=== PATIENT | female | born 1955 | race Caucasian/White ===

== ENCOUNTER → 2016-02-17 | Outpatient (CLI) | payer BC ==
[~2016-02-17] MED LIST: ASPI81TA28 PO; CONJ0.3T3 PO; DOCU-94 PO; GABA1CAP5 PO; GABA300C19 PO; IBUP-1050 PO; MULT-506 PO; NAPR1TAB9 PO; ONDA8TAB6 PO; POLY335019 PO; PROC1TAB5 PO; PSYL0.524 PO; PSYL48.59 PO; XLD/500 PO
--- NOTE | 2016-02-17 15:49 | MAMMOGRAPHY REPORT ---
BILATERAL DIGITAL SCREENING MAMMOGRAM WITH CAD: 02/17/2016 CLINICAL HISTORY: Routine screening. Patient has no complaints. TECHNIQUE: Bilateral CC and MLO views were obtained. Current study was also evaluated with a Comput er Aided Detection (CAD) system. COMPARISON: Comparison is made to exams dated: 02/13/2015 mammogram, 02/12/2014 mammogram, 02/10/20 13 mammogram, 02/08/2012 mammogram, 02/06/2011 mammogram, and 02/05/2010 mammogram - [facility]. BREAST COMPOSITION: There are scattered areas of fibroglandular density in both breasts. FINDINGS: There are stable grouped lucent centered calcifications in the far superior posterior righ t breast on the MLO view. Stable asymmetry in the slightly medial left breast. No new suspicious m ass, architectural distortion or cluster of microcalcifications is seen. IMPRESSION: ACR BI-RADS CATEGORY 1: NEGATIVE There is no mammographic evidence of malignancy. A 1 year screening mammogram is recommended. The p atient will receive written notification of the results. Approximately 10% of breast cancers are not detected with mammography. A negative mammographic repor t should not delay biopsy if a clinically suggestive mass is present. Marilee Tejada M.D. ay/:02/17/2016 14:29:42 [employer]: Vira LEVY)(Josse)(BD), [facility] letter sent: Normal 1/2 BI-RADS Code: ACR BI-RADS Category 1: Negative
== END | disposition home or self-care (01) ==
LOC: C.MAMM 13:49
PROVIDERS: ATTEND Obstetrics & Gynecology
DX: Z12.31 Encounter for screening mammogram for malignant neoplasm of breast (principal)

== ENCOUNTER → 2016-04-23 | Outpatient (CLI) | payer BC ==
--- NOTE | 2016-04-23 16:21 | DIAGNOSTIC IMAGING REPORT ---
L-SPINE MIN 4 VIEWS ROUTINE CLINICAL HISTORY: RECTAL PAIN back pain COMPARISON STUDY: No previous studies for comparison. FINDINGS: There are 5 lumbar type vertebral bodies. No fractures or subluxations are visualized. There is mild fecal retention. IMPRESSION: No fractures, subluxations, or destructive lesions are visualized. Electronically signed by: Roberth Banuelos M.D. 04/23/2016 4:20 PM Dictated Date/Time: 04/23/2016 4:19 PM
== END | disposition home or self-care (01) ==
LOC: C.RAD1850 15:50
PROVIDERS: ATTEND Family Medicine
DX: K62.89 Other specified diseases of anus and rectum (principal)

== ENCOUNTER → 2016-09-03 | Outpatient (CLI) | payer BC ==
[~2016-09-03] MED LIST changes: +ACET-1047 PO; +Boost PO; -CONJ0.3T3 PO; +FLM4 PO; -GABA300C19 PO; -IBUP-1050 PO; +LEVO500T19 PO; +MGNO400 PO; -MULT-506 PO; +PHEN-1043 PO
[2016-09-03 15:00] VITALS: BP 130/80; PULSE 84; TEMP 36.9; O2SAT 100
--- NOTE | 2016-09-03 16:02 | Radiation Oncology Follow-Up ---
Radiation Oncology Follow-Up Date of Visit Sep 03, 2016. (Barbra Thapa PA-C) Reason For Visit One-month follow-up and cancer survivorship care plan (Barbra Thapa PA-C) Radiation Completion Date finished 07-30-2016 (Barbra Thapa PA-C) Diagnosis (1) Rectal adenocarcinoma Status: Acute Onset Date: 05/15/2016 Stage: lll (B) Permanent Comment: 6 months of intermittent rectal pain and bleeding Status post colonoscopy and biopsy 05/15/2016 (Dr. Jorge L Benavides) Adenocarcinoma Status post EUS staging 05/18/2016 (Dr. New Jack) Stage uT3 uN1 Plan for combined neoadjuvant radiation and chemotherapy (Dr. Yogesh Crowe) Chemotherapy comprised of Xeloda Status post completion of radiation therapy 07/30/2016. She received 5040 cGy. Last Edited By: Barbra Thapa on Aug 10, 2016 16:27 (Barbra Thapa PA-C) History of Present Illness Ms. Eastman is a 60 year old female who presented with bleeding per rectum and some rectal discomfort for the last year. The patient was referred by her primary care physician to Dr. Jorge L Benavides who recommended a colonoscopy. The patient underwent a colonoscopy on 05/15/2016 which revealed an ulcerated partially obstructing large mass in the rectosigmoid region. The mass was circumferential beginning about 4-5 cm above the dentate line and extended to 13 cm and the mass measured 7-[address] Benavides performed a biopsy for the mass as well as several polyps which revealed invasive adenocarcinoma consistent with colorectal primary. The patient then underwent a endoscopic ultrasound with colonoscopy by Dr. Giacomo Jack on 05/18/2016 which revealed and confirmed a rectal mass which was staged as [id number]. At the time of the endoscopic evaluation, Dr. Kapadia described the mass as involving the distal rectal valve and was circumferential and appear to break through the muscularis propria and invade into the perirectal fat. Dr. Giacomo aJck noted there was no sonographic evidence of invasion into the adjacent structures including the anal internal sphincter and external anal sphincter. Dr. Kapadia did note one malignant-appearing lymph node that was most likely perirectal. The patient had a CT abdomen/pelvis on 05/19/2016 which revealed a rectal mass with no definite local invasion as well as a round/mildly suspicious presacral lymph node measuring 11 mm. The patient was seen in consultation by Dr. Hylton from surgical oncology who recommended preoperative chemoradiation therapy followed by surgical resection. The patient was also seen by Dr. Yogesh Crowe for medical oncology who agreed with those recommendations. The patient has been scheduled for an MRI of the pelvis and CT chest to complete the staging workup. We are now seeing the patient in consultation discussed the role of radiation therapy. Currently, the patient does have some rectal discomfort and minimal rectal bleeding. She has no other complaints. Status post completion of radiation therapy 07/30/2016. She received 5040 cGy (Barbra Thapa PA-C) Interim History She been doing well over this past month. She does have some mild discomfort after bowel movements. She has some trouble with constipation. She is using 2 stool softeners per day and uses Maalox on a regular basis. There is been no rectal bleeding. For the prevention of pain she continues on her gabapentin 3 times a day and Aleve twice a day. She has no abdominal pain. No pelvic pain denies difficulty with urination. She is seen the colorectal surgeon in follow- up. She'll be having preadmission on September 21 and surgery on September 29. She has for an MRI tomorrow. She is seen medical oncology. She has very apprehensive about a future IV chemotherapy. She has reviewed this with Dr. Crowe in medical oncology. She has requested that if she has future chemotherapy that this be any pill form. (Barbra Thapa PA-C) Allergies Coded Allergies: Codeine (Unverified Allergy, Intermediate, DIZZINESS, 04/05/15) Sulfa Antibiotics (Unverified Allergy, Intermediate, RASH, 04/05/15) Home Medications Scheduled Aspirin (Aspirin Ec), 81 MG PO DAILY Docusate Sodium (Colace), 2 CAP PO DAILY Gabapentin (Neurontin), 1 CAP PO TID Psyllium (Metamucil), 2 TABS PO DAILY Scheduled PRN Naproxen (Aleve), 220 MG PO Q12H PRN for Moderate Pain Ondansetron Hcl (Zofran), 8 MG PO Q8 PRN for Nausea Polyethylene Glycol 3350 (Miralax), 17 GM PO DAILY PRN for Constipation Prochlorperazine Maleate (Compazine), 1 TAB PO Q6 PRN for Nausea or Vomiting Review of Systems Gastrointestinal: Symptoms: Constipation GI Comments: taking stool softners and metamucil daily, pain after a BM Oral: Symptoms: No Problems Respiratory: Symptoms: WNL Urinary: Symptoms: Incontinence, Nocturia, Frequency Comments: nocturia 4-5 times ,urgency, denies pain or burning Skin: Symptoms: No Problems Other Skin Symptoms: "has flea bites on lower legs ", rectal area sore is sore after a BM Additional Notes: She completed a distress management report and answered "no" to all questions. (Barbra Thapa PA-C) Physical Exam Vital Signs Date Time Temp Pulse Resp B/P (MAP) Pulse Ox O2 Delivery O2 Flow Rate FiO2 09/03/16 15:00 36.9 84 20 130/80 100 Pain: Side: Bilateral Patient Pain Scale: 0 - 10 Initial Pain Intensity: 0.0 Fatigue: None General Appearance: no apparent distress Eyes: normal inspection, EOMI ENT: normal ENT inspection, hearing grossly normal Neck: no adenopathy, thyroid normal Respiratory/Chest: lungs clear, no respiratory distress, no accessory muscle use Cardiovascular: regular rate, rhythm, no gallop, no murmur Abdomen: non tender, soft, no organomegaly Anal / Rectum: Examination of the perineal area reveals no areas of wet or dry desquamation. There is no hyperpigmentation. There is no erythema or edema. There is no vaginal discharge. There is no perianal irritation. Extremities: no pedal edema Neurologic/Psychiatric: no motor/sensory deficits, alert, normal mood/affect Skin: warm/dry (Barbra Thapa PA-C) Laboratory Studies Test 07/22/16 14:34 07/29/16 14:35 White Blood Count 4.56 K/uL (4.8-10.8) 5.20 K/uL (4.8-10.8) Red Blood Count 3.83 M/uL (4.2-5.4) 3.60 M/uL (4.2-5.4) Hemoglobin 10.9 g/dL (12.0-16.0) 10.2 g/dL (12.0-16.0) Hematocrit 33.4 % (37-47) 31.7 % (37-47) Mean Corpuscular Volume 87.2 fL (80-100) 88.1 fL (80-100) Mean Corpuscular Hemoglobin 28.5 pg (25-34) 28.3 pg (25-34) Mean Corpuscular Hemoglobin Concent 32.6 g/dl (32-36) 32.2 g/dl (32-36) Platelet Count 227 K/uL (130-400) 261 K/uL (130-400) Mean Platelet Volume 8.5 fL (7.4-10.4) 9.1 fL (7.4-10.4) Neutrophils (%) (Auto) 61.2 % 72.3 % Lymphocytes (%) (Auto) 20.0 % 10.6 % Monocytes (%) (Auto) 6.6 % 9.8 % Eosinophils (%) (Auto) 11.6 % 6.3 % Basophils (%) (Auto) 0.2 % 0.6 % Neutrophils # (Auto) 2.79 K/uL (1.4-6.5) 3.76 K/uL (1.4-6.5) Lymphocytes # (Auto) 0.91 K/uL (1.2-3.4) 0.55 K/uL (1.2-3.4) Monocytes # (Auto) 0.30 K/uL (0.11-0.59) 0.51 K/uL (0.11-0.59) Eosinophils # (Auto) 0.53 K/uL (0-0.5) 0.33 K/uL (0-0.5) Basophils # (Auto) 0.01 K/uL (0-0.2) 0.03 K/uL (0-0.2) RDW Standard Deviation 52.2 fL (36.4-46.3) 58.1 fL (36.4-46.3) RDW Coefficient of Variation 18.2 % (11.5-14.5) 18.8 % (11.5-14.5) Immature Granulocyte % (Auto) 0.4 % 0.4 % Immature Granulocyte # (Auto) 0.02 K/uL (0.00-0.02) 0.02 K/uL (0.00-0.02) Sodium Level 146 mmol/L (136-145) 144 mmol/L (136-145) Potassium Level 3.7 mmol/L (3.5-5.1) 3.5 mmol/L (3.5-5.1) Chloride Level 109 mmol/L (98-107) 109 mmol/L (98-107) Carbon Dioxide Level 31 mmol/L (21-32) 28 mmol/L (21-32) Anion Gap 6.0 mmol/L (3-11) 7.0 mmol/L (3-11) Blood Urea Nitrogen 16 mg/dl (7-18) 16 mg/dl (7-18) Creatinine 0.57 mg/dl (0.60-1.20) 0.62 mg/dl (0.60-1.20) Est Creatinine Clear Calc Drug Dose 95.7 ml/min 88.0 ml/min Estimated GFR () 115.2 112.0 Estimated GFR (Non- 99.4 96.6 BUN/Creatinine Ratio 27.8 (10-20) 26.2 (10-20) Random Glucose 136 mg/dl (70-99) 134 mg/dl (70-99) Calcium Level 8.4 mg/dl (8.5-10.1) 8.4 mg/dl (8.5-10.1) Total Bilirubin 0.4 mg/dl (0.2-1) 0.4 mg/dl (0.2-1) Aspartate Amino Transferase (AST) 17 U/L (15-37) 14 U/L (15-37) Alanine Aminotransferase (ALT) 20 U/L (12-78) 21 U/L (12-78) Alkaline Phosphatase 83 U/L (45-117) 81 U/L (45-117) Total Protein 6.8 gm/dl (6.4-8.2) 6.8 gm/dl (6.4-8.2) Albumin 3.2 gm/dl (3.4-5.0) 3.1 gm/dl (3.4-5.0) Globulin 3.6 gm/dl (2.5-4.0) 3.7 gm/dl (2.5-4.0) Albumin/Globulin Ratio 0.9 (0.9-2) 0.8 (0.9-2) (Barbra Thapa PA-C) Assessment & Plan Plan: Patient is also seen today by Dr. Crowe. We reviewed with her the upcoming studies and surgery. She has for an MRI tomorrow. She has preadmission testing on September 21. The laparoscopic low anterior resection is scheduled for September 29. She'll continue on her current regimen of stool softener. A survivorship document was reviewed and given to the patient. We asked her to return to our office in 6 months. She may call if she has any questions or concerns in the interim. (Barbra Thapa PA-C) I agree with note created by Barbra Thapa PA-C. I reviewed the patient's chart and information with her. I have examined and evaluated the patient. I reviewed relevant clinical information and answered the patient's and/or family' s questions. (Veeral. Crowe MD) Total Time In Follow-Up I spent 20 minutes speaking to the patient performing examination. I spent 20 minutes reviewing information, preparing a survivorship document, and completing this note. (Barbra Thapa PA-C) I spent 15 minutes examining and counseling the patient. (Veeral. Crowe MD) Copy To Shaji Hylton D.O.; Giacomo Jcak MD; Syeda Benavides DO; Yogesh Crowe M.D.; Marylu Ojeda MD
== END | disposition home or self-care (01) ==
LOC: C.ONC 14:56
PROVIDERS: ATTEND Physician Assistant Medical
DX: Z08 Encounter for follow-up examination after completed treatment for malignant neoplasm (principal); Z92.3 Personal history of irradiation; Z85.048 Personal history of other malignant neoplasm of rectum, rectosigmoid junction, and anus

== ENCOUNTER → 2016-10-13 | Day surgery (SDC) | payer BC ==
[~2016-10-13] MED LIST changes: -PSYL48.59 PO; -XLD/500 PO
== END | disposition home or self-care (01) ==
LOC: C.ACU 13:44
PROVIDERS: ATTEND Family Medicine Adult Medicine
DX: K94.19 Other complications of enterostomy (principal); C20 Malignant neoplasm of rectum; G47.00 Insomnia, unspecified; M85.80 Other specified disorders of bone density and structure, unspecified site; E55.9 Vitamin D deficiency, unspecified; Z92.3 Personal history of irradiation

== ENCOUNTER 2016-11-20 18:00 | Inpatient (IN) | payer BC ==
[~2016-11-20] VITALS: Ht 167.6 cm; Wt 56.4 kg
[~2016-11-20 18:00] MED LIST changes: -ACET-1047 PO; -Boost PO; -FLM4 PO; -LEVO500T19 PO; -MGNO400 PO; -PHEN-1043 PO
[2016-11-20] MEDS ORDERED: SODIUM CHLORIDE 0.9% 1000ML 1,000 ML IV STA ×2 (19:16→22:24)
[2016-11-20] MEDS ORDERED: ONDANSETRON 8 MG/54 ML D5W IV STA (19:16)
[2016-11-20] MEDS ORDERED: OPTIRAY 320 IV PRN (19:30)
[2016-11-20 19:53] LABS: HEMATOCRIT 22.3 % (37-47); MEAN CELL VOLUME 77.7 fL (80-100); MEAN CORPUSCULAR HEMOGLOBIN 24.7 pg (25-34); MEAN CORPUSCULAR HGB CONC 31.8 g/dl (32-36); MEAN PLATELET VOLUME 8.8 fL (7.4-10.4); PLATELET COUNT 380 K/uL (130-400); RED BLOOD COUNT 2.87 M/uL (4.2-5.4); WHITE BLOOD COUNT 15.04 K/uL (4.8-10.8)
[2016-11-20 20:02] LABS: INR 1.2 (0.9-1.1); PROTHROMBIN TIME (PATIENT) 13.4 SECONDS (9.0-12.0)
[2016-11-20 20:10] LABS: ALT/SGPT 20 U/L (12-78); BLOOD UREA NITROGEN 10 mg/dl (7-18); BUN/CREATININE RATIO 11.1 (10-20); CALCIUM 8.4 mg/dl (8.5-10.1); CARBON DIOXIDE 25 mmol/L (21-32); CHLORIDE 99 mmol/L (98-107); CREATININE 0.92 mg/dl (0.60-1.20); GLUCOSE 154 mg/dl (70-99); MAGNESIUM 1.5 mg/dl (1.8-2.4); POTASSIUM 2.9 mmol/L (3.5-5.1); SODIUM 134 mmol/L (136-145)
--- NOTE | 2016-11-20 20:14 | EMERGENCY ROOM VISIT NOTE ---
History Report prepared by Josephine: Max Wilson Under the Supervision of: Dr. Dorota Singh D.O. First contact with patient: 19:04 Chief Complaint: CONSTIPATION Stated Complaint: CAN'T GO TO THE BATHROOM Nursing Triage Summary: pt states she has not had a BM in a week. patient has a colostomy. patient called PCP and was told to come to ER to r/o obstruction. patient states she has been taking miralax patient c/o nausea. dneies abdominal pain hx rectal adenocarcinoma last chemo 2 weeks ago did not get round of chemo this week because potassium is low. History of Present Illness The patient is a 61 year old female who presents to the Emergency Room with complaints of constant constipation for the past five days. The patient states that she has a history of rectal cancer and is currently being treated with chemotherapy. She reports that her last treatment was last week and she did not receive her treatment this week due to low potassium levels. She notes that she has not had a normal bowel movement in the last 5 days but has had one small bowel movement today that is soft and brown. The patient states that she has had a fever today and has vomited twice since this morning. She notes that she was able to keep fluids down with compazine and Zofran. The patient denies nausea before today, blood in her vomit, abdominal pain, rashes, sores, changes in medications, changes in food, bloating, irritation of her stoma, urinary symptoms, cough, cold. She has a previous history of Colostomy and had a small amount of brown stool in the bag today. She notes being on potassium pills and states that she has tried using Mirilax without relief of her symptoms. Source of History: patient Onset: five days ago Position: abdomen Timing: constant Associated Symptoms: + vomiting, No abdominal pain, No urinary symptoms, No rash Note: No blood in her vomit, change in medication, change in diet, bloating, or irritation in her stoma. Review of Systems See HPI for pertinent positives & negatives. A total of 10 systems reviewed and were otherwise negative. Past Medical & Surgical Medical Problems: (1) Hypokalemia (2) Left ureteral calculus (3) Rectal adenocarcinoma (4) Symptomatic anemia Family History No pertinent family history stated. Social History Smoking Status: Former Smoker Marital Status: Occupation Status: employed Current/Historical Medications Scheduled Aspirin (Aspirin Ec), 81 MG PO DAILY Docusate Sodium (Colace), 2 CAP PO DAILY Gabapentin (Neurontin), 400 MG PO TID Scheduled PRN Naproxen (Aleve), 220 MG PO Q12H PRN for Moderate Pain Ondansetron Hcl (Zofran), 8 MG PO Q8 PRN for Nausea Polyethylene Glycol 3350 (Miralax), 17 GM PO DAILY PRN for Constipation Prochlorperazine Maleate (Compazine), 10 MG PO Q6 PRN for Nausea or Vomiting Allergies Coded Allergies: Sulfa Antibiotics (Verified Allergy, Intermediate, RASH, 11/20/16) Codeine (Verified Adverse Reaction, Intermediate, DIZZINESS, 11/20/16) Physical Exam Vital Signs Date Time Temp Pulse Resp B/P (MAP) Pulse Ox O2 Delivery O2 Flow Rate FiO2 11/21/16 00:05 71 20 116/61 97 Room Air 11/20/16 22:59 37.5 72 20 116/54 97 Room Air 11/20/16 21:45 70 20 117/68 95 Room Air 11/20/16 20:00 89 18 121/62 97 Room Air 11/20/16 18:06 38.6 108 22 117/55 95 Room Air Physical Exam GENERAL: alert, well appearing, well nourished, no distress, non-toxic EYE EXAM: normal conjunctiva, PERRL and EOM's grossly intact OROPHARYNX: no exudate, no erythema, lips, buccal mucosa, and tongue normal and mucous membranes are dry NECK: supple, no nuchal rigidity, no adenopathy, non-tender LUNGS: Clear to auscultation. Normal chest wall mechanics HEART: no murmurs, S1 normal and S2 normal ABDOMEN: abdomen soft, non-tender, normo-active bowel sounds, no masses, no rebound or guarding. Brown stool in bag, no gross blood, stoma well appearing, normal appearing tissue BACK: Back is symmetrical on inspection and there is no deformity, no midline tenderness, no CVA tenderness. SKIN: no rashes and no bruising UPPER EXTREMITIES: upper extremities are grossly normal. LOWER EXTREMITIES: No pitting edema. NEURO EXAM: Normal sensorium, cranial nerves II-XII grossly intact, normal speech, no gross weakness of arms, no gross weakness of legs. Medical Decision & Procedures ER Provider Diagnostic Interpretation: Radiology results have been interpreted by the radiologist and reviewed by me. ABD/PELVIS IV AND ORAL CONT FINDINGS: Cnc Wood Lathe Operator topogram: Unremarkable. Lung bases: Minimal dependent changes likely atelectasis. Normal heart size. No pericardial or pleural effusion. Liver: Scattered parenchymal calcifications may indicate prior granulomatous infection. Few well-defined hypodensities noted, indeterminate but likely hepatic cysts. Patent hepatic vasculature. Biliary: No intrahepatic or extrahepatic biliary ductal dilatation. Normal gallbladder. Pancreas: Normal. Spleen: Parenchymal calcifications likely indicate prior granulomatous infection. Adrenal glands: Stable 1.8 cm left adrenal gland nodule. By density on prior noncontrast exam from 06/05/2016 (7 Hounsfield units), this is consistent with a benign adenoma. Right adrenal gland normal. Kidneys and ureters: Right kidney normal. Left kidney demonstrates mild hydronephrosis and heterogeneous hypoenhancement. There is overall slight enlargement of the left kidney. Upper pole and interpolar cysts again noted. Right ureter normal. Left ureter dilated with urothelial thickening evident. An obstructing 3 mm calculus noted at the left ureterovesical junction. Bladder: No bladder calculus. Bladder normal. Pelvic organs: Uterus and ovaries normal. Bowel: Postsurgical changes of sigmoidectomy with left descending colostomy. Craig's pouch is now seen. Infiltration and gas noted at the superior margin with the appearance concerning for anastomotic breakdown. Low-density wall thickening of the superior portion of the Craig's pouch suggests edema. Peritoneal cavity: Presacral and mesorectal fascial infiltration. No free intraperitoneal fluid or gas. Lymph nodes: No enlarged lymph nodes in the abdomen or pelvis. Vasculature: Atherosclerosis of the normal caliber abdominal aorta. IVC patent. Abdominal wall: Midline infraumbilical surgical incision. No fluid collection associated with the incision site or colostomy in the left mid abdomen. Musculoskeletal: Degenerative changes of the spine. IMPRESSION: 1. Obstructing 3 mm calculus at the left ureterovesical junction. Resultant left hydroureteronephrosis. The degree of heterogeneity of enhancement of the left kidney further raises concern for potential superimposed pyelonephritis. Correlate with urinalysis to exclude infection. 2. Postsurgical changes of sigmoidectomy and left descending colostomy. 3. Abnormal appearance of the Craig's pouch, which raises concern for chronic anastomotic breakdown. Rectal wall edema and diffuse presacral and mesorectal inflammatory change/granulation tissue. 4. Benign left adrenal gland adenoma. Electronically signed by: Best Guzman M.D. 11/20/2016 10:32 PM Dictated Date/Time: 11/20/2016 10:22 PM Laboratory Results Test 11/20/16 19:30 11/20/16 20:22 11/20/16 22:47 Nucleated RBC Absolute Count (auto) 0.02 K/uL (0-0) Nucleated Red Blood Cells % 0.1 % Prothrombin Time 13.4 SECONDS (9.0-12.0) Prothromb Time International Ratio 1.2 (0.9-1.1) Troponin I < 0.015 ng/ml (0-0.045) Globulin 4.4 gm/dl (2.5-4.0) Albumin/Globulin Ratio 0.4 (0.9-2) Urine Color YELLOW Urine Appearance CLEAR (CLEAR) Urine pH 7.5 (4.5-7.5) Urine Specific [place] 1.010 (1.000-1.030) Urine Protein 1+ (NEG) Urine Glucose (UA) NEG (NEG) Urine Ketones NEG (NEG) Urine Occult Blood TRACE (NEG) Urine Nitrite NEG (NEG) Urine Bilirubin NEG (NEG) Urine Urobilinogen NEG (NEG) Urine Leukocyte Esterase MODERATE (NEG) Urine WBC (Auto) >30 /hpf (0-5) Urine RBC (Auto) 0-4 /hpf (0-4) Urine Hyaline Casts (Auto) 1-5 /lpf (0-5) Urine Epithelial Cells (Auto) 0-5 /lpf (0-5) Urine Bacteria (Auto) NEG (NEG) Urine Pathogenic Casts /lpf (0) Lactic Acid Level 1.4 mmol/L (0.4-2.0) Date/Time Source Procedure Growth Status 11/20/16 20:22 Urine , Clean Catch Urine Culture - Final Escherichia Coli Complete Laboratory results per my review. Medications Administered Medications (Trade) Dose Ordered Sig/Caryn Route Start Time Stop Time Status Last Admin Dose Admin Sodium Chloride 1,000 ml @ 999 mls/hr Q1H1M STAT IV 11/20/16 19:16 11/20/16 20:16 DC 11/20/16 19:29 999 MLS/HR Ondansetron HCl (Zofran 8mg Iv) 8 mg NOW STAT IV 11/20/16 19:16 11/20/16 19:19 DC 11/20/16 19:29 8 MG Potassium Chloride (Klor-Con M10) 40 meq NOW STAT PO 11/20/16 20:42 11/20/16 20:48 DC 11/20/16 20:59 40 MEQ Piperacillin Sod/ Tazobactam Sod (Zosyn Iv) 3.375 gm NOW STAT IV 11/20/16 21:21 11/20/16 21:23 DC 11/20/16 23:03 3.375 GM Sodium Chloride 1,000 ml @ 999 mls/hr Q1H1M STAT IV 11/20/16 22:24 11/20/16 23:24 DC 11/20/16 22:24 999 MLS/HR ECG Indication: vomiting Rate (beats per minute): 77 Rhythm: sinus rhythm Findings: no acute ischemic change, other (Normal axis, normal interval, poor quality of tracing) ED Course 1906: The patient was evaluated in room B11. A complete history and physical exam was performed. 6: Zofran 8mg IV, Sodium Chloride 1,000 ml @ 999 mls/hr IV. 2: Potassium Chloride 40meq PO. 2220: Zosyn IV 3.375gm IV. 4: Sodium Chloride 1000 ml @ 999 mls/hr IV. 2242: I reevaluated and updated the patient. 2356: I spoke to Dr. Monroe - Jemima about the patients CT results. He notes that it is normal. 0012: I reviewed the patient's case with Dr. Guillory. He will evaluate the patient for further management. 0023: Upon reevaluation, the patient is doing well. I discussed the findings and the treatment plan with the patient. She expresses agreement and understanding. I spoke with Dr. Guillory of the [facility] Hospitalist Service. The patient will be evaluated for further management. Medical Decision Differential diagnosis: Etiologies such as appendicitis, diverticulitis, PUD, biliary pathology, UTI, pancreatitis, obstruction, mesenteric ischemia, aortic pathology, infections, inflammatory bowel disease, renal colic, as well as others were entertained. Likely pt's evolving UTI and kidney stone contributed to nausea which is why pt didn't take all of her usual bowel medications this week upon further questioning. This likely led to constipation. Pt dehydrated due to poor po intake, likely reasons for elevated lactate as this improved following IVF. Pt covered with antibiotics and cultures pending. CT revealed stone as well. Discussed with medicine, they will manage and consult urology. Discussed findings of chronic like at [place] pouch with electric container tester surgery at [facility]. They feel unlikely to be contributing to symptoms at this time. VS otw stable. Pt improved with meds. Admitted for additional treatment and monitoring. Doubt bacteremia/sepsis. Doubt vascular etiology. Anemia likely from chemotherapy. No neutropenic fever. No active bleeding. Medication Reconcilliation Current Medication List: was personally reviewed by me Blood Pressure Screening Patient's blood pressure: Normal blood pressure Blood pressure disposition: Did not require urgent referral Consults Time Called: 9 Consulting Physician: Dr. Guillory - [facility] Returned Call: 11 I reviewed the patient's case with Dr. Guillory. He will evaluate the patient for further management. Additional Consults: Time Called: [phone] Consulted Physician: Dr. Monroe - Surgery Returned Call: [phone] Additional Comments: I spoke to Dr. Diggs - Jemima about the patients CT results. Advises the chronic leak noted on CT is unlikely related to pt's presentation today. It will be followed up and be tested prior to re-anastamosis. Impression Primary Impression: UTI (urinary tract infection) Additional Impressions: Kidney stone Constipation Scribe Attestation The scribe's documentation has been prepared under my direction and personally reviewed by me in its entirety. I confirm that the note above accurately reflects all work, treatment, procedures, and medical decision making performed by me. Departure Information Dispostion Being Evaluated By Hospitalist Referrals Marylu Ojeda MD (PCP) Patient Instructions My [facility] Problem Qualifiers Primary Impression: UTI (urinary tract infection) Urinary tract infection type: acute cystitis Hematuria presence: with hematuria Qualified Codes: N30.01 - Acute cystitis with hematuria Additional Impressions: Constipation Constipation type: unspecified constipation type Qualified Codes: K59.00 - Constipation, unspecified
[2016-11-20 20:15] LABS: ALB/GLOB RATIO 0.4 (0.9-2); ALKALINE PHOSPHATASE 95 U/L (45-117); AST/SGOT 17 U/L (15-37)
[2016-11-20 20:20] LABS: BASO % 0.1 %; BASO ABS # 0.01 K/uL (0-0.2); COMPLETE YES; EOS % 0.1 %; IG% 2.1 %; LYMPH % 6.1 %; LYMPH ABS # 0.92 K/uL (1.2-3.4); MONO % 7.2 %; NEUT % 84.4 %; TOXIC GRANULATION 2+
[2016-11-20 20:39] LABS: URINE APPEARANCE CLEAR (CLEAR); URINE BILIRUBIN NEG (NEG); URINE COLOR YELLOW; URINE EPITHELIAL CELL AUTO 0-5 /lpf (0-5); URINE NITRITE NEG (NEG); URINE PH 7.5 (4.5-7.5); UROBILINOGEN NEG (NEG); ZZUR CULT IF INDIC CLEAN CATCH YES
[2016-11-20 20:41] LABS: MANUAL MICROSCOPIC REQUIRED? NO; REVIEW REQ? YES
[2016-11-20 20:42] LABS: SULFASALICYLIC ACID POS (NEG)
[2016-11-20] MEDS ORDERED: POTASSIUM CHLORIDE 10 MEQ TABCR PO STA (20:42)
[2016-11-20] MEDS ORDERED: PIPERACILLIN/TAZOBACTAM 3.375 GM/100ML D5W IV STA (21:21)
--- NOTE | 2016-11-20 22:33 | DIAGNOSTIC IMAGING REPORT ---
ABD/PELVIS IV AND ORAL CONT CLINICAL HISTORY: 61 years-old Female presenting with abd pain, n/v, constipation. TECHNIQUE: Multidetector CT of the abdomen and pelvis was performed after the administration of oral and intravenous contrast. IV contrast: 92 mL of Optiray 320. A dose lowering technique was used consistent with the principles of ALARA (as low as reasonably achievable). COMPARISON: 05/19/2016. CT DOSE (mGy.cm): The estimated cumulative dose is 274.84 mGy.cm. FINDINGS: Marking Room Supervisor topogram: Unremarkable. Lung bases: Minimal dependent changes likely atelectasis. Normal heart size. No pericardial or pleural effusion. Liver: Scattered parenchymal calcifications may indicate prior granulomatous infection. Few well-defined hypodensities noted, indeterminate but likely hepatic cysts. Patent hepatic vasculature. Biliary: No intrahepatic or extrahepatic biliary ductal dilatation. Normal gallbladder. Pancreas: Normal. Spleen: Parenchymal calcifications likely indicate prior granulomatous infection. Adrenal glands: Stable 1.8 cm left adrenal gland nodule. By density on prior noncontrast exam from 06/05/2016 (7 Hounsfield units), this is consistent with a benign adenoma. Right adrenal gland normal. Kidneys and ureters: Right kidney normal. Left kidney demonstrates mild hydronephrosis and heterogeneous hypoenhancement. There is overall slight enlargement of the left kidney. Upper pole and interpolar cysts again noted. Right ureter normal. Left ureter dilated with urothelial thickening evident. An obstructing 3 mm calculus noted at the left ureterovesical junction. Bladder: No bladder calculus. Bladder normal. Pelvic organs: Uterus and ovaries normal. Bowel: Postsurgical changes of sigmoidectomy with left descending colostomy. Craig's pouch is now seen. Infiltration and gas noted at the superior margin with the appearance concerning for anastomotic breakdown. Low-density wall thickening of the superior portion of the Craig's pouch suggests edema. Peritoneal cavity: Presacral and mesorectal fascial infiltration. No free intraperitoneal fluid or gas. Lymph nodes: No enlarged lymph nodes in the abdomen or pelvis. Vasculature: Atherosclerosis of the normal caliber abdominal aorta. IVC patent. Abdominal wall: Midline infraumbilical surgical incision. No fluid collection associated with the incision site or colostomy in the left mid abdomen. Musculoskeletal: Degenerative changes of the spine. IMPRESSION: 1. Obstructing 3 mm calculus at the left ureterovesical junction. Resultant left hydroureteronephrosis. The degree of heterogeneity of enhancement of the left kidney further raises concern for potential superimposed pyelonephritis. Correlate with urinalysis to exclude infection. 2. Postsurgical changes of sigmoidectomy and left descending colostomy. 3. Abnormal appearance of the Craig's pouch, which raises concern for chronic anastomotic breakdown. Rectal wall edema and diffuse presacral and mesorectal inflammatory change/granulation tissue. 4. Benign left adrenal gland adenoma. Electronically signed by: Best Guzman M.D. 11/20/2016 10:32 PM Dictated Date/Time: 11/20/2016 10:22 PM
[2016-11-21] VITALS (16 sets, daily range): BP systolic 105–149; BP diastolic 61–77; PULSE 54–74; TEMP 36.5–37.9; O2SAT 96–99; Ht 167.6 cm; Wt 56.4 kg
[2016-11-21] MEDS ORDERED: VANCOMYCIN INJ 1,000 MG in SODIUM CHLORIDE 0.9% 250ML 250 ML IV STA (00:42)
[2016-11-21] MEDS ORDERED: ACETAMINOPHEN IV 100 ML IV PRN (00:45)
[2016-11-21] MEDS ORDERED: MoRPHine SULFATE 4 MG/ML 1 ML CARP\\VIAL IV PRN (00:45)
[2016-11-21] MEDS ORDERED: PIPERACILL/TAZOBAC CONSULT ACTIVE PRN (01:15)
[2016-11-21] MEDS ORDERED: VANCOMYCIN CONSULT ACTIVE PRN (01:15)
[2016-11-21] MEDS ORDERED: VANCOMYCIN 1GM/270ML NSS ONE (01:18)
[2016-11-21] MEDS: NSS + 20MEQ KCL 1000ML 1,000 ML IV SCH ×3 (02:24→21:08)
[2016-11-21] MEDS: FAMOTIDINE IV INJ 20 MG in DEXTROSE 5% 100ML 100 ML IV SCH ×2 (02:25→13:20)
[2016-11-21] MEDS: ACETAMINOPHEN 325 MG TAB PO PRN (02:56)
[2016-11-21] MEDS ORDERED: ZOLPIDEM TARTRATE 5 MG TAB PO PRN (03:30)
[2016-11-21] MEDS: PIPERACILL/TAZOBAC IV 3.375 GM in DEXTROSE 5% 100ML 100 ML IV SCH ×3 (04:53→20:53)
--- NOTE | 2016-11-21 07:55 | History and Physical ---
History & Physical Date & Time of Service: Nov 21, 2016 at 07:40 Chief Complaint: Left Ureteral Calculus, Symptomatic Anemia Primary Care Physician: Marylu Ojeda MD History of Present Illness Source: patient, hospital records The patient is a 61-year-old female who presents to the emergency department with constipation over the past 5 days. She has rectal cancer, and has begun chemotherapy. She did not receive chemotherapy treatment this week due to low potassium levels. She had a fever today, and vomited twice since the morning. She has been able to keep fluids down with the use of Compazine and Zofran. She reports that she has small amount of brown stool in her colostomy bag today. She has not had any relief of her symptoms with MiraLAX. Past Medical/Surgical History Medical Problems: (1) Hypokalemia Status: Resolved (2) Rectal adenocarcinoma Permanent Comment: 6 months of intermittent rectal pain and bleeding Status post colonoscopy and biopsy 05/15/2016 (Dr. Jorge L Benavides) Adenocarcinoma Status post EUS staging 05/18/2016 (Dr. New Jack) Stage uT3 uN1 Plan for combined neoadjuvant radiation and chemotherapy (Dr. Yogesh Crowe) Chemotherapy comprised of Xeloda Status post completion of radiation therapy 07/30/2016. She received 5040 cGy. Status: Chronic Family History Noncontributory Social History Smoking Status: Never Smoker Smokeless Tobacco Use: No Alcohol Use: none Drug Use: none Marital Status: Occupational Status: employed Immunizations History of Influenza Vaccine: Unknown History of Tetanus Vaccine?: Unknown History of Pneumococcal: Unknown History of Hepatitis B Vaccine: Unknown Multi-Drug Resistant Organisms History of MDRO: No Allergies Coded Allergies: Sulfa Antibiotics (Verified Allergy, Intermediate, RASH, 11/20/16) Codeine (Verified Adverse Reaction, Intermediate, DIZZINESS, 11/20/16) Home Medications Scheduled Aspirin (Aspirin Ec), 81 MG PO DAILY Docusate Sodium (Colace), 2 CAP PO DAILY Gabapentin (Neurontin), 400 MG PO TID Scheduled PRN Naproxen (Aleve), 220 MG PO Q12H PRN for Moderate Pain Ondansetron Hcl (Zofran), 8 MG PO Q8 PRN for Nausea Polyethylene Glycol 3350 (Miralax), 17 GM PO DAILY PRN for Constipation Prochlorperazine Maleate (Compazine), 10 MG PO Q6 PRN for Nausea or Vomiting Review of Systems The patient denies chest pain, palpitations, shortness of breath, cough, lower extremity swelling, vision change, hearing change, sore throat, fevers, chills, sweats, blood in urine or stool, lightheadedness, dizziness, headache, memory loss, rash, abnormal bruising or bleeding, imbalance, focal weakness, numbness or tingling in arms or legs, generalized arthralgias or myalgias, neck pain, or night sweats. The review of systems is otherwise negative other than for that already noted above, and at least 10 systems have been reviewed. Physical Exam Vital Signs Date Time Temp Pulse Resp B/P (MAP) Pulse Ox O2 Delivery O2 Flow Rate FiO2 11/21/16 07:12 36.6 57 18 149/77 97 11/21/16 07:11 36.6 57 16 149/77 (101) 97 Room Air 11/21/16 06:45 36.6 62 16 144/77 98 11/21/16 06:30 36.8 60 16 134/75 98 11/21/16 06:10 36.8 63 16 131/74 97 11/21/16 05:50 36.7 64 16 121/61 96 11/21/16 04:50 36.5 67 15 118/70 98 11/21/16 03:50 37.8 73 16 105/68 96 11/21/16 03:20 37.4 73 14 113/67 97 11/21/16 03:05 37.6 73 16 118/76 96 11/21/16 02:49 37.9 74 17 107/65 97 11/21/16 01:30 Room Air 11/21/16 01:22 74 16 92/72 97 11/21/16 00:52 Room Air 11/21/16 00:05 71 20 116/61 97 Room Air 11/20/16 22:59 37.5 72 20 116/54 97 Room Air 11/20/16 21:45 70 20 117/68 95 Room Air 11/20/16 20:00 89 18 121/62 97 Room Air 11/20/16 18:06 38.6 108 22 117/55 95 Room Air The patient is awake, well-developed and adequately nourished, alert and oriented 3, normocephalic and atraumatic, lying in bed and in no acute distress. HEENT--PERRL, EOMI, mucous membranes and oropharynx dry. Neck--supple, no JVD or bruits, thyroid normal, trachea midline, no adenopathy. Heart--normal S1 and S2, no extra beats, no murmurs, rubs or gallops. Lungs--clear bilaterally with good air movement, no respiratory distress, no accessory muscle use. Abdomen--normal bowel sounds and soft, nontender and nondistended, no hernias or masses, no organomegaly. Colostomy with brown stool. Extremities--no cyanosis, clubbing or edema. There are good distal pulses b/l. Dermatologic--normal skin turgor, normal color, warm and dry, no abnormal lymph nodes, no rash. Neurologic--cranial nerves II through XII grossly intact. Rheumatologic--normal range of motion, nontender, muscles and joints. Psychiatric--normal affect. Diagnostics Laboratory Results Results Past 24 Hours Test 11/20/16 19:30 11/20/16 20:22 11/20/16 22:47 Range/Units White Blood Count 15.04 4.8-10.8 K/uL Red Blood Count 2.87 4.2-5.4 M/uL Hemoglobin 7.1 12.0-16.0 g/dL Hematocrit 22.3 37-47 % Mean Corpuscular Volume 77.7 80-100 fL Mean Corpuscular Hemoglobin 24.7 25-34 pg Mean Corpuscular Hemoglobin Concent 31.8 32-36 g/dl Platelet Count 380 130-400 K/uL Mean Platelet Volume 8.8 7.4-10.4 fL Neutrophils (%) (Auto) 84.4 % Lymphocytes (%) (Auto) 6.1 % Monocytes (%) (Auto) 7.2 % Eosinophils (%) (Auto) 0.1 % Basophils (%) (Auto) 0.1 % Neutrophils # (Auto) 12.70 1.4-6.5 K/uL Lymphocytes # (Auto) 0.92 1.2-3.4 K/uL Monocytes # (Auto) 1.08 0.11-0.59 K/uL Eosinophils # (Auto) 0.01 0-0.5 K/uL Basophils # (Auto) 0.01 0-0.2 K/uL RDW Standard Deviation 48.7 36.4-46.3 fL RDW Coefficient of Variation 17.1 11.5-14.5 % Immature Granulocyte % (Auto) 2.1 % Immature Granulocyte # (Auto) 0.32 0.00-0.02 K/uL Nucleated RBC Absolute Count (auto) 0.02 0-0 K/uL Nucleated Red Blood Cells % 0.1 % Toxic Granulation 2+ Prothrombin Time 13.4 9.0-12.0 SECONDS Prothromb Time International Ratio 1.2 0.9-1.1 Sodium Level 134 136-145 mmol/L Potassium Level 2.9 3.5-5.1 mmol/L Chloride Level 99 98-107 mmol/L Carbon Dioxide Level 25 21-32 mmol/L Anion Gap 11.0 3-11 mmol/L Blood Urea Nitrogen 10 7-18 mg/dl Creatinine 0.92 0.60-1.20 mg/dl Est Creatinine Clear Calc Drug Dose 55.7 ml/min Estimated GFR () 76.8 Estimated GFR (Non- 66.3 BUN/Creatinine Ratio 11.1 10-20 Random Glucose 154 70-99 mg/dl Lactic Acid Level 3.2 1.4 0.4-2.0 mmol/L Calcium Level 8.4 8.5-10.1 mg/dl Magnesium Level 1.5 1.8-2.4 mg/dl Total Bilirubin 0.3 0.2-1 mg/dl Aspartate Amino Transf (AST/SGOT) 17 15-37 U/L Alanine Aminotransferase (ALT/SGPT) 20 12-78 U/L Alkaline Phosphatase 95 45-117 U/L Troponin I < 0.015 0-0.045 ng/ml Total Protein 6.3 6.4-8.2 gm/dl Albumin 1.9 3.4-5.0 gm/dl Globulin 4.4 2.5-4.0 gm/dl Albumin/Globulin Ratio 0.4 0.9-2 Urine Color YELLOW Urine Appearance CLEAR CLEAR Urine pH 7.5 4.5-7.5 Urine Specific [place] 1.010 1.000-1.030 Urine Protein 1+ NEG Urine Glucose (UA) NEG NEG Urine Ketones NEG NEG Urine Occult Blood TRACE NEG Urine Nitrite NEG NEG Urine Bilirubin NEG NEG Urine Urobilinogen NEG NEG Urine Leukocyte Esterase MODERATE NEG Urine WBC (Auto) >30 0-5 /hpf Urine RBC (Auto) 0-4 0-4 /hpf Urine Hyaline Casts (Auto) 1-5 0-5 /lpf Urine Epithelial Cells (Auto) 0-5 0-5 /lpf Urine Bacteria (Auto) NEG NEG Urine Pathogenic Casts 0 /lpf Microbiology Results 11/20/16 Blood Culture, Received Pending 11/20/16 Blood Culture, Received Pending 11/20/16 Urine Culture, Received Pending Diagnostic Radiology Patient Name: CHRIS MCCALL Unit Number: [id number] Dictated: 11/20/162221 Transcribed: 11/20/162221 PBS Printed Date/Time: [~ rep prt dt]/[~ rep prt tm] [~ rep ct labl] - [~ rep ct ivnm] [facility] [place] [address] Dictated: 11/20/162221 Transcribed: 11/20/162221 PBS Printed Date/Time: [~ rep prt dt]/[~ rep prt tm] [~ rep ct labl] - [~ rep ct ivnm] ABD/PELVIS IV AND ORAL CONT CLINICAL HISTORY: 61 years-old Female presenting with abd pain, n/v, constipation. TECHNIQUE: Multidetector CT of the abdomen and pelvis was performed after the administration of oral and intravenous contrast. IV contrast: 92 mL of Optiray 320. A dose lowering technique was used consistent with the principles of ALARA (as low as reasonably achievable). COMPARISON: 05/19/2016. CT DOSE (mGy.cm): The estimated cumulative dose is 274.84 mGy.cm. FINDINGS: [employer] topogram: Unremarkable. Lung bases: Minimal dependent changes likely atelectasis. Normal heart size. No pericardial or pleural effusion. Liver: Scattered parenchymal calcifications may indicate prior granulomatous infection. Few well-defined hypodensities noted, indeterminate but likely hepatic cysts. Patent hepatic vasculature. Biliary: No intrahepatic or extrahepatic biliary ductal dilatation. Normal gallbladder. Pancreas: Normal. Spleen: Parenchymal calcifications likely indicate prior granulomatous infection. Adrenal glands: Stable 1.8 cm left adrenal gland nodule. By density on prior noncontrast exam from 06/05/2016 (7 Hounsfield units), this is consistent with a benign adenoma. Right adrenal gland normal. Kidneys and ureters: Right kidney normal. Left kidney demonstrates mild hydronephrosis and heterogeneous hypoenhancement. There is overall slight enlargement of the left kidney. Upper pole and interpolar cysts again noted. Right ureter normal. Left ureter dilated with urothelial thickening evident. An obstructing 3 mm calculus noted at the left ureterovesical junction. Bladder: No bladder calculus. Bladder normal. Pelvic organs: Uterus and ovaries normal. Bowel: Postsurgical changes of sigmoidectomy with left descending colostomy. Craig's pouch is now seen. Infiltration and gas noted at the superior margin with the appearance concerning for anastomotic breakdown. Low-density wall thickening of the superior portion of the Craig's pouch suggests edema. Peritoneal cavity: Presacral and mesorectal fascial infiltration. No free intraperitoneal fluid or gas. Lymph nodes: No enlarged lymph nodes in the abdomen or pelvis. Vasculature: Atherosclerosis of the normal caliber abdominal aorta. IVC patent. Abdominal wall: Midline infraumbilical surgical incision. No fluid collection associated with the incision site or colostomy in the left mid abdomen. Musculoskeletal: Degenerative changes of the spine. IMPRESSION: 1. Obstructing 3 mm calculus at the left ureterovesical junction. Resultant left hydroureteronephrosis. The degree of heterogeneity of enhancement of the left kidney further raises concern for potential superimposed pyelonephritis. Correlate with urinalysis to exclude infection. 2. Postsurgical changes of sigmoidectomy and left descending colostomy. 3. Abnormal appearance of the Craig's pouch, which raises concern for chronic anastomotic breakdown. Rectal wall edema and diffuse presacral and mesorectal inflammatory change/granulation tissue. 4. Benign left adrenal gland adenoma. Electronically signed by: Best Guzman M.D. 11/20/2016 10:32 PM Dictated Date/Time: 11/20/2016 10:22 PM The status of this report is Signed. Draft = Not yet reviewed or approved by Radiologist. Signed = Reviewed and approved by Radiologist. <AttendingPhy></AttendingPhy> <FamilyPhy>Marylu Ojdea MD</FamilyPhy> < PrimaryPhy>Marylu Ojeda MD</PrimaryPhy> <UnitNumber>[id number]</UnitNumber > <VisitNumber>[id number]</VisitNumber> <PatientName>CAL,CHRIS A</ PatientName> <DateOfBirth>1955</DateOfBirth> <Location>C[facility]</Location> < ServiceDate>11/20/16</ServiceDate> <MNE>ESINDI</MNE> <OrderingPhy>Dorota Singh DO</OrderingPhy> <OrderingPhyMNE>f rep ord dr miller</OrderingPhyMNE> < DictatingPhyMNE>f rep dict dr miller</DictatingPhyMNE> <CCListMNE>f rep ct mne</ CCListMNE> <AdmittingPhyMNE>f pt admit dr miller</AdmittingPhyMNE> <AttendingPhyMNE >f pt attend dr miller</AttendingPhyMNE> <ConsultingPhyMNE>f pt consult dr miller</ConsultingPhyMNE> <FamilyPhyMNE>f pt fam dr miller</FamilyPhyMNE> <OtherPhyMNE>f pt other dr miller</OtherPhyMNE> < PrimaryPhyMNE>f pt prim care dr miller</PrimaryPhyMNE> <ReferringPhyMNE>f pt referring dr miller</ReferringPhyMNE> Impression Assessment and Plan 3 mm left UVJ calculus with mild hydro-ureterohydronephrosis-- Admit to the medical surgical floor. Zosyn 3.375 mg IV every 6 hours. NSS with KCl 20 mEq at 100 ML's per hour. Follow urine culture and sensitivity reports. Symptomatic anemia-- hemoglobin on admission 7.1, with most recent being over 10. Likely decreased secondary to chemotherapy. Transfuse 2 units packed RBCs, leuko-depleted and irradiated. Hypokalemia/hypomagnesemia-- replete with oral and IV supplementation Serial BMP and magnesium levels. Peripheral neuropathy-- Continue gabapentin 40 mg by mouth 3 times a day. Level of Care Med/Surg Advanced Directives Existing Advance Directive: No Existing Living Will: No Existing Power of Chemical Waste Management Technician: No Resuscitation Status FULL RESUSCITATION VTE Prophylaxis VTE Risk Assessment Done? Y/N: Yes Risk Level: Moderate Given or contraindicated: SCD's Social Service Consult Cancer Patient Under [place]
[2016-11-21] MEDS: ONDANSETRON INJ 2 MG/ML 2 ML VIAL IV PRN ×2 (09:26→16:47)
[2016-11-21 11:54] LABS: MEAN CELL VOLUME 79.2 fL (80-100); MEAN CORPUSCULAR HEMOGLOBIN 26.2 pg (25-34); MEAN CORPUSCULAR HGB CONC 33.1 g/dl (32-36); MEAN PLATELET VOLUME 8.5 fL (7.4-10.4); PLATELET COUNT 294 K/uL (130-400); RED BLOOD COUNT 3.66 M/uL (4.2-5.4); WHITE BLOOD COUNT 13.26 K/uL (4.8-10.8)
[2016-11-21 12:25] LABS: BASO % 0.2 %; BASO ABS # 0.02 K/uL (0-0.2); COMPLETE YES; EOS % 0.5 %; IG% 2.1 %; MONO % 6.7 %; NEUT % 84.5 %; TOXIC GRANULATION 2+
[2016-11-21 12:32] LABS: BUN/CREATININE RATIO 9.4 (10-20); CREATININE 0.7 mg/dl (0.60-1.20); MAGNESIUM 1.5 mg/dl (1.8-2.4); POTASSIUM 3.7 mmol/L (3.5-5.1)
[2016-11-21] MEDS: MAGNESIUM SULFATE 1GM / D5W 1 GM in PREMIXED IN D5W 100 ML IV SCH ×2 (17:53→19:29)
[2016-11-21] MEDS ORDERED: TAMSULOSIN HCL 0.4 MG CAP PO ONE (19:30)
--- NOTE | 2016-11-21 19:31 | Progress Note ---
Progress Note Date of Service Nov 21, 2016. Progress Note seen in f/u from early AM admission overall feeling better - no significant pain/f/c/s. discussed w pt and family and updated on dx and plans she asks about flomax all other ROS otherwise negative except for as above vitals noted nad breathing unlabored no pallor or icterus no focal deficits, L upper chest port noted ureterolithiasis w hydronephrosis complicated by UTI w sepsis -fortunately sepsis improving -continue zosyn pending ID&S on Cx -follow blood cultures -hemodynamically stable -add flomax -await further urology input symptomatic anemia -likely related to treatment for rectal cancer -improved post 2 units -no signs of active bleeding -follow CBC rectal cancer -adds to current frailty leading to above hypomagnesemia -likely relates to chemo -replace mag ox ongoing -repeat mag level periodically - anticipate slow resolution hypokalemia -repleted, recheck in AM moderate/severe protein malnutrition -likely relates to chemo -adds to frailty and likelihood of suffering comorbidities -add protein shakes DVT proph -pharmacologic w relative contraindication until clear that she's not bleeding ( ongoing f/u of clinical status and CBC, but if stable and ongoing inpatient stay , then could consider) -mechanical proph of dubious benefit and possible harm (falls, skin breakdown)
[2016-11-21] MEDS: MAGNESIUM OXIDE 400 MG TAB PO SCH (20:53)
[2016-11-21] MEDS: BOOST VANILLA PO SCH ×2 (20:53)
--- NOTE | 2016-11-21 22:29 | Urology Consultation ---
History General Date of Service: Nov 21, 2016. Primary Care Physician: Marylu Ojeda MD Pt seen a urologist before?: No History of Present Illness 61 y/o female who presented to the ED yesterday with constipation. Fever. Nausea. Vomitting. She has a hx of rectal ca and has begun chemotherapy. Labs were checked and she was found to have an elevated WBC and a Hs of 7. A CT scan was performed which showed a 3mm left UVJ stone with hydro and heterogeneous appearing left kidney. Urinalysis showed likely infx. She was admitted to hospital for further evaluation. She has minimal pain on the left flank. No hematuria. No dysuria. Urge and freq. She does report sig constipation and abd bloating. Imaging Imaging: CT Laboratory Labs were reviewed and are within normal limits unless listed below. Labs are available in the chart and at [facility] Problem List Medical Problems: (1) Constipation Status: Acute (2) Kidney stone Status: Acute (3) Rib injury Status: Acute (4) UTI (urinary tract infection) Status: Acute Past History cancer - colon, other Past Surgical History: other Social History Hx Tobacco Use In Past Year?: No (Quit 8yrs ago;2 PPD since age 14yo) Smoking: non-smoker Alcohol: no current use Marital status: Occupation status: employed Immunizations History of Influenza Vaccine: Unknown History of Tetanus Vaccine?: Unknown History of Pneumococcal: Unknown History of Hepatitis B Vaccine: Unknown History of MDRO No Allergies Coded Allergies: Sulfa Antibiotics (Verified Allergy, Intermediate, RASH, 11/20/16) Codeine (Verified Adverse Reaction, Intermediate, DIZZINESS, 11/20/16) Medications Home Medications: Home Meds and Scripts Medications Dose Route/Sig Max Daily Dose Days Date Category Aleve (Naproxen) 220 Mg Tab 220 Mg PO Q12H PRN 07/22/16 Reported Neurontin (Gabapentin) 400 Mg Cap 400 Mg PO TID 30 06/22/16 Reported Compazine (Prochlorperazine Maleate) 10 Mg Tab 10 Mg PO Q6 PRN 7 06/02/16 Reported Zofran (Ondansetron HCl) 8 Mg Tab 8 Mg PO Q8 PRN 06/02/16 Reported Miralax (Polyethylene Glycol 3350) 1 Pow Pow 17 Gm PO DAILY PRN 06/02/16 Reported Colace (Docusate Sodium) 100 Mg Cap 2 Cap PO DAILY 15 06/02/16 Reported Aspirin Ec (Aspirin) 81 Mg Tab 81 Mg PO DAILY 04/05/15 Reported Inpatient Medications: Current Inpatient Medications Medications (Trade) Dose Ordered Sig/Caryn Route Start Time Stop Time Status Last Admin Dose Admin Ioversol (Optiray 320) 111 ml UD PRN IV 11/20/16 19:30 11/24/16 19:29 Acetaminophen (Tylenol Tab) 650 mg Q4H PRN PO 11/21/16 00:45 12/21/16 00:44 11/21/16 02:56 650 MG Ondansetron HCl (Zofran Inj) 4 mg Q6H PRN IV 11/21/16 00:45 12/21/16 00:44 11/21/16 16:47 4 MG Piperacillin Sod/ Tazobactam Sod 3.375 gm/Dextrose 115 ml @ 28 mls/hr Q8H IV 11/21/16 04:00 12/01/16 03:59 11/21/16 20:53 28 MLS/HR Potassium Chloride/Sodium Chloride 1,000 ml @ 100 mls/hr Q10H IV 11/21/16 02:00 12/21/16 01:59 11/21/16 21:08 100 MLS/HR Acetaminophen 100 ml @ 400 mls/hr Q8H PRN IV 11/21/16 00:45 12/21/16 00:44 Famotidine 20 mg/ Dextrose 102 ml @ 200 mls/hr Q12H IV 11/21/16 02:00 12/21/16 01:59 11/21/16 13:20 200 MLS/HR Morphine Sulfate (MoRPHine SULFATE INJ) 4 mg Q2H PRN IV 11/21/16 00:45 12/05/16 00:44 Piperacillin Sod/ Tazobactam Sod (Consult) 1 ea UD PRN N/A 11/21/16 01:15 12/21/16 01:14 Zolpidem Tartrate (Ambien Tab) 5 mg HS PRN PO 11/21/16 03:30 12/21/16 03:29 Tamsulosin HCl (Flomax Cap) 0.4 mg BID PO 11/22/16 09:00 12/22/16 08:59 Magnesium Oxide (Mag-Ox Tab) 400 mg BID PO 11/21/16 21:00 12/21/16 20:59 11/21/16 20:53 400 MG Enteral Nutritional Formula (Boost) 1 can TID PO 11/21/16 21:00 12/21/16 20:59 11/21/16 20:53 1 CAN Review of Systems Review of Systems Constitutional: + fever, + chills Eyes: No blurred vision Neurological: No dizzy Endocrine: No excessive thirst Gastrointestinal: + abdominal pain Cardiovascular: No chest pain Respiratory: No shortness of breath Skin: No rash Musculoskeletal: No joint pain Female : + frequent urination All Other Systems: Reviewed and Negative Physical Exam Vital Signs: Vital Signs Past 12 Hours Date Time Temp Pulse Resp B/P (MAP) Pulse Ox O2 Delivery O2 Flow Rate FiO2 11/21/16 15:30 Room Air 11/21/16 15:08 36.7 67 14 133/76 (95) 99 Room Air Physical Exam: General Appearance: no apparent distress ENT: normal ENT inspection Neck: supple Respiratory/Chest: lungs clear Cardiovascular: regular rate, rhythm Extremities: normal range of motion Neurologic/Psychiatric: no motor/sensory deficits, alert Skin: warm/dry Lymphatic: no adenopathy Assessment & Plan Assessment & Plan (1) UTI (urinary tract infection) Status: Acute (2) Left ureteral calculus The patient has a left distal ureteral calculus. It is small in size and very close to passing. Her Cr is normal. Her WBC is improving. Urine likely infected. I suspect underlying pyelo as well given the appearance of the left kidney on CT scan. If the patient is unable to pass the stone in 24 hours, then will likely plan to proceed with Ureteroscopy and stent placement; however , if she continues to improve clinically, it may also be an option to continue to observe and allow spontaneous passage. Will re-eval tomorrow to decide.
[2016-11-22] MEDS: FAMOTIDINE IV INJ 20 MG in DEXTROSE 5% 100ML 100 ML IV SCH ×2 (01:51→13:34)
[2016-11-22] MEDS: PIPERACILL/TAZOBAC IV 3.375 GM in DEXTROSE 5% 100ML 100 ML IV SCH ×2 (04:26→12:00)
[2016-11-22 06:32] LABS: BUN/CREATININE RATIO 8.8 (10-20); CALCIUM 7.7 mg/dl (8.5-10.1); CREATININE 0.49 mg/dl (0.60-1.20); POTASSIUM 3.6 mmol/L (3.5-5.1)
[2016-11-22 06:52] LABS: HEMATOCRIT 26.7 % (37-47); MEAN CELL VOLUME 79.5 fL (80-100); MEAN CORPUSCULAR HEMOGLOBIN 25.3 pg (25-34); MEAN CORPUSCULAR HGB CONC 31.8 g/dl (32-36); PLATELET COUNT 279 K/uL (130-400); RED BLOOD COUNT 3.36 M/uL (4.2-5.4); WHITE BLOOD COUNT 8.82 K/uL (4.8-10.8)
[2016-11-22] MEDS: NSS + 20MEQ KCL 1000ML 1,000 ML IV SCH ×2 (07:01→16:51)
[2016-11-22 07:06] VITALS: BP 152/73; PULSE 53; TEMP 36.5; O2SAT 93
[2016-11-22 07:37] LABS: BASO % 0.1 %; BASO ABS # 0.01 K/uL (0-0.2); COMPLETE YES; EOS % 1.6 %; IG% 2.5 %; LYMPH % 9.2 %; LYMPH ABS # 0.81 K/uL (1.2-3.4); MONO % 7.6 %; TOXIC GRANULATION 1+
[2016-11-22] MEDS: MAGNESIUM OXIDE 400 MG TAB PO SCH ×2 (07:47→21:12)
[2016-11-22] MEDS: TAMSULOSIN HCL 0.4 MG CAP PO SCH ×2 (07:48→21:12)
[2016-11-22] MEDS: BOOST VANILLA PO SCH ×6 (08:26→21:15)
[2016-11-22] MEDS: ONDANSETRON INJ 2 MG/ML 2 ML VIAL IV PRN ×2 (08:26→17:54)
--- NOTE | 2016-11-22 09:26 | Progress Note ---
Subjective Date of Service: Nov 22, 2016. Subjective Pt evaluation today including: conversation w/ patient, physical exam, chart review, lab review Pt has yet to see the stone pass. Now having more urge, freq, and urinary incont. No hem. No dys. No flank pain. Pt would like to hold off on surgery in hopes of passing the stone on her own WBC: 8.8 H.5 Cr: 0.49 Urine Cx: E. Coli Blood Cx: Gram + Cocci Problem List Medical Problems: (1) Constipation Status: Acute (2) Kidney stone Status: Acute (3) Rib injury Status: Acute (4) UTI (urinary tract infection) Status: Acute Review of Systems Constitutional: No fever, No chills Respiratory: No shortness of breath Cardiac: No chest pain Female : + incontinence, No dysuria, No hematuria Objective Vital Signs Date Time Temp Pulse Resp B/P (MAP) Pulse Ox O2 Delivery O2 Flow Rate FiO2 11/22/16 08:18 Room Air 11/22/16 07:06 36.5 53 16 152/73 (99) 93 Room Air 11/21/16 23:16 36.8 67 16 126/72 (90) 96 Room Air 11/21/16 23:15 Room Air 11/21/16 15:30 Room Air 11/21/16 15:08 36.7 67 14 133/76 (95) 99 Room Air Physical Exam General Appearance: no apparent distress Respiratory/Chest: lungs clear Cardiovascular: regular rate, rhythm Abdomen: non tender, soft Neurologic/Psychiatric: alert, normal mood/affect Skin: no rash Laboratory Results Last 24 Hours Test 11/21/16 11:37 11/22/16 05:35 11/22/16 09:05 White Blood Count 13.26 K/uL 8.82 K/uL Red Blood Count 3.66 M/uL 3.36 M/uL Hemoglobin 9.6 g/dL 8.5 g/dL Hematocrit 29.0 % 26.7 % Mean Corpuscular Volume 79.2 fL 79.5 fL Mean Corpuscular Hemoglobin 26.2 pg 25.3 pg Mean Corpuscular Hemoglobin Concent 33.1 g/dl 31.8 g/dl Platelet Count 294 K/uL 279 K/uL Mean Platelet Volume 8.5 fL 9.0 fL Neutrophils (%) (Auto) 84.5 % 79.0 % Lymphocytes (%) (Auto) 6.0 % 9.2 % Monocytes (%) (Auto) 6.7 % 7.6 % Eosinophils (%) (Auto) 0.5 % 1.6 % Basophils (%) (Auto) 0.2 % 0.1 % Neutrophils # (Auto) 11.20 K/uL 6.97 K/uL Lymphocytes # (Auto) 0.80 K/uL 0.81 K/uL Monocytes # (Auto) 0.89 K/uL 0.67 K/uL Eosinophils # (Auto) 0.07 K/uL 0.14 K/uL Basophils # (Auto) 0.02 K/uL 0.01 K/uL RDW Standard Deviation 46.3 fL 46.9 fL RDW Coefficient of Variation 16.1 % 16.3 % Immature Granulocyte % (Auto) 2.1 % 2.5 % Immature Granulocyte # (Auto) 0.28 K/uL 0.22 K/uL Toxic Granulation 2+ 1+ Sodium Level 140 mmol/L 142 mmol/L Potassium Level 3.7 mmol/L 3.6 mmol/L Chloride Level 108 mmol/L 110 mmol/L Carbon Dioxide Level 25 mmol/L 24 mmol/L Anion Gap 7.0 mmol/L 8.0 mmol/L Blood Urea Nitrogen 7 mg/dl 4 mg/dl Creatinine 0.70 mg/dl 0.49 mg/dl Est Creatinine Clear Calc Drug Dose 73.2 ml/min 104.6 ml/min Estimated GFR () 106.9 120.2 Estimated GFR (Non- 92.2 103.7 BUN/Creatinine Ratio 9.4 8.8 Random Glucose 107 mg/dl 79 mg/dl Calcium Level 8.0 mg/dl 7.7 mg/dl Magnesium Level 1.5 mg/dl Total Bilirubin 0.5 mg/dl Direct Bilirubin 0.2 mg/dl Aspartate Amino Transf (AST/SGOT) 16 U/L Alanine Aminotransferase (ALT/SGPT) 20 U/L Alkaline Phosphatase 90 U/L Total Protein 6.0 gm/dl Albumin 1.9 gm/dl Assessment and Plan (1) UTI (urinary tract infection) (2) Left ureteral calculus Pt is feeling better today. She has not yet passed the stone; however, she is not febrile and her labs are stable. She is having more urinary complaints which likely means the stone is even closure to eventual passage. Will hold off on OR intervention at this time. Continue Flomax and IV fluids. Abx. Will need f/u imaging in 2 weeks to make sure the stone has passed. Blood cx results are concerning for seeding of infx thru the kidneys, however, pt does not wish for any more surgeries at this time so no stent for now.
--- NOTE | 2016-11-22 15:26 | Hospitalist Progress Note ---
Hospitalist Progress Note Date of Service Nov 22, 2016. Subjective Pt evaluation today including: conversation w/ patient Voiding: incontinence (into diapers) Pt had a lot of urinary urgency and frequency, along with incontinence last night, not sure if stone passed. Is requesting an xray to look for the stone. Afebrile, WBC count trending down, never had any flank or abd pain. All Other Systems: Reviewed and Negative Objective Vital Signs Date Time Temp Pulse Resp B/P (MAP) Pulse Ox O2 Delivery O2 Flow Rate FiO2 11/22/16 08:18 Room Air 11/22/16 07:06 36.5 53 16 152/73 (99) 93 Room Air 11/21/16 23:16 36.8 67 16 126/72 (90) 96 Room Air 11/21/16 23:15 Room Air 11/21/16 15:30 Room Air Physical Exam General Appearance: WD/WN, no apparent distress Eyes: normal inspection, sclerae normal ENT: hearing grossly normal Neck: trachea midline Respiratory/Chest: lungs clear, normal breath sounds, no respiratory distress, no accessory muscle use Cardiovascular: regular rate, rhythm, no edema, no gallop, no murmur Abdomen: normal bowel sounds, non tender, soft, + pertinent finding (ostomy bag with solid brown stool in place) Extremities: non-tender, normal inspection, no pedal edema, no calf tenderness Neurologic/Psychiatric: alert, normal mood/affect, oriented x 3 Skin: normal color, warm/dry, no rash Laboratory Results Last 24 Hours Test 11/22/16 05:35 White Blood Count 8.82 K/uL Red Blood Count 3.36 M/uL Hemoglobin 8.5 g/dL Hematocrit 26.7 % Mean Corpuscular Volume 79.5 fL Mean Corpuscular Hemoglobin 25.3 pg Mean Corpuscular Hemoglobin Concent 31.8 g/dl Platelet Count 279 K/uL Mean Platelet Volume 9.0 fL Neutrophils (%) (Auto) 79.0 % Lymphocytes (%) (Auto) 9.2 % Monocytes (%) (Auto) 7.6 % Eosinophils (%) (Auto) 1.6 % Basophils (%) (Auto) 0.1 % Neutrophils # (Auto) 6.97 K/uL Lymphocytes # (Auto) 0.81 K/uL Monocytes # (Auto) 0.67 K/uL Eosinophils # (Auto) 0.14 K/uL Basophils # (Auto) 0.01 K/uL RDW Standard Deviation 46.9 fL RDW Coefficient of Variation 16.3 % Immature Granulocyte % (Auto) 2.5 % Immature Granulocyte # (Auto) 0.22 K/uL Toxic Granulation 1+ Sodium Level 142 mmol/L Potassium Level 3.6 mmol/L Chloride Level 110 mmol/L Carbon Dioxide Level 24 mmol/L Anion Gap 8.0 mmol/L Blood Urea Nitrogen 4 mg/dl Creatinine 0.49 mg/dl Est Creatinine Clear Calc Drug Dose 104.6 ml/min Estimated GFR () 120.2 Estimated GFR (Non- 103.7 BUN/Creatinine Ratio 8.8 Random Glucose 79 mg/dl Calcium Level 7.7 mg/dl Magnesium Level 2.1 mg/dl Assessment and Plan Pt is a 61 yo female with a h/o rectal CA s/p adjuvant chemoradiation tx followed by proctectomy and colostomy, now on continued chemotx. Also with anemia, here with fever, UTI, sepsis and ureterolithiasis. Ureterolithiasis w mild left hydronephrosis complicated by UTI w sepsis-sepsis is resolved, WBC count down to 8, afebrile. Ur cx growing E. coli resistant to Ampicillin and Unasyn, sensitive to all other abx. Has been on Zosyn x 1-2 days. BCx with Coag neg Staph on one set, likely contaminant -dc Zosyn and change to narrowed coverage with Levaquin and will treat for total 14 days given complicated UTI-switch to op Levaquin on dc -follow blood cultures -continue flomax bid -appreciate urology input-> pt declining stent placement despite UTI, sepsis- wants to avoid this -check KUB now but will not likely be able to see a 3 mm stone -consider Renal US if KUB unable to visualize--> pt unsure if stone passed -continue IVFs to flush out stone and due to chemo-induced nausea Symptomatic anemia -likely related to chemo treatment for rectal cancer -improved post 2 units PRBCs on 11/21--> hgb 8.5 today up from 7.1 -no signs of active bleeding -follow CBC Rectal cancer -follows with [facility] -adds to current frailty leading to above -will hold off on scheduled chemo tomorrow as outpt until infection cleared hypomagnesemia-resolved after replacement -due to poor po intake -replace mag ox ongoing -follow Mg hypokalemia-resolved -repleted,follow lytes moderate/severe protein malnutrition-with 25 lb reported weight loss with chemotherapy and rectal CA -likely relates to chemo, cancer -adds to frailty and likelihood of suffering comorbidities -added protein shakes DVT proph-SCDs -pharmacologic w relative contraindication until clear that she's not bleeding ( ongoing f/u of clinical status and CBC, but if stable and ongoing inpatient stay , then could consider) Dispo- to home likely tomorrow
[2016-11-22 15:27] VITALS: BP 151/81; PULSE 69; TEMP 36.3; O2SAT 98
[2016-11-22] MEDS ORDERED: LEVOFLOXACIN / D5W 500 MG in PREMIXED IN D5W 100 ML IV SCH (16:00)
--- NOTE | 2016-11-22 17:16 | DIAGNOSTIC IMAGING REPORT ---
KUB CLINICAL HISTORY: 61 years-old Female presenting with f/u left 3 mm UVJ stone. TECHNIQUE: Single supine view of the abdomen was obtained. COMPARISON: CT from 11/20/2016. FINDINGS: The previously noted calculus at the left ureterovesical junction remains visible. No calcifications project over the kidneys. Few tiny pelvic phleboliths noted. Suture line of the Ally's pouch noted with an adjacent focus of gas raising concern for anastomotic leak. Oral contrast noted in the large bowel. IMPRESSION: 1. Small calculus in the region of the left ureterovesical junction remains in place. 2. Redemonstration of concern for break down of the Craig's pouch. Electronically signed by: Best Guzman M.D. 11/22/2016 5:15 PM Dictated Date/Time: 11/22/2016 5:10 PM
--- NOTE | 2016-11-22 22:12 | Surgery Consultation ---
Consultation Date of Consultation: Nov 22, 2016. Attending Physician: Maria Teresa Jonas MD History of Present Illness Celestina Eastman is a 61 year old woman with rectal cancer s/p Ally's procedure by Dr. Hylton at [facility] [place] on 09/29/16, currently undergoing chemotherapy, who was admitted with an obstructing ureteral stone with a UTI. Patient states that ever since her operation with Dr. Hylton, she has intermittently had mucous discharge from her rectal stump with intermittent pain. There have been no recent changes. Her end colostomy has been functioning well. She states the colostomy is permanent, there are no plans in the future for reversal. Denies abdominal pain, nausea or vomiting. She has been tolerating a diet without difficulty. Denies recent fever, chills, headaches, dizziness, vision changes, chest pain, SOB, hematochezia / melena per ostomy, blood per rectum, pain / numbness / swelling / tingling in extremities. Surgery is consulted with concern for possible staple line breakdown of the rectal stump - air seen around staple line on recent CT scan, no abscesses or fluid collections. Past Medical/Surgical History Medical History: (1) Kidney stone (2) Rib injury (3) UTI (urinary tract infection) (4) Rectal adenocarcinoma, Stage uT3 uN1 Permanent Comment: 6 months of intermittent rectal pain and bleeding Status post colonoscopy and biopsy 05/15/2016 (Dr. Jorge L Benavides) Status post EUS staging 05/18/2016 (Dr. New Jack) Plan for combined neoadjuvant radiation and chemotherapy (Dr. Yogesh Crowe) Chemotherapy comprised of Xeloda Status post completion of radiation therapy 07/30/2016. She received 5040 cGy. Surgical History: (1) Ally's procedure (sigmoid / upper rectum resection, descending end colostomy, Dr. Hylton 09/29/16) Social History Smoking Status: Never Smoker Smokeless Tobacco Use: No Alcohol Use: none Drug Use: none Marital Status: Occupation Status: employed Allergies Coded Allergies: Sulfa Antibiotics (Verified Allergy, Intermediate, RASH, 11/20/16) Codeine (Verified Adverse Reaction, Intermediate, DIZZINESS, 11/20/16) Home Medications Scheduled Aspirin (Aspirin Ec), 81 MG PO DAILY Docusate Sodium (Colace), 2 CAP PO DAILY Gabapentin (Neurontin), 400 MG PO TID Scheduled PRN Naproxen (Aleve), 220 MG PO Q12H PRN for Moderate Pain Ondansetron Hcl (Zofran), 8 MG PO Q8 PRN for Nausea Polyethylene Glycol 3350 (Miralax), 17 GM PO DAILY PRN for Constipation Prochlorperazine Maleate (Compazine), 10 MG PO Q6 PRN for Nausea or Vomiting Current Inpatient Medications Current Inpatient Medications Medications (Trade) Dose Ordered Sig/Caryn Route Start Time Stop Time Status Last Admin Dose Admin Ioversol (Optiray 320) 111 ml UD PRN IV 11/20/16 19:30 11/24/16 19:29 Acetaminophen (Tylenol Tab) 650 mg Q4H PRN PO 11/21/16 00:45 12/21/16 00:44 11/21/16 02:56 650 MG Ondansetron HCl (Zofran Inj) 4 mg Q6H PRN IV 11/21/16 00:45 12/21/16 00:44 11/22/16 17:54 4 MG Potassium Chloride/Sodium Chloride 1,000 ml @ 100 mls/hr Q10H IV 11/21/16 02:00 12/21/16 01:59 11/22/16 16:51 100 MLS/HR Acetaminophen 100 ml @ 400 mls/hr Q8H PRN IV 11/21/16 00:45 12/21/16 00:44 Morphine Sulfate (MoRPHine SULFATE INJ) 4 mg Q2H PRN IV 11/21/16 00:45 12/05/16 00:44 Zolpidem Tartrate (Ambien Tab) 5 mg HS PRN PO 11/21/16 03:30 12/21/16 03:29 Tamsulosin HCl (Flomax Cap) 0.4 mg BID PO 11/22/16 09:00 12/22/16 08:59 11/22/16 21:12 0.4 MG Magnesium Oxide (Mag-Ox Tab) 400 mg BID PO 11/21/16 21:00 12/21/16 20:59 11/22/16 21:12 400 MG Enteral Nutritional Formula (Boost) 1 can TID PO 11/21/16 21:00 12/21/16 20:59 11/22/16 21:15 1 CAN Levofloxacin 500 mg/Prmx 100 ml @ 100 mls/hr Q24H IV 11/22/16 16:00 12/02/16 15:59 11/22/16 15:45 100 MLS/HR Review of Systems Constitutional: No fever, No chills Respiratory: No cough, No sputum, No wheezing, No shortness of breath, No dyspnea on exertion Cardiovascular: No chest pain Abdomen: No pain, No nausea, No vomiting, No diarrhea, No GI bleeding Neurologic: No memory loss, No numbness/tingling Integumentary: No rash Physical Exam Date Time Temp Pulse Resp B/P (MAP) Pulse Ox O2 Delivery O2 Flow Rate FiO2 11/22/16 19:50 Room Air 11/22/16 15:27 36.3 69 16 151/81 (104) 98 Room Air 11/22/16 08:18 Room Air 11/22/16 07:06 36.5 53 16 152/73 (99) 93 Room Air 11/21/16 23:16 36.8 67 16 126/72 (90) 96 Room Air 11/21/16 23:15 Room Air General Appearance: WD/WN, no apparent distress Head: normocephalic Eyes: normal inspection Neck: supple Respiratory/Chest: lungs clear, normal breath sounds, no respiratory distress Cardiovascular: regular rate, rhythm, no edema Abdomen/GI: normal bowel sounds, non tender, soft (no rebound / guarding), + pertinent finding (colostomy in place in left abdomen, pink, raised stoma, air and brown stool present in ostomy bag. Appliance intact without leaks.) Extremities/Musculoskelatal: normal inspection Neurologic/Psych: alert, normal mood/affect, oriented x 3 Skin: normal color, warm/dry, no rash Laboratory Results Last 24 Hours Test 11/22/16 05:35 White Blood Count 8.82 K/uL Red Blood Count 3.36 M/uL Hemoglobin 8.5 g/dL Hematocrit 26.7 % Mean Corpuscular Volume 79.5 fL Mean Corpuscular Hemoglobin 25.3 pg Mean Corpuscular Hemoglobin Concent 31.8 g/dl Platelet Count 279 K/uL Mean Platelet Volume 9.0 fL Neutrophils (%) (Auto) 79.0 % Lymphocytes (%) (Auto) 9.2 % Monocytes (%) (Auto) 7.6 % Eosinophils (%) (Auto) 1.6 % Basophils (%) (Auto) 0.1 % Neutrophils # (Auto) 6.97 K/uL Lymphocytes # (Auto) 0.81 K/uL Monocytes # (Auto) 0.67 K/uL Eosinophils # (Auto) 0.14 K/uL Basophils # (Auto) 0.01 K/uL RDW Standard Deviation 46.9 fL RDW Coefficient of Variation 16.3 % Immature Granulocyte % (Auto) 2.5 % Immature Granulocyte # (Auto) 0.22 K/uL Toxic Granulation 1+ Sodium Level 142 mmol/L Potassium Level 3.6 mmol/L Chloride Level 110 mmol/L Carbon Dioxide Level 24 mmol/L Anion Gap 8.0 mmol/L Blood Urea Nitrogen 4 mg/dl Creatinine 0.49 mg/dl Est Creatinine Clear Calc Drug Dose 104.6 ml/min Estimated GFR () 120.2 Estimated GFR (Non- 103.7 BUN/Creatinine Ratio 8.8 Random Glucose 79 mg/dl Calcium Level 7.7 mg/dl Magnesium Level 2.1 mg/dl 11/20/16 CT Abd / Pelvis with IV and PO contrast: IMPRESSION: 1. Obstructing 3 mm calculus at the left ureterovesical junction. Resultant left hydroureteronephrosis. The degree of heterogeneity of enhancement of the left kidney further raises concern for potential superimposed pyelonephritis. Correlate with urinalysis to exclude infection. 2. Postsurgical changes of sigmoidectomy and left descending colostomy. 3. Abnormal appearance of the Craig's pouch, which raises concern for chronic anastomotic breakdown. Rectal wall edema and diffuse presacral and mesorectal inflammatory change/granulation tissue. 4. Benign left adrenal gland adenoma. 11/22/16 KUB: IMPRESSION: 1. Small calculus in the region of the left ureterovesical junction remains in place. 2. Redemonstration of concern for break down of the Craig's pouch. Assessment & Plan Celestina Eastman is a 61 year old woman with rectal cancer who is s/p Ally's procedure on 09/29/16 who is admitted with an obstructing ureteral stone - currently resolving. Also found to have evidence of breakdown of rectal stump staple line on CT imaging and subsequent KUB. -Staple line breakdown is on the rectal stump; there is no stool transiting this area, and no abscesses or surrounding fluid collections are seen from the CT scan on 11/20/16. -Colostomy looks great, appears to be functioning well. -No need for surgical intervention at this time; there are no future plans for reversal of the end colostomy -No recent changes in the mucous drainage per rectum -Continue antibiotics - currently on Levaquin for UTI -Recommend nothing per rectum (no medications, enemas, etc) -Continue to trend exam; may need repeat CT scan to re-evaluate the rectal stump if any clinical changes -Rest of care per primary team -Will continue to follow Jamila Kemp MD 11/22/16
[2016-11-22 23:30] VITALS: BP 159/80; PULSE 63; TEMP 36.6; O2SAT 97
[2016-11-23] MEDS: ACETAMINOPHEN 325 MG TAB PO PRN (00:02)
[2016-11-23] MEDS: NSS + 20MEQ KCL 1000ML 1,000 ML IV SCH ×2 (02:22→13:06)
[2016-11-23 05:34] LABS: BASO % 0.3 %; BASO ABS # 0.02 K/uL (0-0.2); HEMATOCRIT 27.3 % (37-47); IG% 3.9 %; LYMPH % 12.7 %; LYMPH ABS # 0.84 K/uL (1.2-3.4); MEAN CELL VOLUME 80.3 fL (80-100); MEAN CORPUSCULAR HEMOGLOBIN 26.2 pg (25-34); MEAN CORPUSCULAR HGB CONC 32.6 g/dl (32-36); MEAN PLATELET VOLUME 9.2 fL (7.4-10.4); MONO % 6.9 %; NEUT % 74.2 %; PLATELET COUNT 261 K/uL (130-400); WHITE BLOOD COUNT 6.63 K/uL (4.8-10.8)
[2016-11-23 06:00] LABS: BUN/CREATININE RATIO 9.2 (10-20); CALCIUM 8.2 mg/dl (8.5-10.1); CREATININE 0.51 mg/dl (0.60-1.20); MAGNESIUM 1.8 mg/dl (1.8-2.4)
[2016-11-23 06:08] LABS: COMPLETE YES; ECHINOCYTES 1+; OVALOCYTES 1+; TOXIC GRANULATION 1+; VACUOLIZATION 1+
[2016-11-23 07:12] VITALS: BP 146/73; PULSE 61; TEMP 36.4; O2SAT 96
[2016-11-23] MEDS ORDERED: MAGNESIUM SULFATE 1GM / D5W 1 GM in PREMIXED IN D5W 100 ML IV SCH (08:00)
[2016-11-23] MEDS: TAMSULOSIN HCL 0.4 MG CAP PO SCH (08:44)
[2016-11-23] MEDS: MAGNESIUM OXIDE 400 MG TAB PO SCH (08:44)
[2016-11-23] MEDS: BOOST VANILLA PO SCH ×4 (09:00→13:30)
[2016-11-23] MEDS ORDERED: PHENAZOPYRIDINE HCL 200 MG TAB PO ONE (10:55)
[2016-11-23] MEDS ORDERED: ACET-1047 PO (12:17)
[2016-11-23] MEDS ORDERED: FLM4 PO (12:17)
[2016-11-23] MEDS ORDERED: MGNO400 PO (12:17)
[2016-11-23] MEDS ORDERED: LEVO500T19 PO (12:17)
[2016-11-23] MEDS ORDERED: PHEN-1043 PO (12:17)
[2016-11-23] MEDS ORDERED: Boost PO (12:17)
--- NOTE | 2016-11-23 12:25 | Discharge Instructions ---
Discharge Instructions Date of Service Nov 23, 2016. Admission Reason for Admission: Left Ureteral Calculus, Symptomatic Anemia Discharge Discharge Diagnosis / Problem: UTI,Left ureteral calculus,Sepsis Discharge Goals Goal(s): Improve disease control, Diagnostic testing, Therapeutic intervention Activity Recommendations Activity Limitations: per Instructions/Follow-up section Exercise/Sports Limitations: gradually increase as tolerated . Instructions / Follow-Up Instructions / Follow-Up You were admitted with sepsis, low red blood cell count (anemia), and urinary tract infection with kidney stone on the left. You were treated with IV antibiotics, IV fluids, and given a blood transfusion. Urology wanted to remove your stone but was in agreement with you to hold off and see if stone would pass on its own. Please follow up with Dr. Kearns of [facility] within 1-2 weeks-her office should contact you but you should call if you have not heard anything in the next 1-2 days. Please follow up with your PCP within 1-2 weeks. Finish out the course of oral antibiotics (Levaquin), and the Flomax to help pass the stone. Pyridium can be taken for bladder pain or painful urination and will turn your urine orange. Drink plenty of fluids. If you have a fever, nausea/vomiting, worsening abdominal pain, rectal bleeding , or abnormal rectal drainage, please call your doctor immediately and/or come to the ER. Current Hospital Diet Patient's current hospital diet: Regular Diet Discharge Diet Recommended Diet: Regular Diet Procedures Procedures Performed: CT abdomen/pelvis Abdomen xray Pending Studies Studies pending at discharge: yes List of pending studies: Final Blood culture result-1 bottle growing Coagulase negative Staph that was most likely a contaminant and not a true bloodstream infection Medical Emergencies . Who to Call and When: Medical Emergencies: If at any time you feel your situation is an emergency, please call 911 immediately. . Non-Emergent Contact Non-Emergency issues call your: Primary Care Provider, Urologist Call Non-Emergent contact if: you have a fever, temperature is above 100.5, your pain is not controlled, your pain is worsening, your pain is unusual for you, your pain is concerning you, you have any medication questions . . "Provider Documentation" section prepared by Maria Teresa Jonas. . VTE Core Measure Inpt VTE Proph given/why not?: SCD's
[2016-11-23] MEDS: ONDANSETRON INJ 2 MG/ML 2 ML VIAL IV PRN (12:29)
[2016-11-23 13:03] VITALS: BP 146/73; PULSE 61; TEMP 36.4; O2SAT 96
--- NOTE | 2016-11-23 13:26 | Discharge Summary ---
Discharge Summary Date of Service Nov 23, 2016. Discharge Summary Admission Date: Nov 21, 2016 at 00:41 Discharge Date: Nov 23, 2016 Discharge Disposition: Home Principal Diagnosis: UTI with sepsis secondary to urolithiasis Immunizations: Have You Had Influenza Vaccine: Unknown History of Tetanus Vaccine?: Unknown History of Pneumococcal: Unknown History of Hepatitis B Vaccine: Unknown Medication Reconciliation New Medications: Levofloxacin (Levaquin) 500 Mg Tab 1 TAB PO DAILY for 10 Days, #10 TAB Acetaminophen (Mapap) 325 Mg Tab 650 MG PO Q4H PRN for Pain for 30 Days Magnesium Oxide (Magnesium-Oxide) 400 Mg Tab 400 MG PO BID for 30 Days OTC Phenazopyridine HCl (Phenazopyridine HCl) 200 Mg Tab 200 MG PO TID PRN for bladder pain for 10 Days, #30 TAB Tamsulosin HCl (Tamsulosin HCl) 0.4 Mg Cap 0.4 MG PO BID for 10 Days, #20 CAP [Boost] () 1 CAN LIQD 1 CAN PO TID for 30 Days OTC Continued Medications: Docusate Sodium (Colace) 100 Mg Cap 2 CAP PO DAILY for 15 Days, #30 CAP Gabapentin (Neurontin) 400 Mg Cap 400 MG PO TID for 30 Days, #90 CAP 2 Refills Ondansetron Hcl (Zofran) 8 Mg Tab 8 MG PO Q8 PRN for Nausea, TAB Polyethylene Glycol 3350 (Miralax) 1 Pow Pow 17 GM PO DAILY PRN for Constipation, #527 GM Prochlorperazine Maleate (Compazine) 10 Mg Tab 10 MG PO Q6 PRN for Nausea or Vomiting for 7 Days, #30 TAB 3 Refills Discontinued Medications: Aspirin (Aspirin Ec) 81 Mg Tab 81 MG PO DAILY Naproxen (Aleve) 220 Mg Tab 220 MG PO Q12H PRN for Moderate Pain, TAB Discharge Exam patient well this morning, denies any acute overnight events. She still has some urinary symptoms, including dysuria, frequency, urgency, nocturia. She denies any overt blood. She otherwise denies fevers, chills, sweats, chest pain , abdominal pain, shortness of breath, and back pain. She is tolerating diet without nausea or vomiting. She is stooling appropriately. She is keen for home management can be pursued as an outpatient. ROS unremarkable except as noted above. Physical Exam: General Appearance: WD/WN, no apparent distress Eyes: normal inspection ENT: hearing grossly normal Neck: supple, no adenopathy Respiratory/Chest: lungs clear, normal breath sounds, no respiratory distress, no accessory muscle use, + pertinent finding (port present on left chest for chemotherapy) Cardiovascular: regular rate, rhythm, no edema, no murmur, normal peripheral pulses Abdomen / GI: normal bowel sounds, non tender, soft, + pertinent finding ( no CVA tenderness) Extremities: no calf tenderness, normal capillary refill, no pedal edema Neurologic/Psychiatric: alert, normal mood/affect, oriented x 3 Skin: normal color, warm/dry, no rash Hospital Course This includes examination of the patient, discharge planning, medication reconciliation, and communication with other providers. Discharge Instructions Please refer to the electronic Patient Visit Report (Discharge Instructions) for additional information.
[2016-11-23] MEDS ORDERED: PHENAZOPYRIDINE HCL 200 MG TAB PO SCH (14:00)
--- NOTE | 2016-11-23 18:17 | Medical Student: [facility] ---
Discharge Summary Admission Date: Nov 21, 2016 at 00:41 Discharge Date: Nov 23, 2016 Discharge Disposition: Home Principal Diagnosis: Urosepsis Problems/Secondary Diagnoses: Uterolithiasis, Rectal adenocarcinoma, Anemia, Hypokalemia, Hypomagnesemia. Immunizations: Have You Had Influenza Vaccine: Unknown History of Tetanus Vaccine?: Unknown History of Pneumococcal: Unknown History of Hepatitis B Vaccine: Unknown Medications: Scheduled Aspirin (Aspirin Ec), 81 MG PO DAILY Docusate Sodium (Colace), 2 CAP PO DAILY Gabapentin (Neurontin), 400 MG PO TID Scheduled PRN Naproxen (Aleve), 220 MG PO Q12H PRN for Moderate Pain Ondansetron Hcl (Zofran), 8 MG PO Q8 PRN for Nausea Polyethylene Glycol 3350 (Miralax), 17 GM PO DAILY PRN for Constipation Prochlorperazine Maleate (Compazine), 10 MG PO Q6 PRN for Nausea or Vomiting New Medications Levaquin PO x 12 days or until stone passes. Flomax 0.4 mg PO BID to aid in stone passage Pyramidum 200 mg TID PO PRN for urinary burning Hospital Course Pt presented with urosepsis and 3mm stone was found at the uterovesicular junction. It did not pass spontaneously however patient denied cystoscopy and stent placement. Prefers to follow-up outpatient. WBC count has returned to normal. Afebrile for 24+ hours. Treated with Levzaquin and flomax. Was found to be hypokalemic and hypomagnesemic, but both electrolytes returned to normal after repletion. There was some question of the breakdown of the suture line of the heartman's pouch. Surgery will follow. Patient informed to f/u if change in mucus per rectum. Pt received 2 units of PRBCs with hgb of 7.1, increased to 8.9 at discharge, likely 2/2 chemotherapy. Total Time Spent: Greater than 30 minutes This includes examination of the patient, discharge planning, medication reconciliation, and communication with other providers. Discharge Instructions Please refer to the electronic Patient Visit Report (Discharge Instructions) for additional information. Follow-Up Continue to drink plenty of fluids until the stone passes. Try to strain your urine to determine if stone passes. [facility] will call you to set up a follow-up appointment. If you do not hear from them, you should call their office to schedule a follow-up appointment. You can take Pyrimidium for urinary burning. It will turn your urine orange. Do not be alarmed. Continue to take the Levaquin, which is your antibiotic, and the Flomax, until the stone passes. If your fever returns, come back to the Emergency Room right away. Contact your oncologist about scheduling your next Chemotherapy treatment.
== END 2016-11-23 15:28 | disposition home or self-care (01) | DRG 871 ==
LOC: C.EDB 18:00 → C.MSW 11-21 00:41 → ENRESERV 11-21 00:58
PROVIDERS: ADMIT Hospitalist; ATTEND Family Medicine
DX: A41.9 Sepsis, unspecified organism (principal); E43 Unspecified severe protein-calorie malnutrition; N39.0 Urinary tract infection, site not specified; C20 Malignant neoplasm of rectum; N13.2 Hydronephrosis with renal and ureteral calculous obstruction; K91.89 Other postprocedural complications and disorders of digestive system; Y73.3 Surgical instruments, materials and gastroenterology and urology devices (including sutures) associated with adverse incidents; E87.6 Hypokalemia; E83.42 Hypomagnesemia; Z93.3 Colostomy status; D64.81 Anemia due to antineoplastic chemotherapy; T45.1X5A Adverse effect of antineoplastic and immunosuppressive drugs, initial encounter; G62.9 Polyneuropathy, unspecified; Z87.891 Personal history of nicotine dependence; Z79.82 Long term (current) use of aspirin

== ENCOUNTER → 2017-03-09 | Outpatient (CLI) | payer BC, OTHER ==
[~2017-03-09] MED LIST changes: +ACET-1047 PO; -ASPI81TA28 PO; +Boost PO; +FLM4 PO; +MGNO400 PO; -NAPR1TAB9 PO; +PHEN-1043 PO; -PSYL0.524 PO
[2017-03-09 13:30] VITALS: BP 128/78; PULSE 64; TEMP 36.8; O2SAT 97
--- NOTE | 2017-03-09 15:10 | Radiation Oncology Follow-Up ---
Radiation Oncology Follow-Up Date of Visit Mar 09, 2017. Reason For Visit 6 month follow-up Radiation Completion Date 07/30/2016 Diagnosis (1) Rectal adenocarcinoma Status: Chronic Onset Date: 05/15/2016 Stage: IV Permanent Comment: 6 months of intermittent rectal pain and bleeding Status post colonoscopy and biopsy 05/15/2016 (Dr. Jorge L Benavides) Adenocarcinoma Status post EUS staging 05/18/2016 (Dr. New Jack) Stage uT3 uN1 Plan for combined neoadjuvant radiation and chemotherapy (Dr. Yogesh Crowe) Chemotherapy comprised of Xeloda Status post completion of radiation therapy 07/30/2016. She received 5040 cGy. Status post abdominal perineal resection 09/29/2016. Stage pT3 pN0M1 Has received 7 of 12 cycles of FOLFOX chemotherapy Last Edited By: Barbra Thapa on Mar 09, 2017 15:09 History of Present Illness Ms. Mccall is a 60 year old female who presented with bleeding per rectum and some rectal discomfort for the last year. The patient was referred by her primary care physician to Dr. Jorge L Benavides who recommended a colonoscopy. The patient underwent a colonoscopy on 05/15/2016 which revealed an ulcerated partially obstructing large mass in the rectosigmoid region. The mass was circumferential beginning about 4-5 cm above the dentate line and extended to 13 cm and the mass measured 7-[address] Benavides performed a biopsy for the mass as well as several polyps which revealed invasive adenocarcinoma consistent with colorectal primary. The patient then underwent a endoscopic ultrasound with colonoscopy by Dr. Giacomo Jack on 05/18/2016 which revealed and confirmed a rectal mass which was staged as uT3N1. At the time of the endoscopic evaluation, Dr. Kapadia described the mass as involving the distal rectal valve and was circumferential and appear to break through the muscularis propria and invade into the perirectal fat. Dr. Giacomo Jack noted there was no sonographic evidence of invasion into the adjacent structures including the anal internal sphincter and external anal sphincter. Dr. Kapadia did note one malignant-appearing lymph node that was most likely perirectal. The patient had a CT abdomen/pelvis on 05/19/2016 which revealed a rectal mass with no definite local invasion as well as a round/mildly suspicious presacral lymph node measuring 11 mm. The patient was seen in consultation by Dr. Hylton from surgical oncology who recommended preoperative chemoradiation therapy followed by surgical resection. The patient was also seen by Dr. Yogesh Crowe for medical oncology who agreed with those recommendations. The patient has been scheduled for an MRI of the pelvis and CT chest to complete the staging workup. We are now seeing the patient in consultation discussed the role of radiation therapy. Currently, the patient does have some rectal discomfort and minimal rectal bleeding. She has no other complaints. Status post completion of radiation therapy 07/30/2016. She received 5040 cGy Interim History On 09/29/2016 she underwent an abdominal perineal resection. This revealed adenocarcinoma of the right pelvic side wall biopsy. The sigmoid and rectum resection showed invasive adenocarcinoma, moderately differentiated, extending through the muscularis propria. Adenocarcinoma is present in the distal resection margin. Proximal and radial resection margins are negative for adenocarcinoma. 13 lymph nodes were negative for carcinoma. The tumor was 4 cm in size. She did well postoperatively. She has had some skin irritation issues with the stoma. She was referred to an physical design engineer at medical oncology. She does have a clear drainage from the perineal area intermittently. She has reviewed this with her surgeon. She has vesicular lesions in the lower buttock skin area. These clear with Valtrex. These have occurred for many years. She is followed by medical oncology and is currently undergoing chemotherapy. She has had 7 of a planned 12 cycles of treatment. Allergies Coded Allergies: Sulfa Antibiotics (Verified Allergy, Intermediate, RASH, 11/20/16) Codeine (Verified Adverse Reaction, Intermediate, DIZZINESS, 11/20/16) Home Medications Scheduled Docusate Sodium (Colace), 2 CAP PO DAILY Gabapentin (Neurontin), 400 MG PO TID Magnesium Oxide (Magnesium-Oxide), 400 MG PO BID Tamsulosin HCl (Tamsulosin HCl), 0.4 MG PO BID [Boost], 1 CAN PO TID Scheduled PRN Acetaminophen (Mapap), 650 MG PO Q4H PRN for Pain Phenazopyridine HCl (Phenazopyridine HCl), 200 MG PO TID PRN for bladder pain Polyethylene Glycol 3350 (Miralax), 17 GM PO DAILY PRN for Constipation Review of Systems Oral: Other Oral Symptoms: r side mouth under tongue Physical Exam Vital Signs Date Time Temp Pulse Resp B/P (MAP) Pulse Ox O2 Delivery O2 Flow Rate FiO2 03/09/17 13:30 36.8 64 18 128/78 97 Fatigue: None General Appearance: no apparent distress Eyes: normal inspection, EOMI ENT: normal ENT inspection, hearing grossly normal Neck: no adenopathy, thyroid normal Respiratory/Chest: lungs clear, no respiratory distress, no accessory muscle use Cardiovascular: regular rate, rhythm, no gallop, no murmur Abdomen: non tender, soft, no organomegaly Extremities: no pedal edema Neurologic/Psychiatric: no motor/sensory deficits, alert, normal mood/affect Skin: warm/dry Pain Management Patient Reports Pain: No Pain Location: None Patient Preferred Pain Scale: 0 - 10 Initial Pain Intensity: 0.0 Pain Management Plan She denies pain therefore requires no pain management. Laboratory Laboratory Results: not applicable Pathology Pathology Results: were reviewed, and pertinent findings noted below Pathology Comments Patient Information Name: CHRIS MCCALL (AGE) Sex: 1955 (61) F Billing #: [id number] MRN (Client MRN): [id number] Order #: [id number] Client Information Specimen Information Location: DISCHARGE Collected Date: 09/29/2016 Copy To: Debbi Lovell MD Accession Date: 09/29/2016 Client Case #: Outside Client.: Reported Date: 10/02/2016 Report Type: Final Report Submitting: - Shaji Hylton DO Procedures/Addenda Present SURGICAL PATHOLOGY DIAGNOSIS Electronically Signed Out: Amparo Torres MD -[facility] Lab A. Right pelvic sidewall, biopsy: Adenocarcinoma. B. Sigmoid and rectum, resection: Invasive adenocarcinoma, moderately differentiated, extending through the muscularis propria. Adenocarcinoma is present at the distal resection margin. Proximal and radial resection margins are negative for adenocarcinoma. Thirteen lymph nodes, negative for carcinoma; (0/13). See synoptic report. Clinical History Rectal cancer Synoptic Data Specimen: Sigmoid colon Rectum Procedure: Low anterior resection Specimen Length: 19.5 cm Tumor Site: Rectum Tumor Location: Tumor Location- Tumor is located entirely below peritoneal reflection Tumor Size: Greatest dimension: 4.0 cm Macroscopic Tumor Perforation: Not identified Histologic Type: Adenocarcinoma Histologic Grade: Low-grade (well-differentiated to moderately differentiated) Microscopic Tumor Extension: Tumor invades through the muscularis propria into the subserosal adipose tissue or the nonperitonealized pericolic or perirectal soft tissues but does not extend to the serosal surface Margins: Specify margin: Distal - positive Proximal Margin - Uninvolved by invasive carcinoma Distal Margin - Involved by invasive carcinoma Circumferential (Radial) Margin - Uninvolved by invasive carcinoma Treatment Effect: Residual cancer with evident tumor regression, but more than single cells or rare small groups of cancer cells (partial response, score 2) Lymph-Vascular Invasion: Not identified Perineural Invasion: Indeterminate Tumor Deposits: Not identified Type of Polyp in which Invasive Carcinoma Arose: Tubulovillous adenoma CHRIS MCCALL [phone] Page 2 of 4 [facility] ([facility]), [address] [facility] [place] [address] . [facility] ([facility] [address] [place] [address] [facility] ([facility]), [address] [facility] [place] [address] . [facility] ([facility] [address] [place] [address]. [facility] ([facility]), [address] [facility] [place] [address] . [phone] Pathologic Staging (pTNM): Primary Tumor (pT): pT3: Tumor invades through the muscularis propria into the subserosa or the nonperitonealized pericolic or perirectal soft tissues Regional Lymph Nodes (pN): pN0: No regional lymph node metastasis Number of lymph nodes examined: 13 Number of lymph nodes involved: 0 Distant Metastasis (pM): pM1: Distant metastasis Imaging Imaging Studies: were reviewed, and pertinent findings noted below Imaging Comments Date/Time of Imaging Study Study Completed: 09/04/2016 1:07 PM [facility] [facility] PACS Image Narrative EXAM MR PELVIS WITH/WITHOUT CONTRAST-09/04/2016 1:07 pm HISTORY Evaluate rectal cancer post treat,emt COMPARISON 06/02/2016 TECHNIQUE Multiplanar, multisequential MR imaging of the pelvis was performed before and after the administration of intravenous contrast. FINDINGS RECTUM : Tumor location: Distance of lowest extent of tumor from the anal verge: 7.6 cm Distance of lowest extent of tumor from top of anal sphincter:3.8 cm Relationship to anterior peritoneal reflection:This may abut the peritoneal reflection. Tumor characteristics: Circumferential extent and location:Circumferential tumor involving the upper to mid rectum with exophytic component right posterolaterally. No fistula. Craniocaudal extent:Lesion measures approximately 4.6 cm long and looks smaller with diminished diffusion restriction and persistent abnormal enhancing circumferential wall thickening with spiculated margins extending into the mesorectal fat. This maximally measures 17 mm in thickness ( was 21 mm in thickness) at the level of the right posterolateral exophytic component, smaller than previously. T category: T category: Probable T3. Distance to the MRF and extra mural depth of invasion: Spicules extend to the mesorectal fascia at the right posterolateral margin image [id number] series 701 as on prior exam with tumor extension not distinguished from post treatment fibrosis. Extension beyond the mesorectal fascia is not seen. Extra mural vascular invasion (EMV): Absent Mesorectal lymph nodes and/or tumor deposits: Several tiny 4-5 mm perirectal mesorectal at lymph nodes are re- demonstrated. Extra mesorectal lymph nodes: No. Previously seen enlarged presacral lymph node is no longer appreciated. No lymphadenopathy is seen. Additional findings: The uterus and and cervix have a normal appearance with small nabothian cyst incidentally seen. Ovaries have a normal appearance. Bladder is within normal limits. No invasion of adjacent pelvic structures. No ascites. Bones/soft tissues: Left acetabular stable 12 mm lesion, most likely an hemangioma, isointense on T2 weighted images with suppression on fat saturated images and mild enhancement. IMPRESSION T3 rectal tumor with partial response to interval treatment. Tumor versus post treatment fibrosis extends to the right posterolateral mesorectal fascia as on the prior exam. Prior presacral lymph node is no longer appreciated. Small mesorectal lymph nodes are unchanged. Authenticated By Authenticating Date Authenticating Time Reading Providers(s) MADISON SANCHEZ MD 09-07-2016 13:08 MADISON SANCHEZ MD Assessment & Plan Plan: She'll continue on with her chemotherapy. She will have the completion of a total of 12 cycles. This is FOLFOX chemotherapy. Medical oncology is referring her to an physical design engineer. She was seen and examined by Dr. Crowe. Recheck scanning per medical oncology. We asked her to return to our office in 1 year. She may call if she has any questions or concerns in the interim. Assessment & Plan (Attending) ADDENDUM: I agree with note created by Barbra Thapa PA-C. I reviewed the patient's chart and information with her. I have examined and evaluated the patient. I reviewed relevant clinical information and answered the patient's and /or family's questions. RIGHT OF WAY MANAGER Total Time In Follow-Up I spent 20 minutes speaking to the patient performing examination. I spent 15 minutes reviewing information in completing this note. Total Time (Attending) In Follow-Up I spent 15 minutes examining and counseling the patient. RIGHT OF WAY MANAGER Copy To Shaji Hylton D.O.; Yogesh Crowe M.D.; Marylu Ojeda MD
== END | disposition home or self-care (01) ==
LOC: C.ONC 13:18
PROVIDERS: ATTEND Physician Assistant Medical
DX: Z08 Encounter for follow-up examination after completed treatment for malignant neoplasm (principal); Z92.3 Personal history of irradiation; Z85.048 Personal history of other malignant neoplasm of rectum, rectosigmoid junction, and anus

== ENCOUNTER 2018-04-25 14:31 | Inpatient (IN) ==
[2018-04-25] MEDS ORDERED: SODIUM CHLORIDE 0.9% 1000ML 1,000 ML IV ONE (14:59)
[2018-04-25] MEDS ORDERED: SODIUM CHLORIDE 0.9% 1000ML 1,000 ML IV SCH (15:00)
[2018-04-25] MEDS ORDERED: SODIUM CHLORIDE 0.9% 500 ML IV SCH (15:00)
--- NOTE | 2018-04-25 15:25 | XRay Report ---
XR chest 1V portable CLINICAL HISTORY: weakness dyspnea COMPARISON STUDY: 10/24/2017 FINDINGS: Stable emphysematous change. No focal infiltrate. Central catheter in superior vena cava. IMPRESSION: Stable emphysematous change. No acute process. The above report was generated using voice recognition software. It may contain grammatical, syntax or spelling errors. Electronically signed by: Iam Oakes M.D. 04/25/2018 3:24 PM
[2018-04-25] MEDS ORDERED: DEXTROSE 50% 50 ML SYRINGE IV ONE (15:41)
[2018-04-25] MEDS ORDERED: NovoLIN-R INSULIN PER UNIT CHARGE IV STA (15:41)
[2018-04-25] MEDS ORDERED: SODIUM BICARB 8.4% INJ 50 MEQ/50 ML SYR IV STA (15:41)
[2018-04-25 15:52] LABS: iSTAT Creatinine 1.6 mg/dl (0.6-1.3); iSTAT Hemoglobin 11.9 g/dl (12.0-16.0); iSTAT Ionized Calcium 1.32 mmol/l (1.12-1.32); iSTAT Potassium 8.1 mEq/L (3.3-5.0)
[2018-04-25 16:11] LABS: Basophils # (auto) 0.01 K/uL (0-0.2); Basophils % (auto) 0.1 %; Hematocrit (blood only) 36.4 % (37-47); Hemoglobin 11.5 g/dL (12.0-16.0); Immature Granulocytes % (auto) 1.4 %; Lymphocytes % (auto) 4.8 %; Mean Corpuscular Hgb Conc 31.6 g/dL (32-36); Mean Corpuscular Volume 92.9 fL (80-100); Mean Platelet Volume 9.4 fL (7.4-10.4); Monocytes % (auto) 3.4 %; Neutrophils # (auto) 13.27 K/uL (1.4-6.5); Neutrophils % (auto) 90.3 %; Nucleated RBC # (auto) 0.02 K/uL (0-0); Nucleated RBC % (auto) 0.2 %; Platelet Count 284 K/uL (130-400); RDW Coefficient of Variation 17.2 % (11.5-14.5); RDW Standard Deviation 58.2 fL (36.4-46.3); Red Blood Count 3.92 M/uL (4.2-5.4); White Blood Count 14.68 K/uL (4.8-10.8)
[2018-04-25 16:24] LABS: Alanine Aminotransferase 32 U/L (12-78); Albumin Globulin Ratio 0.5 (0.9-2); Albumin Level 2.8 gm/dl (3.4-5.0); Alkaline Phosphatase 125 U/L (45-117); Aspartate Aminotransferase 27 U/L (15-37); BUN Creatinine Ratio 43.7 (10-20); Bilirubin,Total 0.2 mg/dl (0.2-1); Blood Urea Nitrogen 74 mg/dl (7-18); Carbon Dioxide 22 mmol/L (21-32); Chloride 109 mmol/L (98-107); Creatinine Clr Calc Pharmacy 25.3 ml/min; Est GFR (African American) 36.3; Est GFR (Non-African American) 31.3; Globulin 5.4 gm/dl (2.5-4.0); Glucose 92 mg/dl (70-99); Magnesium 2.5 mg/dl (1.8-2.4); Potassium 7.9 mmol/L (3.5-5.1); Sodium 136 mmol/L (136-145); Total Protein 8.2 gm/dl (6.4-8.2); Troponin I < 0.015 ng/ml (0-0.045)
--- NOTE | 2018-04-25 16:46 | Emergency Department Note ---
Entered by Edith Stubbs acting as a scribe for ED Provider Note CHIEF COMPLAINT: Abnormal labs evaluation HISTORY OF PRESENT ILLNESS: The patient is a 62 year old female who presents to the Emergency Room with complaints of abnormal labs evaluation. The patient reports she was at the clinic today getting chemotherapy and had blood work done as well. She reports the blood was drawn for the port. The blood work reveals: WBC is 14.1, hemoglobin is 11.4, creatinine is 1.82, potassium is 7.5 and BUN is 75. The patients family member reports the patient has been feeling weak and has had a cold chest for 2 weeks. The patient reports she sees Dr. Crowe for oncology. Pt denies LOC, headache, fevers, chills, diaphoresis, visual changes, neck pain, chest pain, breathing difficulties, nausea, vomiting, abdominal pain, back pain, melena, hematochezia, urinary symptoms, numbness, lymphadenopathy, rash, or other complaints. REVIEW OF SYSTEMS: See HPI for pertinent positives and negatives. A total of ten systems were reviewed and were otherwise negative. PMHx/PSHx: Diarrhea Ostomy Nausea Vomiting DVT prophylaxis Gastritis Pyelonephritis Dehydration SOCIAL HISTORY: Patient lives at home. PHYSICAL EXAM: GENERAL: Awake, alert, tired-appearing, in no distress HENT: Normocephalic, atraumatic. Dry mucus membranes. EYES: Normal conjunctiva. Sclera non-icteric. NECK: Inspection normal. Non-tender. Supple. No nuchal rigidity. FROM. No masses. RESPIRATORY: Clear to auscultation. No wheezes. No rales. Normal respiratory effort. CARDIAC: Normal rate. Normal rhythm. No murmurs. No rubs. Extremities warm and well perfused. Pulses equal. No JVD. GI: Soft, non-distended. No tenderness to palpation. No rebound or guarding. No masses. Ostomy on both sides of abdomen. RECTAL: Deferred. MUSCULOSKELETAL: Atraumatic. Chest examination reveals no tenderness. The back is symmetrical on inspection without obvious abnormality. There is no CVA tenderness to palpation. No joint edema. Port in left upper chest. LOWER EXTREMITIES: Calves are equal size bilaterally and non-tender. No edema. No discoloration. NEURO: Normal sensorium. No sensory or motor deficits noted. SKIN: No rash or jaundice noted. EMERGENCY DEPARTMENT COURSE: 1436: Past medical records reviewed. The patient was evaluated in room D2A, and a complete history and physical examination were performed. 1459: Labs obtained from [facility] shows repeat potassium is 7.9 1556: I checked on the patient and updated her on test results. The patient is getting treated for hyperkalemia. 1558: I reviewed the patient's case with Internal Medicine Hospitalist. They will evaluate the patient for further management. 1609: I reviewed the patient's case with Dr. Ramirez, [facility] Hospitalist. She is going to admit the patient. MEDICAL DECISION MAKING: Prior records/ancillary studies reviewed and summarized above. Nursing notes reviewed and agree them. The patient's history was concerning for weakness. Differential diagnosis: Etiologies such as dehydration, metabolic, infection, hypo/hyperglycemia, electrolyte abnormalities, cardiac sources, intracerebral event, toxicologic, neurologic, as well as others were entertained. Physical examination: As above. Clinically the patient appeared dry. ER treatment provided: IV Lock Normal saline hydration, 1 L bolus and then 125 mL an hour IV IV bicarbonate IV insulin 10 units IV dextrose 1 amp On reassessment the patient remained stable. Diagnostics interpretation by me: ECG: Concerning for peaked T waves. The labs revealed a mild leukocytosis on CBC and mild anemia. Her chemistry panel revealed severe hyperkalemia and acute kidney injury. The patient also had some mild hypomagnesemia. Calcium at the upper limits of normal. Outpatient labs revealed mild hypercalcemia. Imaging studies: Chest x-ray negative for acute process. The patient has acute kidney injury and severe hyperkalemia. She is dehydrated. She needs admission to the hospital. Consultation: A consultation was placed with the hospitalist. The case was discussed and diagnostics were reviewed. The patient was evaluated in the ER for further treatment. IMPRESSION: Hyperkalemia Acute kidney injury Dehydration Hypercalciema PLAN: Admit CRITICAL CARE: I have personally spent greater than 30 minutes of critical care time in the direct management of this patient. This includes bedside care, interpretation of diagnostic studies, and testing, discussion with consultants, patient, and family members, and other required patient management activities. This 30 minutes is in excess of all separately billable procedures. The scribe's documentation has been prepared under my direction and personally reviewed by me in its entirety. I confirm that the note above accurately reflects all work, treatment, procedures, and medical decision making performed by me. Impression & Plan Hyperkalemia, Dehydration, Acute kidney injury, Hypercalcemia Past Med/Surg History Medical History Mitral valve prolapse (Resolved) Heart murmur (Resolved) History of colon cancer (Chronic) Hypokalemia (Resolved) Left ureteral calculus (Resolved) Rectal adenocarcinoma (Chronic 05/15/16) "6 months of intermittent rectal pain and bleeding Status post colonoscopy and biopsy 05/15/2016 (Dr. Jorge L Benavides) Adenocarcinoma Status post EUS staging 05/18/2016 (Dr. New Jack) Stage uT3 uN1 Plan for combined neoadjuvant radiation and chemotherapy (Dr. Yogesh Crowe) Chemotherapy comprised of Xeloda Status post completion of radiation therapy 07/30/2016. She received 5040 cGy. Status post abdominal perineal resection 09/29/2016. Stage pT3 pN0M1 Has received 7 of 12 cycles of FOLFOX chemotherapy" On 08/10/16 16:27 Barbra Thapa wrote "6 months of intermittent rectal pain and bleeding Status post colonoscopy and biopsy 05/15/2016 (Dr. Jorge L Benavides) Adenocarcinoma Status post EUS staging 05/18/2016 (Dr. New Jack) Stage uT3 uN1 Plan for combined neoadjuvant radiation and chemotherapy (Dr. Yogesh Crowe) Chemotherapy comprised of Xeloda Status post completion of radiation therapy 07/30/2016. She received 5040 cGy." On 06/02/16 09:48 Barbra Thapa wrote "6 months of intermittent rectal pain and bleeding Status post colonoscopy and biopsy 05/15/2016 (Dr. Jorge L Benavides) Adenocarcinoma Status post EUS staging 05/18/2016 (Dr. New Jack) Stage uT3 uN1 Plan for combined radiation and chemotherapy (Dr. 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 Feels Safe at Home: Yes Smoking Status: Former smoker Hx Alcohol Use: No Hx Substance Use: Yes Results & Data Vital Signs Vital Signs - 24 hr 04/25/18 14:39 04/25/18 14:41 04/25/18 15:20 Sepsis Recent Fever Within 48 Hours No Sepsis Action Taken by Nursing No Action Required Pulse Rate 79 75 81 Pulse Rate from SpO2 Sensor 78 95 H Pulse Rhythm Regular Pulse Strength Normal Respiratory Rate 14 20 14 Respiratory Effort / Characteristics Non-Labored Spontaneous Respiratory Depth Normal Blood Pressure 119/76 119/76 Blood Pressure Mean 90 90 Blood Pressure Position Lying Pulse Oximetry 96 94 97 Oxygen Delivery Method Room Air Room Air 04/25/18 15:30 04/25/18 15:40 04/25/18 15:50 Sepsis Recent Fever Within 48 Hours Sepsis Action Taken by Nursing Pulse Rate 79 72 72 Pulse Rate from SpO2 Sensor Pulse Rhythm Pulse Strength Respiratory Rate 19 21 16 Respiratory Effort / Characteristics Respiratory Depth Blood Pressure Blood Pressure Mean Blood Pressure Position Pulse Oximetry Oxygen Delivery Method 04/25/18 16:00 04/25/18 16:10 04/25/18 16:20 Sepsis Recent Fever Within 48 Hours Sepsis Action Taken by Nursing Pulse Rate 81 87 82 Pulse Rate from SpO2 Sensor Pulse Rhythm Pulse Strength Respiratory Rate 19 22 20 Respiratory Effort / Characteristics Respiratory Depth Blood Pressure Blood Pressure Mean Blood Pressure Position Pulse Oximetry Oxygen Delivery Method 04/25/18 16:22 04/25/18 16:23 04/25/18 16:25 Sepsis Recent Fever Within 48 Hours Sepsis Action Taken by Nursing Pulse Rate 81 83 Pulse Rate from SpO2 Sensor 80 83 Pulse Rhythm Pulse Strength Respiratory Rate 20 17 Respiratory Effort / Characteristics Respiratory Depth Blood Pressure 110/49 L 110/49 L Blood Pressure Mean 69 69 Blood Pressure Position Pulse Oximetry 99 98 98 Oxygen Delivery Method Room Air Room Air Home Medications Current Medication List: was personally reviewed by me Laboratory Data Attestation: I reviewed the patient's lab results. Result diagrams: 04/25/18 15:33 04/25/18 15:33 Lab Results 04/25/18 04/25/18 04/25/18 Range/Units 15:33 15:33 15:39 WBC 14.68 H (4.8-10.8) K/uL RBC 3.92 L (4.2-5.4) M/uL Hgb 11.5 L (12.0-16.0) g/dL POC Hgb 11.9 L (12.0-16.0) g/dl Hct 36.4 L (37-47) % POC Hct 35 L (37-47) % MCV 92.9 (80-100) fL MCH 29.3 (25-34) pg MCHC 31.6 L (32-36) g/dL RDW Std Deviation 58.2 H (36.4-46.3) fL RDW Coeff of Chelsy 17.2 H (11.5-14.5) % Plt Count 284 (130-400) K/uL MPV 9.4 (7.4-10.4) fL Immature Gran % (Auto) 1.4 % Neut % (Auto) 90.3 % Lymph % (Auto) 4.8 % [place] % (Auto) 3.4 % Eos % (Auto) 0.0 % Baso % (Auto) 0.1 % Immature Gran # (Auto) 0.20 H (0.00-0.02) K/uL Neut # (Auto) 13.27 H (1.4-6.5) K/uL Lymph # (Auto) 0.70 L (1.2-3.4) K/uL Len[place] # (Auto) 0.50 (0.11-0.59) K/uL Eos # (Auto) 0.00 (0-0.5) K/uL Baso # (Auto) 0.01 (0-0.2) K/uL Absolute Nucleated RBC 0.02 H (0-0) K/uL Nucleated RBC % (auto) 0.2 % POC Sodium 138 (135-144) mEq/L Sodium 136 (136-145) mmol/L POC Potassium 8.1 H* (3.3-5.0) mEq/L Potassium 7.9 H* (3.5-5.1) mmol/L POC Chloride 113 H (101-112) mEq/L Chloride 109 H (98-107) mmol/L Carbon Dioxide 22 (21-32) mmol/L POC Total CO2 20 L (24-31) mEq/l Anion Gap 5.0 (3-11) POC Anion Gap 13.0 L (16-25) mmol/L POC BUN 72 H (7-18) mg/dl BUN 74 H (7-18) mg/dl Creatinine 1.70 H (0.6-1.2) mg/dl POC Creatinine 1.6 H (0.6-1.3) mg/dl Est Cr Clr Drug Dosing 25.3 ml/min Est GFR ( Amer) 36.3 Est GFR (Non-Af Amer) 31.3 BUN/Creatinine Ratio 43.7 H (10-20) Glucose 92 (70-99) mg/dl POC Glucose (other) 93 (70-99) mg/dl Calcium 10.0 (8.5-10.1) mg/dl POC Ioniz Calcium Linda 1.32 (1.12-1.32) mmol/l Magnesium 2.5 H (1.8-2.4) mg/dl Total Bilirubin 0.2 (0.2-1) mg/dl AST 27 (15-37) U/L ALT 32 (12-78) U/L Alkaline Phosphatase 125 H (45-117) U/L Troponin I < 0.015 (0-0.045) ng/ml Total Protein 8.2 (6.4-8.2) gm/dl Albumin 2.8 L (3.4-5.0) gm/dl Globulin 5.4 H (2.5-4.0) gm/dl Albumin/Globulin Ratio 0.5 L (0.9-2) TSH 0.948 (0.300-4.500) uIu/ml Administered Medications Sodium Chloride (Nss 1000ml) 1,000 mls @ 125 mls/hr IV .Q8H SANDRA Stop: 04/25/18 22:59 Last Admin: 04/25/18 15:39 Dose: 125 mls/hr Documented by: [id number] Discontinued Medications Dextrose (Dextrose 50%) 50 ml IV NOW ONE Stop: 04/25/18 15:42 Last Admin: 04/25/18 15:50 Dose: 50 ml Documented by: [id number] Sodium Chloride (Nss 1000ml) 1,000 mls @ 999 mls/hr IV .Q1H1M ONE Stop: 04/25/18 15:59 Last Admin: 04/25/18 15:38 Dose: 999 mls/hr Documented by: [id number] Insulin Human Regular (Novolin R U-100 Per Unit) 10 units IV NOW STA Stop: 04/25/18 15:42 Last Admin: 04/25/18 15:51 Dose: 10 units Documented by: [id number] Cosigned by: [id number] Sodium Bicarbonate (Sodium Bicarbonate 8.4%) 50 meq IV NOW STA Stop: 04/25/18 15:42 Last Admin: 04/25/18 15:50 Dose: 50 meq Documented by: [id number] Imaging Data Radiologist's Impression: Radiology results as stated below per my review and the radiologist's interpretation: XR chest 1V portable CLINICAL HISTORY: weakness dyspnea COMPARISON STUDY: 10/24/2017 FINDINGS: Stable emphysematous change. No focal infiltrate. Central catheter in superior vena cava. IMPRESSION: Stable emphysematous change. No acute process. The above report was generated using voice recognition software. It may contain grammatical, syntax or spelling errors. Electronically signed by: Iam Oakes M.D. 04/25/2018 3:24 PM ECG Data Attestation: I personally reviewed and interpreted this ECG as follows: Indication: other (Abnormal testings) Rate (beats per minute): 78 Rhythm: normal sinus Findings: + other (Peaked T-wave morphology ); no PAC, no PVC, no ST depression and no ST elevation Additional Comments: Pre-hospital ECG shows: Normal sinus at 80 beats per minute No ST elevation No ST depression No PACs No PVCs There is a peaked T wave. Blood Pressure Blood Pressure Findings: Normal blood pressure Blood Pressure Disposition: did not require urgent referral Discharge Plan Visit Data Chief Complaint: Abnormal Labs/Diagnostic Testing Stated Complaint: abnormal labs ED Provider: Jordon Mulligan Discharge Problem: Hyperkalemia, Dehydration, Acute kidney injury, Hypercalcemia Patient Disposition: Being Evaluated by Hospitalist Forms Stand Alone Forms: My [facility] [employer] Prescriptions Prescriptions: No Action gabapentin 600 mg tablet 600 mg PO TID RF: 0 polyethylene glycol 3350 [Miralax] 17 gram/dose Powder 17 g PO DAILY PRN (Reason: Constipation) RF: 0 dexamethasone 4 mg tablet 2 mg PO DAILY RF: 0 potassium chloride 20 mEq tablet,ER particles/crystals 20 meq PO DAILY RF: 0 lisinopril 10 mg tablet 10 mg PO DAILY RF: 0 pantoprazole 40 mg Tablet,Delayed Release (Dr/Ec) 40 mg PO BID Qty: 60 RF: 2 oxycodone 5 mg Tablet 5 mg PO Q8H PRN (Reason: pain) Qty: 30 RF: 0 ferrous sulfate 325 mg (65 mg iron) tablet 325 mg PO BID Qty: 60 RF: 1 methadone 10 mg tablet 10 mg PO Q12H Qty: 60 RF: 0 Referrals Referrals: Marylu Ojeda MD [Primary Care Provider] - The scribe's documentation has been prepared under my direction and personally reviewed by me in its entirety. I confirm that the note above accurately re flects all work, treatment, procedures, and medical decision making performed by me.
[2018-04-25 17:23] LABS: Appearance Urine Clear (Clear); Bilirubin Urine Negative (Negative); Blood Urine Negative (Negative); Color Urine Yellow; Glucose Urine UA Negative (Negative); Ketones Urine Negative (Negative); Leukocyte Esterase Urine Negative (Negative); Nitrite Urine Negative (Negative); Protein Urine Negative (Negative); Urobilinogen Urine Negative (Negative)
--- NOTE | 2018-04-25 17:26 | History & Physical Report ---
Date of Service April 25, 2018 Assessment & Plan (1) Hyperkalemia: In the setting of recent replacement for hypoK and likely potentiated by dehydration Given IVF, glucose, and bicarb in the ED Monitor on tele EKG with slightly peaked T waves Likely causing lightheadedness and shakiness that started this weekend Recheck tonight to ensure moving in the right direction (2) Hypermagnesemia: Monitor with IVF (3) Acute kidney injury: Likely related to dehydration from poor appetite Monitor on IVF (4) Leukocytosis: In the setting of steroid use Monitor Afebrile (5) Chronic pain syndrome: continue home meds Follows with Dr. Rodriguez for this if needed (6) Adenocarcinoma of rectum, stage 4: Follows with [facility] if needed Missed chemo today due to labs Dexamethasone use is related to chemo tx (7) Hypertension: continue home meds (8) UTI (urinary tract infection): Finished abx today for UTI with possible pyelo No urinary sx (9) DVT prophylaxis: Heparin for DVT proph History of Present Illness Primary Care Provider: Marylu Ojeda MD 62 y/o F who was sent here from her oncologist for abn labs. Pt was having routine labs done for her chemo tx today and it was noted that her K was elevated and she was in ALAYNA. Pt states that she started to feel lightheaded and shaky on Wednesday and this persisted into today. She had been at her baseline other than URI sx over the last 10 days or so. She has been tolerating PO. Pt denies fever, SOB, chest pain, abd pain, n/v/c/d, LE pain or swelling. Pt was a d/c on 04/12 after being dx with UTI and likely pyelonephritis. She was also noted to be mildly hypoK. She was to finish a course of potassium and amoxicillin x13 days, which she finished today. Allergies Allergy/AdvReac Type Severity Reaction Status Date / Time Sulfa (Sulfonamide Allergy Intermediate RASH Verified 04/25/18 15:49 Antibiotics) codeine AdvReac Intermediate DIZZINESS Verified 04/25/18 15:49 Home Medications Home Medications Medication Instructions Recorded Confirmed Type gabapentin 600 mg PO TID 10/24/17 04/25/18 History polyethylene glycol 3350 [Miralax] 17 g PO DAILY PRN 10/24/17 04/25/18 History dexamethasone 2 mg PO DAILY 01/11/18 04/25/18 History ferrous sulfate 325 mg PO BID #60 tab 04/10/18 04/25/18 Rx methadone 10 mg PO Q12H #60 tab 04/10/18 04/25/18 Rx oxycodone 5 mg PO Q8H PRN #30 tab 04/10/18 04/25/18 Rx pantoprazole 40 mg PO BID #60 tab 04/10/18 04/25/18 Rx lisinopril 10 mg PO DAILY 04/23/18 04/25/18 History potassium chloride 20 meq PO DAILY 04/23/18 04/25/18 History Past Med/Surg History Medical History Complication of ostomy (Acute) Diarrhea (Acute) Acute blood loss anemia Nausea & vomiting Cellulitis of helix of right ear DVT prophylaxis Hydronephrosis Chronic pain syndrome Gastritis Pyelonephritis Adenocarcinoma of rectum, stage 4 (Chronic) Intractable epigastric abdominal pain (Acute) Dehydration (Acute) Infection due to Clostridium septicum Bacteremia Rectal bleeding (Acute) Metastatic disease (Acute) Hypertension UTI (urinary tract infection) GI bleed Mitral valve prolapse (Resolved) Heart murmur (Resolved) History of colon cancer (Chronic) Hypokalemia (Resolved) Left ureteral calculus (Resolved) Rectal adenocarcinoma (Chronic 05/15/16) "6 months of intermittent rectal pain and bleeding Status post colonoscopy and biopsy 05/15/2016 (Dr. Jorge L Benavides) Adenocarcinoma Status post EUS staging 05/18/2016 (Dr. New Jack) Stage uT3 uN1 Plan for combined neoadjuvant radiation and chemotherapy (Dr. Yogesh Crowe) Chemotherapy comprised of Xeloda Status post completion of radiation therapy 07/30/2016. She received 5040 cGy. Status post abdominal perineal resection 09/29/2016. Stage pT3 pN0M1 Has received 7 of 12 cycles of FOLFOX chemotherapy" On 08/10/16 16:27 Barbra Thapa wrote "6 months of intermittent rectal pain and bleeding Status post colonoscopy and biopsy 05/15/2016 (Dr. Jorge L Benavides) Adenocarcinoma Status post EUS staging 05/18/2016 (Dr. New Jack) Stage uT3 uN1 Plan for combined neoadjuvant radiation and chemotherapy (Dr. Yogesh Crowe) Chemotherapy comprised of Xeloda Status post completion of radiation therapy 07/30/2016. She received 5040 cGy." On 06/02/16 09:48 Barbra Thapa wrote "6 months of intermittent rectal pain and bleeding Status post colonoscopy and biopsy 05/15/2016 (Dr. Jorge L Benavides) Adenocarcinoma Status post EUS staging 05/18/2016 (Dr. New Jack) Stage uT3 uN1 Plan for combined radiation and chemotherapy (Dr. Yogesh Crowe) Chemotherapy comprised of Xeloda " Symptomatic anemia (Resolved) Acute UTI (urinary tract infection) (Inactive) Mass of perirectal soft tissue (Inactive) Port-A-Cath in place Surgical History Colostomy present (Chronic) x 2; recreation of colostomy due to fistula Family History Mother , age 93 Stroke Father , age 79 COPD (chronic obstructive pulmonary disease) Other No significant family history Social History Preferred Language: Turkish Beliefs That Will Affect Care: Hoahaoism marital status: Current Living Situation: Alone Current Living Situation Comment: alone in [place] 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 Feels Safe at Home: Yes Smoking Status: Former smoker Hx Alcohol Use: No Hx Substance Use: Yes Review of Systems Pertinent positives and negatives reviewed in HPI--all others negative Physical Exam Vital Signs (Past 24 Hours): Last Vital Signs Pulse 83 04/25/18 16:23 Resp 17 04/25/18 16:23 BP 110/49 L 04/25/18 16:23 Pulse Ox 98 04/25/18 16:25 Constitutional: + ill appearing and + cachectic; no acute distress Eyes: normal visual hassan by confrontation and + anicteric sclerae Neck: normal visual inspection and trachea midline Respiratory: normal respiratory effort, lungs clear to auscultation Cardiovascular: Rate/Rhythm: regular rate and regular rhythm Gastrointestinal (Abdomen): Inspection/Auscultation: abdomen not distended Percussion/Palpation: abdomen soft; abdomen nontender Musculoskeletal: Head/Neck/Chest: normocephalic and head atraumatic n egative for edema, peripheral pulses intact Skin: no rashes, warm and dry Neurologic: awake; not confused Speech / Cognition: normal speech Psychiatric: A+Ox3, euthymic affect Code Status & VTE Plan Code Status Full cardiac code, DNI per pt. Friend is present and aware. VTE Prophylaxis Plan VTE Prophylaxis will be ordered: Yes (1) Hypertension Hypertension type: essential hypertension Qualified Code(s): I10 - Essential (primary) hypertension (2) UTI (urinary tract infection) Urinary tract infection type: acute pyelonephritis Qualified Code(s): N10 - Acute pyelonephritis
[2018-04-25] MEDS ORDERED: OXYCODONE HCL IR 5 MG TAB (IMMEDIATE RELEASE) PO PRN (18:29)
[2018-04-25] MEDS ORDERED: MAGNESIUM HYDROXIDE SUSP 30 ML UDC PO PRN (18:29)
[2018-04-25] MEDS ORDERED: ACETAMINOPHEN 325 MG TAB PO PRN (18:29)
[2018-04-25] MEDS ORDERED: POLYETHYLENE (MIRALAX) 17 GM PACK PO PRN (18:29)
[2018-04-25 19:44] LABS: Prothrombin Time 10.1 Seconds (9.0-12.0)
[2018-04-25 19:51] LABS: Calcium 8.7 mg/dl (8.5-10.1); Creatinine Clr Calc Pharmacy 34.7 ml/min; Est GFR (African American) 53.2; Est GFR (Non-African American) 45.9; Potassium 6.9 mmol/L (3.5-5.1)
[2018-04-25] MEDS: PANTOprazole 40 MG TAB PO SCH (20:40)
[2018-04-25] MEDS: METHADONE HCL 10 MG TAB PO SCH (20:40)
[2018-04-25] MEDS: FERROUS SULFATE 325 MG TAB PO SCH (20:40)
[2018-04-25] MEDS: GABAPENTIN 600 MG TAB PO SCH (20:40)
[2018-04-25] MEDS: HEPARIN SOD 5,000 UNIT/0.5 ML VIAL SQ SCH (21:54)
[2018-04-25 23:45] LABS: Calcium 8.3 mg/dl (8.5-10.1); Potassium 6.7 mmol/L (3.5-5.1)
[2018-04-26 00:17] LABS: BUN Creatinine Ratio 48.9 (10-20); Creatinine Clr Calc Pharmacy 36.1 ml/min; Est GFR (African American) 55.9; Est GFR (Non-African American) 48.2
[2018-04-26] MEDS: SODIUM CHLORIDE 0.45 % 1,000 ML IV SCH ×2 (01:11→18:25)
[2018-04-26] MEDS: HEPARIN SOD 5,000 UNIT/0.5 ML VIAL SQ SCH ×3 (06:23→21:37)
[2018-04-26] MEDS: METHADONE HCL 10 MG TAB PO SCH ×2 (08:02→21:36)
[2018-04-26] MEDS: GABAPENTIN 600 MG TAB PO SCH ×3 (08:02→21:36)
[2018-04-26] MEDS: dexAMETHasone 4 MG TAB PO SCH (08:03)
[2018-04-26] MEDS: FERROUS SULFATE 325 MG TAB PO SCH ×2 (08:03→21:37)
[2018-04-26] MEDS: PANTOprazole 40 MG TAB PO SCH ×2 (08:04→21:36)
[2018-04-26] MEDS: LISINOPRIL 10 MG TAB PO SCH (08:04)
[2018-04-26 08:36] LABS: Hematocrit (blood only) 30.7 % (37-47); Hemoglobin 9.3 g/dL (12.0-16.0); Mean Corpuscular Hgb Conc 30.3 g/dL (32-36); Mean Platelet Volume 8.6 fL (7.4-10.4); Platelet Count 202 K/uL (130-400); RDW Standard Deviation 57.8 fL (36.4-46.3); White Blood Count 8.39 K/uL (4.8-10.8)
[2018-04-26 09:22] LABS: BUN Creatinine Ratio 44.6 (10-20); Calcium 8.9 mg/dl (8.5-10.1); Creatinine Clr Calc Pharmacy 43.8 ml/min; Est GFR (African American) 69.8; Est GFR (Non-African American) 60.2; Potassium 4.8 mmol/L (3.5-5.1)
--- NOTE | 2018-04-26 17:01 | Hospitalist Progress Note ---
Date of Service April 26, 2018 Assessment & Plan (1) Hyperkalemia: - Likely related to recent KCl supplementation, dehydration and ALAYNA. - K level 7.9 at admission, now improved to 4.8 following hyperkalemia treatment in the ED. - Continue to monitor on telemetry. - IV fluids with NS at 50 cc/hr. - Monitor levels qAM. (2) Weakness: - PT/OT -- no therapy needs anticipated. - Pt. ambulates with cane at home. - Consider starting stress dose steroids (on Dex 2 mg daily at home) if there is evidence of adrenal insufficiency. - Orthostatic vital signs pending. (3) Acute kidney injury: - Likely prerenal related to dehydration; creatinine was 1.24 at admission. - Baseline Creatinine ~0.5-0.7; level now improved to 0.9. - Continue IV fluids at 50 cc/hr. (4) Chronic pain syndrome: - Follows closely with palliative care. - Continue Methadone 10 mg q12hr, Neurontin 600 mg TID - Oxycodone 5 mg q8hr prn breakthrough pain. (5) Adenocarcinoma of rectum, stage 4: - Follows with [facility]; missed most recent chemo due to hyperkalemia noted on labs. - Has new liver and pulm metastasis; also follows with palliative care. - On Dexamethasone 2 mg PO daily -- low threshold to start IV stress dose steroids. (6) Anemia: - Hemoglobin decreased to 9.3; will monitor daily. - Transfuse for hgb <7.5. - Continue ferrous sulfate 325 mg BID. (7) Hypertension: - Continue home Lisinopril 10 mg daily as prescribed. (8) UTI (urinary tract infection): - Completed 14 day course of Amoxicillin for treatment of UTI/possible pyelonephritis (was admitted 04/06-04/12). - Continue to monitor. (9) Hypermagnesemia: - Related to dehydration; improved with IV fluids. (10) DVT prophylaxis: - Heparin. Dispo: Discharge pending improvement in weakness; PT/OT does not recommend ongoing therapy. Supervising Physician Co-Signing Physician Notes Attending Attestation: Chart reviewed in detail, care plan d/w TANESHA Berry. I agree w/ the hilliard components of her documentation. Pt with resolving ALAYNA and hyperkalemia. Vitals, other labs stable. Continue supportive care. Oscar Merida MD Subjective Pt. complains of feeling wobbly today. Has dizziness with standing. Has chronic rectal pain, unchanged, and well controlled with current regimen. Will order PT/OT evaluation. Review of Systems All systems reviewed & are unremarkable except as noted in HPI & below Constitutional: + fatigue and + weakness; no fever, no chills and no anorexia Respiratory: no cough and no dyspnea Cardiovascular: + lightheadedness; no chest pain, no palpitations, no syncope and no edema Gastrointestinal: no abdominal pain, no nausea and no constipation Genitourinary (Female): no difficulty urinating Allergy / Immunological: no rash Physical Exam Vital Signs (Past 24 Hours): Last Vital Signs Temp 36.9 C 04/26/18 15:58 Pulse 84 04/26/18 15:58 Resp 22 04/26/18 15:58 BP 106/67 04/26/18 15:58 Pulse Ox 95 04/26/18 15:58 Physical Exam: General: Chronically ill appearing female. HEENT: NC/AT; PERRLA with EOMI; [place] conjunctiva, MMM. Neck: Supple and nontender Cardiac: RRR w/o murmurs, gallops or rubs Lungs: CTA bilaterally; No rhonchi, wheezing, or rales Abdomen: Bowel normoactive X 4; Nontender to palpation Extremities: Warm. edema present Neuro: No focal weakness Skin: No rash Results & Data Laboratory Results 04/26/18 04/26/18 04/26/18 Range/Units 16:25 08:20 08:20 WBC 8.39 (4.8-10.8) K/uL RBC 3.30 L (4.2-5.4) M/uL Hgb 9.3 L (12.0-16.0) g/dL Hct 30.7 L (37-47) % MCV 93.0 (80-100) fL MCH 28.2 (25-34) pg MCHC 30.3 L (32-36) g/dL RDW Std Deviation 57.8 H (36.4-46.3) fL RDW Coeff of Chelsy 17.0 H (11.5-14.5) % Plt Count 202 (130-400) K/uL MPV 8.6 (7.4-10.4) fL PT (9.0-12.0) Seconds INR (0.9-1.1) Sodium 139 (136-145) mmol/L Potassium 4.8 D (3.5-5.1) mmol/L Chloride 110 H (98-107) mmol/L Carbon Dioxide 21 (21-32) mmol/L Anion Gap 8.0 (3-11) BUN 44 H (7-18) mg/dl Creatinine 0.99 (0.6-1.2) mg/dl Est Cr Clr Drug Dosing 43.8 ml/min Est GFR ( Amer) 69.8 Est GFR (Non-Af Amer) 60.2 BUN/Creatinine Ratio 44.6 H (10-20) Glucose 107 H (70-99) mg/dl POC Glucose 199 H (70-99) Calcium 8.9 (8.5-10.1) mg/dl Phosphorus (2.5-4.9) mg/dl Magnesium 2.0 (1.8-2.4) mg/dl Urine Color Urine Appearance (Clear) Urine pH (4.5-7.5) Ur Specific [place] (1.000-1.030) Urine Protein (Negative) Urine Glucose (UA) (Negative) Urine Ketones (Negative) Urine Blood (Negative) Urine Nitrite (Negative) Urine Bilirubin (Negative) Urine Urobilinogen (Negative) Ur Leukocyte Esterase (Negative) 04/26/18 04/25/18 04/25/18 Range/Units 05:52 23:16 20:16 WBC (4.8-10.8) K/uL RBC (4.2-5.4) M/uL Hgb (12.0-16.0) g/dL Hct (37-47) % MCV (80-100) fL MCH (25-34) pg MCHC (32-36) g/dL RDW Std Deviation (36.4-46.3) fL RDW Coeff of Chelsy (11.5-14.5) % Plt Count (130-400) K/uL MPV (7.4-10.4) fL PT (9.0-12.0) Seconds INR (0.9-1.1) Sodium 137 (136-145) mmol/L Potassium 6.7 H* (3.5-5.1) mmol/L Chloride 110 H (98-107) mmol/L Carbon Dioxide 23 (21-32) mmol/L Anion Gap 4.0 (3-11) BUN 58 H (7-18) mg/dl Creatinine 1.19 (0.6-1.2) mg/dl Est Cr Clr Drug Dosing 36.1 ml/min Est GFR ( Amer) 55.9 Est GFR (Non-Af Amer) 48.2 BUN/Creatinine Ratio 48.9 H (10-20) Glucose 76 (70-99) mg/dl POC Glucose 127 H (70-99) Calcium 8.3 L (8.5-10.1) mg/dl Phosphorus 4.2 (2.5-4.9) mg/dl Magnesium (1.8-2.4) mg/dl Urine Color Urine Appearance (Clear) Urine pH (4.5-7.5) Ur Specific [place] (1.000-1.030) Urine Protein (Negative) Urine Glucose (UA) (Negative) Urine Ketones (Negative) Urine Blood (Negative) Urine Nitrite (Negative) Urine Bilirubin (Negative) Urine Urobilinogen (Negative) Ur Leukocyte Esterase (Negative) 04/25/18 04/25/18 04/25/18 Range/Units 19:13 19:13 16:50 WBC (4.8-10.8) K/uL RBC (4.2-5.4) M/uL Hgb (12.0-16.0) g/dL Hct (37-47) % MCV (80-100) fL MCH (25-34) pg MCHC (32-36) g/dL RDW Std Deviation (36.4-46.3) fL RDW Coeff of Chelsy (11.5-14.5) % Plt Count (130-400) K/uL MPV (7.4-10.4) fL PT 10.1 (9.0-12.0) Seconds INR 1.0 (0.9-1.1) Sodium 137 (136-145) mmol/L Potassium 6.9 H* (3.5-5.1) mmol/L Chloride 111 H (98-107) mmol/L Carbon Dioxide 22 (21-32) mmol/L Anion Gap 5.0 (3-11) BUN 65 H (7-18) mg/dl Creatinine 1.24 H D (0.6-1.2) mg/dl Est Cr Clr Drug Dosing 34.7 ml/min Est GFR ( Amer) 53.2 Est GFR (Non-Af Amer) 45.9 BUN/Creatinine Ratio 52.0 H (10-20) Glucose 77 (70-99) mg/dl POC Glucose (70-99) Calcium 8.7 (8.5-10.1) mg/dl Phosphorus (2.5-4.9) mg/dl Magnesium (1.8-2.4) mg/dl Urine Color Yellow Urine Appearance Clear (Clear) Urine pH 7.0 (4.5-7.5) Ur Specific [place] 1.010 (1.000-1.030) Urine Protein Negative (Negative) Urine Glucose (UA) Negative (Negative) Urine Ketones Negative (Negative) Urine Blood Negative (Negative) Urine Nitrite Negative (Negative) Urine Bilirubin Negative (Negative) Urine Urobilinogen Negative (Negative) Ur Leukocyte Esterase Negative (Negative) (1) UTI (urinary tract infection) Urinary tract infection type: acute pyelonephritis Qualified Code(s): N10 - Acute pyelonephritis (2) Hypertension Hypertension type: essential hypertension Qualified Code(s): I10 - Essential (primary) hypertension
[2018-04-27] MEDS: HEPARIN SOD 5,000 UNIT/0.5 ML VIAL SQ SCH ×3 (05:40→20:49)
[2018-04-27] MEDS: ONDANSETRON INJ 2 MG/ML 2 ML VIAL IV PRN ×2 (06:34→12:06)
[2018-04-27 06:49] LABS: Hematocrit (blood only) 27.4 % (37-47); Hemoglobin 8.6 g/dL (12.0-16.0); Mean Corpuscular Hgb Conc 31.4 g/dL (32-36); Mean Corpuscular Volume 91.6 fL (80-100); Mean Platelet Volume 9.3 fL (7.4-10.4); Platelet Count 219 K/uL (130-400); RDW Coefficient of Variation 16.6 % (11.5-14.5); RDW Standard Deviation 56.1 fL (36.4-46.3); Red Blood Count 2.99 M/uL (4.2-5.4); White Blood Count 6.97 K/uL (4.8-10.8)
[2018-04-27 07:25] LABS: BUN Creatinine Ratio 38.7 (10-20); Calcium 8.5 mg/dl (8.5-10.1); Creatinine Clr Calc Pharmacy 68.6 ml/min; Est GFR (African American) 109.9; Est GFR (Non-African American) 94.8; Magnesium 1.7 mg/dl (1.8-2.4); Potassium 4.4 mmol/L (3.5-5.1)
[2018-04-27] MEDS: FERROUS SULFATE 325 MG TAB PO SCH ×2 (08:41→20:45)
[2018-04-27] MEDS: METHADONE HCL 10 MG TAB PO SCH ×2 (08:41→20:53)
[2018-04-27] MEDS: LISINOPRIL 10 MG TAB PO SCH (08:42)
[2018-04-27] MEDS: dexAMETHasone 4 MG TAB PO SCH (08:42)
[2018-04-27] MEDS: GABAPENTIN 600 MG TAB PO SCH ×3 (08:43→20:45)
[2018-04-27] MEDS: PANTOprazole 40 MG TAB PO SCH ×2 (08:43→20:44)
[2018-04-27] MEDS: MAGNESIUM SULFATE / D5W 1 GM/100 ML BAG IV SCH ×2 (08:46→09:55)
[2018-04-27] MEDS ORDERED: PROCHLORPERAZINE 10 MG in SYRINGE 8 ML IV PRN (12:04)
[2018-04-27] MEDS ORDERED: IBUPROFEN 200 MG TAB PO STA (12:27)
--- NOTE | 2018-04-27 12:50 | Hospitalist Progress Note ---
Date of Service April 27, 2018 Assessment & Plan (1) Nausea: - Likely related to recent chemotherapy vs. other. - Zofran 4 mg IV q6hr scheduled (monitor QTc in setting of methadone); will add Compazine 10 mg IV q6hr prn. - Encourage regular diet as tolerated; on IVFs at 50 cc/hr. - Has good output from ostomy -- will continue to monitor. (2) Weakness: - PT/OT -- will resume home health services. - Will start stress dose steroids with Decadron 2 mg IV q12hr. - Orthostatic vital signs were negative. (3) Headache: - Tylenol ordered prn; will give Ibuprofen x 1 dose. - Consider head imaging if no improvement in symptoms. (4) Hyperkalemia: - Likely related to recent KCl supplementation, dehydration and ALAYNA. - K level 7.9 at admission, now improved to 4.4 following hyperkalemia treatment. - IV fluids with NS at 50 cc/hr. - Monitor levels qAM. (5) Acute kidney injury: - Likely prerenal related to dehydration; creatinine was 1.24 at admission. - Baseline Creatinine ~0.5-0.7; level now improved to 0.6. - Continue IV fluids at 50 cc/hr. (6) Chronic pain syndrome: - Follows closely with palliative care. - Continue Methadone 10 mg q12hr, Neurontin 600 mg TID - Oxycodone 5 mg q8hr prn breakthrough pain. (7) Adenocarcinoma of rectum, stage 4: - Follows with [facility]; missed most recent chemo due to hyperkalemia noted on labs. - Has new liver and pulm metastasis; also follows with palliative care. - Hold home Dexamethasone 2 mg PO daily; start Decadron 2 mg IV q12hr. (8) Anemia: - Hemoglobin decreased to 8.6; will monitor daily. - Transfuse for hgb <7.5. - Continue ferrous sulfate 325 mg BID. (9) Hypertension: - Continue home Lisinopril 10 mg daily as prescribed. - C/o dizziness -- orthostatic vital signs were negative. (10) UTI (urinary tract infection): - Completed 14 day course of Amoxicillin for treatment of UTI/possible pyelonephritis (was admitted 04/06-04/12). (11) Electrolyte abnormality: - Mag level 1.7 - ordered mag sulfate 2 gm IV. (12) DVT prophylaxis: - Heparin. Dispo: Discharge pending improvement in weakness and nausea -- likely tomorrow. Home health services will be resumed. Supervising Physician Co-Signing Physician Notes Attending Attestation: Chart reviewed in detail, care plan d/w TANESHA Berry. I agree w/ the hilliard components of her documentation. Pt with weakness, nausea - in the setting of chronic steroid use. Agree w/ use of stress-dose steroids & IVF. ALAYNA/hyperkalemia resolved. Oscar Merida MD Subjective Pt. reports ongoing lightheadedness/feeling wobbly during rounds today. Orthostatics were negative. BP has been stable overall since admission. Worked with PT/OT -- did not recommend inpt rehab, will resume home services. She developed nausea this morning, no vomiting. Was able to tolerate small amount of breakfast. Pt. denies nausea in the past following chemotherapy. Had some improvement with Zofran early this morning. Also has a headache, no improvement with Tylenol. Ibuprofen was ordered x 1 dose. Output in ostomy bag is loose. Will continue to monitor for improvement in nausea and lightheadedness over next 24 hours. Review of Systems All systems reviewed & are unremarkable except as noted in HPI & below Constitutional: + fatigue, + weakness and + anorexia; no fever and no chills Respiratory: no cough, no dyspnea and no wheezing Cardiovascular: + lightheadedness; no chest pain, no palpitations, no syncope and no edema Gastrointestinal: + nausea and + diarrhea/loose stools; no abdominal pain, no vomiting and no constipation Genitourinary (Female): no difficulty urinating Musculoskeletal: no joint pain Neurologic: + headache(s) Allergy / Immunological: no rash Physical Exam Vital Signs (Past 24 Hours): Last Vital Signs Temp 36.8 C 04/27/18 11:29 Pulse 69 04/27/18 11:29 Resp 16 04/27/18 11:29 BP 133/74 04/27/18 11:29 Pulse Ox 94 04/27/18 11:29 Physical Exam: General: Chronically ill appearing female. HEENT: NC/AT; PERRLA with EOMI; [place] conjunctiva, MMM. Neck: Supple and nontender Cardiac: RRR w/o murmurs, gallops or rubs Lungs: CTA bilaterally; No rhonchi, wheezing, or rales Abdomen: Bowel normoactive X 4; Nontender to palpation Extremities: Warm. edema present Neuro: No focal weakness Skin: No rash Results & Data Laboratory Results 04/27/18 04/27/18 04/27/18 Range/Units 11:34 07:41 06:18 WBC (4.8-10.8) K/uL RBC (4.2-5.4) M/uL Hgb (12.0-16.0) g/dL Hct (37-47) % MCV (80-100) fL MCH (25-34) pg MCHC (32-36) g/dL RDW Std Deviation (36.4-46.3) fL RDW Coeff of Chelsy (11.5-14.5) % Plt Count (130-400) K/uL MPV (7.4-10.4) fL Sodium 140 (136-145) mmol/L Potassium 4.4 (3.5-5.1) mmol/L Chloride 110 H (98-107) mmol/L Carbon Dioxide 25 (21-32) mmol/L Anion Gap 5.0 (3-11) BUN 24 H (7-18) mg/dl Creatinine 0.63 D (0.6-1.2) mg/dl Est Cr Clr Drug Dosing 68.6 ml/min Est GFR ( Amer) 109.9 Est GFR (Non-Af Amer) 94.8 BUN/Creatinine Ratio 38.7 H (10-20) Glucose 115 H (70-99) mg/dl POC Glucose 139 H 123 H (70-99) Calcium 8.5 (8.5-10.1) mg/dl Magnesium 1.7 L (1.8-2.4) mg/dl 04/27/18 04/26/18 04/26/18 Range/Units 06:18 20:48 16:25 WBC 6.97 (4.8-10.8) K/uL RBC 2.99 L (4.2-5.4) M/uL Hgb 8.6 L (12.0-16.0) g/dL Hct 27.4 L (37-47) % MCV 91.6 (80-100) fL MCH 28.8 (25-34) pg MCHC 31.4 L (32-36) g/dL RDW Std Deviation 56.1 H (36.4-46.3) fL RDW Coeff of [place]sy 16.6 H (11.5-14.5) % Plt Count 219 (130-400) K/uL MPV 9.3 (7.4-10.4) fL Sodium (136-145) mmol/L Potassium (3.5-5.1) mmol/L Chloride (98-107) mmol/L Carbon Dioxide (21-32) mmol/L Anion Gap (3-11) BUN (7-18) mg/dl Creatinine (0.6-1.2) mg/dl Est Cr Clr Drug Dosing ml/min Est GFR ( Amer) Est GFR (Non-Af Amer) BUN/Creatinine Ratio (10-20) Glucose (70-99) mg/dl POC Glucose 209 H 199 H (70-99) Calcium (8.5-10.1) mg/dl Magnesium (1.8-2.4) mg/dl (1) UTI (urinary tract infection) Urinary tract infection type: acute pyelonephritis Qualified Code(s): N10 - Acute pyelonephritis (2) Hypertension Hypertension type: essential hypertension Qualified Code(s): I10 - Essential (primary) hypertension
[2018-04-27] MEDS: SODIUM CHLORIDE 0.45 % 1,000 ML IV SCH (14:32)
[2018-04-27] MEDS ORDERED: GUAIFENESIN/DEXTROM SYRUP 100MG/10MG 5ML UDC PO PRN (17:49)
[2018-04-27] MEDS ORDERED: METOCLOPRAMIDE HCL INJ 5 MG/ML 2 ML VIAL IV PRN (17:49)
[2018-04-27] MEDS ORDERED: ONDANSETRON INJ 2 MG/ML 2 ML VIAL IV SCH (18:00)
[2018-04-27] MEDS ORDERED: KETOROLAC TROMETHAMINE 15 MG/ML VIAL IV ONE (18:02)
[2018-04-27] MEDS: METOCLOPRAMIDE HCL INJ 5 MG/ML 2 ML VIAL IV SCH ×2 (18:51→23:54)
--- NOTE | 2018-04-27 20:40 | CT Scan Report ---
CT head/brain wo con CLINICAL HISTORY: 62 years-old Female presenting with Headaches in setting of metastatic cancer. TECHNIQUE: Multidetector CT imaging of the head was performed without the use of intravenous contrast . IV contrast: None. One or more dose lowering techniques were used consistent with the principles of ALARA (as low as reasonably achievable), including automatic exposure control, mA or kV adjustment t o individual patient size, and/or use of iterative reconstruction. COMPARISON: 10/24/2017. CT DOSE (mGy.cm): The estimated cumulative dose is 537.48 mGy.cm. FINDINGS: Optical Manager topogram: Unremarkable. Ventricles and sulci normal in size. No hemorrhage. Brain parenchyma normal in appearance with preser jonatan merritt-white differentiation. No acute territorial infarct. No mass effect or midline shift. No ext ra-axial fluid collection. Air-fluid levels in the bilateral maxillary sinuses. Extensive mucosal thi ckening in ethmoid air cells. Calvarium intact. IMPRESSION: Notably, sensitivity of noncontrast CT of the head is significantly limited for the detection of meta static disease. This would be optimally assessed with contrast-enhanced MRI of the brain. 1. No acute intracranial abnormality. 2. Acute bilateral maxillary sinusitis. This may account for the patient's symptomatology. Electronically signed by: Best Guzman M.D. 04/27/2018 8:38 PM
[2018-04-27] MEDS: DEXAMETHASONE SOD PHOSPHATE 2 MG in SYRINGE 0 ML IV SCH (20:42)
[2018-04-28] MEDS: HEPARIN SOD 5,000 UNIT/0.5 ML VIAL SQ SCH ×3 (05:34→21:50)
[2018-04-28] MEDS: METOCLOPRAMIDE HCL INJ 5 MG/ML 2 ML VIAL IV SCH (05:36)
[2018-04-28 05:38] LABS: Hematocrit (blood only) 26.8 % (37-47); Hemoglobin 8.3 g/dL (12.0-16.0); Mean Corpuscular Volume 92.1 fL (80-100); Mean Platelet Volume 9.2 fL (7.4-10.4); Platelet Count 226 K/uL (130-400); RDW Coefficient of Variation 16.5 % (11.5-14.5); RDW Standard Deviation 55.8 fL (36.4-46.3); Red Blood Count 2.91 M/uL (4.2-5.4); White Blood Count 6.78 K/uL (4.8-10.8)
[2018-04-28 05:54] LABS: BUN Creatinine Ratio 21.6 (10-20); Calcium 8.2 mg/dl (8.5-10.1); Creatinine Clr Calc Pharmacy 49.1 ml/min; Est GFR (African American) 80.5; Est GFR (Non-African American) 69.4; Magnesium 2.1 mg/dl (1.8-2.4); Potassium 4.9 mmol/L (3.5-5.1)
[2018-04-28] MEDS: GABAPENTIN 600 MG TAB PO SCH ×3 (08:14→21:49)
[2018-04-28] MEDS: LISINOPRIL 10 MG TAB PO SCH (08:14)
[2018-04-28] MEDS: PANTOprazole 40 MG TAB PO SCH ×2 (08:14→21:49)
[2018-04-28] MEDS: FERROUS SULFATE 325 MG TAB PO SCH ×2 (08:15→21:54)
[2018-04-28] MEDS: DEXAMETHASONE SOD PHOSPHATE 2 MG in SYRINGE 0 ML IV SCH ×2 (08:15→21:49)
[2018-04-28] MEDS: HEPARIN 100 UNIT/ML 5ML FLUSH FLUSH PRN ×2 (08:19→21:52)
[2018-04-28] MEDS: METHADONE HCL 10 MG TAB PO SCH ×2 (08:19→21:49)
[2018-04-28] MEDS ORDERED: GUAIFENESIN/DEXTROM SYRUP 100MG/10MG 5ML UDC PO PRN (08:30)
[2018-04-28] MEDS ORDERED: LORATADINE 10 MG TAB PO SCH (09:00)
[2018-04-28] MEDS: cefUROXime axetil 250 MG TABLET PO SCH ×2 (09:49→21:50)
[2018-04-28] MEDS ORDERED: METOCLOPRAMIDE HCL INJ 5 MG/ML 2 ML VIAL IV PRN (10:29)
[2018-04-28] MEDS ORDERED: LORazepam 1 MG TAB PO SCH (10:30)
[2018-04-28] MEDS ORDERED: SODIUM CHLORIDE 0.65% NA SOLN 45 ML (OCEAN) PRN (13:57)
--- NOTE | 2018-04-28 14:01 | Palliative Care Consultation ---
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 Patient has been under the care of Dr. Crowe for medical oncology. Patient seen in [place] in Feb and required a redo of her colostomy and formation of a mucous fistula-she was discharged on February 26. Patient was last seen during her last hospital stay from 04/06 - 04/10 for abdominal pain related to new gastritis - imporved with PPI and increase in here methadone dose to 10 mg BID. Patient had a CT scan on that admission which showed disease progression as well as new pulmonary nodules and new liver metastases. Patient's prior left adrenal mass had also increased in size as well as an increase in the large necrotic pelvic mass that is invading the adjacent vaginal tissue and small bowel. She presented to the ER after having abnormal labs prior to her scheduled chemo - her K+ was 7.5, BUN 75 with a creat of 1.82. Her baseline creat is between 0.64 and 0.78. Her EKG confirmed her hypokalemia with peak T waves. She was aggressively hydrated and received glucose and insulin-her potassium today is 4.9, her creatinine is down to 0.88 with a BUN of 19. Patient's hemoglobin on admission was 11.5, after hydration was 8.3 today. Her prior hemoglobins have ranged between 8.2 and 8.7. Patient continues to complain of feeling weak and a bit dizzy-CT of the head showed significant frontal sinusitis-patient reports she is blowing her nose repeatedly but not getting much mucus out. Patient's chest x-ray was negative-did note stable COPD. Patient's pain is well controlled on her current dose of methadone at 10 mg every 12, she did require 1 as needed 5 mg oxycodone yesterday. Would suggest patient uses saline nasal spray aggressively to try and drain her sinuses, consider stopping her Claritin as this will thicken mucus. Patient is on 2 mg of Decadron at home for mood and appetite-at this dose should not cause any immunosuppression. Patient states she is feeling better than on admission- still appears ill. -Stage IV rectal cancer-follows with Dr. Yogesh Crowe -Cancer related [id number] on current dose of methadone at 10 mg every 12, continue as needed oxycodone for breakthrough pain -Poor appetite-continue Decadron, at discharge would continue her Decadron at 2 mg daily -Sinusitis-would recommend stopping antihistamines, vigorous saline nasal irrigation, continue Ceftin -Hyperkalemia-resolved with IV hydration-continue to monitor BMPs -Dehydration-resolved, creatinine nearly back to prior baseline -Anemia-continue iron, hemoglobin at prior baseline at 8.3 -Nausea-resolved with hydration -Dizziness-sinusitis likely contributing Patient's CODE STATUS is no mechanical ventilation, does want chest compressions and shock. Will continue to follow and assist with medical decision making as well as any pain issues. (2) Adenocarcinoma of rectum, stage 4: Follows with Dr. Yogesh Crowe (3) Headache: Likely due to sinusitis (4) Sinusitis: -Recommend vigorous saline nasal irrigation to assist with drainage, continue Ceftin (5) Nausea: -Improving, continue as needed Reglan, continue hydration (6) Weakness: -Acute illness contributing, continue to monitor (7) Hyperkalemia: -Resolved with IV hydration, insulin and glucose-follow BMPs (8) Cancer associated pain: -Well-controlled on current dose of methadone, continue as needed oxycodone for breakthrough pain History of Present Illness Reason for Consultation: Established palliative care patient, assist with pain management Requesting Physician: Kristy Duran PA-C Attending Physician: Oscar Merida History of Present Illness Patient is a 62-year-old female who was diagnosed with 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 Patient has been under the care of Dr. Crowe for medical oncology. Patient seen in [place] in Feb and required a redo of her colostomy and formation of a mucous fistula-she was discharged on February 26. Patient was last seen during her last hospital stay from 04/06 - 04/10 for abdominal pain related to new gastritis - imporved with PPI and increase in here methadone dose to 10 mg BID. Patient had a CT scan on that admission which showed disease progression as well as new pulmonary nodules and new liver metastases. Patient's prior left adrenal mass had also increased in size as well as an increase in the large necrotic pelvic mass that is invading the adjacent vaginal tissue and small bowel. She presented to the ER after having abnormal labs prior to her scheduled chemo - her K+ was 7.5, BUN 75 with a creat of 1.82. Her baseline creat is between 0.64 and 0.78. Her EKG confirmed her hypokalemia with peak T waves. She was aggressively hydrated and received glucose and insulin- her potassium today is 4.9, her creatinine is down to 0.88 with a BUN of 19. Patient's hemoglobin on admission was 11.5, after hydration was 8.3 today. Her prior hemoglobins have ranged between 8.2 and 8.7. Patient continues to complain of feeling weak and a bit dizzy-CT of the head showed significant frontal sinusitis-patient reports she is blowing her nose repeatedly but not getting much mucus out. Patient's chest x-ray was negative-did note stable COPD. Patient's pain is well controlled on her current dose of methadone at 10 mg every 12, she did require 1 as needed 5 mg oxycodone yesterday. Would suggest patient uses saline nasal spray aggressively to try and drain her sinuses, consider stopping her Claritin as this will thicken mucus. Patient is on 2 mg of Decadron at home for mood and appetite-at this dose should not cause any immunosuppression. Patient states she is feeling better than on admission- still appears ill. Allergies Allergy/AdvReac Type Severity Reaction Status Date / Time Sulfa (Sulfonamide Allergy Intermediate RASH Verified 04/25/18 15:49 Antibiotics) codeine AdvReac Intermediate DIZZINESS Verified 04/25/18 15:49 Home Medications Home Medications Medication Instructions Recorded Confirmed Type gabapentin 600 mg PO TID 10/24/17 04/25/18 History polyethylene glycol 3350 [Miralax] 17 g PO DAILY PRN 10/24/17 04/25/18 History dexamethasone 2 mg PO DAILY 01/11/18 04/25/18 History ferrous sulfate 325 mg PO BID #60 tab 04/10/18 04/25/18 Rx methadone 10 mg PO Q12H #60 tab 04/10/18 04/25/18 Rx oxycodone 5 mg PO Q8H PRN #30 tab 04/10/18 04/25/18 Rx pantoprazole 40 mg PO BID #60 tab 04/10/18 04/25/18 Rx lisinopril 10 mg PO DAILY 04/23/18 04/25/18 History potassium chloride 20 meq PO DAILY 04/23/18 04/25/18 History Patient History Medical History Complication of ostomy (Acute) Diarrhea (Acute) Acute blood loss anemia Nausea & vomiting Cellulitis of helix of right ear DVT prophylaxis Hydronephrosis Chronic pain syndrome Gastritis Pyelonephritis Adenocarcinoma of rectum, stage 4 (Chronic) Intractable epigastric abdominal pain (Acute) Dehydration (Acute) Infection due to Clostridium septicum Bacteremia Rectal bleeding (Acute) Metastatic disease (Acute) Hypertension UTI (urinary tract infection) GI bleed Mitral valve prolapse (Resolved) Heart murmur (Resolved) History of colon cancer (Chronic) Hypokalemia (Resolved) Left ureteral calculus (Resolved) Rectal adenocarcinoma (Chronic 05/15/16) "6 months of intermittent rectal pain and bleeding Status post colonoscopy and biopsy 05/15/2016 (Dr. Jorge L Benavides) Adenocarcinoma Status post EUS staging 05/18/2016 (Dr. New Jack) Stage uT3 uN1 Plan for combined neoadjuvant radiation and chemotherapy (Dr. Yogesh Crowe) Chemotherapy comprised of Xeloda Status post completion of radiation therapy 07/30/2016. She received 5040 cGy. Status post abdominal perineal resection 09/29/2016. Stage pT3 pN0M1 Has received 7 of 12 cycles of FOLFOX chemotherapy" On 08/10/16 16:27 Barbra Thapa wrote "6 months of intermittent rectal pain and bleeding Status post colonoscopy and biopsy 05/15/2016 (Dr. Jorge L Benavides) Adenocarcinoma Status post EUS staging 05/18/2016 (Dr. New Jack) Stage uT3 uN1 Plan for combined neoadjuvant radiation and chemotherapy (Dr. Yogesh Crowe) Chemotherapy comprised of Xeloda Status post completion of radiation therapy 07/30/2016. She received 5040 cGy." On 06/02/16 09:48 Barbra Thapa wrote "6 months of intermittent rectal pain and bleeding Status post colonoscopy and biopsy 05/15/2016 (Dr. Jorge L Benavides) Adenocarcinoma Status post EUS staging 05/18/2016 (Dr. New Jack) Stage uT3 uN1 Plan for combined radiation and chemotherapy (Dr. Yogesh Crowe) Chemotherapy comprised of Xeloda " Symptomatic anemia (Resolved) Acute UTI (urinary tract infection) (Inactive) Mass of perirectal soft tissue (Inactive) Port-A-Cath in place Surgical History Colostomy present (Chronic) x 2; recreation of colostomy due to fistula Family History Mother , age 93 Stroke Father , age 79 COPD (chronic obstructive pulmonary disease) Other No significant family history Social History Communication Ability: Effective Beliefs That Will Affect Care: Moravian marital status: Current Living Situation: Alone Current Living Situation Comment: alone in [place] current occupational status: retired current occupation: [employer] work Other Information That Helps Us Care for You: No Feels Safe at Home: Yes Safety Concerns: Feels Safe At This Time Smoking Status: Former smoker Hx Alcohol Use: No Hx Substance Use: Yes Physical Exam Vital Signs (Past 24 Hours): Last Vital Signs Temp 36.6 C 04/28/18 11:35 Pulse 75 04/28/18 11:35 Resp 18 04/28/18 11:35 BP 171/84 H 04/28/18 11:35 Pulse Ox 98 04/28/18 11:35 Time Spent Attending Total time spent 55 minutes with greater than 50% of the time spent at bedside assessing patient and discussing treatment as well as goals of care.
--- NOTE | 2018-04-28 14:43 | Hospitalist Progress Note ---
Date of Service April 28, 2018 Assessment & Plan (1) Nausea: - Likely related to recent chemotherapy vs. other. - Nausea now improved overall. - Convert Reglan to prn; Compazine prn. - Encourage regular diet as tolerated; no indication for IVFs. (2) Dizziness: - PT/OT -- plan to resume home health services. - Convert stress dose steroids back to home dose of Decadron 2 mg PO daily on 04/29/18. - Orthostatic vital signs negative. - CT of head showed sinusitis; brain MRI is pending to rule out metastasis. (3) Sinusitis: - Head CT showed acute bilateral maxillary sinusitis. - Will start Ceftin 250 mg PO BID. - Aggressive saline nasal sprays as needed for nasal congestion. - Robitussin DM prn cough/congestion. (4) Headache: - Likely related to acute bilateral sinusitis; now improved. - Tylenol prn pain; decongestants as noted above. - CT head negative; brain MRI pending. (5) Hyperkalemia: - Likely related to recent KCl supplementation, dehydration and ALAYNA. - K level 7.9 at admission, now back to baseline. - D/c'ed IV fluids. (6) Acute kidney injury: - Likely prerenal related to dehydration; creatinine was 1.24 at admission. - Baseline Creatinine ~0.5-0.7; now improved to baseline with IV fluid hydration. (7) Chronic pain syndrome: - Follows closely with palliative care, consulted as inpatient. - Continue Methadone 10 mg q12hr, Neurontin 600 mg TID - Oxycodone 5 mg q8hr prn breakthrough pain. (8) Adenocarcinoma of rectum, stage 4: - Follows with [facility]; missed most recent chemo due to hyperkalemia noted on labs. - Has new liver and pulm metastasis; follows with palliative care. - On stress dose steroids; resume home Dexamethasone on 04/29/18. (9) Anemia: - Hemoglobin at baseline. - Transfuse for hgb <7.5. - Continue ferrous sulfate 325 mg BID. (10) Hypertension: - Continue home Lisinopril 10 mg daily as prescribed. - BP has been elevated, may be related to anxiety vs. IV fluids vs. steroid induced. (11) UTI (urinary tract infection): - Completed 14 day course of Amoxicillin for treatment of UTI/possible pyelonephritis (was admitted 04/06-04/12). (12) Electrolyte abnormality: - No replacement required. (13) DVT prophylaxis: - Heparin. Dispo: Discharge pending improvement in weakness and nausea, likely on 04/29/18. Supervising Physician Co-Signing Physician Notes Attending Attestation: Chart reviewed in detail, care plan d/w PA Kristy Berry. I agree w/ the hilliard components of her documentation. Due to dizziness CT head was obtained; this showed sinusitis. Started on ceftin. In light of stage 4 rectal cancer MRI brain ordered to r/o intracranial mets. Hyperkalemia/ALAYNA resolved. Oscar Merida MD Subjective Pt. states headache is improved overall but she has ongoing dizziness/lightheadedness with standing. Nausea also now improved, has been using scheduled Reglan. CT of head showed acute bilat sinusitis -- she does complain of nasal congestion and a non productive cough. Will start Ceftin for abx coverage (recently on amoxicillin) and saline nasal sprays. Review of Systems All systems reviewed & are unremarkable except as noted in HPI & below Constitutional: + fatigue and + weakness; no fever, no chills and no anorexia Ear, Nose, Mouth, Throat: + nasal congestion, + nasal discharge, + post nasal drip and + sinus pain/pressure; no sore throat Respiratory: + cough; no dyspnea, no dyspnea on exertion and no sputum production Cardiovascular: + lightheadedness; no chest pain, no palpitations, no syncope and no edema Gastrointestinal: no abdominal pain, no nausea, no vomiting, no constipation and no diarrhea/loose stools Genitourinary (Female): no difficulty urinating Musculoskeletal: no joint pain Allergy / Immunological: no rash Physical Exam Vital Signs (Past 24 Hours): Last Vital Signs Temp 36.6 C 04/28/18 11:35 Pulse 75 04/28/18 11:35 Resp 18 04/28/18 11:35 BP 171/84 H 04/28/18 11:35 Pulse Ox 98 04/28/18 11:35 Physical Exam: General: Chronically ill appearing female. HEENT: NC/AT; PERRLA with EOMI; [place] conjunctiva, MMM. Neck: Supple and nontender Cardiac: RRR w/o murmurs, gallops or rubs Lungs: CTA bilaterally; No rhonchi, wheezing, or rales Abdomen: Bowel normoactive X 4; Nontender to palpation Extremities: Warm. edema present Neuro: No focal weakness Skin: No rash Results & Data Laboratory Results 04/28/18 04/28/18 04/28/18 Range/Units 11:41 07:33 05:19 WBC (4.8-10.8) K/uL RBC (4.2-5.4) M/uL Hgb (12.0-16.0) g/dL Hct (37-47) % MCV (80-100) fL MCH (25-34) pg MCHC (32-36) g/dL RDW Std Deviation (36.4-46.3) fL RDW Coeff of Chelsy (11.5-14.5) % Plt Count (130-400) K/uL MPV (7.4-10.4) fL Sodium 137 (136-145) mmol/L Potassium 4.9 (3.5-5.1) mmol/L Chloride 109 H (98-107) mmol/L Carbon Dioxide 25 (21-32) mmol/L Anion Gap 3.0 (3-11) BUN 19 H (7-18) mg/dl Creatinine 0.88 (0.6-1.2) mg/dl Est Cr Clr Drug Dosing 49.1 ml/min Est GFR ( Amer) 80.5 Est GFR (Non-Af Amer) 69.4 BUN/Creatinine Ratio 21.6 H (10-20) Glucose 237 H (70-99) mg/dl POC Glucose 226 H 188 H (70-99) Calcium 8.2 L (8.5-10.1) mg/dl Magnesium 2.1 (1.8-2.4) mg/dl 04/28/18 04/27/18 04/27/18 Range/Units 05:19 20:00 16:16 WBC 6.78 (4.8-10.8) K/uL RBC 2.91 L (4.2-5.4) M/uL Hgb 8.3 L (12.0-16.0) g/dL Hct 26.8 L (37-47) % MCV 92.1 (80-100) fL MCH 28.5 (25-34) pg MCHC 31.0 L (32-36) g/dL RDW Std Deviation 55.8 H (36.4-46.3) fL RDW Coeff of Chelsy 16.5 H (11.5-14.5) % Plt Count 226 (130-400) K/uL MPV 9.2 (7.4-10.4) fL Sodium (136-145) mmol/L Potassium (3.5-5.1) mmol/L Chloride (98-107) mmol/L Carbon Dioxide (21-32) mmol/L Anion Gap (3-11) BUN (7-18) mg/dl Creatinine (0.6-1.2) mg/dl Est Cr Clr Drug Dosing ml/min Est GFR ( Amer) Est GFR (Non-Af Amer) BUN/Creatinine Ratio (10-20) Glucose (70-99) mg/dl POC Glucose 172 H 165 H (70-99) Calcium (8.5-10.1) mg/dl Magnesium (1.8-2.4) mg/dl (1) UTI (urinary tract infection) Urinary tract infection type: acute pyelonephritis Qualified Code(s): N10 - Acute pyelonephritis (2) Hypertension Hypertension type: essential hypertension Qualified Code(s): I10 - Essential (primary) hypertension
[2018-04-28] MEDS ORDERED: GADOBUTROL 65ML VIAL IV PRN (19:28)
--- NOTE | 2018-04-28 20:03 | Magnetic Resonance Report ---
MRI OF THE BRAIN COMBO CLINICAL HISTORY: Metastatic survey. COMPARISON STUDY: CT of the brain dated 04/27/2018. TECHNIQUE: MRI of the brain was performed utilizing various T1 and T2-weighted sequences in the axial , sagittal, and coronal planes. Contrast-enhanced sequences were acquired following the administratio n of 4.5 cc of Gadavist. FINDINGS: Brain parenchyma: There is mild patchy subcortical and periventricular microangiopathic disease. Ther e is a 7 mm peripherally enhancing lesion in the left parietal cortex seen on axial postcontrast imag e #75 of 116 with mild stranding edema. A similar appearing 4 mm lesion is seen within the right post erior parietal lobe on image #67. There is no hemorrhage or mass effect. There is no restricted diffu bria to suggest acute ischemia. No extra-axial fluid collection is seen. The cerebellar tonsils are normal in configuration. Ventricles, sulci, and cisterns: Normal in configuration. Pituitary and sella: Unremarkable. Intracranial vasculature: Normal flow voids are maintained at the skull base. Orbits: The bony orbits are grossly intact. Orbital contents are normal in appearance. Sinuses and mastoids: There is mucosal thickening and air-fluid levels present within the maxillary a ntra. Moderate mucosal thickening is also seen within the anterior ethmoid sinuses. Mild mucosal thic kening is noted in the right frontal sinus. The mastoid air cells are clear. Calvarium: Unremarkable. Cervical cord: Partially visualized cervical spinal cord is normal in morphology and signal intensity . IMPRESSION: 1. There are 2 subcentimeter intracranial metastases identified as detailed above. The larger lesion in the left parietal lobe demonstrates mild surrounding edema. 2. There is no hemorrhage, midline shift, or evidence of acute ischemia. Electronically signed by: Ramon James M.D. 04/28/2018 8:02 PM
[2018-04-29] MEDS: HEPARIN SOD 5,000 UNIT/0.5 ML VIAL SQ SCH ×2 (05:46→12:51)
[2018-04-29 06:24] LABS: Hematocrit (blood only) 27.8 % (37-47); Hemoglobin 8.7 g/dL (12.0-16.0); Mean Corpuscular Hgb Conc 31.3 g/dL (32-36); Mean Corpuscular Volume 92.1 fL (80-100); Mean Platelet Volume 9.2 fL (7.4-10.4); Platelet Count 319 K/uL (130-400); RDW Coefficient of Variation 16.5 % (11.5-14.5); RDW Standard Deviation 54.8 fL (36.4-46.3); Red Blood Count 3.02 M/uL (4.2-5.4); White Blood Count 11.69 K/uL (4.8-10.8)
[2018-04-29 06:50] LABS: BUN Creatinine Ratio 25.1 (10-20); Calcium 8.5 mg/dl (8.5-10.1); Creatinine Clr Calc Pharmacy 55.4 ml/min; Est GFR (African American) 93.1; Est GFR (Non-African American) 80.3; Potassium 4.7 mmol/L (3.5-5.1)
[2018-04-29] MEDS: LISINOPRIL 10 MG TAB PO SCH (08:07)
[2018-04-29] MEDS: METHADONE HCL 10 MG TAB PO SCH ×2 (08:07→21:03)
[2018-04-29] MEDS: cefUROXime axetil 250 MG TABLET PO SCH ×2 (08:08→21:04)
[2018-04-29] MEDS: FERROUS SULFATE 325 MG TAB PO SCH ×2 (08:08→21:06)
[2018-04-29] MEDS: GABAPENTIN 600 MG TAB PO SCH ×3 (08:08→21:06)
[2018-04-29] MEDS: PANTOprazole 40 MG TAB PO SCH ×2 (08:08→21:07)
[2018-04-29] MEDS ORDERED: CARBOHYDRATES FOR HYPOGLYCEMIA PO PRN (08:16)
[2018-04-29] MEDS ORDERED: GLUCAGON FOR INJ 1 MG VIAL SQ PRN (08:16)
[2018-04-29] MEDS ORDERED: GLUCOSE 10 TABS/TUBE PO PRN (08:16)
[2018-04-29] MEDS ORDERED: GLUCOSE 40% GEL 15 GM TUBE PO PRN (08:16)
[2018-04-29] MEDS ORDERED: DEXTROSE 50% 50 ML SYRINGE IV PRN (08:16)
[2018-04-29] MEDS: dexAMETHasone 4 MG in SYRINGE 0 ML IV SCH ×3 (09:59→21:03)
[2018-04-29] MEDS: INSULIN ASPART 100 UNITS/ML 3 ML PEN SC SCH ×3 (12:50→21:09)
--- NOTE | 2018-04-29 14:33 | Palliative Care Progress Note ---
Date of Service April 29, 2018 Assessment & Plan (1) Palliative care encounter: Patient is a 62-year-old female who was diagnosed with 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 Patient has been under the care of Dr. Crowe for medical oncology. Patient seen in [place] in Feb and required a redo of her colostomy and formation of a mucous fistula-she was discharged on February 26. Patient was last seen during her last hospital stay from 04/06 - 04/10 for abdominal pain related to new gastritis - imporved with PPI and increase in here methadone dose to 10 mg BID. Patient had a CT scan on that admission which showed disease progression as well as new pulmonary nodules and new liver meta stases. Patient's prior left adrenal mass had also increased in size as well as an increase in the large necrotic pelvic mass that is invading the adjacent vaginal tissue and small bowel. She presented to the ER after having abnormal labs prior to her scheduled chemo - her K+ was 7.5, BUN 75 with a creat of 1.82. Her baseline creat is between 0.64 and 0.78. Her EKG confirmed her hypokalemia with peak T waves. She was aggressively hydrated and received glucose and insulin-her potassium today is 4.9, her creatinine is down to 0.88 with a BUN of 19. Patient's hemoglobin on admission was 11.5, after hydration was 8.3 today. Her prior hemoglobins have ranged between 8.2 and 8.7. Patient continues to complain of feeling weak and a bit dizzy-CT of the head showed significant frontal sinusitis-patient reports she is blowing her nose repeatedly but not getting much mucus out. Patient's chest x-ray was negative-did note stable COPD. Patient's pain is well controlled on her current dose of methadone at 10 mg every 12, she has not required any prn oxy since 04/28. Encouraged patient to use saline nasal spray aggressively to try and drain her sinuses, consider stopping her Claritin as this will thicken mucus. Patient is on 2 mg of Decadron at home for mood and appetite-at this dose should not cause any immunosuppression. Patient states she is feeling better than on admission-still appears mildly ill. -Stage IV rectal cancer-follows with Dr. Yogesh Crowe -Cancer related [id number] on current dose of methadone at 10 mg every 12, continue as needed oxycodone for breakthrough pain -Poor appetite-continue Decadron, at discharge would continue her Decadron at 2 mg daily -Sinusitis-would recommend stopping antihistamines, vigorous saline nasal irrigation, continue Ceftin -Hyperkalemia-resolved with IV hydration-continue to monitor BMPs -Dehydration-resolved, creatinine nearly back to prior baseline -Anemia-continue iron, hemoglobin at prior baseline at 8.3 -Nausea-resolved with hydration -Dizziness-sinusitis likely contributing Patient's CODE STATUS is no mechanical ventilation, does want chest compressions and shock. Will continue to follow and assist with medical decision making as well as any pain issues. (2) Adenocarcinoma of rectum, stage 4: Follows with Dr. Yogesh Crowe (3) Headache: Likely due to sinusitis (4) Sinusitis: -Recommend vigorous saline nasal irrigation to assist with drainage, continue Ceftin (5) Nausea: -Improving, continue as needed Reglan, continue hydration (6) Weakness: -Acute illness contributing, continue to monitor (7) Hyperkalemia: -Resolved with IV hydration, insulin and glucose-follow BMPs (8) Cancer associated pain: -Well-controlled on current dose of methadone, continue as needed oxycodone for breakthrough pain Subjective Patient reports her pain is under good control, patient states she is not feeling well-mild nausea and lightheadedness. Patient currently being treated for bilateral sinusitis. Patient had an MRI which showed a 7 mm peripheral left parietal lesion and a 4 mm right posterior parietal lesion-these were not seen on CT scan that was done the day prior. Patient has not had a prior MRI that she knows of-cannot say that these are new lesions as we have no prior scans for comparison. Spent time with patient discussing her worries and concerns including spiritual, emotional and physical concerns. Patient denies fever, chills, chest pain, increased shortness of breath, or abd pain. Physical Exam Vital Signs (Past 24 Hours): Last Vital Signs Temp 36.6 C 04/29/18 07:14 Pulse 79 04/29/18 07:14 Resp 18 04/29/18 07:14 BP 138/77 04/29/18 07:14 Pulse Ox 97 04/29/18 07:14 Physical Exam: PE: Patient appears mildly ill and fatigued HEENT: EOMI, normal hearing Respiratory: Unlabored CV: Regular rate, no edema Neuro: Oriented x4 Time Spent Attending Total time spent 35 minutes with greater than 50% of the time spent at bedside discussing patient's new findings on MRI as well as her concerns regarding her prognosis and further care
--- NOTE | 2018-04-29 14:57 | Hospitalist Progress Note ---
Date of Service April 29, 2018 Assessment & Plan (1) Nausea: - Likely related to recent chemotherapy vs. other. Nausea now resolved. - Reglan and Compazine prn. - Encourage regular diet; no IVFs. (2) Dizziness: - May be related to brain metastasis noted on brain MRI vs. acute sinusitis vs. other. - PT/OT -- plan to resume home health services. - Orthostatic vital signs were negative. (3) Metastatic cancer to brain: - CT head was negative. - Brain MRI showed 7 mm left parietal lesion with mild stranding edema and 4 mm right parietal lesion with no edema noted. - Started Decadron 4 mg IV q6hr for cerebral edema. - Plan to discuss case with Dr. Yogesh Crowe at [facility]. - May require palliative radiation therapy. (4) Sinusitis: - Head CT showed acute bilateral maxillary sinusitis. - Continue Ceftin 250 mg PO BID (Day 2) - Saline nasal sprays prn nasal congestion. (5) Headache: - Likely related to acute bilateral sinusitis vs. brain metastasis. - Tylenol prn pain; decongestants with saline nasal spray. - CT head negative; brain MRI showed brain metastasis. (6) Hyperkalemia: - Likely related to recent KCl supplementation, dehydration and ALAYNA. - K level 7.9 at admission, now back to baseline. - Holding IV fluids. (7) Acute kidney injury: - Likely prerenal related to dehydration; creatinine was 1.24 at admission. - Baseline Creatinine ~0.5-0.7; now improved to baseline with IV fluid hydrat ion. (8) Chronic pain syndrome: - Follows closely with palliative care, consulted as inpatient. - Continue Methadone 10 mg q12hr, Neurontin 600 mg TID - Oxycodone 5 mg q8hr prn breakthrough pain. (9) Adenocarcinoma of rectum, stage 4: - Follows with [facility]; missed most recent chemo due to hyperkalemia noted on labs. - Has new liver and pulm metastasis; follows with palliative care. - Holding home Dexamethasone; on IV steroids. (10) Anemia: - Hemoglobin at baseline. - Transfuse for hgb <7.5. - Continue ferrous sulfate 325 mg BID. (11) Type II diabetes mellitus: - Hgb A1C was 6.6 - Gluc checks have been elevated -- will start SSI coverage. - Consider starting oral agent at discharge. - Hyperglycemia is also likely steroid induced. (12) Hypertension: - Continue home Lisinopril 10 mg daily as prescribed. - BP has been intermittently elevated, may be related to anxiety vs. steroid induced. (13) UTI (urinary tract infection): - Completed 14 day course of Amoxicillin for treatment of UTI/possible pyelonephritis (was admitted 04/06-04/12). (14) Electrolyte abnormality: - No replacement required. (15) DVT prophylaxis: - Heparin. Dispo: Discharge pending improvement in lightheadedness and plan of care for newly diagnosed brain metastasis. Supervising Physician Co-Signing Physician Notes PA Supervision Note: I personally saw and examined the patient. I verified all hilliard points and agree with TANESHA Duran with the following exceptions and/or additions: I saw the patient 2100 and she reported feeling much improved from previous. She denied any dizziness or headache. Says she is eating well. She is thinking she will be able to go home tomorrow. Vitals reviewed Gen: AAOx3, NAD, alopecia HEENT: Anicteric sclerae, EOMI Lower extremities-no edema 62-year-old female here with metastatic rectal cancer with newly discovered metastases to the brain, also with acute bilateral maxillary sinusitis -Continue treatment for sinusitis with Ceftin and steroids will also help this, nasal saline spray -Giving IV Decadron for brain metastases-will transition to p.o. steroids upon discharge hopefully tomorrow -We will discontinue subcutaneous heparin as at increased risk for intracranial hemorrhage given metastases in the brain Subjective Pt. has ongoing dizziness, both at rest and with ambulation. No improvement in dizziness over last 24 hours. Denies nausea/vomiting, headache. Has not required prn anti-emetics over last 24 hours. Brain MRI showed metastatic lesions in bilateral parietal lobes with surrouding edema in the left parietal lobe -- started Decadron 4 mg IV q6hr. Review of Systems All systems reviewed & are unremarkable except as noted in HPI & below Constitutional: + fatigue and + weakness; no fever and no chills Respiratory: no cough, no dyspnea, no dyspnea on exertion and no wheezing Cardiovascular: + lightheadedness; no chest pain, no palpitations, no syncope and no edema Gastrointestinal: no abdominal pain, no nausea, no constipation and no diarrhea/loose stools Genitourinary (Female): no difficulty urinating Musculoskeletal: no joint pain Neurologic: no headache(s) Allergy / Immunological: no rash Physical Exam Vital Signs (Past 24 Hours): Last Vital Signs Temp 36.6 C 04/29/18 07:14 Pulse 79 04/29/18 07:14 Resp 18 04/29/18 07:14 BP 138/77 04/29/18 07:14 Pulse Ox 97 04/29/18 07:14 Physical Exam: General: Chronically ill appearing female, in no acute distress. HEENT: NC/AT; PERRLA with EOMI; [place] conjunctiva, MMM. Neck: Supple and nontender Cardiac: RRR Lungs: CTA bilaterally Abdomen: Bowel normoactive X 4; Nontender to palpation Extremities: Warm. No edema present Neuro: No focal weakness Skin: No rash; mediport site without erythema or tenderness to palpation. Results & Data Laboratory Results 04/29/18 04/29/18 04/29/18 Range/Units 11:27 07:43 05:26 WBC (4.8-10.8) K/uL RBC (4.2-5.4) M/uL Hgb (12.0-16.0) g/dL Hct (37-47) % MCV (80-100) fL MCH (25-34) pg MCHC (32-36) g/dL RDW Std Deviation (36.4-46.3) fL RDW Coeff of Chelsy (11.5-14.5) % Plt Count (130-400) K/uL MPV (7.4-10.4) fL Sodium 138 (136-145) mmol/L Potassium 4.7 (3.5-5.1) mmol/L Chloride 108 H (98-107) mmol/L Carbon Dioxide 27 (21-32) mmol/L Anion Gap 3.0 (3-11) BUN 19 H (7-18) mg/dl Creatinine 0.78 (0.6-1.2) mg/dl Est Cr Clr Drug Dosing 55.4 ml/min Est GFR ( Amer) 93.1 Est GFR (Non-Af Amer) 80.3 BUN/Creatinine Ratio 25.1 H (10-20) Glucose 150 H (70-99) mg/dl POC Glucose 142 H 126 H (70-99) Calcium 8.5 (8.5-10.1) mg/dl 04/29/18 04/28/18 04/28/18 Range/Units 05:26 20:17 16:37 WBC 11.69 H (4.8-10.8) K/uL RBC 3.02 L (4.2-5.4) M/uL Hgb 8.7 L (12.0-16.0) g/dL Hct 27.8 L (37-47) % MCV 92.1 (80-100) fL MCH 28.8 (25-34) pg MCHC 31.3 L (32-36) g/dL RDW Std Deviation 54.8 H (36.4-46.3) fL RDW Coeff of Chelsy 16.5 H (11.5-14.5) % Plt Count 319 (130-400) K/uL MPV 9.2 (7.4-10.4) fL Sodium (136-145) mmol/L Potassium (3.5-5.1) mmol/L Chloride (98-107) mmol/L Carbon Dioxide (21-32) mmol/L Anion Gap (3-11) BUN (7-18) mg/dl Creatinine (0.6-1.2) mg/dl Est Cr Clr Drug Dosing ml/min Est GFR ( Amer) Est GFR (Non-Af Amer) BUN/Creatinine Ratio (10-20) Glucose (70-99) mg/dl POC Glucose 212 H 267 H (70-99) Calcium (8.5-10.1) mg/dl (1) UTI (urinary tract infection) Urinary tract infection type: acute pyelonephritis Qualified Code(s): N10 - Acute pyelonephritis (2) Hypertension Hypertension type: essential hypertension Qualified Code(s): I10 - Essential (primary) hypertension
[2018-04-29] MEDS: HEPARIN 100 UNIT/ML 5ML FLUSH FLUSH PRN (21:03)
[2018-04-30] MEDS: HEPARIN 100 UNIT/ML 5ML FLUSH FLUSH PRN ×2 (02:44→06:10)
[2018-04-30] MEDS: dexAMETHasone 4 MG in SYRINGE 0 ML IV SCH (02:44)
[2018-04-30 06:32] LABS: Hematocrit (blood only) 27.7 % (37-47); Hemoglobin 8.6 g/dL (12.0-16.0); Mean Corpuscular Volume 91.1 fL (80-100); Mean Platelet Volume 9.1 fL (7.4-10.4); Nucleated RBC # (auto) 0.02 K/uL (0-0); Nucleated RBC % (auto) 0.1 %; Platelet Count 303 K/uL (130-400); RDW Coefficient of Variation 16.8 % (11.5-14.5); RDW Standard Deviation 56.1 fL (36.4-46.3); Red Blood Count 3.04 M/uL (4.2-5.4); White Blood Count 12.31 K/uL (4.8-10.8)
[2018-04-30 07:05] LABS: Albumin Level 2.2 gm/dl (3.4-5.0); BUN Creatinine Ratio 27.3 (10-20); Calcium 8.6 mg/dl (8.5-10.1); Creatinine Clr Calc Pharmacy 48.6 ml/min; Est GFR (African American) 77.3; Est GFR (Non-African American) 66.7; Potassium 4.9 mmol/L (3.5-5.1)
[2018-04-30 07:10] LABS: Albumin Globulin Ratio 0.6 (0.9-2); Bilirubin,Total 0.2 mg/dl (0.2-1); Total Protein 6.2 gm/dl (6.4-8.2)
[2018-04-30] MEDS ORDERED: dexAMETHasone 4 MG TAB PO ONE (08:18)
[2018-04-30] MEDS: LISINOPRIL 10 MG TAB PO SCH (09:22)
[2018-04-30] MEDS: cefUROXime axetil 250 MG TABLET PO SCH (09:22)
[2018-04-30] MEDS: METHADONE HCL 10 MG TAB PO SCH (09:23)
[2018-04-30] MEDS: FERROUS SULFATE 325 MG TAB PO SCH (09:23)
[2018-04-30] MEDS: INSULIN ASPART 100 UNITS/ML 3 ML PEN SC SCH (09:23)
[2018-04-30] MEDS: GABAPENTIN 600 MG TAB PO SCH (09:23)
[2018-04-30] MEDS: PANTOprazole 40 MG TAB PO SCH (09:23)
--- NOTE | 2018-04-30 13:22 | Discharge Summary ---
Date of Service April 30, 2018 Admission HPI Per Admitting Provider 62 y/o F who was sent here from her oncologist for abn labs. Pt was having routine labs done for her chemo tx today and it was noted that her K was elevated and she was in ALAYNA. Pt states that she started to feel lightheaded and shaky on Wednesday and this persisted into today. She had been at her baseline other than URI sx over the last 10 days or so. She has been tolerating PO. Pt denies fever, SOB, chest pain, abd pain, n/v/c/d, LE pain or swelling. Pt was a d/c on 04/12 after being dx with UTI and likely pyelonephritis. She was also noted to be mildly hypoK. She was to finish a course of potassium and a moxicillin x13 days, which she finished today. Admission Exam Per Admitting Provider Constitutional: + ill appearing and + cachectic; no acute distress Eyes: normal visual hassan by confrontation and + anicteric sclerae Neck: normal visual inspection and trachea midline Respiratory: normal respiratory effort, lungs clear to auscultation Cardiovascular: Rate/Rhythm: regular rate and regular rhythm Gastrointestinal (Abdomen): Inspection/Auscultation: abdomen not distended Percussion/Palpation: abdomen soft; abdomen nontender Musculoskeletal: Head/Neck/Chest: normocephalic and head atraumatic negative for edema, peripheral pulses intact Skin: no rashes, warm and dry Neurologic: awake; not confused Speech / Cognition: normal speech Psychiatric: A+Ox3, euthymic affect Principal Diagnosis Hyperkalemia, Generalized Weakness Discharge Exam General: Chronically ill appearing female, in no acute distress. HEENT: NC/AT; PERRLA with EOMI; [place] conjunctiva, MMM. Neck: Supple and nontender Cardiac: RRR Lungs: CTA bilaterally Abdomen: Bowel normoactive X 4; Nontender to palpation Extremities: Warm. No edema present Neuro: No focal weakness Skin: No rash; mediport site without erythema or tenderness to palpation. Discharge Data Allergies Allergy/AdvReac Type Severity Reaction Status Date / Time Sulfa (Sulfonamide Allergy Intermediate RASH Verified 04/25/18 15:49 Antibiotics) codeine AdvReac Intermediate DIZZINESS Verified 04/25/18 15:49 Consultations 04/25/18 16:30 ED Decision to Admit Stat 04/27/18 17:54 Consult Palliative Care Routine 04/30/18 10:09 Consult [facility] [employer] worker Routine Ordered Studies 04/25/18 CXR 04/27/18 18:13 CT head/brain wo con Urgent 04/28/18 11:16 MR brain wo/w con Routine Hospital Course (1) Nausea: Likely related to recent chemotherapy vs. other. Nausea now resolved. Reglan and Compazine were ordered prn. Nausea resolved prior to discharge. Script for compazine was sent to her pharmacy. (2) Dizziness: May be related to brain metastasis noted on brain MRI vs. acute sinusitis vs. other. PT/OT recommended home health services. Orthostatic vital signs were negative. Dizziness improved with IV fluids, treatment of sinusitis and increased steroids for treatment of edema related to brain metastasis. (3) Metastatic cancer to brain: CT head was negative. Brain MRI showed 7 mm left parietal lesion with mild stranding edema and 4 mm right parietal lesion with no edema noted. IV Decadron was started. She was converted to Decadron 4 mg PO BID at discharge per primary oncologist Dr. Crowe's recommendations. Will f/u with Dr. Crowe on 05/09/18. (4) Sinusitis: Head CT showed acute bilateral maxillary sinusitis. Started Ceftin 250 mg BID, will complete a 7 day course. Also ordered saline nasal sprays for nasal congestion. Advised to avoid use of decongestants in setting of HTN. Steroids will also help with acute sinusitis (5) Headache: Likely related to acute bilateral sinusitis vs. brain metastasis. Headache resolved by time of discharge. (6) Hyperkalemia: Likely related to recent KCl supplementation, dehydration and ALAYNA. K level trended down with hyperkalemia treatment in the ED. Will hold KCl supplementation at home. (7) Acute kidney injury: Likely prerenal related to dehydration; creatinine was 1.24 at admission. Trended back to baseline with IV fluids. (8) Chronic pain syndrome: Follows closely with palliative care, consulted as inpatient. Home methadone, neurontin and oxycodone were continued as prescribed. Will f/u with palliative as outpatient. (9) Adenocarcinoma of rectum, stage 4: Follows with [facility]; missed most recent chemo due to hyperkalemia noted on labs. Has new liver/pulm metastasis. Brain MRI during this admisison showed new bilat metastasis in the parietal lobes. Will need to follow up with Dr. Crowe; pt. has a poor prognosis in setting of progression of disease while receiving chemotherapy. (10) Anemia: Continued ferrous sulfate 325 mg BID. No transfusion support was required. (11) Type II diabetes mellitus: Hgb A1C was 6.6. Gluc checks were started; BG was >200, likely partially steroid induced. SSI coverage ordered. Did not initiate oral agent at discharge due to other acute issues, including metastatic cancer. Can discuss blood gl ucose management with PCP. (12) Hypertension: Continued home Lisinopril 10 mg daily as prescribed. (13) UTI (urinary tract infection): Completed 14 day course of Amoxicillin for treatment of UTI/possible pyelonephritis (was admitted 04/06-04/12). (14) Electrolyte abnormality: Replaced as needed. (15) DVT prophylaxis: Heparin was held following diagnosis of brain metastasis. Discharged to home on 04/30/18. Will f/u with PCP, oncologist and palliative care. Consult placed for nurse navigator. Home health care was also arranged. Total Time Total Time Spent Total Time Spent (In Minutes): > 30 minutes Total Time Includes: Examination of the Patient, Discharge Planning, Medication Reconciliation, Communication With Other Providers and Other Discharge Plan Discharge Items Patient Disposition: Home - Home Health Services Reason For Visit: HYPERKALEMIA Discharge Diagnosis: Hyperkalemia, Generalized Weakness Condition: Good Discharge Goals: Decrease discomfort, Improve disease control, Improve function, Increase independence and Improve nutritional status Activity: As commented below Exercise/Sports: Gradually increase as tolerated Non-emergency contact: Primary Care Provider and Oncologist Call non-emergency contact if: you have any medication questions, your symptoms worsen, your pain is not controlled, your pain is worsening, your pain is unusual for you, your pain is concerning for you and you have a fever Follow-up/Referrals: Marylu Ojeda MD [Primary Care Provider] - 04/29/18 3:00 pm (Please, follow up with Dr. Ojeda on WednesdayApril 29 at 3:00 pm. *If you need to change this appointment, call the office at [phone].) Yogesh Crowe MD [Surgeon] - 05/09/18 12:00 pm (Please, follow up with Dr. Yogesh Crowe on WednesdayMay 09 at 12:00 pm. *If you need to change this appointment, call the office at [phone].) Diet: Carb Consistent or DM2 Addtl Provider Instructions: 1. Generalized Weakness & Nausea * Please follow up with Dr. Crowe as scheduled on 05/09/2018. * An appointment will be scheduled with Dr. Rodriguez over the next 1-2 weeks. * An appointment will be scheduled with your family doctor over the next 1-2 weeks. * Our nurse navigator Bibi Nunez will contact you regarding the time/dates of these appointments. * Prescription for Compazine 10 mg was sent to your pharmacy -- please take 1 tablet every 8 hours as needed. 2. Metastatic Rectal Cancer * Decadron dose has been increased to 4 mg twice daily. * Please continue this dose until your follow up with Dr. Crowe. * Please follow up with Dr. Crowe as scheduled on 05/09/18. 3. Sinusitis * Please continue Ceftin twice daily for treatment of sinusitis. * You may use nasal saline sprays at home as needed for sinus congestion. * Please avoid decongestants, such as Sudafed, due to history of hypertension. 4. Diabetes Mellitus * Please discuss blood sugar management with your family doctor. You were not started on a medication to control blood sugar levels at discharge. 5. Hypertension * Please continue Lisinopril 10 mg daily as prescribed. 6. Prescriptions for new medications (Decadron, Ceftin, Saline nasal sprays, Compazine) were sent to your pharmacy. 7. Please call your family doctor or go to the ER if you develop the following: * Chest pain or shortness of breath. * Nausea/vomiting or severe watery diarrhea. * Increased rectal pain. Prescriptions: New dexamethasone [Decadron] 4 mg tablet 4 mg PO BID Qty: 28 RF: 0 prochlorperazine maleate [Compazine] 10 mg tablet 10 mg PO Q8H PRN (Reason: nausea and vomiting) Qty: 10 RF: 0 Continued gabapentin 600 mg tablet 600 mg PO TID RF: 0 polyethylene glycol 3350 [Miralax] 17 gram/dose Powder 17 g PO DAILY PRN (Reason: Constipation) RF: 0 lisinopril 10 mg tablet 10 mg PO DAILY RF: 0 pantoprazole 40 mg Tablet,Delayed Release (Dr/Ec) 40 mg PO BID Qty: 60 RF: 2 oxycodone 5 mg Tablet 5 mg PO Q8H PRN (Reason: pain) Qty: 30 RF: 0 ferrous sulfate 325 mg (65 mg iron) tablet 325 mg PO BID Qty: 60 RF: 1 methadone 10 mg tablet 10 mg PO Q12H Qty: 60 RF: 0 Discontinued dexamethasone 4 mg tablet 2 mg PO DAILY RF: 0 potassium chloride 20 mEq tablet,ER particles/crystals 20 meq PO DAILY RF: 0 Stand-Alone Forms: [facility] Discharge Orders: Discharge Order (Routine); Ordered 04/30/18 Ordered By: Kristy Duran Admission Data Admit Date/Time: 04/25/18 17:19 Attending Provider: Maria Teresa Jonas Admit Provider: Deisi Ramirez Primary Care Provider: Marylu Ojeda Other Providers: Home,Nursing Agency ; Deisi Ramirez ; April Rodriguez Service: Medical Other Interventions: Discharge Summary Assessment (RN) Last Done: 04/30/18 11:50 Pending Studies at Discharge: No DC Date/Time DO NOT enter until pt leaves facility: 04/30/18 15:04 Supervising Physician Co-Signing Physician Notes PA Supervision Note: I personally saw and examined the patient. I verified all hilliard points and agree with TANESHA Duran with the following exceptions and/or additions: Pt feelin gmuch better on day of dc. No more headache or dizziness. Was tolerating po. No CP or SOB. Vitals reviewed NAD RRR no mgr CTAB no wcr Ext no edema 62 yo female with metastatic rectal CA, here with hyperkalemia, ALAYNA, dehydration, found ot have brain mets and acute sinusitis. Acute issues resolved, will have close f/u with Pncology and remain on increased dose of decadron on discharge.
== END 2018-04-30 15:04 | disposition home health service (06) | DRG 641 ==
LOC: ED 14:31 → SUATTDRO 17:19 → 2W 17:19 → 4E 04-27 20:38

== ENCOUNTER 2018-05-14 16:36 | Inpatient (IN) ==
[2018-05-14] MEDS ORDERED: ONDANSETRON INJ 2 MG/ML 2 ML VIAL IV STA (17:30)
[2018-05-14] MEDS ORDERED: HYDROmorphone INJ 1 MG/ML SYRINGE IV STA ×2 (17:30→21:35)
[2018-05-14] MEDS ORDERED: SODIUM CHLORIDE 0.9% 1000ML 1,000 ML IV SCH (17:30)
[2018-05-14] MEDS ORDERED: LIDOCAINE/PRILOCAINE 2.5% EA CRM EXT ONE (17:43)
[2018-05-14 19:10] LABS: Basophils # (auto) 0.01 K/uL (0-0.2); Basophils % (auto) 0.1 %; Eosinophils # (auto) 0.09 K/uL (0-0.5); Eosinophils % (auto) 0.8 %; Hematocrit (blood only) 34.8 % (37-47); Hemoglobin 11.2 g/dL (12.0-16.0); Immature Granulocytes # (auto) 0.26 K/uL (0.00-0.02); Immature Granulocytes % (auto) 2.2 %; Lymphocytes # (auto) 1.19 K/uL (1.2-3.4); Lymphocytes % (auto) 10.1 %; Mean Corpuscular Hgb Conc 32.2 g/dL (32-36); Mean Corpuscular Volume 89.2 fL (80-100); Mean Platelet Volume 9.7 fL (7.4-10.4); Monocytes # (auto) 0.14 K/uL (0.11-0.59); Monocytes % (auto) 1.2 %; Neutrophils # (auto) 10.11 K/uL (1.4-6.5); Neutrophils % (auto) 85.6 %; Platelet Count 233 K/uL (130-400); RDW Coefficient of Variation 17.1 % (11.5-14.5); RDW Standard Deviation 55.9 fL (36.4-46.3)
[2018-05-14 19:21] LABS: Partial Thromboplastin Ratio 0.9; Prothrombin Time 9.8 Seconds (9.0-12.0)
[2018-05-14 19:25] LABS: Albumin Level 2.6 gm/dl (3.4-5.0); BUN Creatinine Ratio 58.9 (10-20); Bilirubin Direct 0.1 mg/dl (0-0.2); Calcium 8.6 mg/dl (8.5-10.1); Est GFR (African American) 81.6; Est GFR (Non-African American) 70.4; Magnesium 2.1 mg/dl (1.8-2.4); Potassium 4.6 mmol/L (3.5-5.1)
[2018-05-14 19:32] LABS: Bilirubin,Total 0.4 mg/dl (0.2-1); Total Protein 6.5 gm/dl (6.4-8.2); Troponin I 0.046 ng/ml (0-0.045)
[2018-05-14] MEDS ORDERED: IOVERSOL 100ml IV PRN (19:56)
--- NOTE | 2018-05-14 20:00 | CT Scan Report ---
CT head/brain wo con CLINICAL HISTORY: 62 years-old Female with fall. Acute head injury status post fall TECHNIQUE: Multiple axial CT images of the head were obtained without contrast. A dose lowering tech nique was utilized adhering to the principles of ALARA. COMPARISON: CT head 04/27/2018. FINDINGS: No acute intracranial hemorrhage, midline shift, intracranial mass, hydrocephalus, territorial ischem ia or abnormal extra-axial collection. The calvarium is intact. The paranasal sinuses, mastoid air cells, and middle ear cavities are clear . IMPRESSION: No acute intracranial abnormality or calvarial fracture. The above report was generated using voice recognition software. It may contain grammatical, syntax o r spelling errors. Electronically signed by: Terrance Bee M.D. 05/14/2018 7:59 PM
--- NOTE | 2018-05-14 20:06 | CT Scan Report ---
CT cervical spine wo con CLINICAL HISTORY: 62 years-old Female with fall. Acute neck pain status post fall COMPARISON: CT head and maxillofacial studies of same day TECHNIQUE: Multiple axial CT images of the cervical spine were obtained without contrast. A dose low ering technique was utilized adhering to the principles of ALARA. FINDINGS: Bones appear mildly demineralized. Moderate degenerative changes at C1-C2. Multilevel facet arthrosis is mostly mild to severe left-sided facet arthropathy at C2-C3 and C3-C4. Indeterminate 3.5 cm scler otic focus about the posterior right lamina of C2, possibly reflective of a bone island. Mild to mode rate posterior intervertebral disc space narrowing at C4-C5 with uncovertebral spurring. Mild multile katharine intervertebral disc space narrowing with small posterior annular disc bulging. Is no acute fractu re or subluxation identified. Evaluation of the central canal and neuroforamina is better assessed by MRI. Biapical pleural-parenchymal scarring without pneumothorax. Soft tissues of the neck are unremarkable . No prevertebral soft tissue swelling or adenopathy. IMPRESSION: No acute cervical spine fracture or subluxation. The above report was generated using voice recognition software. It may contain grammatical, syntax o r spelling errors. Electronically signed by: Terrance Bee M.D. 05/14/2018 8:04 PM
--- NOTE | 2018-05-14 20:09 | CT Scan Report ---
CT facial bones wo con CLINICAL HISTORY: 62 years-old Female presenting with fall. Acute facial injury status post fall COMPARISON STUDY: CT head and cervical spine studies of same day TECHNIQUE: High-resolution CT scan of the facial bones is performed. Images are reviewed in the axia l, sagittal, and coronal planes. IV contrast was not administered for this examination. A dose lower ing technique was utilized adhering to the principles of ALARA. CT DOSE: 934.83 mGy.cm FINDINGS: Biapical pleural-parenchymal scarring without pneumothorax. Soft tissues of the and neck appear unrem arkable. No acute intracranial abnormality identified. Bilateral globes and orbits are within normal limits. No acute calvarial fracture. Mastoid air cells and middle ear cavities are clear. Paranasal s inuses are also generally clear with mild mucosal thickening of the ethmoid air cells. Mild leftward bowing and spurring of the nasal septum. No acute facial bone fracture identified. There are mild deg enerative changes noted about the bilateral temporal mandibular joints. Nasal bone, zygomatic arches, maxillary morelos and pterygoid plates appear intact. IMPRESSION: No acute facial bone fracture. The above report was generated using voice recognition software. It may contain grammatical, syntax o r spelling errors. Electronically signed by: Terrance Bee M.D. 05/14/2018 8:08 PM
--- NOTE | 2018-05-14 20:28 | CT Scan Report ---
ABDOMEN AND PELVIS CT WITH IV CONTRAST CT DOSE: 261.22 mGy.cm HISTORY: Acute generalized abdominal pain status post fall abdominal pain fall TECHNIQUE: Multiaxial CT images of the abdomen and pelvis were performed following the use of intrave nous contrast. A dose lowering technique was utilized adhering to the principles of ALARA. COMPARISON STUDY: CT abdomen pelvis 04/06/2018. FINDINGS: Bibasilar pulmonary nodules are noted measuring up to 6 mm within the basal right lower lobe on image 35 series 3, previously this nodule measured 4 mm on study from 04/06/2018. 7 mm solid nodule left lo wer lobe is not definitively seen on this exam. There is no pneumatosis or pneumoperitoneum. The imag ed inferior cardiac chambers appear unremarkable. There are several scattered ill-defined hypodense lesions noted about the liver suggestive of hepatic metastasis measuring up to 1.6 cm the left hepatic lobe, previously 10 mm suggestion of progression of disease. Lesions within the right hepatic lobe measures up to 12 mm, previously 9 mm. No intrahepa tic biliary ductal dilation. Scattered calcified merritt limit about the liver and spleen. Patency of th e hepatic and portal veins. Pancreas is unremarkable. 2.7 x 2.5 cm left adrenal gland mass previously measured 2.5 x 2.1 cm. Right adrenal gland appears unremarkable. Bilateral renal cysts. Resolution of the previously described hydronephrosis. Mild urothelial thicken ing noted about the left renal pelvis and collecting system. Mild dilation of the mid and distal uret ers. Mild wall thickening of the bladder. Large necrotic invasive mass of the rectum centered about H artman's pouch redemonstrated measuring approximately 7.8 x 6.7 cm, previously measuring approximatel y 7.0 x 6.6 cm and again demonstrates invasion into adjacent pelvic musculature, vagina and adjacent small bowel. There is no associated small bowel obstruction. Postoperative changes with descending co lostomy redemonstrated. Moderate mixed plaque formation of the aorta without aneurysm. IVC is unremar kable. No new adenopathy. Breast parenchyma and soft tissues appear unremarkable. No suspicious bone lesions to suggest osseous metastasis. IMPRESSION: 1. No acute posttraumatic abnormality of the abdomen or pelvis. No acute fracture. 2. Large necrotic invasive mass about the rectum centered within Craig's pouch has mildly increased in size from comparison. Associated adjacent muscular, vaginal and small bowel invasion redemonstrat ed. 3. Pulmonary and hepatic metastasis redemonstrated with interval increased size of the hepatic lesion s compatible with progression of disease. 4. Resolution of the previously described hydronephrosis with mild dilation noted about the mid and d istal bilateral ureters. Mild nonspecific urothelial thickening noted about the left renal pelvis and proximal left ureter. 5. No small bowel obstruction. 6. Increased size of the left adrenal gland mass suggestive of metastasis. 7. Additional findings as above. Electronically signed by: Terrance Bee M.D. 05/14/2018 8:26 PM
--- NOTE | 2018-05-14 20:33 | XRay Report ---
XR chest 2V routine HISTORY: 62 years-old Female fall acute chest trauma status post fall COMPARISON: Chest radiograph 04/25/2018 TECHNIQUE: PA and lateral views of the chest FINDINGS: Cardiac mediastinal and hilar silhouettes are unchanged. Hyperinflation with emphysema. Stable positi oning of the left pectoral [id number] catheter. Biapical pleural-parenchymal scarring redemonstrat ed. No pneumothorax, pleural effusion, focal airspace consolidation or overt pulmonary edema. Degener ative changes of the shoulders and spine. IMPRESSION: No acute process. The above report was generated using voice recognition software. It may contain grammatical, syntax o r spelling errors. Electronically signed by: Terrance Bee M.D. 05/14/2018 8:32 PM
[2018-05-14 21:53] LABS: Appearance Urine Cloudy (Clear); Bacteria Urine Automated Negative (Negative); Bilirubin Urine Negative (Negative); Blood Urine 1+ (Negative); Color Urine Yellow; Epithelial Cell Urine Auto >30 /lpf (0-5); Glucose Urine UA Negative (Negative); Ketones Urine Negative (Negative); Leukocyte Esterase Urine 1+ (Negative); Nitrite Urine Negative (Negative); Protein Urine Trace (Negative); Specific Gravity Urine 1.045 (1.000-1.030); Urobilinogen Urine Negative (Negative)
[2018-05-14 22:15] LABS: Renal Epithelial Cells Urine 0-5 /lpf (0-5)
[2018-05-14] MEDS ORDERED: ENOXAPARIN INJ 40 MG/0.4 ML SYR SQ SCH (22:34)
[2018-05-14] MEDS ORDERED: MoRPHine SULFATE 4 MG/ML 1 ML CARP\\VIAL IV STA (22:43)
--- NOTE | 2018-05-14 22:47 | History & Physical Report ---
Date of Service May 14, 2018 Assessment & Plan (1) Rectal pain: 62 y/o F Hx metastatic rectal CA with mets to liver, lungs and brain, chronic pain, HTN, anemia, diet-controlled DM. Presenting with worsening rectal pain and peripheral paresthesias which may be related to her chemotherapy. She also c/o dysuria, generalized weakness, a poor appetite and lower extremity edema. She states that 3 days prior, she fell and suffered trauma to the back of her neck as well. A CT of the cervical spine did not demonstrate any acute findings. Initial labs are notable for a marginally elevated troponin. She denies CP or SOB and her EKG does not support acute ischemia. The pt was recently placed on Methadone after having been tapered off Fentanyl. 1) Rectal pain - recently placed on methadone. We will increase her dose to 15mg BID and provide PO Dilaudid for breakthrough. 2) Elevated troponin - cause is not clear - she does not have related symptoms or ARF. We will trend enzymes and obtain an echo AM to evaluate for wall motion abnormalities. 3) Parasthesias and lower extremity edema - this is likely due to recent initiation of Xeloda - major side effects specifically lists numbness, pain, tingling, or other unusual sensations in the palms of the hands or bottoms of the feet pain, blistering, peeling, redness, or swelling of the palms of the hands or bottoms of the feet. We would have to address this with her oncologist who would have discretion over continued use or employing an alternative agent. 4) HTN - cont Lisinopril 5) DM - this os not presently treated - can f/u as outpt - glu is WNL on admission 6) Dysuria - UA is marginally +, we will treat based on symptoms Partial code - CPR OK - no intubation/vent Total time for this admit including review of labs, meds, imaging, records - discussion with pt and ER attending History of Present Illness Chief Complaint: Rectal pain, parasthesias Primary Care Provider: Marylu Ojeda MD 62 y/o F Hx metastatic rectal CA with mets to liver, lungs and brain, chronic pain, HTN,anemia, diet-controlled DM. Presenting with worsening rectal pain and peripheral paresthesias which may be related to her chemotherapy. She also c/o dysuria, generalized weakness, a poor appetite and lower extremity edema. She states that 3 days prior, she fell and suffered trauma to the back of her neck as well. A CT of the cervical spine did not demonstrate any acute findings. Initial labs are notable for a marginally elevated troponin. She denies CP or SOB and her EKG does not support acute ischemia. The pt was recently placed on Methadone after having been tapered off Fentanyl. PMH: 1) Colorectal CA - resection and colostomy, chemo, XRT - she was receiving Ir anotecan late 2017 and is now being treated with Xeloda. She has metastases to liver, lung an brain. 2) Chronic rectal pain which has been severe and difficult to control. 3) HTN 4) DM II - recent A1C of 6.6. She is not being treated for this presently 5) Anemia of chronic disease 6) Obstructive renal calculi Surgical: Rectosigmoidectomy, colostomy and revision Social: Quit smoking 2009, occasional ETOH Family: Noncontributory Allergies Allergy/AdvReac Type Severity Reaction Status Date / Time Sulfa (Sulfonamide Allergy Intermediate RASH Verified 05/14/18 18:08 Antibiotics) codeine AdvReac Intermediate DIZZINESS Verified 05/14/18 18:08 Home Medications Home Medications Medication Instructions Recorded Confirmed Type gabapentin 600 mg PO TID 10/24/17 05/14/18 History polyethylene glycol 3350 [Miralax] 17 g PO DAILY PRN 10/24/17 05/14/18 History ferrous sulfate 325 mg PO BID #60 tab 04/10/18 05/14/18 Rx methadone 10 mg PO Q12H #60 tab 04/10/18 05/14/18 Rx oxycodone 5 mg PO Q8H PRN #30 tab 04/10/18 05/14/18 Rx pantoprazole 40 mg PO BID #60 tab 04/10/18 05/14/18 Rx lisinopril 10 mg PO QAM 04/23/18 05/14/18 History prochlorperazine maleate 10 mg PO Q8H PRN #10 tab 04/30/18 05/14/18 Rx [Compazine] dexamethasone [Decadron] 4 mg PO QAM 05/14/18 05/14/18 History Past Med/Surg History Medical History Acute blood loss anemia Nausea & vomiting Cellulitis of helix of right ear DVT prophylaxis Hydronephrosis Chronic pain syndrome Gastritis Pyelonephritis Adenocarcinoma of rectum, stage 4 (Chronic) Intractable epigastric abdominal pain (Acute) Dehydration (Acute) Infection due to Clostridium septicum Bacteremia Rectal bleeding (Acute) Metastatic disease (Acute) Hypertension UTI (urinary tract infection) GI bleed Mitral valve prolapse (Resolved) Heart murmur (Resolved) History of colon cancer (Chronic) Hypokalemia (Resolved) Left ureteral calculus (Resolved) Rectal adenocarcinoma (Chronic 05/15/16) "6 months of intermittent rectal pain and bleeding Status post colonoscopy and biopsy 05/15/2016 (Dr. Jorge L Benavides) Adenocarcinoma Status post EUS staging 05/18/2016 (Dr. New Jack) Stage uT3 uN1 Plan for combined neoadjuvant radiation and chemotherapy (Dr. Yogesh Crowe) Chemotherapy comprised of Xeloda Status post completion of radiation therapy 07/30/2016. She received 5040 cGy. Status post abdominal perineal resection 09/29/2016. Stage pT3 pN0M1 Has received 7 of 12 cycles of FOLFOX chemotherapy" On 08/10/16 16:27 Barbra Thapa wrote "6 months of intermittent rectal pain and bleeding Status post colonoscopy and biopsy 05/15/2016 (Dr. Jorge L Benavides) Adenocarcinoma Status post EUS staging 05/18/2016 (Dr. New Jack) Stage uT3 uN1 Plan for combined neoadjuvant radiation and chemotherapy (Dr. Yogesh Crowe) Chemotherapy comprised of Xeloda Status post completion of radiation therapy 07/30/2016. She received 5040 cGy." On 06/02/16 09:48 Barbra Thapa wrote "6 months of intermittent rectal pain and bleeding Status post colonoscopy and biopsy 05/15/2016 (Dr. Jorge L Benavides) Adenocarcinoma Status post EUS staging 05/18/2016 (Dr. New Jack) Stage uT3 uN1 Plan for combined radiation and chemotherapy (Dr. Yogesh Crowe) Chemotherapy comprised of Xeloda " Symptomatic anemia (Resolved) Acute UTI (urinary tract infection) (Inactive) Complication of ostomy (Inactive) Diarrhea (Inactive) Mass of perirectal soft tissue (Inactive) Port-A-Cath in place Surgical History Colostomy present (Chronic) x 2; recreation of colostomy due to fistula Family History Mother , age 93 Stroke Father , age 79 COPD (chronic obstructive pulmonary disease) Other No significant family history Social History Preferred Language: Kinyarwanda Beliefs That Will Affect Care: Confucianist marital status: Current Living Situation: Alone Current Living Situation Comment: alone in [place] current occupational status: retired current occupation: [email or web address] work Feels Safe at Home: Yes Smoking Status: Former smoker Hx Alcohol Use: No Hx Substance Use: Yes Review of Systems Gen: Generalized weakness, malaise, poor zoe ENT: Denies congestion, throat pain, hearing loss Eyes: Denies acute visual changes CV: Denies CP, palpitations Pulmonary: Denies SOB, cough, wheezing GI: Denies N/V, diarrhea, constipation - poor appetite and severe rectal pain : Reports dysuria Neuro: Denies acute or unilateral weakness, acute gait impairment, headache or acute visual changes - reports parasthesias as above Musculoskeletal: Denies joint pain, inflammation - LE edema reported Endocrine: Denies polydipsia, polyuria Skin: Denies acute rashes or ulcers Physical Exam Vital Signs (Past 24 Hours): Last Vital Signs Temp 36.3 C L 05/14/18 16:41 Pulse 91 H 05/14/18 20:00 Resp 16 05/14/18 20:00 BP 138/80 05/14/18 20:00 Pulse Ox 95 05/14/18 20:00
[2018-05-14] MEDS ORDERED: POLYETHYLENE (MIRALAX) 17 GM PACK PO PRN (23:28)
[2018-05-14] MEDS: LACTATED RINGER'S 1,000 ML IV SCH (23:56)
--- NOTE | 2018-05-15 00:01 | Emergency Department Note ---
Entered by Syed Crowe acting as a scribe for Cheng Anderson History of Present Illness General Chief complaint: Dizziness Stated complaint: DIZZY, SHAKEY, PAIN Time Seen by Provider: 05/14/18 17:09 Source: patient and family (son-in-law) Limitations: no limitations History of Present Illness Onset (ago): day(s) 4 Location: head Pain Consistency: + constant Maximum Pain Intensity: 7 Quality: + other (shaky) Associated symptoms: + other (pain down to rectal area, fall) The patient is a 62 year old female who presents to the Emergency Room with complaints of constant dizziness starting 4 days ago. The patient's son-in-law states the patient fell 4 days ago when she tripped on her porch. He states the patient hit her nose. The patient notes she has been dizzy and shaky since the fall. She states she has pain down her rectal area. The patient denies chest pain, difficulty breathing, and taking blood thinners. Home Medications Home Medications Medication Instructions Recorded Confirmed Type gabapentin 600 mg PO TID 10/24/17 05/14/18 History polyethylene glycol 3350 [Miralax] 17 g PO DAILY PRN 10/24/17 05/14/18 History ferrous sulfate 325 mg PO BID #60 tab 04/10/18 05/14/18 Rx methadone 10 mg PO Q12H #60 tab 04/10/18 05/14/18 Rx oxycodone 5 mg PO Q8H PRN #30 tab 04/10/18 05/14/18 Rx pantoprazole 40 mg PO BID #60 tab 04/10/18 05/14/18 Rx lisinopril 10 mg PO QAM 04/23/18 05/14/18 History prochlorperazine maleate 10 mg PO Q8H PRN #10 tab 04/30/18 05/14/18 Rx [Compazine] dexamethasone [Decadron] 4 mg PO QAM 05/14/18 05/14/18 History Allergies Allergy/AdvReac Type Severity Reaction Status Date / Time Sulfa (Sulfonamide Allergy Intermediate RASH Verified 05/14/18 18:08 Antibiotics) codeine AdvReac Intermediate DIZZINESS Verified 05/14/18 18:08 Past Med/Surg History Medical History Acute blood loss anemia Nausea & vomiting Cellulitis of helix of right ear DVT prophylaxis Hydronephrosis Chronic pain syndrome Gastritis Pyelonephritis Adenocarcinoma of rectum, stage 4 (Chronic) Intractable epigastric abdominal pain (Acute) Dehydration (Acute) Infection due to Clostridium septicum Bacteremia Rectal bleeding (Acute) Metastatic disease (Acute) Hypertension UTI (urinary tract infection) GI bleed Mitral valve prolapse (Resolved) Heart murmur (Resolved) History of colon cancer (Chronic) Hypokalemia (Resolved) Left ureteral calculus (Resolved) Rectal adenocarcinoma (Chronic 05/15/16) "6 months of intermittent rectal pain and bleeding Status post colonoscopy and biopsy 05/15/2016 (Dr. Jorge L Benavides) Adenocarcinoma Status post EUS staging 05/18/2016 (Dr. New Jack) Stage uT3 uN1 Plan for combined neoadjuvant radiation and chemotherapy (Dr. Yogesh Crowe) Chemotherapy comprised of Xeloda Status post completion of radiation therapy 07/30/2016. She received 5040 cGy. Status post abdominal perineal resection 09/29/2016. Stage pT3 pN0M1 Has received 7 of 12 cycles of FOLFOX chemotherapy" On 08/10/16 16:27 Barbra Thapa wrote "6 months of intermittent rectal pain and bleeding Status post colonoscopy and biopsy 05/15/2016 (Dr. Jorge L Benavides) Adenocarcinoma Status post EUS staging 05/18/2016 (Dr. New Jack) Stage uT3 uN1 Plan for combined neoadjuvant radiation and chemotherapy (Dr. Yogesh Crowe) Chemotherapy comprised of Xeloda Status post completion of radiation therapy 07/30/2016. She received 5040 cGy." On 06/02/16 09:48 Barbra Thapa wrote "6 months of intermittent rectal pain and bleeding Status post colonoscopy and biopsy 05/15/2016 (Dr. Jorge L Benavides) Adenocarcinoma Status post EUS staging 05/18/2016 (Dr. New Jack) Stage uT3 uN1 Plan for combined radiation and chemotherapy (Dr. Yogesh Crowe) Chemotherapy comprised of Xeloda " Symptomatic anemia (Resolved) Acute UTI (urinary tract infection) (Inactive) Complication of ostomy (Inactive) Diarrhea (Inactive) Mass of perirectal soft tissue (Inactive) Port-A-Cath in place Surgical History Colostomy present (Chronic) x 2; recreation of colostomy due to fistula Family History Mother , age 93 Stroke Father , age 79 COPD (chronic obstructive pulmonary disease) Other No significant family history Social History Preferred Language: Egyptian Communication Ability: Effective Vegetable Scullion Required: No Beliefs That Will Affect Care: None marital status: Current Living Situation: Alone Current Living Situation Comment: alone in [place] current occupational status: retired current occupation: [employer] work Other Information That Helps Us Care for You: No Feels Safe at Home: Yes Safety Concerns: Feels Safe At This Time Smoking Status: Former smoker Hx Alcohol Use: Yes Hx Substance Use: No Review of Systems See HPI for pertinent positives & negatives. and A total of 10 systems reviewed and were otherwise negative Physical Exam Vital Signs Vital Signs - 24 hr 05/14/18 16:38 05/14/18 16:41 05/14/18 17:25 Temperature 36.3 C L Temperature Source Oral Sepsis Recent Fever Within 48 Hours No Sepsis New/Unexplained Change in Mental Status No Sepsis Action Taken by Nursing No Action Required Pulse Rate 110 H 93 H Pulse Rate [Right Finger] Pulse Rhythm Regular Pulse Rhythm [Right Finger] Pulse Strength Normal Pulse Strength [Right Finger] Respiratory Rate 18 Respiratory Effort / Characteristics Non-Labored Spontaneous Respiratory Depth Normal Respiratory Pattern Regular Blood Pressure 128/70 Blood Pressure [Right Arm] Blood Pressure Mean 89 Blood Pressure Mean [Right Arm] Blood Pressure Position Sitting Blood Pressure Position [Right Arm] Pulse Oximetry 95 98 94 Oxygen Delivery Method Room Air Room Air Room Air 05/14/18 18:56 05/14/18 20:00 05/14/18 23:29 Temperature 37.1 C Temperature Source Oral Sepsis Recent Fever Within 48 Hours Sepsis New/Unexplained Change in Mental Status Sepsis Action Taken by Nursing Pulse Rate Pulse Rate [Right Finger] 94 H 91 H 90 Pulse Rhythm Pulse Rhythm [Right Finger] Regular Pulse Strength Pulse Strength [Right Finger] Normal Respiratory Rate 18 16 16 Respiratory Effort / Characteristics Non-Labored Spontaneous Non-Labored Spontaneous Non-Labored Spontaneous Respiratory Depth Normal Normal Normal Respiratory Pattern Regular Regular Regular Blood Pressure Blood Pressure [Right Arm] 123/73 138/80 125/78 Blood Pressure Mean Blood Pressure Mean [Right Arm] 89 99 93 Blood Pressure Position Blood Pressure Position [Right Arm] Lying Lying Lying Pulse Oximetry 97 95 98 Oxygen Delivery Method Room Air Room Air Room Air GENERAL: She is oriented to person, place, and time. She appears well-developed and well-nourished. She does not appear distressed. HENT: Exam performed. \\[id number] Head: Normocephalic and atraumatic. \\[id number] Right Ear: External ear normal. No mastoid tenderness. \\[id number] Left Ear: External ear normal. No mastoid tenderness. \\[id number] Mouth/Throat: The oropharynx is clear and moist. No trismus in the jaw. No dental abscesses or uvula swelling. No oropharyngeal exudate or tonsillar abscesses. EYES: Conjunctivae and EOM are normal. Pupils are equal, round, and reactive to light. Right eye exhibits no discharge. Left eye exhibits no discharge. No scleral icterus. NECK: Normal range of motion. Neck supple. No JVD present. No spinous process tenderness present. No carotid bruit present. No rigidity. No tracheal deviation and normal range of motion present. No Brudzinski's sign and no Kernig's sign no artemio. CV: Normal rate, regular rhythm, normal heart sounds and intact distal pulses. There is no peripheral edema. Palpable radial pulses bue. PULM/CHEST: Effort normal and breath sounds normal. No respiratory distress. No stridor. She has no wheezes. She has no rales. Chest Wall: She exhibits no tenderness. ABD: The abdomen is soft. Bowel sounds are normal. She has no distension. No mass is present. There is no tenderness. There is no rebound, no guarding, no Camarillo's sign and no tenderness at McBurney's point. Rovsig negative. Diffuse pain with palpation. Patient has two ostomy bags. MUSC/SKEL: Normal range of motion. There is no peripheral edema, tenderness or deformity. Diffuse pain to palpation. RECTAL: No gross blood per rectum upon visual inspection. No digital inspection was performed. LYMPH: No cervical adenopathy. NEURO: She is alert and oriented to person, place, and time. She has normal strength. No cranial nerve deficit or sensory deficit. Coordination and gait no rmal. GCS eye subscore is 4. GCS verbal subscore is 5. GCS motor subscore is 6. cerbellar tests wnl. SKIN: Skin is warm and dry. She is not diaphoretic. PSYCH: She has a normal mood and affect. Her behavior is normal. Judgment and thought content normal. Course 1709: EMR reviewed. Patient has rectal cancer and chronic pain. She was admitted on April 25 for hyperkalemia with a potassium of 7.9. Patient also had hypermagnesemia at that time. 1714: Past medical records reviewed. The patient was evaluated in room C3, and a complete history and physical examination were performed. 2131: Vital signs stable. Patient continues to have diffuse pain. Her labs showed elevated troponin. Patient not reporting any chest pain, this troponin will be followed by the hospitalist service. I reviewed the patient's case with Dr. [facility] Hospitalist. He will evaluate the patient for further management. Patient not reporting any chest pain, this troponin will be followed by the hospitalist service. Administered Medications Discontinued Medications Hydromorphone HCl (Dilaudid) 1 mg IV NOW STA Stop: 05/14/18 17:31 Last Admin: 05/14/18 19:00 Dose: 1 mg Documented by: [id number] Hydromorphone HCl (Dilaudid) 1 mg IV NOW STA Stop: 05/14/18 21:36 Last Admin: 05/14/18 21:40 Dose: 1 mg Documented by: [id number] Sodium Chloride (Nss 1000ml) 1,000 mls @ 125 mls/hr IV .Q8H SANDRA Stop: 06/13/18 17:29 Last Infusion: 05/14/18 23:43 Dose: 0 mls/hr Documented by: [id number] Admin: 05/14/18 19:01 Dose: 125 mls/hr Documented by: [id number] Ioversol (Optiray 320 100ml) 89 ml IV ONCE PRN PRN Reason: Interaction Checking Stop: 05/18/18 19:55 Last Admin: 05/14/18 19:56 Dose: 89 ml Documented by: [id number] Lidocaine/Prilocaine (Emla 2.5%) 1 ea EXT NOW ONE Stop: 05/14/18 17:44 Last Admin: 05/14/18 18:25 Dose: 1 ea Documented by: [id number] Morphine Sulfate (Morphine Sulfate) 4 mg IV NOW STA Stop: 05/14/18 22:44 Last Admin: 05/14/18 23:52 Dose: 4 mg Documented by: [id number] Ondansetron HCl (Zofran) 4 mg IV NOW STA Stop: 05/14/18 17:31 Last Admin: 05/14/18 19:00 Dose: 4 mg Documented by: [id number] Medical Decision Making Medical Records Attestation: I reviewed the patient's medical records. Home Medications Current Medication List: was personally reviewed by me Laboratory Data Attestation: I reviewed the patient's lab results. Result diagrams: 05/14/18 18:50 05/14/18 18:50 Lab Results 05/14/18 05/14/18 05/14/18 Range/Units 17:54 18:50 18:50 WBC 11.80 H (4.8-10.8) K/uL RBC 3.90 L (4.2-5.4) M/uL Hgb 11.2 L (12.0-16.0) g/dL Hct 34.8 L (37-47) % MCV 89.2 (80-100) fL MCH 28.7 (25-34) pg MCHC 32.2 (32-36) g/dL RDW Std Deviation 55.9 H (36.4-46.3) fL RDW Coeff of Chelsy 17.1 H (11.5-14.5) % Plt Count 233 (130-400) K/uL MPV 9.7 (7.4-10.4) fL Immature Gran % (Auto) 2.2 % Neut % (Auto) 85.6 % Lymph % (Auto) 10.1 % Baxter % (Auto) 1.2 % Eos % (Auto) 0.8 % Baso % (Auto) 0.1 % Immature Gran # (Auto) 0.26 H (0.00-0.02) K/uL Neut # (Auto) 10.11 H (1.4-6.5) K/uL Lymph # (Auto) 1.19 L (1.2-3.4) K/uL Baxter # (Auto) 0.14 (0.11-0.59) K/uL Eos # (Auto) 0.09 (0-0.5) K/uL Baso # (Auto) 0.01 (0-0.2) K/uL PT 9.8 (9.0-12.0) Seconds INR 1.0 (0.9-1.1) APTT 24.0 (21.0-31.0) Seconds PTT Ratio 0.9 Sodium (136-145) mmol/L Potassium (3.5-5.1) mmol/L Chloride (98-107) mmol/L Carbon Dioxide (21-32) mmol/L Anion Gap (3-11) BUN (7-18) mg/dl Creatinine (0.6-1.2) mg/dl Est Cr Clr Drug Dosing ml/min Est GFR ( Amer) Est GFR (Non-Af Amer) BUN/Creatinine Ratio (10-20) Glucose (70-99) mg/dl Lactate (0.4-2.0) mmol/L Calcium (8.5-10.1) mg/dl Magnesium (1.8-2.4) mg/dl Total Bilirubin (0.2-1) mg/dl Direct Bilirubin (0-0.2) mg/dl AST (15-37) U/L ALT (12-78) U/L Alkaline Phosphatase (45-117) U/L Troponin I (0-0.045) ng/ml Total Protein (6.4-8.2) gm/dl Albumin (3.4-5.0) gm/dl Lipase (73-393) U/L Urine Color Urine Appearance (Clear) Urine pH (4.5-7.5) Ur Specific [place] (1.000-1.030) Urine Protein (Negative) Urine Glucose (UA) (Negative) Urine Ketones (Negative) Urine Blood (Negative) Urine Nitrite (Negative) Urine Bilirubin (Negative) Urine Urobilinogen (Negative) Ur Leukocyte Esterase (Negative) Urine WBC (Auto) (0-5) /hpf Urine RBC (Auto) (0-4) /hpf U Hyaline Cast (Auto) (0-5) /lpf U Epithel Cells (Auto) (0-5) /lpf Urine Bacteria (Auto) (Negative) Ur Renal Epithelial Cell (0-5) /lpf Granular Casts (0) /lpf Urine Yeast Blood Type A Positive Antibody Screen NEGATIVE 05/14/18 05/14/18 05/14/18 Range/Units 18:50 21:09 21:20 WBC (4.8-10.8) K/uL RBC (4.2-5.4) M/uL Hgb (12.0-16.0) g/dL Hct (37-47) % MCV (80-100) fL MCH (25-34) pg MCHC (32-36) g/dL RDW Std Deviation (36.4-46.3) fL RDW Coeff of Chelsy (11.5-14.5) % Plt Count (130-400) K/uL MPV (7.4-10.4) fL Immature Gran % (Auto) % Neut % (Auto) % Lymph % (Auto) % Baxter % (Auto) % Eos % (Auto) % Baso % (Auto) % Immature Gran # (Auto) (0.00-0.02) K/uL Neut # (Auto) (1.4-6.5) K/uL Lymph # (Auto) (1.2-3.4) K/uL Baxter # (Auto) (0.11-0.59) K/uL Eos # (Auto) (0-0.5) K/uL Baso # (Auto) (0-0.2) K/uL PT (9.0-12.0) Seconds INR (0.9-1.1) APTT (21.0-31.0) Seconds PTT Ratio Sodium 136 (136-145) mmol/L Potassium 4.6 (3.5-5.1) mmol/L Chloride 107 (98-107) mmol/L Carbon Dioxide 23 (21-32) mmol/L Anion Gap 6.0 (3-11) BUN 51 H (7-18) mg/dl Creatinine 0.87 (0.6-1.2) mg/dl Est Cr Clr Drug Dosing 51.0 ml/min Est GFR ( Amer) 81.6 Est GFR (Non-Af Amer) 70.4 BUN/Creatinine Ratio 58.9 H (10-20) Glucose 96 (70-99) mg/dl Lactate 2.1 H* (0.4-2.0) mmol/L Calcium 8.6 (8.5-10.1) mg/dl Magnesium 2.1 (1.8-2.4) mg/dl Total Bilirubin 0.4 (0.2-1) mg/dl Direct Bilirubin 0.1 (0-0.2) mg/dl AST 23 (15-37) U/L ALT 51 (12-78) U/L Alkaline Phosphatase 129 H (45-117) U/L Troponin I 0.046 H* (0-0.045) ng/ml Total Protein 6.5 (6.4-8.2) gm/dl Albumin 2.6 L (3.4-5.0) gm/dl Lipase 147 (73-393) U/L Urine Color Yellow Urine Appearance Cloudy H (Clear) Urine pH 5.0 (4.5-7.5) Ur Specific [place] 1.045 H (1.000-1.030) Urine Protein Trace H (Negative) Urine Glucose (UA) Negative (Negative) Urine Ketones Negative (Negative) Urine Blood 1+ H (Negative) Urine Nitrite Negative (Negative) Urine Bilirubin Negative (Negative) Urine Urobilinogen Negative (Negative) Ur Leukocyte Esterase 1+ H (Negative) Urine WBC (Auto) 10-30 H (0-5) /hpf Urine RBC (Auto) 5-10 H (0-4) /hpf U Hyaline Cast (Auto) 1-5 (0-5) /lpf U Epithel Cells (Auto) >30 H (0-5) /lpf Urine Bacteria (Auto) Negative (Negative) Ur Renal Epithelial Cell 0-5 (0-5) /lpf Granular Casts 1-5 H (0) /lpf Urine Yeast Not Reportable Blood Type Antibody Screen Imaging Data Radiologist's Impression: Radiology results as stated below per my review and the radiologist's interpretation: ABDOMEN AND PELVIS CT WITH IV CONTRAST CT DOSE: 261.22 mGy.cm HISTORY: Acute generalized abdominal pain status post fall abdominal pain fall TECHNIQUE: Multiaxial CT images of the abdomen and pelvis were performed following the use of intravenous contrast. A dose lowering technique was utilized adhering to the principles of ALARA. COMPARISON STUDY: CT abdomen pelvis 04/06/2018. FINDINGS: Bibasilar pulmonary nodules are noted measuring up to 6 mm within the basal right lower lobe on image 35 series 3, previously this nodule measured 4 mm on study from 04/06/2018. 7 mm solid nodule left lower lobe is not definitively seen on this exam. There is no pneumatosis or pneumoperitoneum. The imaged inferior cardiac chambers appear unremarkable. There are several scattered ill-defined hypodense lesions noted about the liver suggestive of hepatic metastasis measuring up to 1.6 cm the left hepatic lobe, previously 10 mm suggestion of progression of disease. Lesions within the right hepatic lobe measures up to 12 mm, previously 9 mm. No intrahepatic biliary ductal dilation. Scattered calcified merritt limit about the liver and spleen. Patency of the hepatic and portal veins. Pancreas is unremarkable. 2.7 x 2.5 cm left adrenal gland mass previously measured 2.5 x 2.1 cm. Right adrenal gland appears unremarkable. Bilateral renal cysts. Resolution of the previously described hydronephrosis. Mild urothelial thickening noted about the left renal pelvis and collecting system. Mild dilation of the mid and distal ureters. Mild wall thickening of the bladder. Large necrotic invasive mass of the rectum centered about Craig's pouch redemonstrated measuring approximately 7.8 x 6.7 cm, previously measuring approximately 7.0 x 6.6 cm and again demonstrates invasion into adjacent pelvic musculature, vagina and adjacent small bowel. There is no associated small bowel obstruction. Postoperative changes with descending colostomy redemonstrated. Moderate mixed plaque formation of the aorta without aneurysm. IVC is unremarkable. No new adenopathy. Breast parenchyma and soft tissues appear unremarkable. No suspicious bone lesions to suggest osseous metastasis. IMPRESSION: 1. No acute posttraumatic abnormality of the abdomen or pelvis. No acute fracture. 2. Large necrotic invasive mass about the rectum centered within Craig's pouch has mildly increased in size from comparison. Associated adjacent muscular, vaginal and small bowel invasion redemonstrated. 3. Pulmonary and hepatic metastasis redemonstrated with interval increased size of the hepatic lesions compatible with progression of disease. 4. Resolution of the previously described hydronephrosis with mild dilation noted about the mid and distal bilateral ureters. Mild nonspecific urothelial thickening noted about the left renal pelvis and proximal left ureter. 5. No small bowel obstruction. 6. Increased size of the left adrenal gland mass suggestive of metastasis. 7. Additional findings as above. Electronically signed by: Terrance Bee M.D. 05/14/2018 8:[address] cervical spine wo con CLINICAL HISTORY: 62 years-old Female with fall. Acute neck pain status post fall COMPARISON: CT head and maxillofacial studies of same day TECHNIQUE: Multiple axial CT images of the cervical spine were obtained without contrast. A dose lowering technique was utilized adhering to the principles of ALARA. FINDINGS: Bones appear mildly demineralized. Moderate degenerative changes at C1-C2. Multilevel facet arthrosis is mostly mild to severe left-sided facet arthropathy at C2-C3 and C3-C4. Indeterminate 3.5 cm sclerotic focus about the posterior right lamina of C2, possibly reflective of a bone island. Mild to moderate posterior intervertebral disc space narrowing at C4-C5 with uncovertebral spurring. Mild multilevel intervertebral disc space narrowing with small posterior annular disc bulging. Is no acute fracture or subluxation identified. Evaluation of the central canal and neuroforamina is better assessed by MRI. Biapical pleural-parenchymal scarring without pneumothorax. Soft tissues of the neck are unremarkable. No prevertebral soft tissue swelling or adenopathy. IMPRESSION: No acute cervical spine fracture or subluxation. The above report was generated using voice recognition software. It may contain grammatical, syntax or spelling errors. Electronically signed by: Terrance Bee M.D. 05/14/2018 8:[address] head/brain wo con CLINICAL HISTORY: 62 years-old Female with fall. Acute head injury status post fall TECHNIQUE: Multiple axial CT images of the head were obtained without contrast. A dose lowering technique was utilized adhering to the principles of ALARA. COMPARISON: CT head 04/27/2018. FINDINGS: No acute intracranial hemorrhage, midline shift, intracranial mass, hydrocephalus, territorial ischemia or abnormal extra-axial collection. The calvarium is intact. The paranasal sinuses, mastoid air cells, and middle ear cavities are clear. IMPRESSION: No acute intracranial abnormality or calvarial fracture. The above report was generated using voice recognition software. It may contain grammatical, syntax or spelling errors. Electronically signed by: Terrance Bee M.D. 05/14/2018 7:59 PM XR chest 2V routine HISTORY: 62 years-old Female fall acute chest trauma status post fall COMPARISON: Chest radiograph 04/25/2018 TECHNIQUE: PA and lateral views of the chest FINDINGS: Cardiac mediastinal and hilar silhouettes are unchanged. Hyperinflation with emphysema. Stable positioning of the left pectoral [id number] catheter. Biapi santhosh pleural-parenchymal scarring redemonstrated. No pneumothorax, pleural effusion, focal airspace consolidation or overt pulmonary edema. Degenerative changes of the shoulders and spine. IMPRESSION: No acute process. The above report was generated using voice recognition software. It may contain grammatical, syntax or spelling errors. Electronically signed by: Terrance Bee M.D. 05/14/2018 8:[address] facial bones wo con CLINICAL HISTORY: 62 years-old Female presenting with fall. Acute facial injury status post fall COMPARISON STUDY: CT head and cervical spine studies of same day TECHNIQUE: High-resolution CT scan of the facial bones is performed. Images are reviewed in the axial, sagittal, and coronal planes. IV contrast was not administered for this examination. A dose lowering technique was utilized adhering to the principles of ALARA. CT DOSE: 934.83 mGy.cm FINDINGS: Biapical pleural-parenchymal scarring without pneumothorax. Soft tissues of the and neck appear unremarkable. No acute intracranial abnormality identified. Bilateral globes and orbits are within normal limits. No acute calvarial fracture. Mastoid air cells and middle ear cavities are clear. Paranasal sinuses are also generally clear with mild mucosal thickening of the ethmoid air cells. Mild leftward bowing and spurring of the nasal septum. No acute facial bone fra cture identified. There are mild degenerative changes noted about the bilateral temporal mandibular joints. Nasal bone, zygomatic arches, maxillary morelos and pterygoid plates appear intact. IMPRESSION: No acute facial bone fracture. The above report was generated using voice recognition software. It may contain grammatical, syntax or spelling errors. Electronically signed by: Terrance Bee M.D. 05/14/2018 8:08 PM ECG Data Attestation: I personally reviewed and interpreted this ECG as follows: Indication: other (fall) Rate (beats per minute): 104 Rhythm: sinus tachycardia Findings: + other ([place], QRS, and QTc intervals wnls. Some baseline artifact due to movement.); no ST depression and no ST elevation Blood Pressure Blood Pressure Findings: Normal blood pressure Blood Pressure Disposition: further management by hospitalist [facility] Narrative 0: EMR reviewed. Patient has rectal cancer and chronic pain. She was admitted on April 25 for hyperkalemia with a potassium of 7.9. Patient also had hypermagnesemia at that time. 1714: Past medical records reviewed. The patient was evaluated in room C3, and a complete history and physical examination were performed. 2131: Vital signs stable. Patient continues to have diffuse pain. Her labs sh owed elevated troponin. Patient not reporting any chest pain, this troponin will be followed by the hospitalist service. I reviewed the patient's case with Dr. Hand[facility]ist. He will evaluate the patient for further management. Patient not reporting any chest pain, this troponin will be followed by the hospitalist service. Impression & Plan Intractable abdominal pain, Elevated troponin Discharge Plan Visit Data Chief Complaint: Dizziness Stated Complaint: DIZZY, SHAKEY, PAIN ED Provider: Cheng Anderson Discharge Problem: Intractable abdominal pain, Elevated troponin Patient Disposition: Admitted As Inpatient The adileneibe's documentation has been prepared under my direction and personally reviewed by me in its entirety. I confirm that the note above accurately reflects all work, treatment, procedures, and medical decision making performed by me.
[2018-05-15] MEDS: cefTRIAXone SODIUM 1,000 MG in DEXTROSE 5% 50 ML IV SCH (00:47)
[2018-05-15] MEDS: METHADONE HCL 5 MG TAB PO SCH ×3 (00:53→22:28)
[2018-05-15] MEDS: HYDROmorphone HCL 2 MG TAB PO PRN ×3 (02:28→22:26)
[2018-05-15 07:19] LABS: Eosinophils # (auto) 0.16 K/uL (0-0.5); Eosinophils % (auto) 1.7 %; Hematocrit (blood only) 32.1 % (37-47); Hemoglobin 10.1 g/dL (12.0-16.0); Immature Granulocytes % (auto) 2.2 %; Lymphocytes # (auto) 1.08 K/uL (1.2-3.4); Lymphocytes % (auto) 11.7 %; Mean Corpuscular Hgb Conc 31.5 g/dL (32-36); Mean Corpuscular Volume 90.4 fL (80-100); Mean Platelet Volume 9.4 fL (7.4-10.4); Monocytes # (auto) 0.14 K/uL (0.11-0.59); Monocytes % (auto) 1.5 %; Neutrophils # (auto) 7.67 K/uL (1.4-6.5); Neutrophils % (auto) 82.9 %; Platelet Count 210 K/uL (130-400); RDW Standard Deviation 56.7 fL (36.4-46.3); Red Blood Count 3.55 M/uL (4.2-5.4); White Blood Count 9.25 K/uL (4.8-10.8)
[2018-05-15] MEDS: LACTATED RINGER'S 1,000 ML IV SCH ×2 (07:21→13:55)
[2018-05-15] MEDS: PANTOprazole 40 MG TAB PO SCH ×2 (07:25→21:12)
[2018-05-15] MEDS: GABAPENTIN 600 MG TAB PO SCH ×3 (07:25→21:11)
[2018-05-15] MEDS: FERROUS SULFATE 325 MG TAB PO SCH ×2 (07:25→21:11)
[2018-05-15] MEDS: PROCHLORPERAZINE MALEATE 10 MG TAB PO PRN (07:25)
[2018-05-15] MEDS: LISINOPRIL 10 MG TAB PO SCH (07:26)
[2018-05-15 07:42] LABS: BUN Creatinine Ratio 54.5 (10-20); Calcium 8.3 mg/dl (8.5-10.1); Est GFR (African American) 108.2; Est GFR (Non-African American) 93.4
[2018-05-15 07:52] LABS: Troponin I 0.053 ng/ml (0-0.045)
[2018-05-15] MEDS ORDERED: dexAMETHasone 4 MG TAB PO SCH (09:00)
[2018-05-15] MEDS: FLUCONAZOLE 100 MG TAB PO SCH (11:32)
--- NOTE | 2018-05-15 12:19 | Hospitalist Progress Note ---
Date of Service May 15, 2018 Assessment & Plan (1) Fall at home: - In setting of generalized weakness deconditioning due to metastatic rectal cancer/chemotherapy. - Reports suffering trauma to the back of her neck during fall. - Imaging studies were all negative for acute fractures. - Will need PT/OT once pain is more well controlled. (2) Rectal pain: - In setting of metastatic rectal cancer. - Follows with palliative care; increased methadone to 15 mg BID. - Dilaudid 2 mg PO q4hr prn breakthrough pain. - Will consult palliative care for pain/symptom management due to diffuse pain/myalgias and increased rectal pain. (3) Leg paresthesia: - May be related to Xeloda therapy -- is listed under side effects. - Will need to discuss with her primary oncologist Dr. Crowe at [facility] on Wednesday. (4) Elevated troponin: - Trop peaked at 0.06, now trending down. - Echo pending to evaluate for wall motion abnormalities. - Consider cardiology consult. (5) UTI (urinary tract infection): - U/a may represent infection; UC is pending. - Started Ceftriaxone for empiric coverage. - H/o pyelonephritis in Mar 2018, treated with amoxicillin x 14 days. 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 Crowe at [facility]. - Imaging at admission showed increase in rectal mass, increase in hepatic lobe mass, left adrenal mass suggestive of metastasis -- has progression of disease. - Follows with palliative care -- consulted as inpatient to discuss goals of care in setting of disease progression. - Continue Decadron 4 mg PO daily (tapered from [address] Crowe) in setting of brain metastasis. - Consider stress dose steroids if needed -- BP currently stable. (7) Cancer associated pain: - Increased Methadone to 15 mg BID at admission for acute pain. - Dilaudid 2 mg PO q4hr prn breakthrough pain. - Gabapentin 600 mg TID. - Consulted palliative care as noted above. (8) Thrush: - Noted on physical exam. - Start Fluconazole 100 mg PO daily. - Monitor EKG daily for QT prolongation in setting of azole therapy and Methadone. (9) Anemia: - Hgb currently above baseline. - Ferrous sulfate 325 mg BID. - Monitor q48hr. (10) Hypertension: - Continue Lisinopril 10 mg qAM as prescribed. (11) Type II diabetes mellitus: - Hgb A1C was 6.6. - Did not start oral agent at discharge due to other co-morbidities. - Consider starting sliding scale insulin and gluc checks as inpatient. (12) Malnutrition related to chronic disease: - Hypoalbuminemia in setting of metastatic cancer; BMI of 17. - LR at 100 cc/hr. - Encourage diet as tolerated. (13) DVT prophylaxis: - Hold in setting of brain vipul. Dispo: PCU for acute on chronic pain control, palliative consult. Cardiac work up also pending, may require cardiology consult. Supervising Physician Co-Signing Physician Notes Attending Attestation: Chart reviewed, care plan d/w PA Kristy Berry. I agree w/ the hilliard components of her documentation. Pt c/o pain all over, fatigue, failure to thrive. Could easily have adrenal insufficiency as she has adrenal mets on imaging. Would INCREASE steroids. ?low-grade infection in rectum given her large necrotic mass? Consider dedicated antibiotics for such including anaerobic coverage. Other plans per Ms. Berry. Reconsult palliative care - very poor prognosis given her progressive disease. Oscar Merida MD Subjective Pt. reports she feels awful today. Has increased dizziness -- symptoms were improving following discharge to home on 04/30/18. Has nausea, denies vomiting. Complains of 7/10 rectal pain. Also has pain "all over" as well. Has been receiving Methadone 15 mg BID along with Dilaudid PO prn q4hr. Denies chest discomfort or SOB today. Trops were elevated; echo is pending. Review of Systems All systems reviewed & are unremarkable except as noted in HPI & below Constitutional: + body aches, + fatigue, + weakness and + anorexia; no fever and no chills Respiratory: no cough, no chest congestion, no dyspnea, no dyspnea on exertion and no wheezing Cardiovascular: + lightheadedness; no chest pain, no palpitations and no edema Gastrointestinal: + nausea and + problem reported (Rectal pain ); no abdominal pain, no vomiting, no constipation and no diarrhea/loose stools Genitourinary (Female): no difficulty urinating Musculoskeletal: + joint pain, + myalgia and + body aches Neurologic: + dizziness Allergy / Immunological: no rash Physical Exam Vital Signs (Past 24 Hours): Last Vital Signs Temp 37.0 C 05/15/18 07:05 Pulse 92 H 05/15/18 08:00 Resp 18 05/15/18 07:05 BP 143/83 H 05/15/18 07:05 Pulse Ox 96 05/15/18 07:05 Physical Exam: General: Chronically ill appearing female, appears older than stated age. In no acute distress. HEENT: NC/AT; PERRLA with EOMI; [place] conjunctiva, MMM. Neck: Supple and nontender Cardiac: RRR Lungs: CTA bilaterally Abdomen: Bowel normoactive X 4; Nontender to palpation Extremities: Warm. No edema present Neuro: No focal weakness Skin: No rash Results & Data Laboratory Results 05/15/18 05/15/18 05/15/18 Range/Units 06:14 06:14 00:20 WBC 9.25 (4.8-10.8) K/uL RBC 3.55 L (4.2-5.4) M/uL Hgb 10.1 L (12.0-16.0) g/dL Hct 32.1 L (37-47) % MCV 90.4 (80-100) fL MCH 28.5 (25-34) pg MCHC 31.5 L (32-36) g/dL RDW Std Deviation 56.7 H (36.4-46.3) fL RDW Coeff of [place] 17.0 H (11.5-14.5) % Plt Count 210 (130-400) K/uL MPV 9.4 (7.4-10.4) fL Immature Gran % (Auto) 2.2 % Neut % (Auto) 82.9 % Lymph % (Auto) 11.7 % [place] % (Auto) 1.5 % Eos % (Auto) 1.7 % Baso % (Auto) 0.0 % Immature Gran # (Auto) 0.20 H (0.00-0.02) K/uL Neut # (Auto) 7.67 H (1.4-6.5) K/uL Lymph # (Auto) 1.08 L (1.2-3.4) K/uL [place] # (Auto) 0.14 (0.11-0.59) K/uL Eos # (Auto) 0.16 (0-0.5) K/uL Baso # (Auto) 0.00 (0-0.2) K/uL PT (9.0-12.0) Seconds INR (0.9-1.1) APTT (21.0-31.0) Seconds PTT Ratio Sodium 137 (136-145) mmol/L Potassium 4.0 (3.5-5.1) mmol/L Chloride 107 (98-107) mmol/L Carbon Dioxide 25 (21-32) mmol/L Anion Gap 5.0 (3-11) BUN 36 H (7-18) mg/dl Creatinine 0.66 (0.6-1.2) mg/dl Est Cr Clr Drug Dosing 65.0 ml/min Est GFR ( Amer) 108.2 Est GFR (Non-Af Amer) 93.4 BUN/Creatinine Ratio 54.5 H (10-20) Glucose 64 L (70-99) mg/dl Lactate (0.4-2.0) mmol/L Calcium 8.3 L (8.5-10.1) mg/dl Magnesium (1.8-2.4) mg/dl Total Bilirubin (0.2-1) mg/dl Direct Bilirubin (0-0.2) mg/dl AST (15-37) U/L ALT (12-78) U/L Alkaline Phosphatase (45-117) U/L Troponin I 0.053 H* 0.062 H* (0-0.045) ng/ml Total Protein (6.4-8.2) gm/dl Albumin (3.4-5.0) gm/dl Lipase (73-393) U/L Urine Color Urine Appearance (Clear) Urine pH (4.5-7.5) Ur Specific [place] (1.000-1.030) Urine Protein (Negative) Urine Glucose (UA) (Negative) Urine Ketones (Negative) Urine Blood (Negative) Urine Nitrite (Negative) Urine Bilirubin (Negative) Urine Urobilinogen (Negative) Ur Leukocyte Esterase (Negative) Urine WBC (Auto) (0-5) /hpf Urine RBC (Auto) (0-4) /hpf U Hyaline Cast (Auto) (0-5) /lpf U Epithel Cells (Auto) (0-5) /lpf Urine Bacteria (Auto) (Negative) Ur Renal Epithelial Cell (0-5) /lpf Granular Casts (0) /lpf Urine Yeast Blood Type Antibody Screen 05/14/18 05/14/18 05/14/18 Range/Units 21:20 21:09 18:50 WBC (4.8-10.8) K/uL RBC (4.2-5.4) M/uL Hgb (12.0-16.0) g/dL Hct (37-47) % MCV (80-100) fL MCH (25-34) pg MCHC (32-36) g/dL RDW Std Deviation (36.4-46.3) fL RDW Coeff of [place] (11.5-14.5) % Plt Count (130-400) K/uL MPV (7.4-10.4) fL Immature Gran % (Auto) % Neut % (Auto) % Lymph % (Auto) % [place] % (Auto) % Eos % (Auto) % Baso % (Auto) % Immature Gran # (Auto) (0.00-0.02) K/uL Neut # (Auto) (1.4-6.5) K/uL Lymph # (Auto) (1.2-3.4) K/uL [place] # (Auto) (0.11-0.59) K/uL Eos # (Auto) (0-0.5) K/uL Baso # (Auto) (0-0.2) K/uL PT (9.0-12.0) Seconds INR (0.9-1.1) APTT (21.0-31.0) Seconds PTT Ratio Sodium 136 (136-145) mmol/L Potassium 4.6 (3.5-5.1) mmol/L Chloride 107 (98-107) mmol/L Carbon Dioxide 23 (21-32) mmol/L Anion Gap 6.0 (3-11) BUN 51 H (7-18) mg/dl Creatinine 0.87 (0.6-1.2) mg/dl Est Cr Clr Drug Dosing 51.0 ml/min Est GFR ( Amer) 81.6 Est GFR (Non-Af Amer) 70.4 BUN/Creatinine Ratio 58.9 H (10-20) Glucose 96 (70-99) mg/dl Lactate 2.1 H* (0.4-2.0) mmol/L Calcium 8.6 (8.5-10.1) mg/dl Magnesium 2.1 (1.8-2.4) mg/dl Total Bilirubin 0.4 (0.2-1) mg/dl Direct Bilirubin 0.1 (0-0.2) mg/dl AST 23 (15-37) U/L ALT 51 (12-78) U/L Alkaline Phosphatase 129 H (45-117) U/L Troponin I 0.046 H* (0-0.045) ng/ml Total Protein 6.5 (6.4-8.2) gm/dl Albumin 2.6 L (3.4-5.0) gm/dl Lipase 147 (73-393) U/L Urine Color Yellow Urine Appearance Cloudy H (Clear) Urine pH 5.0 (4.5-7.5) Ur Specific [place] 1.045 H (1.000-1.030) Urine Protein Trace H (Negative) Urine Glucose (UA) Negative (Negative) Urine Ketones Negative (Negative) Urine Blood 1+ H (Negative) Urine Nitrite Negative (Negative) Urine Bilirubin Negative (Negative) Urine Urobilinogen Negative (Negative) Ur Leukocyte Esterase 1+ H (Negative) Urine WBC (Auto) 10-30 H (0-5) /hpf Urine RBC (Auto) 5-10 H (0-4) /hpf U Hyaline Cast (Auto) 1-5 (0-5) /lpf U Epithel Cells (Auto) >30 H (0-5) /lpf Urine Bacteria (Auto) Negative (Negative) Ur Renal Epithelial Cell 0-5 (0-5) /lpf Granular Casts 1-5 H (0) /lpf Urine Yeast Not Reportable Blood Type Antibody Screen 05/14/18 05/14/18 05/14/18 Range/Units 18:50 18:50 17:54 WBC 11.80 H (4.8-10.8) K/uL RBC 3.90 L (4.2-5.4) M/uL Hgb 11.2 L (12.0-16.0) g/dL Hct 34.8 L (37-47) % MCV 89.2 (80-100) fL MCH 28.7 (25-34) pg MCHC 32.2 (32-36) g/dL RDW Std Deviation 55.9 H (36.4-46.3) fL RDW Coeff of [place] 17.1 H (11.5-14.5) % Plt Count 233 (130-400) K/uL MPV 9.7 (7.4-10.4) fL Immature Gran % (Auto) 2.2 % Neut % (Auto) 85.6 % Lymph % (Auto) 10.1 % [place] % (Auto) 1.2 % Eos % (Auto) 0.8 % Baso % (Auto) 0.1 % Immature Gran # (Auto) 0.26 H (0.00-0.02) K/uL Neut # (Auto) 10.11 H (1.4-6.5) K/uL Lymph # (Auto) 1.19 L (1.2-3.4) K/uL [place] # (Auto) 0.14 (0.11-0.59) K/uL Eos # (Auto) 0.09 (0-0.5) K/uL Baso # (Auto) 0.01 (0-0.2) K/uL PT 9.8 (9.0-12.0) Seconds INR 1.0 (0.9-1.1) APTT 24.0 (21.0-31.0) Seconds PTT Ratio 0.9 Sodium (136-145) mmol/L Potassium (3.5-5.1) mmol/L Chloride (98-107) mmol/L Carbon Dioxide (21-32) mmol/L Anion Gap (3-11) BUN (7-18) mg/dl Creatinine (0.6-1.2) mg/dl Est Cr Clr Drug Dosing ml/min Est GFR ( Amer) Est GFR (Non-Af Amer) BUN/Creatinine Ratio (10-20) Glucose (70-99) mg/dl Lactate (0.4-2.0) mmol/L Calcium (8.5-10.1) mg/dl Magnesium (1.8-2.4) mg/dl Total Bilirubin (0.2-1) mg/dl Direct Bilirubin (0-0.2) mg/dl AST (15-37) U/L ALT (12-78) U/L Alkaline Phosphatase (45-117) U/L Troponin I (0-0.045) ng/ml Total Protein (6.4-8.2) gm/dl Albumin (3.4-5.0) gm/dl Lipase (73-393) U/L Urine Color Urine Appearance (Clear) Urine pH (4.5-7.5) Ur Specific [place] (1.000-1.030) Urine Protein (Negative) Urine Glucose (UA) (Negative) Urine Ketones (Negative) Urine Blood (Negative) Urine Nitrite (Negative) Urine Bilirubin (Negative) Urine Urobilinogen (Negative) Ur Leukocyte Esterase (Negative) Urine WBC (Auto) (0-5) /hpf Urine RBC (Auto) (0-4) /hpf U Hyaline Cast (Auto) (0-5) /lpf U Epithel Cells (Auto) (0-5) /lpf Urine Bacteria (Auto) (Negative) Ur Renal Epithelial Cell (0-5) /lpf Granular Casts (0) /lpf Urine Yeast Blood Type A Positive Antibody Screen NEGATIVE (1) Hypertension Hypertension type: essential hypertension Qualified Code(s): I10 - Essential (primary) hypertension
[2018-05-15] MEDS: dexAMETHasone 4 MG TAB PO SCH ×2 (18:45→21:11)
[2018-05-15] MEDS: metroNIDAZOLE 500 MG/100 ML BAG IV SCH (18:45)
[2018-05-15] MEDS ORDERED: GLUCAGON FOR INJ 1 MG VIAL SQ PRN (19:35)
[2018-05-15] MEDS ORDERED: GLUCOSE 40% GEL 15 GM TUBE PO PRN (19:35)
[2018-05-15] MEDS ORDERED: GLUCOSE 10 TABS/TUBE PO PRN (19:35)
[2018-05-15] MEDS ORDERED: DEXTROSE 50% 50 ML SYRINGE IV PRN (19:35)
[2018-05-15] MEDS: CIPROFLOXACIN 400 MG/200 ML BAG IV SCH (20:26)
[2018-05-15] MEDS: INSULIN ASPART 100 UNITS/ML 3 ML PEN SC SCH (21:22)
[2018-05-16] MEDS: cefTRIAXone SODIUM 1,000 MG in DEXTROSE 5% 50 ML IV SCH (01:37)
[2018-05-16] MEDS: LACTATED RINGER'S 1,000 ML IV SCH ×3 (03:09→17:40)
[2018-05-16] MEDS: metroNIDAZOLE 500 MG/100 ML BAG IV SCH ×3 (03:16→17:39)
[2018-05-16 07:07] LABS: BUN Creatinine Ratio 33.3 (10-20); Calcium 7.6 mg/dl (8.5-10.1); Creatinine Clr Calc Pharmacy 54.5 ml/min; Est GFR (African American) 93.1; Est GFR (Non-African American) 80.3; Magnesium 1.8 mg/dl (1.8-2.4); Potassium 4.2 mmol/L (3.5-5.1)
[2018-05-16] MEDS: HYDROmorphone HCL 2 MG TAB PO PRN ×2 (08:19→13:07)
[2018-05-16] MEDS: INSULIN ASPART 100 UNITS/ML 3 ML PEN SC SCH ×4 (08:19→20:51)
[2018-05-16] MEDS: CIPROFLOXACIN 400 MG/200 ML BAG IV SCH ×2 (08:21→20:53)
[2018-05-16] MEDS: GABAPENTIN 600 MG TAB PO SCH ×3 (08:22→20:54)
[2018-05-16] MEDS: PANTOprazole 40 MG TAB PO SCH ×2 (08:22→21:05)
[2018-05-16] MEDS: FLUCONAZOLE 100 MG TAB PO SCH (08:22)
[2018-05-16] MEDS: dexAMETHasone 4 MG TAB PO SCH ×3 (08:22→20:54)
[2018-05-16] MEDS: FERROUS SULFATE 325 MG TAB PO SCH ×2 (08:23→20:56)
[2018-05-16] MEDS: PROCHLORPERAZINE MALEATE 10 MG TAB PO PRN (08:23)
[2018-05-16] MEDS: LISINOPRIL 10 MG TAB PO SCH (08:23)
[2018-05-16] MEDS: METHADONE HCL 5 MG TAB PO SCH ×2 (12:02→21:05)
--- NOTE | 2018-05-16 13:38 | Hospitalist Progress Note ---
Date of Service May 16, 2018 Assessment & Plan (1) Fall at home: - Likely multifactorial between deconditioning/metastatic cancer/chemotherapy/poor appetite - No acute fractures identified - PT/OT when pain improves Present on Admission?: Yes (2) Rectal pain: - In setting of metastatic rectal cancer; acute on chronic issue - Follows with palliative care; increased methadone to 15 mg BID on admission; Dilaudid for breakthrough pain - Gabapentin 600 mg TID - Initiated Ciprofloxacin 400 mg BID and Flagyl 500 mg Q8H given the large necrotic rectal mass - Consult palliative care - follows with Dr. Davis for methadone Present on Admission?: Yes (3) Leg paresthesia: - May be related to Xeloda therapy; due for chemotherapy on 05/16 - Consultation placed for Oncology with Dr. Crowe - appreciate input or further recommendations Present on Admission?: Yes (4) Elevated troponin: - Trop peaked at 0.06 and trending down; no cardiac complaints given - Echocardiogram limited due to pain and tolerance - no wall motion abnormalities identified - Monitor for any worsening symptoms - could consult cardiology if necessary, can defer at this time Present on Admission?: Yes (5) UTI (urinary tract infection): - UCx with multiple organisms; H/O pyelonephritis in Mar 2018 and completed Amoxicillin x 14 days - Will continue Cipro/Flagyl as above Present on Admission?: Yes (6) Primary cancer of rectum with metastasis from rectum to other site: - Recently diagnosed liver, pulm and brain metastasis; follows with Dr. Crowe at [facility]. - Imaging at admission showed increase in rectal mass, increase in hepatic lobe mass, left adrenal mass suggestive of metastasis -- has progression of disease. - Was being tapered on Decadron - she does have dizziness which could be pain medication induced vs maybe a componenet of adrenal insufficiency given adrenal mass? - Decadron was increased to 4 mg TID - BP are remaining stable at this time Present on Admission?: Yes (7) Thrush: - Continue Fluconazole 100 mg daily currently - Monitor EKG daily for QT prolongation in setting of azole therapy and Methadone. Present on Admission?: Yes (8) Anemia: - Hgb currently above baseline. - Ferrous sulfate 325 mg BID. - Continue to monitor Present on Admission?: Yes (9) Hypertension: - Continue Lisinopril 10 mg daily as prescribed. Present on Admission?: Yes (10) Type II diabetes mellitus: - Hgb A1C was 6.6 - Given increased steroids - will order BSGs and SSI Present on Admission?: Yes (11) Malnutrition related to chronic disease: - Hypoalbuminemia in setting of metastatic cancer; BMI of 17. - LR at 100 cc/hr and likely can stop tomorrow - Encourage diet as tolerated. (12) DVT prophylaxis: - Hold in setting of brain vipul. Dispo: Will monitor on telemetry through today given trops and symptoms; if s table likely to medical tomorrow; awaiting better pain control Subjective Reports feeling a bit more comfortable today but still with dizziness and t iredness/fatigue. She would be due for chemotherapy today. She thinks the antibiotic yesterday was making her dizziness worse. Did convert to Cipro/Flagyl to get GI coverage in addition to UTI coverage. She did tolerate breakfast today Constitutional: + body aches, + fatigue, + weakness and + anorexia; no fever and no chills Eyes: no worsening vision Ear, Nose, Mouth, Throat: no sore throat and no dysphagia Respiratory: no cough and no dyspnea Cardiovascular: + lightheadedness; no chest pain, no palpitations and no edema Gastrointestinal: + nausea and + problem reported (Rectal pain - slowly improving); no abdominal pain, no vomiting, no constipation and no diarrhea/loose stools Genitourinary (Female): no dysuria Musculoskeletal: + joint pain, + myalgia and + body aches Neurologic: + dizziness Physical Exam Vital Signs (Past 24 Hours): Last Vital Signs Temp 36.8 C 05/16/18 11:18 Pulse 68 05/16/18 11:18 Resp 16 05/16/18 11:18 BP 125/69 05/16/18 11:18 Pulse Ox 96 05/16/18 11:18 Constitutional: no acute distress and not ill appearing Eyes: + anicteric sclerae ENMT: Ears: no hearing impairment Neck: trachea midline Respiratory: normal respiratory effort, lungs clear to auscultation Cardiovascular: Rate/Rhythm: regular rate and regular rhythm Chest (Breasts): Chest: + vascular access device or port Gastrointestinal (Abdomen): Inspection/Auscultation: normal bowel sounds Percussion/Palpation: abdomen soft; abdomen nontender Musculoskeletal: Head/Neck/Chest: normocephalic and head atraumatic Extremities: no cyanosis and no clubbing Skin: no rashes, warm and dry Neurologic: moves all extremities Psychiatric: A+Ox3, euthymic affect (slightly drowsy) (1) Hypertension Hypertension type: essential hypertension Qualified Code(s): I10 - Essential (primary) hypertension
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
--- NOTE | 2018-05-16 14:37 | Pharmacy Report ---
Pharmacy Glycemic Rec 1 - Date of Service May 16, 2018 - Scope Glycemic Pharmacist to provide recommendations to improve glycemic control (all ICU patients are screened for hyperglycemia and treatment recommendations are provided per protocol). Pt identified with hyperglycemia (BSG above 180) while admitted to [facility] ([facility]). - Subjective The patient is a 62 year old F admitted on 05/14/18 22:10 for RECTAL PAIN,NUMBNESS IN EXTREMITIES,ELEVATED TROP. Patient's past medical history is significant for type 2 diabetes mellitus. - Objective Accuchecks BSG (last 24hrs):: 05/15/18 05/15/18 05/16/18 18:33 21:21 06:14 Glucose 198 H POC Glucose 152 H 153 H 05/16/18 05/16/18 08:08 11:03 Glucose POC Glucose 241 H 301 H Laboratory Data (last 24hrs):: 05/16/18 06:14 Sodium 139 Potassium 4.2 Anion Gap 8.0 BUN 26 H Creatinine 0.78 BUN/Creatinine Ratio 33.3 H - Recent Pertinent Medications Outpatient Anti-diabetic Regimen: * N/A * A1c = ? The patient is currently receiving: * Basal Insulin: None * Correctional Insulin: Novolog Correction per scale ACHS Goal Range: Low 120 mg/dL - High 160 mg/dL Correction Factor: 40 mg/dL/unit * Prandial Insulin: Per carb ratio of 1 unit per 13 grams CHO consumed * Oral Agents: None Risk Factors for Insulin Resistance: * Steroids: Dexamethasone 4mg PO TID * Infection: necrotic rectal mass, receiving Cipro + Flagyl - Assessment & Plan ASSESSMENT: * BSG patterns suggests basal insulin deficiency * Would recommend using insulin doses based upon weight and mod-severe stress level RECOMMEND: * Begin Lantus 5 units SQ BID * Continuing correction factor 40 mg/dl/unit * Continuing carb ratio 1 unit per 13 grams CHO consumed * Continuing goal range Low 120 mg/dL - High 160 mg/dL Pharmacy will continue to provide recommendations in EMR while patient admitted to 1E/[facility]E. Physicians may request pharmacy to continue to follow patient when transferred out of the ICU and/or consult pharmacy to write glycemic control orders * Please note that the plan above was derived based on current level of insulin resistance and hospital stress. These recommendations are appropriate for inpatient admission only. Plan of care upon discharge will need to be reassessed to avoid potential outpatient hypo/hyperglycemia. Thank you.
--- NOTE | 2018-05-16 18:03 | Oncology Consultation ---
Date of Consultation May 16, 2018 Assessment & Plan (1) Primary cancer of rectum with metastasis from rectum to other site: 62-year-old female, A case of rectal adenocarcinoma, T3 N1, normal CEA level, S/P neoadjuvant Xeloda and radiation treatment followed by APR, had sacral bone involvement, also pelvic sidewall involvement, S/P modified FOLFOX 6 times 12 which was completed in June 2017. Within 6 months, noticed to have recurrent disease involving the local surrounding structures, lungs, liver, adrenal gland, now since December 2017 she is receiving 2nd line chemotherapy with Irinotecan weekly x 2 followed by 1 week off but she could not receive treatment on a regular basis, requiring frequent hospitalization, frequent UTI's, now she's admitted following a fall with some facial injury, has increasing pelvic pain, she is on methadone, follows up with palliative care team, no new colostomy problem, recent follow-up CT scan done during this also has shows further progression of the disease noted. She is due for date of chemotherapy this week today, I reviewed her blood w orkup, no neutropenia noted, overall stable blood test is noted, urine culture and blood culture negative so far. She is receiving broad-spectrum antibiotic coverage at this time. Overall prognosis remains poor in her case. It is possible that she may not respond well with the Irinotecan chemotherapy. Her tumor is KRAS positive and so no role of multiple antibody with Erbitux or Vectibix. Her tumor is MSI stable and so no role of immunotherapy. When I saw her in the office, she was on oral Decadron 4 mg twice a day, at that time advised to cut down the dose to 4 mg once-a-day but now during this hospitalization, she is receiving Decadron 4 mg 3 times a day. Upon discharge I would consider for cutting down the dose of Decadron. Appreciate palliative care team follow-up and recommendations. Will follow-up in the outpatient clinic. Yogesh Crowe MD Hem/Onc History of Present Illness Attending Physician: Sukh Hanson DO 62-year-old female, a case of recurrent rectal adenocarcinoma with mets disease involving the liver, lungs, local recurrent disease involving the surrounding structures, presently she is receiving palliative chemotherapy with Irinotecan which was started in December 2017 but she could not receive chemotherapy treatment as we planned earlier, was admitted in the hospital on few occasions. Recently she was started on new cycle of the same chemotherapy agent on 05/09/2018. She gets chemotherapy once a week x 2 followed by 1 week off. She supposed to get her next treatment ( day 8) with Irinotecan) therapy Now she's admitted hospital for following a fall which occurred on the following day of the last treatment, she had some injury to the face, she did not significant for about few days but then she started having some headache, dizziness, she was seen at [facility] ER, imaging study of the face showed no fracture, no intracranial findings noted, she is also on oral Decadron, she was a 4 mg twice a day, when I saw her recently, advised to cut down the dose of Decadron 4 mg once-a-day. She also gets frequent UTI. I saw her at bedside today, shooting comfortably, her friend is at bedside, no increasing dizziness, pelvic discomfort noted, also follows up with the platelet care team, she is on methadone, the dose to methadone increased recently, fair a ppetite, she has neuropathy symptoms in the both lower extremities, no leg edema, no colostomy problem, no new cardiac or pulmonary symptoms, denies any bleeding from any sites. No fever. Earlier she received modified FOLFOX 6 between 10/2016-06/2017. - MSI stable and so no role of immunotherapy. - Within 6 months after the completion of chemotherapy, she had recurrent disease in 11/2017. - KRAS > Positive, soul no role of monoclonal antibody with Erbitux or Vectibix. Allergies Allergy/AdvReac Type Severity Reaction Status Date / Time Sulfa (Sulfonamide Allergy Intermediate RASH Verified 05/14/18 18:08 Antibiotics) codeine AdvReac Intermediate DIZZINESS Verified 05/14/18 18:08 Home Medications Home Medications Medication Instructions Recorded Confirmed Type gabapentin 600 mg PO TID 10/24/17 05/14/18 History polyethylene glycol 3350 [Miralax] 17 g PO DAILY PRN 10/24/17 05/14/18 History ferrous sulfate 325 mg PO BID #60 tab 04/10/18 05/14/18 Rx methadone 10 mg PO Q12H #60 tab 04/10/18 05/14/18 Rx oxycodone 5 mg PO Q8H PRN #30 tab 04/10/18 05/14/18 Rx pantoprazole 40 mg PO BID #60 tab 04/10/18 05/14/18 Rx lisinopril 10 mg PO QAM 04/23/18 05/14/18 History prochlorperazine maleate 10 mg PO Q8H PRN #10 tab 04/30/18 05/14/18 Rx [Compazine] dexamethasone [Decadron] 4 mg PO QAM 05/14/18 05/14/18 History Patient History Medical History Acute blood loss anemia Nausea & vomiting Cellulitis of helix of right ear DVT prophylaxis Hydronephrosis Chronic pain syndrome Gastritis Pyelonephritis Adenocarcinoma of rectum, stage 4 (Chronic) Intractable epigastric abdominal pain (Acute) Dehydration (Acute) Infection due to Clostridium septicum Bacteremia Rectal bleeding (Acute) Metastatic disease (Acute) Hypertension UTI (urinary tract infection) GI bleed Mitral valve prolapse (Resolved) Heart murmur (Resolved) History of colon cancer (Chronic) Hypokalemia (Resolved) Left ureteral calculus (Resolved) Rectal adenocarcinoma (Chronic 05/15/16) "6 months of intermittent rectal pain and bleeding Status post colonoscopy and biopsy 05/15/2016 (Dr. Jorge L Benavides) Adenocarcinoma Status post EUS staging 05/18/2016 (Dr. New Jack) Stage uT3 uN1 Plan for combined neoadjuvant radiation and chemotherapy (Dr. Yogesh Crowe) Chemotherapy comprised of Xeloda Status post completion of radiation therapy 07/30/2016. She received 5040 cGy. Status post abdominal perineal resection 09/29/2016. Stage pT3 pN0M1 Has received 7 of 12 cycles of FOLFOX chemotherapy" On 08/10/16 16:27 Barbra Thapa wrote "6 months of intermittent rectal pain and bleeding Status post colonoscopy and biopsy 05/15/2016 (Dr. Jorge L Benavides) Adenocarcinoma Status post EUS staging 05/18/2016 (Dr. New Jack) Stage uT3 uN1 Plan for combined neoadjuvant radiation and chemotherapy (Dr. Yogesh Crowe) Chemotherapy comprised of Xeloda Status post completion of radiation therapy 07/30/2016. She received 5040 cGy." On 06/02/16 09:48 Barbra Thapa wrote "6 months of intermittent rectal pain and bleeding Status post colonoscopy and biopsy 05/15/2016 (Dr. Jorge L Benavides) Adenocarcinoma Status post EUS staging 05/18/2016 (Dr. New Jack) Stage uT3 uN1 Plan for combined radiation and chemotherapy (Dr. Yogesh Crowe) Chemotherapy comprised of Xeloda " Symptomatic anemia (Resolved) Acute UTI (urinary tract infection) (Inactive) Complication of ostomy (Inactive) Diarrhea (Inactive) Mass of perirectal soft tissue (Inactive) Port-A-Cath in place Surgical History Colostomy present (Chronic) x 2; recreation of colostomy due to fistula Family History Mother , age 93 Stroke Father , age 79 COPD (chronic obstructive pulmonary disease) Other No significant family history Social History Communication Ability: Effective Beliefs That Will Affect Care: None marital status: Current Living Situation: Alone Current Living Situation Comment: alone in [place] current occupational status: 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 SKIN: No skin rash, no bruising. HEAD: No increasing or new headache, she had dizziness which has improved. EYES: No recent change in the vision, no diplopia, EARS: No earache ,no tinnitus, NOSE: No epistaxis, No nasal discharge or stuffiness, MOUTH: No sores, no dysphagia, no hoarseness of voice, NECK: No lumps, No swelling in thyroid area. No stiffness. PULMONARY: No cough, No shortness of breath, no hemoptysis, no chest pain, No wheezing. CARDIOVASCULAR: No anginal chest pain, no PND, no orthopnea. No palpitation, no leg edema. No syncope. GASTRIINTESTINAL: No abdominal pain blood pelvic pain noted, no nausea or vomiting. No diarrhea, No constipation. No blood in stool or black tarry stools. No abdominal distention. She has colostomy but no local problem. UROLOGIC: history of frequent UTI is noted. MUSCULOSKELETAL: No joint pain, No joint swelling, no muscle weakness. HEMATOLOGIC: mild anemia, no bleeding disorder, No bruising NEUROLOGIC: No seizures, no focal weakness, no speech difficulty, No memory disturbances. Neuropathy symptoms from the previous chemotherapy noted.. PSYCHRIATRIC: No depression some anxiety present. No psychosis. Physical Exam Vital Signs (Past 24 Hours): Last Vital Signs Temp 36.3 C L 05/16/18 15:16 Pulse 72 05/16/18 15:16 Resp 18 05/16/18 15:16 BP 134/75 05/16/18 15:16 Pulse Ox 97 05/16/18 15:16 On exam: - Alert and oriented x3, thin built woman, not in any distress. - HEENT: no icterus, no pallor, Throat: Normal. - Neck: No palpable cervical lymphadenopathy. - Chest: clear to auscultation. - Abdomen: soft, nontender, no hepatomegaly, no splenomegaly. - No focal neuro deficit. - Extremities: no finger clubbing, no leg edema. Results & Data Laboratory Results - WBC 9200, H&H of , Platelet count of 210,000 (05/15/2018) - BUN/creatinine: 26/0.7, calcium 7.6, blood sugar 250 to 300 range. - Troponin level > 0.53. - Normal liver function test other than slightly irrelevant phosphorus 129. - Urine culture > Negative - Blood culture > Negative. Diagnostic Findings CT scan of the abdomen and pelvis (05/14/2018, it was compared with the imaging study done in March 2018: - Large necrotic invasion mass involving the rectum which is mildly increase in the size. Local invasion into the surrounding musculature, vaginal and small bowel wall noted - Pulmonary and liver metastases which is slightly increase in the size. - Resolution the previously noted hydronephrosis. - No bowel obstruction noted. - Increased size of left adrenal gland metastasis.
[2018-05-16] MEDS: INSULIN GLARGINE SOLOSTAR 100 UNITS/ML 3 ML PEN SC SCH (20:56)
[2018-05-17] MEDS: metroNIDAZOLE 500 MG/100 ML BAG IV SCH ×3 (02:18→18:17)
[2018-05-17] MEDS: LACTATED RINGER'S 1,000 ML IV SCH ×2 (04:33→16:32)
[2018-05-17 05:14] LABS: Hematocrit (blood only) 23.9 % (37-47); Hemoglobin 7.9 g/dL (12.0-16.0); Mean Corpuscular Hgb Conc 33.1 g/dL (32-36); Mean Corpuscular Volume 89.5 fL (80-100); Platelet Count 178 K/uL (130-400); RDW Coefficient of Variation 16.9 % (11.5-14.5); RDW Standard Deviation 55.8 fL (36.4-46.3); Red Blood Count 2.67 M/uL (4.2-5.4); White Blood Count 5.32 K/uL (4.8-10.8)
[2018-05-17 05:49] LABS: BUN Creatinine Ratio 23.9 (10-20); Calcium 8.1 mg/dl (8.5-10.1); Creatinine Clr Calc Pharmacy 44.8 ml/min; Est GFR (African American) 73.4; Est GFR (Non-African American) 63.3; Magnesium 1.7 mg/dl (1.8-2.4); Potassium 4.4 mmol/L (3.5-5.1)
[2018-05-17 05:59] LABS: Beta-Hydroxybutyrate 1.06 mg/dl (0.2-2.81)
[2018-05-17] MEDS: FLUCONAZOLE 100 MG TAB PO SCH (07:36)
[2018-05-17] MEDS: FERROUS SULFATE 325 MG TAB PO SCH ×2 (07:36→20:40)
[2018-05-17] MEDS: dexAMETHasone 4 MG TAB PO SCH (07:36)
[2018-05-17] MEDS: PANTOprazole 40 MG TAB PO SCH ×2 (07:37→20:42)
[2018-05-17] MEDS: GABAPENTIN 600 MG TAB PO SCH ×3 (07:37→20:42)
[2018-05-17] MEDS: LISINOPRIL 10 MG TAB PO SCH (07:37)
[2018-05-17] MEDS: METHADONE HCL 5 MG TAB PO SCH ×3 (07:42→20:48)
[2018-05-17] MEDS: INSULIN ASPART 100 UNITS/ML 3 ML PEN SC SCH ×4 (07:44→20:41)
[2018-05-17] MEDS: INSULIN GLARGINE SOLOSTAR 100 UNITS/ML 3 ML PEN SC SCH ×2 (07:44→20:40)
[2018-05-17] MEDS: CIPROFLOXACIN 400 MG/200 ML BAG IV SCH ×2 (07:45→20:43)
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
--- NOTE | 2018-05-17 18:38 | Hospitalist Progress Note ---
Date of Service May 17, 2018 Assessment & Plan (1) Fall at home: - Likely multifactorial between deconditioning/metastatic cancer/chemotherapy/poor appetite - No acute fractures identified - PT/OT when pain improves (2) Rectal pain: - In setting of metastatic rectal cancer; acute on chronic issue - Follows with palliative care; increased methadone to 10 mg TID recently and likely hitting steady state; Dilaudid for breakthrough pain - Gabapentin 600 mg TID - Initiated Ciprofloxacin 400 mg BID and Flagyl 500 mg Q8H given the large necrotic rectal mass - likely convert to oral coverage tomorrow - Consult palliative care - follows with Dr. Davis for methadone (3) Leg paresthesia: - May be related to Xeloda therapy; was due for chemotherapy on 05/16 - Consultation placed for Oncology with Dr. Crowe - appreciate input or further recommendations (4) Elevated troponin: - Trop peaked at 0.06 and trending down; no cardiac complaints given - maybe stress induced/chemo-induced? given such mild leak of troponin? - Echocardiogram limited due to pain and tolerance - no wall motion abnormalities identified (5) UTI (urinary tract infection): - UCx with multiple organisms; H/O pyelonephritis in Mar 2018 and completed Amoxicillin x 14 days - Will continue Cipro/Flagyl as above (6) Primary cancer of rectum with metastasis from rectum to other site: - Recently diagnosed liver, pulm and brain metastasis; follows with Dr. Crowe at [facility]. - Imaging at admission showed increase in rectal mass, increase in hepatic lobe mass, left adrenal mass suggestive of metastasis -- has progression of disease. - Was being tapered on Decadron - she does have dizziness which could be pain medication induced vs maybe a componenet of adrenal insufficiency given adrenal mass? - Will reduce the Decadron down to daily use and monitor for intolerance (7) Thrush: - Continue Fluconazole 100 mg daily currently (8) Anemia: - Hgb currently above baseline. - Ferrous sulfate 325 mg BID. - Continue to monitor (9) Hypertension: - Continue Lisinopril 10 mg daily as prescribed. (10) Type II diabetes mellitus: - Hgb A1C was 6.6 - Increasing readings with Decadron - will use Lantus 10 units SC BID and SSI - now that steroids are reducing may not need as aggressive of coverage (11) Malnutrition related to chronic disease: - Hypoalbuminemia in setting of metastatic cancer; BMI of 17. - LR at 100 cc/hr and will continue this today but likely can stop tomorrow - Encourage diet as tolerated. (12) DVT prophylaxis: - Hold in setting of brain vipul. Dispo: Will assess how pain is tomorrow; challenge at this time is limitations of increasing medications due still having pain but getting more sedation Subjective Reports that her pain is doing better but still present; states the medicines still make her groggy. Tolerating a diet and dizziness is improving Mostly keeps eyes closed during assessment Constitutional: + fatigue and + weakness; no fever and no chills Respiratory: no cough and no dyspnea Cardiovascular: no chest pain, no palpitations, no lightheadedness and no edema Gastrointestinal: + problem reported (Rectal pain - slowly improving); no abdominal pain, no nausea, no vomiting, no constipation and no diarrhea/loose stools Genitourinary (Female): no dysuria Physical Exam Vital Signs (Past 24 Hours): Last Vital Signs Temp 36.6 C 05/17/18 15:39 Pulse 75 05/17/18 15:39 Resp 20 05/17/18 15:39 BP 162/82 H 05/17/18 15:39 Pulse Ox 98 05/17/18 15:39 Constitutional: no acute distress and not ill appearing Eyes: + anicteric sclerae ENMT: Ears: no hearing impairment Neck: trachea midline Respiratory: normal respiratory effort, lungs clear to auscultation Cardiovascular: Rate/Rhythm: regular rate and regular rhythm Chest (Breasts): Chest: + vascular access device or port Gastrointestinal (Abdomen): Inspection/Auscultation: normal bowel sounds Percussion/Palpation: abdomen soft; abdomen nontender colostomy present Musculoskeletal: Head/Neck/Chest: normocephalic and head atraumatic Extremities: no cyanosis and no clubbing Skin: no rashes, warm and dry Neurologic: moves all extremities Psychiatric: A+Ox3, euthymic affect (slightly drowsy) (1) Hypertension Hypertension type: essential hypertension Qualified Code(s): I10 - Essential (primary) hypertension
[2018-05-18] MEDS: metroNIDAZOLE 500 MG/100 ML BAG IV SCH ×2 (01:48→10:28)
[2018-05-18] MEDS: LACTATED RINGER'S 1,000 ML IV SCH ×2 (05:50→14:43)
[2018-05-18 06:36] LABS: Hematocrit (blood only) 26.4 % (37-47); Hemoglobin 8.3 g/dL (12.0-16.0); Mean Corpuscular Hgb Conc 31.4 g/dL (32-36); Mean Corpuscular Volume 90.1 fL (80-100); Mean Platelet Volume 9.4 fL (7.4-10.4); Nucleated RBC # (auto) 0.02 K/uL (0-0); Nucleated RBC % (auto) 0.3 %; Platelet Count 203 K/uL (130-400); RDW Coefficient of Variation 16.7 % (11.5-14.5); Red Blood Count 2.93 M/uL (4.2-5.4)
[2018-05-18 07:06] LABS: BUN Creatinine Ratio 29.8 (10-20); Calcium 8.2 mg/dl (8.5-10.1); Creatinine Clr Calc Pharmacy 70.3 ml/min; Est GFR (African American) 102.6; Est GFR (Non-African American) 88.5; Potassium 4.2 mmol/L (3.5-5.1)
[2018-05-18] MEDS: METHADONE HCL 5 MG TAB PO SCH ×3 (07:37→21:40)
[2018-05-18] MEDS: CIPROFLOXACIN 400 MG/200 ML BAG IV SCH (07:37)
[2018-05-18] MEDS: dexAMETHasone 4 MG TAB PO SCH (07:38)
[2018-05-18] MEDS: FLUCONAZOLE 100 MG TAB PO SCH (07:38)
[2018-05-18] MEDS: FERROUS SULFATE 325 MG TAB PO SCH ×2 (07:38→21:28)
[2018-05-18] MEDS: LISINOPRIL 10 MG TAB PO SCH (07:39)
[2018-05-18] MEDS: PANTOprazole 40 MG TAB PO SCH ×2 (07:39→21:31)
[2018-05-18] MEDS: GABAPENTIN 600 MG TAB PO SCH ×3 (07:39→21:27)
[2018-05-18] MEDS: HYDROmorphone HCL 2 MG TAB PO PRN (07:44)
[2018-05-18] MEDS: INSULIN ASPART 100 UNITS/ML 3 ML PEN SC SCH ×4 (09:10→21:29)
[2018-05-18] MEDS: INSULIN GLARGINE SOLOSTAR 100 UNITS/ML 3 ML PEN SC SCH ×2 (09:10→21:28)
[2018-05-18] MEDS: OXYCODONE HCL IR 5 MG TAB (IMMEDIATE RELEASE) PO PRN ×2 (13:47→21:40)
--- NOTE | 2018-05-18 13:54 | Hospitalist Progress Note ---
Date of Service May 18, 2018 Assessment & Plan (1) Fall at home: - Likely multifactorial between deconditioning/metastatic cancer/chemotherapy/poor appetite - No acute fractures identified - PT/OT when pain improves (2) Rectal pain: - In setting of metastatic rectal cancer; acute on chronic issue - Follows with palliative care; increased methadone to 10 mg TID recently and likely hitting steady state; Dilaudid for breakthrough pain but maybe this is causing more sedation than Oxycodone and maybe can try this instead? -- Unfortunately pain has been tough to control without sedation and could be worsened by also being on Gabapentin? A good balance has been tough to develop - Gabapentin 600 mg TID - Will hold further Abx at this time and monitor - no fevers and no leukocytosis - will monitor off - Consult palliative care - follows with Dr. Davis for methadone (3) Leg paresthesia: - May be related to Xeloda therapy; was due for chemotherapy on 05/16 - Consultation placed for Oncology with Dr. Crowe - appreciate input or further recommendations (4) Elevated troponin: - Trop peaked at 0.06 and trending down; no cardiac complaints given - maybe stress induced/chemo-induced? given such mild leak of troponin? - Echocardiogram limited due to pain and tolerance - no wall motion abnormalities identified (5) UTI (urinary tract infection): - UCx with multiple organisms; H/O pyelonephritis in Mar 2018 and completed Amoxicillin x 14 days - Will monitor off Abx (6) Primary cancer of rectum with metastasis from rectum to other site: - Recently diagnosed liver, pulm and brain metastasis; follows with Dr. Crowe at [facility]. - Imaging at admission showed increase in rectal mass, increase in hepatic lobe mass, left adrenal mass suggestive of metastasis -- has progression of disease. - Was being tapered on Decadron - she does have dizziness which could be pain medication induced vs maybe a component of adrenal insufficiency given adrenal mass (unlikely)? - Will reduce the Decadron down to daily use and monitor for intolerance - Will order MRI brain to further assess previously found metastases given progression elsewhere. Maybe needs radiation therapy? (7) Thrush: - Continue Fluconazole 100 mg daily currently (8) Anemia: - Hgb stable and slowly staying lower with time - Ferrous sulfate 325 mg BID. - Continue to monitor (9) Hypertension: - Continue Lisinopril 10 mg daily as prescribed. (10) Type II diabetes mellitus: - Hgb A1C was 6.6 - Increasing readings with Decadron - will use Lantus 10 units SC BID and SSI - now that steroids are reducing may not need as aggressive of coverage (11) Malnutrition related to chronic disease: - Hypoalbuminemia in setting of metastatic cancer; BMI of 17. - Encourage diet as tolerated. (12) DVT prophylaxis: - Hold in setting of brain metastasis Dispo: Challenge at this time is limitations of increasing medications due still having pain but getting more sedation; PT/OT evaluations - patient is uncertain if she can take care of herself at this point and is interested in possible acute rehab stay Subjective Reports that she is still having pain but her biggest complaint is "feeling funny" but cannot state specifically what this is. During my visit she seemed to have some dizziness and eye rolling as she would somewhat fall asleep. She states she feels like all she can do is sleep. Did discuss how the pain medication likely is causing this but may need to consider a repeat MRI given known brain metastasis. Given the progression of her disease this could have progressed even in the brain? She is tolerating a diet. Reports her ostomy output is stable but does have a H/O C. diff States she feels so weak that she doesn't feel like she could even get out of bed. Did discuss that PT/OT have been ordered and to try what she can. She is not sure if she is able to take care of herself at home. Constitutional: + fatigue and + weakness; no fever and no chills Respiratory: no cough and no dyspnea Cardiovascular: + lightheadedness; no chest pain, no palpitations and no edema Gastrointestinal: + problem reported (Rectal pain); no abdominal pain, no nausea, no vomiting, no constipation and no diarrhea/loose stools Genitourinary (Female): no dysuria Musculoskeletal: + body aches Integumentary: no rash Neurologic: + dizziness Physical Exam Vital Signs (Past 24 Hours): Last Vital Signs Temp 36.5 C 05/18/18 11:45 Pulse 80 05/18/18 11:45 Resp 18 05/18/18 11:45 BP 160/83 H 05/18/18 11:45 Pulse Ox 95 05/18/18 11:45 Constitutional: + ill appearing (chronically); no acute distress Eyes: + anicteric sclerae ENMT: Ears: no hearing impairment Neck: trachea midline Respiratory: normal respiratory effort, lungs clear to auscultation Cardiovascular: Rate/Rhythm: regular rate and regular rhythm Chest (Breasts): Chest: + vascular access device or port Gastrointestinal (Abdomen): Inspection/Auscultation: normal bowel sounds Percussion/Palpation: abdomen soft; abdomen nontender ostomy present Musculoskeletal: Head/Neck/Chest: normocephalic and head atraumatic Extremities: no cyanosis and no clubbing Skin: no rashes, warm and dry Neurologic: moves all extremities; no focal motor deficits Psychiatric: A+Ox3, euthymic affect (slightly drowsy) (1) Hypertension Hypertension type: essential hypertension Qualified Code(s): I10 - Essential (primary) hypertension
[2018-05-18] MEDS ORDERED: CIPROFLOXACIN 500 MG TAB PO SCH (21:00)
[2018-05-18] MEDS ORDERED: metroNIDAZOLE 500 MG TAB PO SCH (21:00)
[2018-05-19] MEDS: OXYCODONE HCL IR 5 MG TAB (IMMEDIATE RELEASE) PO PRN (02:35)
[2018-05-19 06:03] LABS: Hematocrit (blood only) 28.3 % (37-47); Mean Corpuscular Hgb Conc 31.8 g/dL (32-36); Mean Corpuscular Volume 89.6 fL (80-100); Mean Platelet Volume 9.5 fL (7.4-10.4); Nucleated RBC # (auto) 0.07 K/uL (0-0); Platelet Count 217 K/uL (130-400); RDW Coefficient of Variation 16.9 % (11.5-14.5); RDW Standard Deviation 55.2 fL (36.4-46.3); Red Blood Count 3.16 M/uL (4.2-5.4); White Blood Count 6.95 K/uL (4.8-10.8)
[2018-05-19] MEDS: METHADONE HCL 5 MG TAB PO SCH (08:19)
[2018-05-19] MEDS: PANTOprazole 40 MG TAB PO SCH ×2 (08:20→20:53)
[2018-05-19] MEDS: LISINOPRIL 10 MG TAB PO SCH (08:20)
[2018-05-19] MEDS: GABAPENTIN 600 MG TAB PO SCH ×3 (08:20→20:36)
[2018-05-19] MEDS: FERROUS SULFATE 325 MG TAB PO SCH ×2 (08:20→20:35)
[2018-05-19] MEDS: dexAMETHasone 4 MG TAB PO SCH (08:20)
[2018-05-19] MEDS: INSULIN GLARGINE SOLOSTAR 100 UNITS/ML 3 ML PEN SC SCH ×2 (08:22→20:36)
[2018-05-19] MEDS: INSULIN ASPART 100 UNITS/ML 3 ML PEN SC SCH ×4 (08:27→20:42)
--- NOTE | 2018-05-19 12:32 | Palliative Care Progress Note ---
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 Patient has been under the care of Dr. Crowe for medical oncology. Patient seen in [place] in Feb and required a redo of her colostomy and formation of a mucous fistula-she was discharged on February 26. Patient was last seen during her last hospital stay on 04/25 for hyperkalemia and dehydration. She had a CT of the head showed significant frontal sinusitis, she had some AMS and had an MRI that showed to lesions not seen on CT scans. She had a 7mm peripheral L parietal lesion as well as a 4mm R posterior parietal lesion - not known if these are new lesions as this was her first MRI. Subsequent CT's have not shown any brain lesions. Pt was seen in outpt clinic on 05/12 for increased rectal pain. Pt's methadone was increased from 10 mg BID to 10 mg TID -pain not well controlled-we will increase methadone to 20 mg twice daily, will decrease her oxycodone to 2.5 mg as needed-hopefully this will cause less cognitive issues Pt reports on exam that pain is "ok", but not well controlled-we will increase her methadone and decrease her as needed oxycodone dose -Stage IV rectal cancer-follows with Dr. Yogesh Crowe -Cancer related pain-increasing -increase methadone to 20 mg twice daily, change as needed oxycodone dose to 2.5 mg -Poor appetite-continue Decadron 4 mg QD -Anemia-on iron, hemoglobin 9.0 - prior baseline at 8.3 -Dizziness- suspect dehydration - BUN 51 on admission, improved with IV hydration, BUN now 21 with creatinine of 0.72. Symptoms improving Re-addressed patient's CODE STATUS - no mechanical ventilation, does want chest compressions and shock. Will discuss short-term rehab with patient to see if she is interested, patient has hired caregivers in the home-discussed increasing their hours if she goes home instead of rehab. (2) Rectal pain: Methadone - increase to 20 mg twice daily, decrease as needed oxycodone to 2.5 mg (3) Dizziness: Likely due to to dehydration-patient receiving IV fluids-BUN improving (4) Fall at home: Likely due to weakness, dizziness and dehydration Will discuss short-term rehab for strengthening with patient Patient to increase the hours of her home caregivers (5) Malnutrition related to chronic disease: Patient on Decadron 4 mg daily to stimulate appetite as well as feeling of well-being (6) Dehydration: Likely the cause of her dizziness, weakness and fall-continue hydration (7) Primary cancer of rectum with metastasis from rectum to other site: Further chemo per oncology Subjective Patient seen and examined, no friends or family at bedside. Patient reports discomfort due to rectal pain-reluctant to take as needed ox ycodone due to sedation-will decrease oxycodone dose to 2.5 mg as needed as methadone potentiates oxycodone. Patient agreeable to increasing her methadone from 30 mg per 24 hours to 40 mg- we will start 20 mg twice daily this evening, give a 5 mg dose now. Patient with increased generalized edema-due to IV fluids given for dehydration. Patient's hemoglobin is stable at 9, BUN 21, creatinine 0.72. Review of Systems Patient denies fever, chills, chest pain, shortness of breath, or GI issues- positive for rectal pain due to to her cancer. Physical Exam Vital Signs (Past 24 Hours): Last Vital Signs Temp 36.6 C 05/19/18 11:15 Pulse 92 H 05/19/18 11:15 Resp 20 05/19/18 11:15 BP 125/82 05/19/18 11:15 Pulse Ox 97 05/19/18 11:15 Physical Exam: PE: Improvement in pallor, appears fairly comfortable HEENT: EOMI, normal hearing Lungs: Unlabored respirations, good air movement CV: Regular rate, increased lower extremity edema Abdomen: Soft nontender Extremities: Full range of motion, thin Neuro: Alert and oriented x4, mild cognitive deficit due to sedation with oxycodone Psych: Appropriate Time Spent Attending Total time spent 35 minutes with greater than 50% of the time spent at bedside discussing treatment options, goals of care as well as plan of care.
[2018-05-19] MEDS ORDERED: METHADONE HCL 5 MG TAB PO ONE (14:00)
--- NOTE | 2018-05-19 15:35 | Hospitalist Progress Note ---
Date of Service May 19, 2018 Assessment & Plan (1) Fall at home: - Likely multifactorial between deconditioning/metastatic cancer/chemotherapy/poor appetite - No acute fractures identified - PT/OT - appreciate ongoing assessment for mobility and strength training while in-house Present on Admission?: Yes (2) Rectal pain: - In setting of metastatic rectal cancer; acute on chronic issue - Follows with palliative care; increased methadone to 20 mg BID on 05/19; Will reduce Oxycodone to 2.5 mg PRN as the methadone should make the effectiveness higher (maybe will help reduce the sedation?) -- Unfortunately pain has been tough to control without sedation and could be worsened by also being on Gabapentin? A good balance has been tough to develop - Gabapentin 600 mg TID - Will hold further Abx at this time and monitor - no fevers and no leukocytosis - will monitor off - Consult palliative care - follows with Dr. Davis (did discuss with her today) for methadone/pain management Present on Admission?: Yes (3) Leg paresthesia: - May be related to Xeloda therapy; was due for chemotherapy on 05/16 - Consultation placed for Oncology with Dr. Crowe - appreciate input or further recommendations Present on Admission?: Yes (4) Elevated troponin: - Trop peaked at 0.06 and trending down; no cardiac complaints given - maybe stress induced/chemo-induced? given such mild leak of troponin? - Echocardiogram limited due to pain and tolerance - no wall motion abnormalities identified Present on Admission?: Yes (5) UTI (urinary tract infection): - UCx with multiple organisms; H/O pyelonephritis in Mar 2018 and completed Amoxicillin x 14 days - Will monitor off Abx - had multiple days of Abx treatment in house - remains afebrile and without leukocytosis Present on Admission?: Yes (6) Primary cancer of rectum with metastasis from rectum to other site: - Recently diagnosed liver, pulm and brain metastasis; follows with Dr. Crowe at [facility]. - Imaging at admission showed increase in rectal mass, increase in hepatic lobe mass, left adrenal mass suggestive of metastasis -- has progression of disease. - Was being tapered on Decadron - she does have dizziness which could be pain medication induced vs maybe a component of adrenal insufficiency given adrenal mass (unlikely)? - Will reduce the Decadron down to daily use and monitor for intolerance - These symptoms may be coming from progression of brain lesions as the rest of her cancer has progressed so this is possible too - discussed MRI however patient deferred at this time - did discuss that if these symptoms continue that we could consider this at a later time and could benefit from radiation therapy if this is more progressive - patient verbalized understanding Present on Admission?: Yes (7) Thrush: - Fluconazole 100 mg daily complete Present on Admission?: Yes (8) Anemia: - Hgb stable and slowly staying lower with time; no indication for transfusion at this time - Ferrous sulfate 325 mg BID. - Continue to monitor Present on Admission?: Yes (9) Hypertension: - Continue Lisinopril 10 mg daily as prescribed. (10) Type II diabetes mellitus: - Hgb A1C was 6.6 - Increasing readings with Decadron - will use Lantus 10 units SC BID and SSI - now that steroids are reducing may not need as aggressive of coverage -- Getting better control but still intermittent peaks around 300 Present on Admission?: Yes (11) Malnutrition related to chronic disease: - Hypoalbuminemia in setting of metastatic cancer; BMI of 17. - Encourage diet as tolerated. Present on Admission?: Yes (12) DVT prophylaxis: - Hold in setting of brain metastasis Dispo: Challenge at this time is limitations of increasing medications due still having pain but getting more sedation; PT/OT evaluations - patient is uncertain if she can take care of herself at this point and is interested in possible acute rehab stay Subjective Reports that her pain is better but not completely controlled but more lou erable. Still with fogginess and that seems to be more bothersome to her. She is tolerating her diet and feels like she is doing a bit better with therapy but feels she is not strong enough to be at home. Discused with Dr. Davis today with adjustments to regimen. She verbalizes no other new complaints Constitutional: + fatigue and + weakness; no fever and no chills Respiratory: no cough and no dyspnea Cardiovascular: + lightheadedness; no chest pain, no palpitations and no edema Gastrointestinal: + diarrhea/loose stools (colostomy) and + problem reported (Rectal pain); no abdominal pain, no nausea, no vomiting and no constipation Genitourinary (Female): no dysuria Musculoskeletal: + body aches Neurologic: + dizziness Physical Exam Vital Signs (Past 24 Hours): Last Vital Signs Temp 36.6 C 05/19/18 15:28 Pulse 92 H 05/19/18 15:28 Resp 18 05/19/18 15:28 BP 130/77 05/19/18 15:28 Pulse Ox 96 05/19/18 15:28 Constitutional: + ill appearing (chronically); no acute distress Eyes: + anicteric sclerae ENMT: Ears: no hearing impairment Neck: trachea midline Respiratory: normal respiratory effort, lungs clear to auscultation Cardiovascular: Rate/Rhythm: regular rate and regular rhythm Chest (Breasts): Chest: + vascular access device or port Gastrointestinal (Abdomen): Inspection/Auscultation: normal bowel sounds Percussion/Palpation: abdomen soft; abdomen nontender Musculoskeletal: Head/Neck/Chest: normocephalic and head atraumatic Extremities: no cyanosis and no clubbing Skin: no rashes, warm and dry Neurologic: moves all extremities; no focal motor deficits Psychiatric: A+Ox3, euthymic affect (slightly drowsy) (1) Hypertension Hypertension type: essential hypertension Qualified Code(s): I10 - Essential (primary) hypertension
--- NOTE | 2018-05-19 18:01 | Communication Note ---
Date of Service: May 19, 2018 This afternoon patient is tearful due to extreme fogginess. Vitals are stable and no other acute findings. She has been experiencing the fogginess daily but is more bothered by this today. Etiology is likely multifactorial given her brain metastasis, medications, anemia, infection (unlikely), other Patient is hesitant to move to the 20 mg dose tonight. Will continue the Methadone 10 mg tonight with the start of the increased dose in the AM pending patient's preference. Will obtain a new UA given multiple organisms (was on Abx initially) Check C. diff - reports output is baseline however was on Abx at beginning of admission (was positive in Mar) Repeat CBC/BMP - Hgb is improving but if lower could consider transfusion? Does not appear this would be adrenal insufficiency as BP stable and electrolytes stable Does not appear overtly dry and is tolerating a diet; sugars are getting better controlled but could be contributing given that they are elevated Discussed MRI on 05/18 to assess for progressive brain metastasis however she deferred at this time which will not push - can re-discuss this as further metastasis could explain her feelings and maybe could be treated with radiation therapy?
[2018-05-19 18:31] LABS: Hematocrit (blood only) 30.3 % (37-47); Hemoglobin 9.6 g/dL (12.0-16.0); Mean Corpuscular Hgb Conc 31.7 g/dL (32-36); Mean Corpuscular Volume 90.2 fL (80-100); Mean Platelet Volume 9.1 fL (7.4-10.4); Nucleated RBC # (auto) 0.16 K/uL (0-0); Nucleated RBC % (auto) 2.1 %; Platelet Count 211 K/uL (130-400); RDW Standard Deviation 56.4 fL (36.4-46.3); Red Blood Count 3.36 M/uL (4.2-5.4); White Blood Count 7.45 K/uL (4.8-10.8)
[2018-05-19 18:48] LABS: BUN Creatinine Ratio 38.3 (10-20); Calcium 8.2 mg/dl (8.5-10.1); Creatinine Clr Calc Pharmacy 63.4 ml/min; Est GFR (African American) 99.2; Est GFR (Non-African American) 85.6; Potassium 4.4 mmol/L (3.5-5.1)
[2018-05-19] MEDS ORDERED: METHADONE HCL 10 MG TAB PO ONE (21:00)
[2018-05-19 21:32] LABS: Appearance Urine Cloudy (Clear); Bacteria Urine Automated Negative (Negative); Bilirubin Urine Negative (Negative); Blood Urine Trace (Negative); Color Urine Yellow; Epithelial Cell Urine Auto >30 /lpf (0-5); Glucose Urine UA 2+ (Negative); Ketones Urine Negative (Negative); Leukocyte Esterase Urine Trace (Negative); Nitrite Urine Negative (Negative); Protein Urine Negative (Negative); RBC Urine Automated 0-4 /hpf (0-4); Specific Gravity Urine 1.026 (1.000-1.030); Urobilinogen Urine Negative (Negative); WBC Urine Automated >30 /hpf (0-5)
[2018-05-19 21:46] LABS: Renal Epithelial Cells Urine 0-5 /lpf (0-5); Uric Acid Crystals Urine Present (None Prsent)
[2018-05-20] MEDS: OXYCODONE HCL IR 5 MG TAB (IMMEDIATE RELEASE) PO PRN (03:01)
[2018-05-20] MEDS: GABAPENTIN 600 MG TAB PO SCH ×3 (08:18→21:41)
[2018-05-20] MEDS: PANTOprazole 40 MG TAB PO SCH ×2 (08:19→21:43)
[2018-05-20] MEDS: LISINOPRIL 10 MG TAB PO SCH (08:19)
[2018-05-20] MEDS: dexAMETHasone 4 MG TAB PO SCH (08:19)
[2018-05-20] MEDS: FERROUS SULFATE 325 MG TAB PO SCH ×2 (08:19→21:40)
[2018-05-20] MEDS: METHADONE HCL 5 MG TAB PO SCH ×2 (08:20→21:40)
[2018-05-20] MEDS: INSULIN ASPART 100 UNITS/ML 3 ML PEN SC SCH ×4 (08:25→21:42)
[2018-05-20] MEDS: INSULIN GLARGINE SOLOSTAR 100 UNITS/ML 3 ML PEN SC SCH ×2 (08:25→21:41)
--- NOTE | 2018-05-20 14:16 | Palliative Care Progress Note ---
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 Patient has been under the care of Dr. Crowe for medical oncology. Patient seen in [place] in Feb and required a redo of her colostomy and formation of a mucous fistula-she was discharged on February 26. Patient was last seen during her last hospital stay on 04/25 for hyperkalemia and dehydration. She had a CT of the head showed significant frontal sinusitis, she had some AMS and had an MRI that showed to lesions not seen on CT scans. She had a 7mm peripheral L parietal lesion as well as a 4mm R posterior parietal lesion - not known if these are new lesions as this was her first MRI. Subsequent CT's have not shown any brain lesions. Pt was seen in outpt clinic on 05/12 for increased rectal pain. Pt's methadone was increased from 10 mg BID to 10 mg TID -pain not well controlled-we will increase methadone to 20 mg twice daily, will decrease her oxycodone to 2.5 mg as needed-hopefully this will cause less cognitive issues. Her Neurontin may be contributing to her fogginess-would recommend decreasing it to 500+500+600. Pt reports on exam that pain is better this a.m., discussed continuing the h igher dose of methadone and slowly weaning her Neurontin -Stage IV rectal cancer-follows with Dr. Yogesh Crowe -Cancer related pain-increasing -increase methadone to 20 mg twice daily, change as needed oxycodone dose to 2.5 mg, decrease Neurontin -Poor appetite-continue Decadron 4 mg QD -Anemia-on iron, hemoglobin 9.0 - prior baseline at 8.3 -Dizziness- suspect dehydration - BUN 51 on admission, improved with IV hydration, BUN now 28 with creatinine of 0.74. Symptoms improving Re-addressed patient's CODE STATUS - no mechanical ventilation, does want chest compressions and shock. Will discuss short-term rehab with patient to see if she is interested, patient has hired caregivers in the home-discussed increasing their hours if she goes home instead of rehab. (2) Rectal pain: Methadone - increase to 20 mg twice daily, decrease as needed oxycodone to 2.5 mg Would recommend decreasing her Neurontin from 600 3 times daily to 500+500+600-monitor mental status (3) Dizziness: Likely due to to dehydration-patient receiving IV fluids-BUN improving (4) Fall at home: Likely due to weakness, dizziness and dehydration Will discuss short-term rehab for strengthening with patient Patient to increase the hours of her home caregivers (5) Malnutrition related to chronic disease: Patient on Decadron 4 mg daily to stimulate appetite as well as feeling of well-being Patient's p.o. intake is increasing (6) Dehydration: Likely the cause of her dizziness, weakness and fall-continue hydration Neurontin can cause significant issues with cognition-would recommend decreasing her Neurontin to 500+500 + 600 (7) Primary cancer of rectum with metastasis from rectum to other site: Further chemo per oncology Subjective Patient awake alert, no acute distress. Patient reports pain control has improved. Patient's main concern is fogginess-blood pressures and blood sugars have been okay during these episodes, discussed possibility of Neurontin contributing as methadone does not sedate Patient agreeable methadone to 20 mg twice daily and slowly come down on her Neurontin. Would recommend changing from 600 mg 3 times daily to 500+500+600-a decrease of 200 a day, if pain is controlled can consider continuing to wean the Neurontin. Patient's oxycodone dose was decreased to 2.5 mg as needed-she did have a dose at 0301 this a.m. Review of Systems Patient denies fever, chills, chest pain, increased shortness of breath or GI symptoms. Her pain is mainly rectal pain due to her cancer. Physical Exam Vital Signs (Past 24 Hours): Last Vital Signs Temp 36.4 C L 05/20/18 11:02 Pulse 86 05/20/18 11:02 Resp 20 05/20/18 11:02 BP 121/75 05/20/18 11:02 Pulse Ox 98 05/20/18 11:02 Physical Exam: Patient alert and oriented, no acute distress. Patient continues to appear fatigued. Facial plethora improving PE: NAD HEENT: EOMI, normal hearing Respirations: Unlabored CV: Regular rate, positive pitting edema lower extremities-slightly improved Abdomen: Soft, nontender Neuro: More alert on exam today Time Spent Attending Total time spent 35 minutes with greater than 50% of time spent at bedside discussing treatment options as well as medications that are interfering with her cognition-patient agreeable to plan of continuing methadone at 20 mg twice daily and decreasing her Neurontin slowly.
--- NOTE | 2018-05-20 16:12 | Hematology/Oncology Prog Note ---
Date of Service May 20, 2018 Assessment & Plan (1) Primary cancer of rectum with metastasis from rectum to other site: 62-year-old female, Oncology diagnosis: - Recurrent rectal carcinoma, now she has recurrent disease involving the lungs, liver, adrenal gland, local surrounding structures in the perirectal region. - Since December 1999 BC receiving Irinotecan chemotherapy, unfortunately her disease has further progressed, she also could not receive chemotherapy as we planned earlier because of complications which required hospitalization. She is admitted following a fall with some facial injury, also follows up with palliative care team, on methadone and Neurontin. She is also on Decadron. She has noticed increasing bilateral leg edema, puffiness of the face noted because of ongoing steroid treatment, feeling weak and tired, no fever, pelvic pain present which is manageable, says that yesterday she has some confusional status, has generalized body ache, now methadone increased to 20 mg twice a day, slight decrease in the Neurontin no stage in the form of 500 mg, 500 mg, 600 mg per day. Blood workup done on 05/19/2018: - WBC 7400, H&H of 9.6/30.3, Platelet count of 211,000. - BUN/creatinine: 28/0.7 blood sugar fluctuates between 84-350. C-spine CT scan > No fracture or subluxation noted (05/14/2018). Overall gradual declining in the performance status noted. Overall prognosis remains poor. We see how she does in the next few days/weeks before we decide about continuation of the palliative chemotherapy treatment. If her performance status does not improve, we should not consider for systemic chemotherapy. Yogesh Crowe MD Hem/Onc Physical Exam Vital Signs (Past 24 Hours): Last Vital Signs Temp 36.7 C 05/20/18 14:45 Pulse 81 05/20/18 14:45 Resp 18 05/20/18 14:45 BP 124/65 05/20/18 14:45 Pulse Ox 98 05/20/18 14:45
--- NOTE | 2018-05-20 18:58 | Hospitalist Progress Note ---
Date of Service May 20, 2018 Assessment & Plan (1) Fall at home: - Likely multifactorial between deconditioning/metastatic cancer/chemotherapy/poor appetite - No acute fractures identified - PT/OT - appreciate ongoing assessment for mobility and strength training while in-house plan for [facility] on Wednesday 05/24 for subacute rehab (2) Rectal pain: - In setting of metastatic rectal cancer; acute on chronic issue - Follows with palliative care; increase methadone to 20 mg BID on 05/19; Will reduce Oxycodone to 2.5 mg PRN as the methadone should make the effectiveness higher (maybe will help reduce the sedation?) -- Unfortunately pain has been tough to control without sedation and could be worsened by also being on Gabapentin? A good balance has been tough to develop - Gabapentin will be reduced to 500mg morning and lunch and then 600mg qHS - d/w Dr. Davis today, appreciate her input regarding Methadone and Gabapentin (3) Leg paresthesia: - May be related to Xeloda therapy; was due for chemotherapy on 05/16 - Consultation placed for Oncology with Dr. Crowe - appreciate input or further recommendations no treatment at this time (4) Elevated troponin: - Trop peaked at 0.06 and trending down; no cardiac complaints given - maybe stress induced/chemo-induced? given such mild leak of troponin? 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 Crowe at [facility]. - Imaging at admission showed increase in rectal mass, increase in hepatic lobe mass, left adrenal mass suggestive of metastasis -- has progression of disease. - Was being tapered on Decadron - she does have dizziness which could be pain medication induced vs maybe a component of adrenal insufficiency given adrenal mass (unlikely)? - Will reduce the Decadron down to daily use and monitor for intolerance tolerating once a day Decadron for time being discussed MRI of the brain, she refuses at this time (7) Thrush: - Fluconazole 100 mg daily complete no thrush on exam (8) Anemia: - Hgb stable and slowly staying lower with time; no indication for transfusion at this time - Ferrous sulfate 325 mg BID. - Continue to monitor (9) Hypertension: - Continue Lisinopril 10 mg daily as prescribed. (10) Type II diabetes mellitus: - Hgb A1C was 6.6 - Increasing readings with Decadron - will use Lantus 10 units SC BID and SSI - now that steroids are reducing may not need as aggressive of coverage -- Getting better control, no sugars higher than 219 today no hypoglycemia (11) Malnutrition related to chronic disease: - Hypoalbuminemia in setting of metastatic cancer; BMI of 17. - Encourage diet as tolerated. (12) DVT prophylaxis: - Hold in setting of brain metastasis Dispo: [facility] on 05/24 Subjective patient sitting up in bed eating lunch, no distress she said that the 20mg of Methadone made her "foggy" last night discussed with Dr. Davis, she talked with the patient, encouraged her to try the 20mg more likely the Gabapentin making her drowsy still with rectal pain but admits it is less intense looking to go to [facility], no bed until Wednesday Review of Systems All systems reviewed & are unremarkable except as noted in HPI & below Constitutional: + fatigue and + weakness; no fever and no chills Cardiovascular: + lightheadedness; no chest pain, no palpitations and no edema Gastrointestinal: + diarrhea/loose stools (colostomy) and + problem reported (Rectal pain); no abdominal pain, no nausea, no vomiting and no constipation Musculoskeletal: + body aches Neurologic: + dizziness Physical Exam Vital Signs (Past 24 Hours): Last Vital Signs Temp 36.7 C 05/20/18 14:45 Pulse 81 05/20/18 14:45 Resp 18 05/20/18 14:45 BP 124/65 05/20/18 14:45 Pulse Ox 98 05/20/18 14:45 Constitutional: WD/WN, vitals as above Eyes: PERRL, conjunctivae normal, anicteric sclerae ENMT: external ear and nose normal, oropharynx normal Neck: trachea midline, no thyromegaly Respiratory: normal respiratory effort, lungs clear to auscultation Cardiovascular: RRR, no murmur, no edema Gastrointestinal (Abdomen): Inspection/Auscultation: abdomen normal to inspection; abdomen not distended Percussion/Palpation: + abdomen tender (mildly, diffuse, more in lower abdomen) and abdomen soft; no abdominal mass Musculoskeletal: no cyanosis or clubbing, extremities motor strength 5/5 Skin: no rashes, warm and dry Neurologic: patellar DTR's 2+ bilat, sensation intact and PERRL, EOMI, accommodation nl, no face palsy, no dysarthria Psychiatric: Orientation: alert and oriented x 3 Affect: + flat affect Lymphatic: no cervical or axillary lymphadenopathy Results & Data Laboratory Results Laboratory Results - last 24 hr 05/19/18 05/19/18 05/19/18 20:35 20:35 20:37 POC Glucose 348 H Urine Color Yellow Urine Appearance Cloudy H Urine pH 5.0 Ur Specific [place] 1.026 Urine Protein Negative Urine Glucose (UA) 2+ H Urine Ketones Negative Urine Blood Trace H Urine Nitrite Negative Urine Bilirubin Negative Urine Urobilinogen Negative Ur Leukocyte Esterase Trace H Urine WBC (Auto) >30 H Urine RBC (Auto) 0-4 U Hyaline Cast (Auto) 1-5 U Epithel Cells (Auto) >30 H Urine Bacteria (Auto) Negative Ur Renal Epithelial Cell 0-5 Uric Acid Crystals Present H Urine Yeast Not Reportable Stl C. diff Tox B Gene Negative Cdiff Gene 05/20/18 05/20/18 05/20/18 07:30 11:34 16:33 POC Glucose 84 191 H 155 H Urine Color Urine Appearance Urine pH Ur Specific [place] Urine Protein Urine Glucose (UA) Urine Ketones Urine Blood Urine Nitrite Urine Bilirubin Urine Urobilinogen Ur Leukocyte Esterase Urine WBC (Auto) Urine RBC (Auto) U Hyaline Cast (Auto) U Epithel Cells (Auto) Urine Bacteria (Auto) Ur Renal Epithelial Cell Uric Acid Crystals Urine Yeast Stl C. diff Tox B Gene Medications Administered Current Inpatient Medications Dexamethasone (Decadron) 4 mg PO DAILY [facility] Stop: 06/17/18 08:59 Last Admin: 05/20/18 08:19 Dose: 4 mg Documented by: Dextrose (Dextrose 50%) 25 - 50 ml IV UD PRN; Protocol PRN Reason: Hypoglycemia Protocol Stop: 06/14/18 19:34 Ferrous Sulfate (Feosol) 325 mg PO BID [facility] Stop: 06/14/18 08:59 Last Admin: 05/20/18 08:19 Dose: 325 mg Documented by: Gabapentin (Neurontin) 600 mg PO TID [facility] Stop: 06/14/18 08:59 Last Admin: 05/20/18 14:39 Dose: 600 mg Documented by: Glucagon (Glucagen) 1 mg SQ UD PRN; Protocol PRN Reason: Hypoglycemia Protocol Stop: 06/14/18 19:34 Glucose (Glucose 40%) 15 - 30 gm PO UD PRN; Protocol PRN Reason: Hypoglycemia Protocol Stop: 06/14/18 19:34 Glucose (Dex4 Glucose) 4 - 8 tabs PO UD PRN; Protocol PRN Reason: Hypoglycemia Protocol Stop: 06/14/18 19:34 Heparin Sodium (Porcine) (Heparin Sod 100 Unit/Ml Flush) 5 ml FLUSH PRN PRN PRN Reason: Flush Stop: 06/15/18 00:59 Insulin Aspart (Novolog Flexpen) 0 units SC ACHS [facility] Stop: 06/14/18 20:59 Last Admin: 05/20/18 18:24 Dose: 6 units Documented by: Insulin Glargine (Lantus Solostar Pen) 10 units SC BID [facility] Stop: 06/16/18 20:59 Last Admin: 05/20/18 08:25 Dose: 10 units Documented by: Lisinopril (Zestril) 10 mg PO QAM [facility] Stop: 06/14/18 08:59 Last Admin: 05/20/18 08:19 Dose: 10 mg Documented by: Methadone HCl (Dolophine) 20 mg PO BID [facility] Stop: 06/02/18 20:59 Last Admin: 05/20/18 08:20 Dose: 10 mg Documented by: Miscellaneous (Carbohydrates For Hypoglycemia) 15 - 30 gm PO UD PRN PRN Reason: Hypoglycemia Treatment Stop: 06/14/18 19:34 Oxycodone HCl (Roxicodone Immediate Rel) 2.5 mg PO Q4H PRN PRN Reason: pain Stop: 06/01/18 11:32 Last Admin: 05/20/18 03:01 Dose: 2.5 mg Documented by: Pantoprazole Sodium (Protonix) 40 mg PO BID [facility] Stop: 06/14/18 08:59 Last Admin: 05/20/18 08:19 Dose: 40 mg Documented by: Polyethylene Glycol (Miralax Powder Packet) 17 gm PO DAILY PRN PRN Reason: Constipation Prochlorperazine (Compazine) 10 mg PO Q8H PRN PRN Reason: nausea and vomiting Stop: 06/13/18 23:27 Last Admin: 05/16/18 08:23 Dose: 10 mg Documented by: (1) Hypertension Hypertension type: essential hypertension Qualified Code(s): I10 - Essential (primary) hypertension
[2018-05-21] MEDS: INSULIN GLARGINE SOLOSTAR 100 UNITS/ML 3 ML PEN SC SCH ×2 (09:29→20:35)
[2018-05-21] MEDS: INSULIN ASPART 100 UNITS/ML 3 ML PEN SC SCH ×4 (09:29→20:36)
[2018-05-21] MEDS: METHADONE HCL 5 MG TAB PO SCH ×2 (09:31→20:34)
[2018-05-21] MEDS: FERROUS SULFATE 325 MG TAB PO SCH ×2 (09:36→20:35)
[2018-05-21] MEDS: PANTOprazole 40 MG TAB PO SCH ×2 (09:36→20:35)
[2018-05-21] MEDS: dexAMETHasone 4 MG TAB PO SCH (09:36)
[2018-05-21] MEDS: GABAPENTIN 600 MG TAB PO SCH ×3 (09:36→20:35)
[2018-05-21] MEDS: LISINOPRIL 10 MG TAB PO SCH (09:37)
[2018-05-21] MEDS: HEPARIN 100 UNIT/ML 5ML FLUSH FLUSH PRN (13:10)
--- NOTE | 2018-05-21 14:11 | Hospitalist Progress Note ---
Date of Service May 21, 2018 Assessment & Plan (1) Fall at home: - Likely multifactorial between deconditioning/metastatic cancer/chemotherapy/poor appetite - No acute fractures identified - PT/OT - appreciate ongoing assessment for mobility and strength training while in-house plan for [facility] on Wednesday 05/24 for subacute rehab (2) Rectal pain: - In setting of metastatic rectal cancer; acute on chronic issue - Follows with palliative care; increase methadone to 20 mg BID on 05/19; Will reduce Oxycodone to 2.5 mg PRN as the methadone should make the effectiveness higher (maybe will help reduce the sedation?) still with some pain but refusing to try the Oxycodone for breakthrough -- Unfortunately pain has been tough to control without sedation and could be worsened by also being on Gabapentin? A good balance has been tough to develop - Gabapentin will be reduced to 500mg morning and lunch and then 600mg qHS - d/w Dr. Davis on 05/20, appreciate her input regarding Methadone and Gabapentin (3) Leg paresthesia: - May be related to Xeloda therapy; was due for chemotherapy on 05/16 - Consultation placed for Oncology with Dr. Crowe - appreciate input or further recommendations no treatment at this time (4) Elevated troponin: - Trop peaked at 0.06 and trending down; no cardiac complaints given - maybe stress induced/chemo-induced? given such mild leak of troponin? 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 Crowe at [facility]. - Imaging at admission showed increase in rectal mass, increase in hepatic lobe mass, left adrenal mass suggestive of metastasis -- has progression of disease. - Was being tapered on Decadron - she does have dizziness which could be pain medication induced vs maybe a component of adrenal insufficiency given adrenal mass (unlikely)? - Will reduce the Decadron down to daily use and monitor for intolerance tolerating once a day Decadron for time being discussed MRI of the brain, she refuses at this time (7) Thrush: - Fluconazole 100 mg daily complete no thrush on exam (8) Anemia: - Hgb stable and slowly staying lower with time; no indication for transfusion at this time - Ferrous sulfate 325 mg BID. - Continue to monitor (9) Hypertension: - Continue Lisinopril 10 mg daily as prescribed. (10) Type II diabetes mellitus: - Hgb A1C was 6.6 - Increasing readings with Decadron - will use Lantus 10 units SC BID and SSI - now that steroids are reducing may not need as aggressive of coverage -- Getting better control, no sugars higher than 219 today no hypoglycemia (11) Malnutrition related to chronic disease: - Hypoalbuminemia in setting of metastatic cancer; BMI of 17. - Encourage diet as tolerated. (12) DVT prophylaxis: - Hold in setting of brain metastasis Dispo: [facility] on 05/24 Subjective patient doing fine today no fogginess reported, tolerating the Methadone at 20mg still with 8/10 rectal pain, suggested she take the Oxycodone but she refused eating well normal amount of output from her ostomy Review of Systems All systems reviewed & are unremarkable except as noted in HPI & below Constitutional: + fatigue and + weakness; no fever and no chills Gastrointestinal: + diarrhea/loose stools (colostomy) and + problem reported (Rectal pain); no abdominal pain, no nausea, no vomiting and no constipation Musculoskeletal: + body aches Neurologic: + dizziness Physical Exam Vital Signs (Past 24 Hours): Last Vital Signs Temp 36.7 C 05/21/18 12:00 Pulse 88 05/21/18 12:00 Resp 18 05/21/18 12:00 BP 138/64 05/21/18 12:00 Pulse Ox 98 05/21/18 12:00 Constitutional: WD/WN, vitals as above Eyes: PERRL, conjunctivae normal, anicteric sclerae ENMT: external ear and nose normal, oropharynx normal Neck: trachea midline, no thyromegaly Respiratory: normal respiratory effort, lungs clear to auscultation Cardiovascular: RRR, no murmur, no edema Gastrointestinal (Abdomen): normal bowel sounds, soft, nontender, no hepatosplenomegaly Inspection/Auscultation: abdomen normal to inspection; abdomen not distended Percussion/Palpation: + abdomen tender (mildly, diffuse, more in lower abdomen) and abdomen soft; no abdominal mass Musculoskeletal: no cyanosis or clubbing, extremities motor strength 5/5 Skin: no rashes, warm and dry Neurologic: patellar DTR's 2+ bilat, sensation intact and PERRL, EOMI, accommodation nl, no face palsy, no dysarthria Psychiatric: Orientation: alert and oriented x 3 Affect: + flat affect Lymphatic: no cervical or axillary lymphadenopathy Results & Data Laboratory Results Laboratory Results - last 24 hr 05/20/18 05/20/18 05/21/18 16:33 20:18 07:26 POC Glucose 155 H 219 H 89 05/21/18 11:39 POC Glucose 111 H Medications Administered Current Inpatient Medications Dexamethasone (Decadron) 4 mg PO DAILY [facility] Stop: 06/17/18 08:59 Last Admin: 05/21/18 09:36 Dose: 4 mg Documented by: Dextrose (Dextrose 50%) 25 - 50 ml IV UD PRN; Protocol PRN Reason: Hypoglycemia Protocol Stop: 06/14/18 19:34 Ferrous Sulfate (Feosol) 325 mg PO BID [facility] Stop: 06/14/18 08:59 Last Admin: 05/21/18 09:36 Dose: 325 mg Documented by: Gabapentin (Neurontin) 600 mg PO TID [facility] Stop: 06/14/18 08:59 Last Admin: 05/21/18 09:36 Dose: 600 mg Documented by: Glucagon (Glucagen) 1 mg SQ UD PRN; Protocol PRN Reason: Hypoglycemia Protocol Stop: 06/14/18 19:34 Glucose (Glucose 40%) 15 - 30 gm PO UD PRN; Protocol PRN Reason: Hypoglycemia Protocol Stop: 06/14/18 19:34 Glucose (Dex4 Glucose) 4 - 8 tabs PO UD PRN; Protocol PRN Reason: Hypoglycemia Protocol Stop: 06/14/18 19:34 Heparin Sodium (Porcine) (Heparin Sod 100 Unit/Ml Flush) 5 ml FLUSH PRN PRN PRN Reason: Flush Stop: 06/15/18 00:59 Last Admin: 05/21/18 13:10 Dose: 5 ml Documented by: Insulin Aspart (Novolog Flexpen) 0 units SC ACHS [facility] Stop: 06/14/18 20:59 Last Admin: 05/21/18 12:39 Dose: 6 units Documented by: Insulin Glargine (Lantus Solostar Pen) 10 units SC BID [facility] Stop: 06/16/18 20:59 Last Admin: 05/21/18 09:29 Dose: 10 units Documented by: Lisinopril (Zestril) 10 mg PO QAM [facility] Stop: 06/14/18 08:59 Last Admin: 05/21/18 09:37 Dose: 10 mg Documented by: Methadone HCl (Dolophine) 20 mg PO BID [facility] Stop: 06/02/18 20:59 Last Admin: 05/21/18 09:31 Dose: 10 mg Documented by: Miscellaneous (Carbohydrates For Hypoglycemia) 15 - 30 gm PO UD PRN PRN Reason: Hypoglycemia Treatment Stop: 06/14/18 19:34 Oxycodone HCl (Roxicodone Immediate Rel) 2.5 mg PO Q4H PRN PRN Reason: pain Stop: 06/01/18 11:32 Last Admin: 05/20/18 03:01 Dose: 2.5 mg Documented by: Pantoprazole Sodium (Protonix) 40 mg PO BID [facility] Stop: 06/14/18 08:59 Last Admin: 05/21/18 09:36 Dose: 40 mg Documented by: Polyethylene Glycol (Miralax Powder Packet) 17 gm PO DAILY PRN PRN Reason: Constipation Prochlorperazine (Compazine) 10 mg PO Q8H PRN PRN Reason: nausea and vomiting Stop: 06/13/18 23:27 Last Admin: 05/16/18 08:23 Dose: 10 mg Documented by: (1) Hypertension Hypertension type: essential hypertension Qualified Code(s): I10 - Essential (primary) hypertension
[2018-05-21] MEDS: OXYCODONE HCL IR 5 MG TAB (IMMEDIATE RELEASE) PO PRN (15:47)
[2018-05-22] MEDS: OXYCODONE HCL IR 5 MG TAB (IMMEDIATE RELEASE) PO PRN ×2 (00:11→15:58)
[2018-05-22] MEDS: PANTOprazole 40 MG TAB PO SCH ×2 (08:45→21:33)
[2018-05-22] MEDS: dexAMETHasone 4 MG TAB PO SCH (08:45)
[2018-05-22] MEDS: LISINOPRIL 10 MG TAB PO SCH (08:45)
[2018-05-22] MEDS: FERROUS SULFATE 325 MG TAB PO SCH ×2 (08:46→21:33)
[2018-05-22] MEDS: GABAPENTIN 600 MG TAB PO SCH ×3 (08:46→21:33)
[2018-05-22] MEDS: METHADONE HCL 5 MG TAB PO SCH ×2 (09:01→21:33)
[2018-05-22] MEDS: INSULIN ASPART 100 UNITS/ML 3 ML PEN SC SCH ×4 (09:05→21:33)
[2018-05-22] MEDS: INSULIN GLARGINE SOLOSTAR 100 UNITS/ML 3 ML PEN SC SCH (09:08)
--- NOTE | 2018-05-22 15:27 | Hospitalist Progress Note ---
Date of Service May 22, 2018 Assessment & Plan (1) Fall at home: - Likely multifactorial between deconditioning/metastatic cancer/chemotherapy/poor appetite - No acute fractures identified - PT/OT - appreciate ongoing assessment for mobility and strength training while in-house plan for [facility] on Wednesday 05/24 for subacute rehab (2) Rectal pain: - In setting of metastatic rectal cancer; acute on chronic issue - Follows with palliative care; increase methadone to 20 mg BID on 05/19; Will reduce Oxycodone to 2.5 mg PRN as the methadone should make the effectiveness higher (maybe will help reduce the sedation?) still with some pain but refusing to try the Oxycodone for breakthrough -- Unfortunately pain has been tough to control without sedation and could be worsened by also being on Gabapentin? A good balance has been tough to develop - Gabapentin reduced to 500mg morning and lunch and then 600mg qHS, tolerating this dose well - d/w Dr. Davis on 05/20, appreciate her input regarding Methadone and Gabapentin (3) Leg paresthesia: - May be related to Xeloda therapy; was due for chemotherapy on 05/16 - Consultation placed for Oncology with Dr. Crowe - appreciate input or further recommendations no treatment at this time (4) Elevated troponin: - Trop peaked at 0.06 and trending down; no cardiac complaints given - maybe stress induced/chemo-induced? given such mild leak of troponin? 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 Crowe at [facility]. - Imaging at admission showed increase in rectal mass, increase in hepatic lobe mass, left adrenal mass suggestive of metastasis -- has progression of disease. - Was being tapered on Decadron - she does have dizziness which could be pain medication induced vs maybe a component of adrenal insufficiency given adrenal mass (unlikely)? - Will reduce the Decadron down to daily use and monitor for intolerance tolerating once a day Decadron for time being discussed MRI of the brain, she refuses at this time (7) Thrush: - Fluconazole 100 mg daily complete no thrush on exam (8) Anemia: - Hgb stable and slowly staying lower with time; no indication for transfusion at this time - Ferrous sulfate 325 mg BID. - Continue to monitor (9) Hypertension: - Continue Lisinopril 10 mg daily as prescribed. (10) Type II diabetes mellitus: - Hgb A1C was 6.6 - Increasing readings with Decadron - will use Lantus 10 units SC BID and SSI - now that steroids are reducing may not need as aggressive of coverage -- Getting better control, no sugars higher than 219 today hyperglycemia today after eating some candy, glucose > 400 gave Lantus early at increased dose of 20, tightened coverage resume Lantus 10 units BID in the morning (11) Malnutrition related to chronic disease: - Hypoalbuminemia in setting of metastatic cancer; BMI of 17. - Encourage diet as tolerated. (12) DVT prophylaxis: - Hold in setting of brain metastasis Dispo: [facility] on 05/24 Subjective patient sitting in chair, feeling fine says she still has rectal pain but it is tolerable on Methadone eating well, ostomy functioning normally later in the day she had significant hyperglycemia with glucose > 400 she had just had candy prior to glucose check ordered RN to give Lantus 20 units one time at 5pm and tighten coverage with correction factor of 20 from 30 Review of Systems All systems reviewed & are unremarkable except as noted in HPI & below Cardiovascular: + lightheadedness; no chest pain, no palpitations and no edema Gastrointestinal: + diarrhea/loose stools (colostomy) and + problem reported (Rectal pain); no abdominal pain, no nausea, no vomiting and no constipation Musculoskeletal: + body aches Physical Exam Vital Signs (Past 24 Hours): Last Vital Signs Temp 37 C 05/22/18 11:25 Pulse 91 H 05/22/18 11:25 Resp 16 05/22/18 11:25 BP 118/71 05/22/18 11:25 Pulse Ox 100 05/22/18 11:25 Constitutional: WD/WN, vitals as above Eyes: PERRL, conjunctivae normal, anicteric sclerae ENMT: external ear and nose normal, oropharynx normal Neck: trachea midline, no thyromegaly Respiratory: normal respiratory effort, lungs clear to auscultation Cardiovascular: RRR, no murmur, no edema Gastrointestinal (Abdomen): normal bowel sounds, soft, nontender, no hepatosplenomegaly Inspection/Auscultation: abdomen normal to inspection; abdomen not distended Percussion/Palpation: + abdomen tender (mildly, diffuse, more in lower abdomen) and abdomen soft; no abdominal mass Musculoskeletal: no cyanosis or clubbing, extremities motor strength 5/5 Skin: no rashes, warm and dry Neurologic: patellar DTR's 2+ bilat, sensation intact and PERRL, EOMI, accommodation nl, no face palsy, no dysarthria Psychiatric: Orientation: alert and oriented x 3 Affect: + flat affect Lymphatic: no cervical or axillary lymphadenopathy Results & Data Laboratory Results Laboratory Results - last 24 hr 05/21/18 05/22/18 05/22/18 20:21 08:14 11:59 POC Glucose 221 H 76 179 H 05/22/18 05/22/18 16:47 16:48 POC Glucose 383 H* 410 H* Medications Administered Current Inpatient Medications Dexamethasone (Decadron) 4 mg PO DAILY SANDRA Stop: 06/17/18 08:59 Last Admin: 05/22/18 08:45 Dose: 4 mg Documented by: Dextrose (Dextrose 50%) 25 - 50 ml IV UD PRN; Protocol PRN Reason: Hypoglycemia Protocol Stop: 06/14/18 19:34 Ferrous Sulfate (Feosol) 325 mg PO BID SANDRA Stop: 06/14/18 08:59 Last Admin: 05/22/18 08:46 Dose: 325 mg Documented by: Gabapentin (Neurontin) 600 mg PO TID SANDRA Stop: 06/14/18 08:59 Last Admin: 05/22/18 13:14 Dose: 600 mg Documented by: Glucagon (Glucagen) 1 mg SQ UD PRN; Protocol PRN Reason: Hypoglycemia Protocol Stop: 06/14/18 19:34 Glucose (Glucose 40%) 15 - 30 gm PO UD PRN; Protocol PRN Reason: Hypoglycemia Protocol Stop: 06/14/18 19:34 Glucose (Dex4 Glucose) 4 - 8 tabs PO UD PRN; Protocol PRN Reason: Hypoglycemia Protocol Stop: 06/14/18 19:34 Heparin Sodium (Porcine) (Heparin Sod 100 Unit/Ml Flush) 5 ml FLUSH PRN PRN PRN Reason: Flush Stop: 06/15/18 00:59 Last Admin: 05/21/18 13:10 Dose: 5 ml Documented by: Insulin Aspart (Novolog Flexpen) 0 units SC ACHS [facility] Stop: 06/14/18 20:59 Last Admin: 05/22/18 18:15 Dose: 37 units Documented by: Insulin Glargine (Lantus Solostar Pen) 10 units SC BID [facility] Stop: 06/16/18 20:59 Last Admin: 05/22/18 09:08 Dose: 10 units Documented by: Lisinopril (Zestril) 10 mg PO QAM [facility] Stop: 06/14/18 08:59 Last Admin: 05/22/18 08:45 Dose: 10 mg Documented by: Methadone HCl (Dolophine) 20 mg PO BID [facility] Stop: 06/02/18 20:59 Last Admin: 05/22/18 09:01 Dose: 10 mg Documented by: Miscellaneous (Carbohydrates For Hypoglycemia) 15 - 30 gm PO UD PRN PRN Reason: Hypoglycemia Treatment Stop: 06/14/18 19:34 Oxycodone HCl (Roxicodone Immediate Rel) 2.5 mg PO Q4H PRN PRN Reason: pain Stop: 06/01/18 11:32 Last Admin: 05/22/18 15:58 Dose: 2.5 mg Documented by: Pantoprazole Sodium (Protonix) 40 mg PO BID [facility] Stop: 06/14/18 08:59 Last Admin: 05/22/18 08:45 Dose: 40 mg Documented by: Polyethylene Glycol (Miralax Powder Packet) 17 gm PO DAILY PRN PRN Reason: Constipation Prochlorperazine (Compazine) 10 mg PO Q8H PRN PRN Reason: nausea and vomiting Stop: 06/13/18 23:27 Last Admin: 05/16/18 08:23 Dose: 10 mg Documented by: (1) Hypertension Hypertension type: essential hypertension Qualified Code(s): I10 - Essential (primary) hypertension
[2018-05-22] MEDS ORDERED: INSULIN GLARGINE SOLOSTAR 100 UNITS/ML 3 ML PEN SC ONE (17:15)
[2018-05-22] MEDS ORDERED: Nursing to Pharmacy Communication ONE (18:45)
[2018-05-23] MEDS ORDERED: HYDROCORTISONE 1% CRM 30 GM TUBE EXT PRN (00:18)
[2018-05-23] MEDS: CARBOHYDRATES FOR HYPOGLYCEMIA PO PRN ×2 (00:30→07:56)
[2018-05-23] MEDS: GABAPENTIN 600 MG TAB PO SCH ×3 (07:58→21:26)
[2018-05-23] MEDS: PANTOprazole 40 MG TAB PO SCH ×2 (07:58→21:26)
[2018-05-23] MEDS: dexAMETHasone 4 MG TAB PO SCH (07:58)
[2018-05-23] MEDS: FERROUS SULFATE 325 MG TAB PO SCH ×2 (07:59→21:26)
[2018-05-23] MEDS: LISINOPRIL 10 MG TAB PO SCH (07:59)
[2018-05-23] MEDS: METHADONE HCL 5 MG TAB PO SCH ×3 (08:01→21:30)
[2018-05-23] MEDS: INSULIN ASPART 100 UNITS/ML 3 ML PEN SC SCH ×4 (08:58→21:24)
[2018-05-23] MEDS: INSULIN GLARGINE SOLOSTAR 100 UNITS/ML 3 ML PEN SC SCH ×2 (09:32→21:25)
--- NOTE | 2018-05-23 14:51 | Palliative Care Progress Note ---
Date of Service May 23, 2018 Assessment & Plan (1) Palliative care encounter: Patient is a 62-year-old female who was diagnosed with 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 Patient has been under the care of Dr. Crowe for medical oncology. Patient seen in [place] in Feb and required a redo of her colostomy and formation of a mucous fistula-she was discharged on February 26. Patient was last seen during her last hospital stay on 04/25 for hyperkalemia and dehydration. She had a CT of the head showed significant frontal sinusitis, she had some AMS and had an MRI that showed to lesions not seen on CT scans. She had a 7mm peripheral L parietal lesion as well as a 4mm R posterior parietal lesion - not known if these are new lesions as this was her first MRI. Subsequent CT's have not shown any brain lesions. Pt was seen in outpt clinic on 05/12 for increased rectal pain. Pt's methadone was increased from 10 mg BID to 10 mg TID -pain not well controlled-increased methadone to 20 mg twice daily and decreased her prn oxycodone to 2.5 mg - Patient prefers to go back to her methadone at 10 mg 3 times daily-orders changed today Pt reports on exam that pain is better this a.m., discussed that her Neurontin may be contributing to her "fogginess". -Stage IV rectal cancer-follows with Dr. Yogesh Crowe -Cancer related pain- methadone to 10 mg TID, cont as needed oxycodone dose to 2.5 mg, cont Neurontin at home dose -Poor appetite-continue Decadron 4 mg QD -Anemia-on iron, baseline hgb 8.3 -Dizziness- suspect dehydration - BUN 51 on admission, improved with IV hydration Re-addressed patient's CODE STATUS - no mechanical ventilation, does want chest compressions and shock. Will discuss short-term rehab with patient to see if she is interested, patient has hired caregivers in the home-discussed increasing their hours if she goes home instead of rehab. (2) Rectal pain: Methadone - cont 10 mg TID, cont as needed oxycodone to 2.5 mg Cont Neurontin from 600 mg TID (3) Dizziness: Likely due to to dehydration-patient receiving IV fluids-BUN improving (4) Fall at home: Likely due to weakness, dizziness and dehydration Will discuss short-term rehab for strengthening with patient Patient to increase the hours of her home caregivers (5) Malnutrition related to chronic disease: Patient on Decadron 4 mg daily to stimulate appetite as well as feeling of well-being Patient's p.o. intake is increasing (6) Dehydration: Likely the cause of her dizziness, weakness and fall-continue hydration Neurontin can cause significant issues with cognition-discussed decreasing it with pt - wishes to cont meds as is (7) Primary cancer of rectum with metastasis from rectum to other site: Further chemo per oncology Subjective Patient awake alert, states she is comfortable. Patient has been refusing 20 mg of methadone-prefers to go back on her 10 mg 3 times daily-order changed. Patient did require 2 as needed oxycodone at 2.5 mg yesterday, none so far today. Patient reports her pain control is "okay"on exam today Review of Systems Patient denies fever, chills, chest pain, increased shortness of breath, or GI issues. Physical Exam Vital Signs (Past 24 Hours): Last Vital Signs Temp 36.9 C 05/23/18 11:04 Pulse 100 H 05/23/18 11:04 Resp 18 05/23/18 11:04 BP 120/68 05/23/18 11:04 Pulse Ox 98 05/23/18 11:04 Physical Exam: PE: Patient awake alert, is flushed appearing, skin warm to touch HEENT: EOMI, hearing within normal limits Lungs: Clear, respirations unlabored CV: Regular rate, 1+ pitting edema lower extremities Abdomen: Soft, nontender to light palpation Neuro: Alert and oriented x4 Time Spent Attending Total time spent 35 minutes with greater than 50% of the time spent at bedside discussing treatment options, assessing patient's pain, discussing changes in meds as well as collaborating with attending regarding plan of care
--- NOTE | 2018-05-23 22:52 | Hospitalist Progress Note ---
Date of Service May 23, 2018 Assessment & Plan (1) Fall at home: - Likely multifactorial between deconditioning/metastatic cancer/chemotherapy/poor appetite - No acute fractures identified - PT/OT - appreciate ongoing assessment for mobility and strength training while in-house plan for [facility] on Wednesday 05/24 for subacute rehab (2) Rectal pain: - In setting of metastatic rectal cancer; acute on chronic issue - Follows with palliative care; increase methadone to 20 mg BID on 05/19; Will reduce Oxycodone to 2.5 mg PRN as the methadone should make the effectiveness higher (maybe will help reduce the sedation?) still with some pain but refusing to try the Oxycodone for breakthrough -- Unfortunately pain has been tough to control without sedation and could be worsened by also being on Gabapentin? A good balance has been tough to develop - Gabapentin reduced to 500mg morning and lunch and then 600mg qHS, tolerating this dose well - d/w Dr. Davis on 05/23, appreciate her input (3) Leg paresthesia: - May be related to Xeloda therapy; was due for chemotherapy on 05/16 - Consultation placed for Oncology with Dr. Crowe - appreciate input or further recommendations no treatment at this time (4) Elevated troponin: - Trop peaked at 0.06 and trending down; no cardiac complaints given - maybe stress induced/chemo-induced? given such mild leak of troponin? 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 Crowe at [facility]. - Imaging at admission showed increase in rectal mass, increase in hepatic lobe mass, left adrenal mass suggestive of metastasis -- has progression of disease. - Was being tapered on Decadron - she does have dizziness which could be pain medication induced vs maybe a component of adrenal insufficiency given adrenal mass (unlikely)? - Will reduce the Decadron down to daily use and monitor for intolerance tolerating once a day Decadron for time being discussed MRI of the brain, she refuses at this time (7) Thrush: - Fluconazole 100 mg daily complete no thrush on exam (8) Anemia: - Hgb stable and slowly staying lower with time; no indication for transfusion at this time - Ferrous sulfate 325 mg BID. - Continue to monitor (9) Hypertension: - Continue Lisinopril 10 mg daily as prescribed. (10) Type II diabetes mellitus: - Hgb A1C was 6.6 - Increasing readings with Decadron - will use Lantus 10 units SC BID and SSI - now that steroids are reducing may not need as aggressive of coverage -- Getting better control, no sugars higher than 219 today hyperglycemia today after eating some candy, glucose > 400 gave Lantus early at increased dose of 20, tightened coverage resume Lantus 10 units BID in the morning (11) Malnutrition related to chronic disease: - Hypoalbuminemia in setting of metastatic cancer; BMI of 17. - Encourage diet as tolerated. (12) DVT prophylaxis: - Hold in setting of brain metastasis Dispo: [facility] on 05/24 Spent 35 minutes in management of patient. Subjective Patient sitting in chair, feeling fine. She states her rectal pain is better controlled. Eating well, ostomy functioning normally Constitutional: + fatigue and + weakness; no fever and no chills Cardiovascular: + lightheadedness; no chest pain, no palpitations and no edema Gastrointestinal: + diarrhea/loose stools (colostomy) and + problem reported (Rectal pain); no abdominal pain, no nausea, no vomiting and no constipation Musculoskeletal: + body aches Neurologic: + dizziness Physical Exam Vital Signs (Past 24 Hours): Last Vital Signs Temp 36.8 C 05/23/18 15:52 Pulse 98 H 05/23/18 15:52 Resp 18 05/23/18 11:04 BP 114/64 05/23/18 15:52 Pulse Ox 97 05/23/18 15:52 Physical Exam: Constitutional: WD/WN, vitals as above Eyes: PERRL, conjunctivae normal, anicteric sclerae ENMT: external ear and nose normal, oropharynx normal Neck: trachea midline, no thyromegaly Respiratory: normal respiratory effort, lungs clear to auscultation Cardiovascular: RRR, no murmur, no edema Gastrointestinal (Abdomen): normal bowel sounds, soft, nontender, no hepato splenomegaly Inspection/Auscultation: abdomen normal to inspection; abdomen not distended and abdomen soft; no abdominal mass Musculoskeletal: no cyanosis or clubbing, extremities motor strength 5/5 Skin: no rashes, warm and dry Neurologic: patellar DTR's 2+ bilat, sensation intact and PERRL, EOMI, accommodation nl, no face palsy, no dysarthria Psychiatric: Orientation: alert and oriented x 3 Affect: + flat affect Lymphatic: no cervical or axillary lymphadenopathy (1) Hypertension Hypertension type: essential hypertension Qualified Code(s): I10 - Essential (primary) hypertension
[2018-05-24] MEDS: GABAPENTIN 600 MG TAB PO SCH ×2 (07:55→14:07)
[2018-05-24] MEDS: METHADONE HCL 5 MG TAB PO SCH ×2 (07:55→14:07)
[2018-05-24] MEDS: PANTOprazole 40 MG TAB PO SCH (07:56)
[2018-05-24] MEDS: LISINOPRIL 10 MG TAB PO SCH (07:56)
[2018-05-24] MEDS: dexAMETHasone 4 MG TAB PO SCH (07:56)
[2018-05-24] MEDS: FERROUS SULFATE 325 MG TAB PO SCH (07:56)
[2018-05-24] MEDS: INSULIN GLARGINE SOLOSTAR 100 UNITS/ML 3 ML PEN SC SCH (07:57)
[2018-05-24] MEDS: INSULIN ASPART 100 UNITS/ML 3 ML PEN SC SCH ×2 (08:34→12:43)
[2018-05-24] MEDS: HEPARIN 100 UNIT/ML 5ML FLUSH FLUSH PRN (08:37)
--- NOTE | 2018-05-24 15:45 | Palliative Care Progress Note ---
Date of Service May 24, 2018 Assessment & Plan (1) Palliative care encounter: Patient is a 62-year-old female who was diagnosed with 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 Patient has been under the care of Dr. Crowe for medical oncology. Patient seen in [place] in Feb and required a redo of her colostomy and formation of a mucous fistula-she was discharged on February 26. Patient was last seen during her last hospital stay on 04/25 for hyperkalemia and dehydration. She had a CT of the head showed significant frontal sinusitis, she had some AMS and had an MRI that showed to lesions not seen on CT scans. She had a 7mm peripheral L parietal lesion as well as a 4mm R posterior parietal lesion - not known if these are new lesions as this was her first MRI. Subsequent CT's have not shown any brain lesions. Pt was seen in outpt clinic on 05/12 for increased rectal pain. Pt's methadone was increased from 10 mg BID to 10 mg TID -pain not well controlled-increased methadone to 20 mg twice daily and decreased her prn oxycodone to 2.5 mg - Patient prefers to go back to her methadone at 10 mg 3 times daily-Pain adequately controlled at current dose Pt reports on exam that pain is better this a.m., discussed that her Neurontin may be contributing to her "fogginess". -Stage IV rectal cancer-follows with Dr. Yogesh Crowe -Cancer related pain- methadone to 10 mg TID, cont as needed oxycodone dose to 2.5 mg, cont Neurontin at home dose of 600 mg TID -Poor appetite-imporved - ate 2 sandwiches for dinner last pm- continue Decadron 4 mg QD -Anemia-on iron, baseline hgb 8.3 -Dizziness- suspect dehydration - BUN 51 on admission, improved with IV hydration Re-addressed patient's CODE STATUS - no mechanical ventilation, does want chest compressions and shock. Will discuss short-term rehab with patient to see if she is interested, patient has hired caregivers in the home-discussed increasing their hours if she goes home instead of rehab. (2) Rectal pain: Methadone - cont 10 mg TID, cont as needed oxycodone to 2.5 mg Cont Neurontin from 600 mg TID (3) Dizziness: Likely due to to dehydration-patient received IV fluids-BUN improving, Patient continuing to push p.o. fluid intake (4) Fall at home: Likely due to weakness, dizziness and dehydration Plan for rehab at SNF (5) Malnutrition related to chronic disease: Patient on Decadron 4 mg daily to stimulate appetite as well as feeling of well-being Patient's p.o. intake is increasing (6) Dehydration: Likely the cause of her dizziness, weakness and fall-continue hydration Pt increasing her PO fluid intake (7) Primary cancer of rectum with metastasis from rectum to other site: Further chemo per oncology Subjective Patient awake and alert, appears much brighter and alert than on prior exams. Patient reports her pain control is adequate-she has not required any as needed oxycodone since 03/24 at 1558 Patient states her appetite has improved-asked for a second sandwich for dinner last evening Review of Systems Patient denies fever, chills, chest pain, increased shortness of breath, or GI issues. Patient's lower extremity edema is slowly improving Physical Exam Vital Signs (Past 24 Hours): Last Vital Signs Temp 37.0 C 05/24/18 14:39 Pulse 90 05/24/18 14:39 Resp 18 05/24/18 14:39 BP 106/69 05/24/18 14:39 Pulse Ox 94 05/24/18 14:39 Physical Exam: PE: Awake alert, brighter than on prior exam, no acute distress HEENT: EOMI, hearing within normal limits Respiratory: Clear breath sounds bilaterally, respirations unlabored, on room air with adequate saturations CV: Regular rate, edema improving-pitting edema to just above mid rice bilaterally Abdomen: Soft, nontender Extremities: Generalized weakness, full range of motion Neuro: Alert and oriented x4 Psych: Appropriate mood Time Spent Attending Total time spent 35 minutes with greater than 50% of the time spent at bedside discussing patient's treatment plan, answering all questions and concerns regarding medications at rehab, address goals of care-patient hopes to continue chemo
--- NOTE | 2018-05-27 08:00 | Discharge Summary ---
Date of Service May 24, 2018 Admission HPI Per Admitting Provider 62 y/o F Hx metastatic rectal CA with mets to liver, lungs and brain, chronic pain, HTN,anemia, diet-controlled DM. Presenting with worsening rectal pain and peripheral paresthesias which may be related to her chemotherapy. She also c/o dysuria, generalized weakness, a poor appetite and lower extremity edema. She states that 3 days prior, she fell and suffered trauma to the back of her neck as well. A CT of the cervical spine did not demonstrate any acute findings. Initial labs are notable for a marginally elevated troponin. She denies CP or SOB and her EKG does not support acute ischemia. The pt was recently placed on Methadone after having been tapered off Fentanyl. PMH: 1) Colorectal CA - resection and colostomy, chemo, XRT - she was receiving Iranotecan late 2017 and is now being treated with Xeloda. She has metastases to liver, lung an brain. 2) Chronic rectal pain which has been severe and difficult to control. 3) HTN 4) DM II - recent A1C of 6.6. She is not being treated for this presently 5) Anemia of chronic disease 6) Obstructive renal calculi Surgical: Rectosigmoidectomy, colostomy and revision Social: Quit smoking 2009, occasional ETOH Family: Noncontributory Principal Diagnosis Fall secondary to deconditioning, metastatic cancer Discharge Exam Constitutional: WD/WN, vitals as above Eyes: PERRL, conjunctivae normal, anicteric sclerae ENMT: external ear and nose normal, oropharynx normal Neck: trachea midline, no thyromegaly Respiratory: normal respiratory effort, lungs clear to auscultation Cardiovascular: RRR, no murmur, no edema Gastrointestinal (Abdomen): normal bowel sounds, soft, nontender, no hepatosplenomegaly Inspection/Auscultation: abdomen normal to inspection; abdomen not distended and abdomen soft; no abdominal mass Musculoskeletal: no cyanosis or clubbing, extremities motor strength 5/5 Skin: no rashes, warm and dry Neurologic: patellar DTR's 2+ bilat, sensation intact and PERRL, EOMI, accommodation nl, no face palsy, no dysarthria Psychiatric: Orientation: alert and oriented x 3 Affect: + flat affect Lymphatic: no cervical or axillary lymphadenopathy Discharge Data Allergies Allergy/AdvReac Type Severity Reaction Status Date / Time Sulfa (Sulfonamide Allergy Intermediate RASH Verified 05/27/18 06:44 Antibiotics) codeine AdvReac Intermediate DIZZINESS Verified 05/27/18 06:44 Consultations 05/14/18 21:30 ED Decision to Admit Stat 05/15/18 09:09 Consult Palliative Care Routine 05/16/18 12:33 Consult Oncology Routine Ordered Studies 05/14/18 17:25 CT abd pelvis IV con only Stat CT cervical spine wo con Stat CT facial bones wo con Stat CT head/brain wo con Stat Hospital Course (1) Fall at home: - Likely multifactorial between deconditioning/metastatic cancer/chemotherapy/poor appetite - No acute fractures identified - PT/OT - appreciate ongoing assessment for mobility and strength training while in-house plan for [facility] on Wednesday 05/24 for subacute rehab (2) Rectal pain: - In setting of metastatic rectal cancer; acute on chronic issue - Follows with palliative care; increase methadone to 20 mg BID on 05/19; Will reduce Oxycodone to 2.5 mg PRN as the methadone should make the effectiveness higher (maybe will help reduce the sedation?) still with some pain but refusing to try the Oxycodone for breakthrough -- Unfortunately pain has been tough to control without sedation and could be worsened by also being on Gabapentin? A good balance has been tough to develop - Gabapentin reduced to 500mg morning and lunch and then 600mg qHS, tolerating this dose well - d/w Dr. Davis on 05/24, appreciate her input -Stage IV rectal cancer-follows with Dr. Yogesh Crowe -Cancer related pain- methadone to 10 mg TID, cont as needed oxycodone dose to 2.5 mg, cont Neurontin at home dose of 600 mg TID -Poor appetite-imporved - ate 2 sandwiches for dinner last pm- continue Decadron 4 mg QD -Anemia-on iron, baseline hgb 8.3 -Dizziness- suspect dehydration - BUN 51 on admission, improved with IV hydration Re-addressed patient's CODE STATUS - no mechanical ventilation, does want chest compressions and shock. Will discuss short-term rehab with patient to see if she is interested, patient has hired caregivers in the home-discussed increasing their hours if she goes home instead of rehab. (3) Leg paresthesia: - May be related to Xeloda therapy; was due for chemotherapy on 4/1 - Consultation placed for Oncology with Dr. Crowe - appreciate input or further recommendations no treatment at this time (4) Elevated troponin: - Trop peaked at 0.06 and trending down; no cardiac complaints given - maybe stress induced/chemo-induced? given such mild leak of troponin? 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 Crowe at [facility]. - Imaging at admission showed increase in rectal mass, increase in hepatic lobe mass, left adrenal mass suggestive of metastasis -- has progression of disease. - Was being tapered on Decadron - she does have dizziness which could be pain medication induced vs maybe a component of adrenal insufficiency given adrenal mass (unlikely)? - Will reduce the Decadron down to daily use and monitor for intolerance tolerating once a day Decadron for time being discussed MRI of the brain, she refuses at this time (7) Thrush: - Fluconazole 100 mg daily complete no thrush on exam (8) Anemia: - Hgb stable and slowly staying lower with time; no indication for transfusion at this time - Ferrous sulfate 325 mg BID. - Continue to monitor (9) Hypertension: - Continue Lisinopril 10 mg daily as prescribed. (10) Type II diabetes mellitus: - Hgb A1C was 6.6 - Increasing readings with Decadron - will use Lantus 10 units SC BID and SSI - now that steroids are reducing may not need as aggressive of coverage -- Getting better control, no sugars higher than 219 today hyperglycemia today after eating some candy, glucose > 400 gave Lantus early at increased dose of 20, tightened coverage resume Lantus 10 units BID in the morning (11) Malnutrition related to chronic disease: - Hypoalbuminemia in setting of metastatic cancer; BMI of 17. - Encourage diet as tolerated. (12) DVT prophylaxis: - Hold in setting of brain metastasis Dispo: [facility] on 05/24 Total Time Total Time Spent Total Time Spent (In Minutes): 31 Total Time Includes: Examination of the Patient, Discharge Planning, Medication Reconciliation and Communication With Other Providers Discharge Plan Discharge Items Patient Disposition: Transfer Inpatient Rehab Fac Reason For Visit: RECTAL PAIN,NUMBNESS IN EXTREMITIES,ELEVATED TROP. Discharge Diagnosis: Rectal pain Discharge Goals: Decrease discomfort and Diagnostic testing Activity: Resume your previous activity Non-emergency contact: Primary Care Provider Call non-emergency contact if: you have any medication questions Follow-up/Referrals: Marylu Ojeda MD [Primary Care Provider] - Diet: Regular Addtl Provider Instructions: Followup with PCP in 1-2 weeks. Prescriptions: New Lantus Solostar U-100 Insulin 100 unit/mL (3 mL) Insulin Pen 10 unit SC BID Qty: 3 RF: 0 Continued gabapentin 600 mg tablet 600 mg PO TID RF: 0 polyethylene glycol 3350 [Miralax] 17 gram/dose Powder 17 g PO DAILY PRN (Reason: Constipation) RF: 0 lisinopril 10 mg tablet 10 mg PO QAM RF: 0 pantoprazole 40 mg Tablet,Delayed Release (Dr/Ec) 40 mg PO BID Qty: 60 RF: 2 ferrous sulfate 325 mg (65 mg iron) tablet 325 mg PO BID Qty: 60 RF: 1 prochlorperazine maleate [Compazine] 10 mg tablet 10 mg PO Q8H PRN (Reason: nausea and vomiting) Qty: 10 RF: 0 dexamethasone [Decadron] 4 mg tablet 4 mg PO QAM RF: 0 Discontinued oxycodone 5 mg Tablet 5 mg PO Q8H PRN (Reason: pain) Qty: 30 RF: 0 methadone 10 mg tablet 10 mg PO Q12H Qty: 60 RF: 0 No Action acetaminophen [Tylenol] 325 mg Tablet 650 mg PO Q6H MDD 3 GRAMS/24 HOURS PRN (Reason: FEVER >101 OR PAIN) RF: 0 ertapenem [Invanz] 1 gram Recon Soln 1 g IM DAILY RF: 0 oxycodone 10 mg Tablet 5 mg PO Q4 PRN (Reason: Pain) RF: 0 methadone 5 mg tablet 10 mg PO QID RF: 0 Stand-Alone Forms: [facility] Discharge Orders: Discharge Order (Routine); Ordered 05/24/18 Ordered By: Chase Sharp Skilled Items Patient informed of condition?: Yes DNR: Yes (full code with chest compressions and shock/ no mechanical ventilation) Discharge Level of Care: Acute rehab Communicable Disease: Yes Discharge Prognosis: Stable Admission Data Admit Date/Time: 05/14/18 22:10 Attending Provider: Chase Sharp Admit Provider: Sharad Handley Primary Care Provider: Marylu Ojeda Other Providers: Yogesh Crowe ; Sharad Handley ; April Rodriguez ; Home,Nursing Agency Service: Medical Other Interventions: Discharge Summary Assessment (RN) Last Done: 05/24/18 14:39 DC Date/Time DO NOT enter until pt leaves facility: 05/24/18 16:58
== END 2018-05-24 16:58 | DRG 375 ==
LOC: ED 16:36 → SUATTDRO 22:10 → 2S 22:10 → 2E 05-16 22:56 → 4E 05-17 14:24
DX: Z68.1 Body mass index [BMI] 19.9 or less, adult; E11.9 Type 2 diabetes mellitus without complications; K62.89 Other specified diseases of anus and rectum; N39.0 Urinary tract infection, site not specified; I10 Essential (primary) hypertension; Z88.5 Allergy status to narcotic agent; D64.9 Anemia, unspecified; C78.7 Secondary malignant neoplasm of liver and intrahepatic bile duct; B37.9 Candidiasis, unspecified; C20 Malignant neoplasm of rectum; Z82.3 Family history of stroke; R20.2 Paresthesia of skin; Z51.5 Encounter for palliative care; G89.4 Chronic pain syndrome; Z88.2 Allergy status to sulfonamides; E88.09 Other disorders of plasma-protein metabolism, not elsewhere classified; E86.0 Dehydration; Z87.891 Personal history of nicotine dependence; E46 Unspecified protein-calorie malnutrition; Z85.038 Personal history of other malignant neoplasm of large intestine; C79.31 Secondary malignant neoplasm of brain; Z93.3 Colostomy status; C78.00 Secondary malignant neoplasm of unspecified lung; G89.3 Neoplasm related pain (acute) (chronic)

== ENCOUNTER 2018-05-27 06:09 | Inpatient (IN) ==
[2018-05-27] MEDS ORDERED: SODIUM CHLORIDE 0.9% 250 ML IV PRN ×2 (06:30→07:21)
[2018-05-27] MEDS ORDERED: SODIUM CHLORIDE 0.9% 1000ML 2,000 ML IV SCH (06:30)
--- NOTE | 2018-05-27 06:47 | XRay Report ---
XR chest 1V portable HISTORY: 62 years-old Female hypotension acute hypotension COMPARISON: Chest radiographs 05/14/2018 TECHNIQUE: Portable AP view of the chest FINDINGS: Left subclavian [id number] catheter appears unchanged. Mild biapical pleural-parenchymal scarring. No pneumothorax, pleural effusion or overt pulmonary edema. Mild bilateral interstitial coarsening i s stable. Unchanged mild right hemidiaphragmatic elevation. Degenerative changes of the shoulders and spine. IMPRESSION: No acute process. The above report was generated using voice recognition software. It may contain grammatical, syntax o r spelling errors. Electronically signed by: Terrance Bee M.D. 05/27/2018 6:46 AM
[2018-05-27 06:49] LABS: Albumin Level 1.7 gm/dl (3.4-5.0); BUN Creatinine Ratio 30.5 (10-20); Calcium 8.5 mg/dl (8.5-10.1); Creatinine Clr Calc Pharmacy 34.2 ml/min; Est GFR (African American) 42.6; Est GFR (Non-African American) 36.7; Potassium 5.4 mmol/L (3.5-5.1)
[2018-05-27] MEDS ORDERED: DEXTROSE 50% 50 ML SYRINGE IV ONE (06:52)
[2018-05-27 06:53] LABS: Albumin Globulin Ratio 0.4 (0.9-2); Bilirubin,Total 1.3 mg/dl (0.2-1); Globulin 4.2 gm/dl (2.5-4.0); Total Protein 5.9 gm/dl (6.4-8.2); Troponin I 0.041 ng/ml (0-0.045)
[2018-05-27] MEDS ORDERED: HYDROCORTISONE SOD SUCCINATE 100 MG/2 ML VIAL IV STA (07:11)
[2018-05-27 07:14] LABS: ALC (manual) 0.97 K/uL (1.2-3.4); Hematocrit (blood only) 26.2 % (37-47); Hemoglobin 8.2 g/dL (12.0-16.0); Lymphocytes # (manual) 0.97 K/uL (1.2-3.4); Lymphocytes % (manual) 10.4 %; Mean Corpuscular Hgb Conc 31.3 g/dL (32-36); Mean Corpuscular Volume 91.9 fL (80-100); Mean Platelet Volume 10.3 fL (7.4-10.4); Metamyelocytes # (manual) 0.89 K/uL (0-0); Metamyelocytes % (manual) 9.6 %; Monocytes # (manual) 0.16 K/uL (0.11-0.59); Monocytes % (manual) 1.7 %; Myelocytes # (manual) 0.08 K/uL (0-0); Myelocytes % (manual) 0.9 %; Neutrophils % (manual) 77.4 %; Nucleated RBC # (auto) 0.15 K/uL (0-0); Nucleated RBC % (auto) 1.7 %; Platelet Count 75 K/uL (130-400); Platelet Estimate Decreased (Normal); RDW Coefficient of Variation 19.4 % (11.5-14.5); RDW Standard Deviation 64.6 fL (36.4-46.3); Red Blood Count 2.85 M/uL (4.2-5.4); Toxic Granulation 1+; Toxic Vacuolation 1+; White Blood Count 9.28 K/uL (4.8-10.8)
[2018-05-27 07:25] LABS: Appearance Urine Turbid (Clear); Bacteria Urine Automated 1+ (Negative); Bilirubin Urine Negative (Negative); Blood Urine 3+ (Negative); Color Urine Dark Yellow; Epithelial Cell Urine Auto >30 /lpf (0-5); Glucose Urine UA 3+ (Negative); Ketones Urine Negative (Negative); Leukocyte Esterase Urine 1+ (Negative); Nitrite Urine Negative (Negative); Protein Urine 1+ (Negative); Specific Gravity Urine 1.022 (1.000-1.030); Urobilinogen Urine Negative (Negative); WBC Urine Automated >30 /hpf (0-5)
--- NOTE | 2018-05-27 07:29 | CT Scan Report ---
CT head/brain wo con CLINICAL HISTORY: fevers, hypotension, metastatic disease COMPARISON STUDY: 05/14/2018 TECHNIQUE: Axial CT of the brain is performed from the vertex to the skull base. IV contrast was not administered for this examination. A dose lowering technique was utilized adhering to the principles of ALARA. CT DOSE: 537.48 mGy.cm FINDINGS: No intra or extra-axial mass lesions are visualized. There is no CT evidence of acute cortical infarc tion. There is no evidence of midline shift. There is no acute hemorrhage. No calvarial fractures ar e visualized. There are patchy white matter hypodensities likely on a small vessel basis. There is no evidence of pathologic ventricular dilatation. There is no evidence of acute sinusitis IMPRESSION: No acute intracranial findings Electronically signed by: Roberth Banuelos M.D. 05/27/2018 7:28 AM
[2018-05-27] MEDS ORDERED: PIPERACILLIN/TAZOBACTAM 4.5 GM/120 ML BAG IV ONE (07:39)
[2018-05-27] MEDS ORDERED: VANCOMYCIN CONSULT ACTIVE PRN (07:39)
[2018-05-27] MEDS ORDERED: VANCOMYCIN HCL 1,250 MG in SODIUM CHLORIDE 0.9% 500 ML IV ONE (07:39)
[2018-05-27] MEDS ORDERED: FAMOTIDINE 20MG/5ML IV PUSH IV STA (07:40)
--- NOTE | 2018-05-27 07:47 | CT Scan Report ---
CT SCAN OF THE ABDOMEN AND PELVIS WITHOUT CONTRAST CLINICAL HISTORY: fevers, hypotension, metastatic disease COMPARISON STUDY: 05/14/2018 TECHNIQUE: CT scan of the abdomen and pelvis was performed from the lung bases to the proximal femurs . Images are reviewed in the axial, sagittal, and coronal planes. IV contrast was not administered fo r this examination. A dose lowering technique was utilized adhering to the principles of ALARA. CT DOSE: FINDINGS: Lower chest: There is respiratory motion artifact. There are by basilar dependent airspace opacities. Although likely atelectatic, an inflammatory process could appear similar. There are subcentimeter l ower lobe pulmonary nodules suspicious for metastatic disease. Liver: The previously identified hepatic metastasis are difficult to visualize on this noncontrast st udy Gallbladder: Unremarkable. Spleen: Normal in size and attenuation. Pancreas: Unremarkable. Adrenal glands: There is a stable 28 mm left adrenal gland mass. Kidneys: There is bilateral hydronephrosis. There are nonobstructing lower pole left renal calculi. N o ureteral calculi are visualized. Bowel: There are no transition zones indicate bowel obstruction. There is a left-sided diverting colo stomy. There is a right-sided ileostomy. There is a 9 cm necrotic rectal mass. Peritoneum: There is no intraperitoneal free air or abdominal ascites. Vasculature: The abdominal aorta is normal in course and caliber. Adenopathy: None. Pelvic viscera: There is a 11 cm necrotic pelvic mass, centered on the rectal region. Skeletal structures: No destructive osseous lesions are seen. IMPRESSION: 1. Examination limited due to the lack of intravenous and oral contrast 2. Lower lobe pulmonary nodules suspicious for metastatic disease 3. Dependent basilar airspace opacities likely atelectatic although an inflammatory process could zoe ear similar 4. The previously identified hepatic metastasis are difficult to visualize on this study performed wi thout intravenous contrast 5. Progressive moderate bilateral hydronephrosis, likely secondary to the large necrotic pelvic mass 6. Nonobstructing lower pole left renal calculi 7. 11 cm necrotic pelvic mass centered on the rectum with suspected vaginal invasion. 8. 28 mm left adrenal mass Electronically signed by: Roberth Banuelos M.D. 05/27/2018 7:46 AM
--- NOTE | 2018-05-27 07:51 | CT Scan Report ---
CT chest wo con CT DOSE: 529.09 mGy.cm CLINICAL HISTORY: 62 years-old Female with fevers, hypotension, metastatic disease. Acute fever with hypotension and history of rectal adenocarcinoma with metastatic disease TECHNIQUE: Multiaxial CT images of the chest were performed without contrast. A dose lowering techni que was utilized adhering to the principles of ALARA. COMPARISON: CT abdomen and pelvis of same day and also 05/14/2018, chest CT 06/04/2016. FINDINGS: Heterogeneous thyroid. Evaluation for adenopathy is limited without the use of IV contrast. Calcified subcarinal lymph nodes compatible with prior granulomatous disease. Heart is normal in size with tra ce pericardial effusion. Slightly decreased attenuation of the cardiac blood pool may reflect underly ing anemia. Left subclavian [id number]-Lcit catheter distal tip terminates about the inferior aspect of the SVC. Coronary arterial calcifications are noted. No thoracic aortic aneurysm. Unopacified pulmon delmi artery appears unremarkable. No pneumothorax or definite pleural effusion. Biapical pleural-parenchymal scarring. Segmental bibasi lar predominant groundglass and consolidative opacities are noted. Bilateral pulmonary nodules are no artemio measuring up to 9 mm within the basal left lower lobe on image 192 series 6. The size and number of the bibasilar pulmonary nodules appears increased from 05/14/2018. 5 mm pulmonary nodule of left up per lobe on image 77 series 6. No overt pulmonary edema. The central airways appear patent. Scattered calcified granulomata about the liver and spleen. Previous described hepatic lesions are be tter seen on comparison contrast-enhanced study. Partially imaged left adrenal gland mass. Breast par enchyma and soft tissues appear unremarkable. No suspicious bone lesions identified to suggest osseou s metastasis. Degenerative changes of the shoulders and spine. IMPRESSION: 1. Bibasilar predominant distribution of groundglass and consolidative opacities suggest atelectasis admixed with pneumonia or aspiration pneumonitis. 2. Multiple bilateral solid pulmonary nodules measuring up to 9 mm within the left lower lobe are sug gestive of pulmonary metastasis. 3. Prior granulomatous disease. 4. Additional findings as above. Electronically signed by: Terrance Bee M.D. 05/27/2018 7:50 AM
[2018-05-27] MEDS ORDERED: SODIUM CHLORIDE 0.9% 1000ML 500 ML IV ONE (08:05)
[2018-05-27 08:15] LABS: RBC Urine Automated >30 /hpf (0-4)
--- NOTE | 2018-05-27 08:17 | Emergency Department Note ---
Entered by Randa Mata acting as a scribe for History of Present Illness General Chief complaint: Hypotension Stated complaint: LOW BLOOD PRESSURE Time Seen by Provider: 05/27/18 06:35 Source: patient Mode of arrival: EMS Limitations: no limitations History of Present Illness Provider complaint: Hypotension Onset (ago): hour(s) (this morning) Pain Consistency: + other (worsening) Quality: + other (hypotension) Associated symptoms: + fever/chills Treatments prior to arrival: none The patient is a 62 year old female with a history of rectal cancer and an ostomy placed in February who presents to the Emergency Room with complaints of worsening hypotension starting this morning. The patient reports that her blood pressure is sometimes low but that, EMS report, patient was "passing clots" this morning. The patient also complains of chills throughout the night. The patient was in the hospital a few days ago, and the patient states that she currently feels better than when she was discharged. The patient notes that she lives at a intermediate. Home Medications Home Medications Medication Instructions Recorded Confirmed Type gabapentin 600 mg PO TID 10/24/17 05/27/18 History polyethylene glycol 3350 [Miralax] 17 g PO DAILY PRN 10/24/17 05/27/18 History ferrous sulfate 325 mg PO BID #60 tab 04/10/18 05/27/18 Rx pantoprazole 40 mg PO BID #60 tab 04/10/18 05/27/18 Rx lisinopril 10 mg PO QAM 04/23/18 05/27/18 History prochlorperazine maleate 10 mg PO Q8H PRN #10 tab 04/30/18 05/27/18 Rx [Compazine] dexamethasone [Decadron] 4 mg PO QAM 05/14/18 05/27/18 History insulin glargine [Lantus Solostar 10 unit SC BID #3 ml 05/24/18 05/27/18 Rx U-100 Insulin] acetaminophen [Tylenol] 650 mg PO Q6H PRN MDD 3 GRAMS/05/27/18 05/27/18 History HOURS ertapenem [Invanz] 1 g IM DAILY 05/27/18 05/27/18 History methadone 10 mg PO QID 05/27/18 05/27/18 History oxycodone 5 mg PO Q4 PRN 05/27/18 05/27/18 History Allergies Allergy/AdvReac Type Severity Reaction Status Date / Time Sulfa (Sulfonamide Allergy Intermediate RASH Verified 05/27/18 06:44 Antibiotics) codeine AdvReac Intermediate DIZZINESS Verified 05/27/18 06:44 Past Med/Surg History Medical History Acute blood loss anemia Nausea & vomiting Cellulitis of helix of right ear DVT prophylaxis Hydronephrosis Chronic pain syndrome Gastritis Pyelonephritis Adenocarcinoma of rectum, stage 4 (Chronic) Intractable epigastric abdominal pain (Acute) Dehydration (Acute) Infection due to Clostridium septicum Bacteremia Rectal bleeding (Acute) Metastatic disease (Acute) Hypertension (Chronic) UTI (urinary tract infection) GI bleed Mitral valve prolapse (Resolved) Heart murmur (Resolved) History of colon cancer (Chronic) Hypokalemia (Resolved) Left ureteral calculus (Resolved) Rectal adenocarcinoma (Chronic 05/15/16) "6 months of intermittent rectal pain and bleeding Status post colonoscopy and biopsy 05/15/2016 (Dr. Jorge L Benavides) Adenocarcinoma Status post EUS staging 05/18/2016 (Dr. New Jack) Stage uT3 uN1 Plan for combined neoadjuvant radiation and chemotherapy (Dr. Yogesh Crowe) Chemotherapy comprised of Xeloda Status post completion of radiation therapy 07/30/2016. She received 5040 cGy. Status post abdominal perineal resection 09/29/2016. Stage pT3 [id number] Has received 7 of 12 cycles of FOLFOX chemotherapy" On 08/10/16 16:27 Barbra Thapa wrote "6 months of intermittent rectal pain and bleeding Status post colonoscopy and biopsy 05/15/2016 (Dr. Jorge L Benavides) Adenocarcinoma Status post EUS staging 05/18/2016 (Dr. New Jack) Stage uT3 uN1 Plan for combined neoadjuvant radiation and chemotherapy (Dr. Yogesh Crowe) Chemotherapy comprised of Xeloda Status post completion of radiation therapy 07/30/2016. She received 5040 cGy." On 06/02/16 09:48 Barbra Thapa wrote "6 months of intermittent rectal pain and bleeding Status post colonoscopy and biopsy 05/15/2016 (Dr. Jorge L Benavides) Adenocarcinoma Status post EUS staging 05/18/2016 (Dr. New Jack) Stage uT3 uN1 Plan for combined radiation and chemotherapy (Dr. Yogesh Crowe) Chemotherapy comprised of Xeloda " Symptomatic anemia (Resolved) Acute UTI (urinary tract infection) (Inactive) Complication of ostomy (Inactive) Diarrhea (Inactive) Mass of perirectal soft tissue (Inactive) Port-A-Cath in place Surgical History Colostomy present (Chronic) x 2; recreation of colostomy due to fistula Family History Mother , age 93 Stroke Father , age 79 COPD (chronic obstructive pulmonary disease) Other No significant family history Social History Preferred Language: Mongolian Communication Ability: Effective Beliefs That Will Affect Care: None marital status: Current Living Situation: Longterm current occupational status: retired current occupation: [employer] work Feels Safe at Home: Yes Smoking Status: Former smoker Hx Alcohol Use: Yes Hx Substance Use: No Review of Systems See HPI for pertinent positives & negatives. and A total of 10 systems reviewed and were otherwise negative Physical Exam Vital Signs Vital Signs - 24 hr 05/27/18 06:13 05/27/18 06:51 05/27/18 07:13 Temperature 36.4 C L 36.4 C L Temperature Source Oral Oral Sepsis Recent Fever Within 48 Hours No Sepsis New/Unexplained Change in Mental Status No Sepsis Action Taken by Nursing No Action Required Pulse Rate 76 Pulse Rate [Apical] 93 H 93 H Pulse Rhythm Regular Pulse Rhythm [Apical] Regular Pulse Strength Normal Pulse Strength [Apical] Normal Respiratory Rate 16 17 18 Respiratory Effort / Characteristics Non-Labored Spontaneous Non-Labored Spontaneous Non-Labored Spontaneous Respiratory Depth Normal Normal Respiratory Pattern Regular Regular Blood Pressure 84/51 L Blood Pressure [Left Arm] 77/46 L 89/53 L Blood Pressure Mean 62 Blood Pressure Mean [Left Arm] 56 65 Blood Pressure Position Lying Blood Pressure Position [Left Arm] Lying Pulse Oximetry 95 100 95 Oxygen Delivery Method Room Air Nasal Cannula Nasal Cannula Oxygen Flow Rate 3 2 05/27/18 07:35 05/27/18 08:04 05/27/18 08:10 Temperature Temperature Source Sepsis Recent Fever Within 48 Hours Sepsis New/Unexplained Change in Mental Status Sepsis Action Taken by Nursing Pulse Rate Pulse Rate [Apical] 94 H 96 H Pulse Rhythm Pulse Rhythm [Apical] Pulse Strength Pulse Strength [Apical] Respiratory Rate 20 20 Respiratory Effort / Characteristics Spontaneous Spontaneous SOB on Exertion Respiratory Depth Normal Respiratory Pattern Regular Blood Pressure Blood Pressure [Left Arm] 85/55 L 82/51 L Blood Pressure Mean Blood Pressure Mean [Left Arm] 65 61 Blood Pressure Position Blood Pressure Position [Left Arm] Pulse Oximetry 100 96 Oxygen Delivery Method Nasal Cannula Nasal Cannula Nasal Cannula Oxygen Flow Rate 2 2 2 05/27/18 08:37 05/27/18 08:54 05/27/18 09:09 Temperature 36.8 C 36.7 C 36.6 C Temperature Source Oral Oral Oral Sepsis Recent Fever Within 48 Hours Sepsis New/Unexplained Change in Mental Status Sepsis Action Taken by Nursing Pulse Rate 88 87 85 Pulse Rate [Apical] Pulse Rhythm Pulse Rhythm [Apical] Pulse Strength Pulse Strength [Apical] Respiratory Rate 14 18 16 Respiratory Effort / Characteristics Respiratory Depth Respiratory Pattern Blood Pressure 83/58 L 88/51 L 81/49 L Blood Pressure [Left Arm] Blood Pressure Mean 66 63 59 Blood Pressure Mean [Left Arm] Blood Pressure Position Blood Pressure Position [Left Arm] Pulse Oximetry 100 100 100 Oxygen Delivery Method Oxygen Flow Rate 2 2 05/27/18 09:29 05/27/18 09:50 05/27/18 10:06 Temperature 36.5 C 36.4 C L Temperature Source Oral Axillary Sepsis Recent Fever Within 48 Hours Sepsis New/Unexplained Change in Mental Status Sepsis Action Taken by Nursing Pulse Rate 81 82 Pulse Rate [Apical] 82 Pulse Rhythm Regular Pulse Rhythm [Apical] Pulse Strength Weak Pulse Strength [Apical] Respiratory Rate 18 16 16 Respiratory Effort / Characteristics Respiratory Depth Respiratory Pattern Blood Pressure 80/49 L 81/52 L Blood Pressure [Left Arm] 68/40 L Blood Pressure Mean 59 61 Blood Pressure Mean [Left Arm] 49 Blood Pressure Position Lying Blood Pressure Position [Left Arm] Pulse Oximetry 98 99 100 Oxygen Delivery Method Nasal Cannula Oxygen Flow Rate 2 2 05/27/18 10:26 05/27/18 10:39 05/27/18 10:53 Temperature 36.2 C L 36.1 C L Temperature Source Axillary Axillary Sepsis Recent Fever Within 48 Hours Sepsis New/Unexplained Change in Mental Status Sepsis Action Taken by Nursing Pulse Rate 88 88 Pulse Rate [Apical] Pulse Rhythm Pulse Rhythm [Apical] Pulse Strength Pulse Strength [Apical] Respiratory Rate 14 15 Respiratory Effort / Characteristics Respiratory Depth Respiratory Pattern Blood Pressure 88/54 L 92/61 L Blood Pressure [Left Arm] 75/47 L Blood Pressure Mean 65 71 Blood Pressure Mean [Left Arm] 56 Blood Pressure Position Blood Pressure Position [Left Arm] Lying Pulse Oximetry 98 97 Oxygen Delivery Method Oxygen Flow Rate 05/27/18 12:00 05/27/18 17:06 05/27/18 20:00 Temperature Temperature Source Sepsis Recent Fever Within 48 Hours Sepsis New/Unexplained Change in Mental Status Sepsis Action Taken by Nursing Pulse Rate Pulse Rate [Apical] Pulse Rhythm Pulse Rhythm [Apical] Pulse Strength Pulse Strength [Apical] Respiratory Rate Respiratory Effort / Characteristics Non-Labored Spontaneous Non-Labored Respiratory Depth Normal Normal Respiratory Pattern Regular Blood Pressure Blood Pressure [Left Arm] Blood Pressure Mean Blood Pressure Mean [Left Arm] Blood Pressure Position Blood Pressure Position [Left Arm] Pulse Oximetry Oxygen Delivery Method Room Air Room Air Room Air Oxygen Flow Rate 05/27/18 23:30 Temperature Temperature Source Sepsis Recent Fever Within 48 Hours Sepsis New/Unexplained Change in Mental Status Sepsis Action Taken by Nursing Pulse Rate Pulse Rate [Apical] Pulse Rhythm Pulse Rhythm [Apical] Pulse Strength Pulse Strength [Apical] Respiratory Rate Respiratory Effort / Characteristics Non-Labored Spontaneous Respiratory Depth Normal Respiratory Pattern Regular Blood Pressure Blood Pressure [Left Arm] Blood Pressure Mean Blood Pressure Mean [Left Arm] Blood Pressure Position Blood Pressure Position [Left Arm] Pulse Oximetry Oxygen Delivery Method Room Air Oxygen Flow Rate GENERAL: Awake, alert, ill-appearing, in no distress HENT: Normocephalic, atraumatic. Oropharynx with dry mucous membranes and otherwise unremarkable. EYES: Normal conjunctiva. Sclera non-icteric. NECK: Supple. No nuchal rigidity. FROM. No JVD. RESPIRATORY: Scant rhonchi bilaterally. CARDIAC: Regular rate, normal rhythm. Extremities warm and well perfused. Pulses equal. ABDOMEN: Soft, non-distended. No tenderness to palpation. No rebound or guarding. No masses. Right lower quadrant ostomy site is clean, dry, and intact. RECTAL: Serous with scant sanguineous discharge. MUSCULOSKELETAL: Chest examination reveals no tenderness. The back is symmetrical on inspection without obvious abnormality. There is no CVA tenderness to palpation. No joint edema. LOWER EXTREMITIES: Calves are equal size bilaterally and non-tender. No edema. No discoloration. NEURO: Normal sensorium. No sensory or motor deficits noted. SKIN: No rash or jaundice noted. Skin is pale, cool, and clammy. Course 0639: The patient was evaluated in room A2. A complete history and physical exam was performed. 0755: Upon reevaluation, the patient is resting. I discussed the findings and the treatment plan with the patient. She expresses agreement and understanding. I spoke with Dr. Sharp of the [facility]. The patient will be evaluated for further management. Consultations Consultation #1: I spoke with Dr. Sharp of the [facility]. The patient will be evaluated for further management. Time: 07:55 Administered Medications Docusate Sodium (Colace) 100 mg PO BID SANDRA Stop: 06/26/18 10:05 Last Admin: 05/27/18 21:32 Dose: Not Given Documented by: [id number] Admin: 05/27/18 12:05 Dose: Not Given Documented by: [id number] Methadone HCl (Dolophine) 10 mg PO TID SANDRA Stop: 06/10/18 10:05 Last Admin: 05/27/18 21:32 Dose: 10 mg Documented by: [id number] Admin: 05/27/18 14:30 Dose: 10 mg Documented by: [id number] Admin: 05/27/18 12:05 Dose: Not Given Documented by: [id number] Discontinued Medications Dextrose (Dextrose 50%) 50 ml IV NOW ONE Stop: 05/27/18 06:53 Last Admin: 05/27/18 06:58 Dose: 50 ml Documented by: [id number] Famotidine (Pepcid 20mg Iv Push) 20 mg IV ONE STA Stop: 05/27/18 07:41 Last Admin: 05/27/18 07:46 Dose: 20 mg Documented by: [id number] Ferrous Sulfate (Feosol) 325 mg PO BID SANDRA Stop: 06/26/18 10:05 Last Admin: 05/27/18 14:32 Dose: Not Given Documented by: [id number] Gabapentin (Neurontin) 600 mg PO TID SANDRA Stop: 06/26/18 10:05 Last Admin: 05/27/18 14:32 Dose: Not Given Documented by: [id number] Heparin Sodium (Porcine) (Heparin Sodium (Porcine)) 5,000 units SQ Q12 SANDRA Stop: 06/26/18 11:14 Last Admin: 05/27/18 14:32 Dose: Not Given Documented by: [id number] Hydrocortisone Sodium Succinate (Solu-Cortef) 100 mg IV NOW STA Stop: 05/27/18 07:12 Last Admin: 05/27/18 07:17 Dose: 100 mg Documented by: [id number] Sodium Chloride (Nss 1000ml) 2,000 mls @ 999 mls/hr IV .Q2H1M SANDRA Stop: 05/27/18 08:30 Last Infusion: 05/27/18 08:51 Dose: 0 mls/hr Documented by: [id number] Admin: 05/27/18 06:49 Dose: 999 mls/hr Documented by: [id number] Vancomycin HCl 1,250 mg/ (Sodium Chloride) 525 mls @ 200 mls/hr IV NOW ONE Stop: 05/27/18 10:16 Last Infusion: 05/27/18 12:00 Dose: 0 mls/hr Documented by: [id number] Admin: 05/27/18 07:53 Dose: 200 mls/hr Documented by: [id number] Piperacillin Sod/Tazobactam Sod (Zosyn) 4.5 gm in 120 mls @ 30 mls/hr IV NOW ONE Stop: 05/27/18 11:38 Last Infusion: 05/27/18 08:40 Dose: 0 mls/hr Documented by: [id number] Infusion: 05/27/18 08:00 Dose: 200 mls/hr Documented by: [id number] Admin: 05/27/18 07:46 Dose: 30 mls/hr Documented by: [id number] Sodium Chloride (Nss 1000ml) 500 mls @ 999 mls/hr IV .Q31M ONE Stop: 05/27/18 08:35 Last Infusion: 05/27/18 08:40 Dose: 0 mls/hr Documented by: [id number] Admin: 05/27/18 08:09 Dose: 999 mls/hr Documented by: [id number] Sodium Chloride (Nss 1000ml) 1,000 mls @ 80 mls/hr IV .[id number] [facility] Stop: 06/26/18 10:29 Last Admin: 05/27/18 14:32 Dose: Not Given Documented by: [id number] Sodium Chloride (Nss 1000ml) 1,000 mls @ 999 mls/hr IV .Q1H1M ONE Stop: 05/27/18 11:27 Last Infusion: 05/27/18 12:00 Dose: 0 mls/hr Documented by: [id number] Admin: 05/27/18 10:15 Dose: 999 mls/hr Documented by: [id number] Pantoprazole Sodium (Protonix) 40 mg PO BID SANDRA Stop: 06/26/18 10:05 Last Admin: 05/27/18 14:32 Dose: Not Given Documented by: [id number] Medical Decision Making Differential Diagnosis Differential Diagnosis includes but is not limited to dehydration, stroke, anemia, hypoglycemia, hyponatremia, hypernatremia, urinary tract infection, pneumonia, bronchitis, sepsis, gastroenteritis, additional abdominal pathology, metabolic abnormalities and infections. Medical Records Attestation: I reviewed the patient's medical records. Home Medications Current Medication List: was personally reviewed by me Laboratory Data Attestation: I reviewed the patient's lab results. Result diagrams: 05/27/18 06:00 05/27/18 06:00 Lab Results 05/27/18 05/27/18 05/27/18 Range/Units 06:00 06:00 06:32 WBC 9.28 (4.8-10.8) K/uL RBC 2.85 L (4.2-5.4) M/uL Hgb 8.2 L (12.0-16.0) g/dL Hct 26.2 L (37-47) % MCV 91.9 (80-100) fL MCH 28.8 (25-34) pg MCHC 31.3 L (32-36) g/dL RDW Std Deviation 64.6 H (36.4-46.3) fL RDW Coeff of Chelsy 19.4 H (11.5-14.5) % Plt Count 75 L (130-400) K/uL MPV 10.3 (7.4-10.4) fL Absolute Nucleated RBC 0.15 H (0-0) K/uL Nucleated RBC % (auto) 1.7 % Neutrophils % (Manual) 77.4 % Lymphocytes % (Manual) 10.4 % Monocytes % (Manual) 1.7 % Metamyelocytes % (Man) 9.6 % Myelocytes % (Man) 0.9 % Neutrophils # (Manual) 7.18 H (1.4-6.5) K/uL Total Absolute Neuts 7.18 H (1.4-6.5) K/uL Lymphocytes # (Manual) 0.97 L (1.2-3.4) K/uL Total Abs Lymphocytes 0.97 L (1.2-3.4) K/uL Monocytes # (Manual) 0.16 (0.11-0.59) K/uL Metamyelocytes # (Man) 0.89 H (0-0) K/uL Myelocytes # (Manual) 0.08 H (0-0) K/uL Toxic Granulation 1+ Toxic Vacuolation 1+ Platelet Estimate Decreased (Normal) PT (9.0-12.0) Seconds INR (0.9-1.1) Sodium 139 (136-145) mmol/L Potassium 5.4 H (3.5-5.1) mmol/L Chloride 105 (98-107) mmol/L Carbon Dioxide 27 (21-32) mmol/L Anion Gap 7.0 (3-11) BUN 45 H (7-18) mg/dl Creatinine 1.49 H (0.6-1.2) mg/dl Est Cr Clr Drug Dosing 34.2 ml/min Est GFR ( Amer) 42.6 Est GFR (Non-Af Amer) 36.7 BUN/Creatinine Ratio 30.5 H (10-20) Glucose 62 L (70-99) mg/dl POC Glucose (70-99) Lactate 1.7 (0.4-2.0) mmol/L Calcium 8.5 (8.5-10.1) mg/dl Total Bilirubin 1.3 H (0.2-1) mg/dl AST 41 H (15-37) U/L ALT 43 (12-78) U/L Alkaline Phosphatase 158 H (45-117) U/L Troponin I 0.041 (0-0.045) ng/ml Total Protein 5.9 L (6.4-8.2) gm/dl Albumin 1.7 L (3.4-5.0) gm/dl Globulin 4.2 H (2.5-4.0) gm/dl Albumin/Globulin Ratio 0.4 L (0.9-2) Urine Color Urine Appearance (Clear) Urine pH (4.5-7.5) Ur Specific [place] (1.000-1.030) Urine Protein (Negative) Urine Glucose (UA) (Negative) Urine Ketones (Negative) Urine Blood (Negative) Urine Nitrite (Negative) Urine Bilirubin (Negative) Urine Urobilinogen (Negative) Ur Leukocyte Esterase (Negative) Urine WBC (Auto) (0-5) /hpf Urine RBC (Auto) (0-4) /hpf U Hyaline Cast (Auto) (0-5) /lpf U Epithel Cells (Auto) (0-5) /lpf Urine Bacteria (Auto) (Negative) Granular Casts (0) /lpf Urine Yeast (None Prsent) Blood Type Antibody Screen Crossmatch 05/27/18 05/27/18 05/27/18 Range/Units 06:36 06:55 07:15 WBC (4.8-10.8) K/uL RBC (4.2-5.4) M/uL Hgb (12.0-16.0) g/dL Hct (37-47) % MCV (80-100) fL MCH (25-34) pg MCHC (32-36) g/dL RDW Std Deviation (36.4-46.3) fL RDW Coeff of Chelsy (11.5-14.5) % Plt Count (130-400) K/uL MPV (7.4-10.4) fL Absolute Nucleated RBC (0-0) K/uL Nucleated RBC % (auto) % Neutrophils % (Manual) % Lymphocytes % (Manual) % Monocytes % (Manual) % Metamyelocytes % (Man) % Myelocytes % (Man) % Neutrophils # (Manual) (1.4-6.5) K/uL Total Absolute Neuts (1.4-6.5) K/uL Lymphocytes # (Manual) (1.2-3.4) K/uL Total Abs Lymphocytes (1.2-3.4) K/uL Monocytes # (Manual) (0.11-0.59) K/uL Metamyelocytes # (Man) (0-0) K/uL Myelocytes # (Manual) (0-0) K/uL Toxic Granulation Toxic Vacuolation Platelet Estimate (Normal) PT (9.0-12.0) Seconds INR (0.9-1.1) Sodium (136-145) mmol/L Potassium (3.5-5.1) mmol/L Chloride (98-107) mmol/L Carbon Dioxide (21-32) mmol/L Anion Gap (3-11) BUN (7-18) mg/dl Creatinine (0.6-1.2) mg/dl Est Cr Clr Drug Dosing ml/min Est GFR ( Amer) Est GFR (Non-Af Amer) BUN/Creatinine Ratio (10-20) Glucose (70-99) mg/dl POC Glucose 138 H (70-99) Lactate (0.4-2.0) mmol/L Calcium (8.5-10.1) mg/dl Total Bilirubin (0.2-1) mg/dl AST (15-37) U/L ALT (12-78) U/L Alkaline Phosphatase (45-117) U/L Troponin I (0-0.045) ng/ml Total Protein (6.4-8.2) gm/dl Albumin (3.4-5.0) gm/dl Globulin (2.5-4.0) gm/dl Albumin/Globulin Ratio (0.9-2) Urine Color Dark Yellow Urine Appearance Turbid H (Clear) Urine pH 5.0 (4.5-7.5) Ur Specific [place] 1.022 (1.000-1.030) Urine Protein 1+ H (Negative) Urine Glucose (UA) 3+ H (Negative) Urine Ketones Negative (Negative) Urine Blood 3+ H (Negative) Urine Nitrite Negative (Negative) Urine Bilirubin Negative (Negative) Urine Urobilinogen Negative (Negative) Ur Leukocyte Esterase 1+ H (Negative) Urine WBC (Auto) >30 H (0-5) /hpf Urine RBC (Auto) >30 H (0-4) /hpf U Hyaline Cast (Auto) 5-10 H (0-5) /lpf U Epithel Cells (Auto) >30 H (0-5) /lpf Urine Bacteria (Auto) 1+ H (Negative) Granular Casts 1-5 H (0) /lpf Urine Yeast Present H (None Prsent) Blood Type A Positive Antibody Screen NEGATIVE Crossmatch See Detail 05/27/18 Range/Units 08:27 WBC (4.8-10.8) K/uL RBC (4.2-5.4) M/uL Hgb (12.0-16.0) g/dL Hct (37-47) % MCV (80-100) fL MCH (25-34) pg MCHC (32-36) g/dL RDW Std Deviation (36.4-46.3) fL RDW Coeff of Chelsy (11.5-14.5) % Plt Count (130-400) K/uL MPV (7.4-10.4) fL Absolute Nucleated RBC (0-0) K/uL Nucleated RBC % (auto) % Neutrophils % (Manual) % Lymphocytes % (Manual) % Monocytes % (Manual) % Metamyelocytes % (Man) % Myelocytes % (Man) % Neutrophils # (Manual) (1.4-6.5) K/uL Total Absolute Neuts (1.4-6.5) K/uL Lymphocytes # (Manual) (1.2-3.4) K/uL Total Abs Lymphocytes (1.2-3.4) K/uL Monocytes # (Manual) (0.11-0.59) K/uL Metamyelocytes # (Man) (0-0) K/uL Myelocytes # (Manual) (0-0) K/uL Toxic Granulation Toxic Vacuolation Platelet Estimate (Normal) PT 13.5 H (9.0-12.0) Seconds INR 1.3 H (0.9-1.1) Sodium (136-145) mmol/L Potassium (3.5-5.1) mmol/L Chloride (98-107) mmol/L Carbon Dioxide (21-32) mmol/L Anion Gap (3-11) BUN (7-18) mg/dl Creatinine (0.6-1.2) mg/dl Est Cr Clr Drug Dosing ml/min Est GFR ( Amer) Est GFR (Non-Af Amer) BUN/Creatinine Ratio (10-20) Glucose (70-99) mg/dl POC Glucose (70-99) Lactate (0.4-2.0) mmol/L Calcium (8.5-10.1) mg/dl Total Bilirubin (0.2-1) mg/dl AST (15-37) U/L ALT (12-78) U/L Alkaline Phosphatase (45-117) U/L Troponin I (0-0.045) ng/ml Total Protein (6.4-8.2) gm/dl Albumin (3.4-5.0) gm/dl Globulin (2.5-4.0) gm/dl Albumin/Globulin Ratio (0.9-2) Urine Color Urine Appearance (Clear) Urine pH (4.5-7.5) Ur Specific [place] (1.000-1.030) Urine Protein (Negative) Urine Glucose (UA) (Negative) Urine Ketones (Negative) Urine Blood (Negative) Urine Nitrite (Negative) Urine Bilirubin (Negative) Urine Urobilinogen (Negative) Ur Leukocyte Esterase (Negative) Urine WBC (Auto) (0-5) /hpf Urine RBC (Auto) (0-4) /hpf U Hyaline Cast (Auto) (0-5) /lpf U Epithel Cells (Auto) (0-5) /lpf Urine Bacteria (Auto) (Negative) Granular Casts (0) /lpf Urine Yeast (None Prsent) Blood Type Antibody Screen Crossmatch Imaging Data Radiologist's Impression: Radiology results as stated below per my review and the radiologist's interpretation: CT SCAN OF THE ABDOMEN AND PELVIS WITHOUT CONTRAST CLINICAL HISTORY: fevers, hypotension, metastatic disease COMPARISON STUDY: 05/14/2018 TECHNIQUE: CT scan of the abdomen and pelvis was performed from the lung bases to the proximal femurs. Images are reviewed in the axial, sagittal, and coronal planes. IV contrast was not administered for this examination. A dose lowering technique was utilized adhering to the principles of ALARA. CT DOSE: FINDINGS: Lower chest: There is respiratory motion artifact. There are by basilar dependent airspace opacities. Although likely atelectatic, an inflammatory p rocess could appear similar. There are subcentimeter lower lobe pulmonary nodules suspicious for metastatic disease. Liver: The previously identified hepatic metastasis are difficult to visualize on this noncontrast study Gallbladder: Unremarkable. Spleen: Normal in size and attenuation. Pancreas: Unremarkable. Adrenal glands: There is a stable 28 mm left adrenal gland mass. Kidneys: There is bilateral hydronephrosis. There are nonobstructing lower pole left renal calculi. No ureteral calculi are visualized. Bowel: There are no transition zones indicate bowel obstruction. There is a lef t-sided diverting colostomy. There is a right-sided ileostomy. There is a 9 cm necrotic rectal mass. Peritoneum: There is no intraperitoneal free air or abdominal ascites. Vasculature: The abdominal aorta is normal in course and caliber. Adenopathy: None. Pelvic viscera: There is a 11 cm necrotic pelvic mass, centered on the rectal region. Skeletal structures: No destructive osseous lesions are seen. IMPRESSION: 1. Examination limited due to the lack of intravenous and oral contrast 2. Lower lobe pulmonary nodules suspicious for metastatic disease 3. Dependent basilar airspace opacities likely atelectatic although an inflammatory process could appear similar 4. The previously identified hepatic metastasis are difficult to visualize on this study performed without intravenous contrast 5. Progressive moderate bilateral hydronephrosis, likely secondary to the large necrotic pelvic mass 6. Nonobstructing lower pole left renal calculi 7. 11 cm necrotic pelvic mass centered on the rectum with suspected vaginal invasion. 8. 28 mm left adrenal mass Electronically signed by: Roberth Banuelos M.D. 05/27/2018 7:[address] chest wo con CT DOSE: 529.09 mGy.cm CLINICAL HISTORY: 62 years-old Female with fevers, hypotension, metastatic disease. Acute fever with hypotension and history of rectal adenocarcinoma with metastatic disease TECHNIQUE: Multiaxial CT images of the chest were performed without contrast. A dose lowering technique was utilized adhering to the principles of ALARA. COMPARISON: CT abdomen and pelvis of same day and also 05/14/2018, chest CT 06/04/2016. FINDINGS: Heterogeneous thyroid. Evaluation for adenopathy is limited without the use of IV contrast. Calcified subcarinal lymph nodes compatible with prior granulomatous disease. Heart is normal in size with trace pericardial effusion. Slightly decreased attenuation of the cardiac blood pool may reflect underlying anemia. Left subclavian Pskasl-c-Hsrs catheter distal tip terminates about the inferior aspect of the SVC. Coronary arterial calcifications are noted. No thoracic aortic aneurysm. Unopacified pulmonary artery appears unremarkable. No pneumothorax or definite pleural effusion. Biapical pleural-parenchymal scarring. Segmental bibasilar predominant groundglass and consolidative opacities are noted. Bilateral pulmonary nodules are noted measuring up to 9 mm within the basal left lower lobe on image 192 series 6. The size and number of the bibasilar pulmonary nodules appears increased from 05/14/2018. 5 mm pulmonary nodule of left upper lobe on image 77 series 6. No overt pulmonary edema. The central airways appear patent. Scattered calcified granulomata about the liver and spleen. Previous described hepatic lesions are better seen on comparison contrast-enhanced study. Partially imaged left adrenal gland mass. Breast parenchyma and soft tissues appear unremarkable. No suspicious bone lesions identified to suggest osseous metastasis. Degenerative changes of the shoulders and spine. IMPRESSION: 1. Bibasilar predominant distribution of groundglass and consolidative opacities suggest atelectasis admixed with pneumonia or aspiration pneumonitis. 2. Multiple bilateral solid pulmonary nodules measuring up to 9 mm within the left lower lobe are suggestive of pulmonary metastasis. 3. Prior granulomatous disease. 4. Additional findings as above. Electronically signed by: Terrance Bee M.D. 05/27/2018 7:[address] head/brain wo con CLINICAL HISTORY: fevers, hypotension, metastatic disease COMPARISON STUDY: 05/14/2018 TECHNIQUE: Axial CT of the brain is performed from the vertex to the skull base. IV contrast was not administered for this examination. A dose lowering technique was utilized adhering to the principles of ALARA. CT DOSE: 537.48 mGy.cm FINDINGS: No intra or extra-axial mass lesions are visualized. There is no CT evidence of acute cortical infarction. There is no evidence of midline shift. There is no acute hemorrhage. No calvarial fractures are visualized. There are patchy white matter hypodensities likely on a small vessel basis. There is no evidence of pathologic ventricular dilatation. There is no evidence of acute sinusitis IMPRESSION: No acute intracranial findings Electronically signed by: Roberth Banuelos M.D. 05/27/2018 7:28 AM ECG Data Attestation: I personally reviewed and interpreted this ECG as follows: Indication: other (hypotension) Rate (beats per minute): 94 Rhythm: normal sinus Findings: + other (normal axis); no acute ischemic change Blood Pressure Blood Pressure Findings: Low blood pressure Blood Pressure Disposition: further management by hospitalist [facility] Narrative The patient is a 62-year-old woman with a past medical history of metastatic rectal cancer with metastases to the liver, lungs, brain with invasive pelvic mass into the vagina and rectum, chronic pain, hypertension, anemia, diabetes who presents emergency department from [facility] with Reiger's/chills which began yesterday evening and hypotension in the setting of recent discharge for pain control related to her chemotherapy per hpi. On arrival the patient is ill-appearing, afebrile with heart rate in the 90s and blood pressure ranging from 70-80s/40s-50s. On exam the patient appears clinically dry. He has cool pale, clammy skin. Diminished breath sounds at the bases. Her right lower quadrant ostomy site has brown stool. No evidence of surrounding infection. Her external rectal exam demonstrates a serous with scant sanguinous discharge. EKG is without any overt acute ischemia. Chest x- ray unremarkable however CT shows bilateral groundglass opacity suspicious for pneumonia/aspiration. CT abdomen pelvis demonstrates progression of her metastatic disease. Hemoglobin is 8.2 down from 9.61-week ago. This is likely multifactorial given the patient's history of GI bleeding with known invasive pelvic mass as well as the patient's metastatic disease/chronic illness. Platelets 75 down from 211 week ago. WBC within normal limits. Creatinine is 1.49 increased from 0.741-week ago. Abdomen is downtrending at 1.7 from 2.6. UA with possibility of infection although with > 30 epithelial cells. Patient was given 2 L of normal saline IV fluid bolus with improvement in her blood pressure to systolic in the 90s. Given her hypotension with progressive anemia will provide 1 unit PRBCs. Additionally given the patient is likely immunosuppressed from her chronic steroids will treat with broad-spectrum antibiotics with vancomycin and Zosyn. Patient was given 100 mg of IV hydrocortisone for likely component of adrenal insufficiency. Findings and plan reviewed with the patient and she was agreeable. I did attempt to contact the patient's daughter and left a voice message. Overall, the patient's presentation is concerning for multisystem organ failure in the setting of her metastatic disease. Patient was seen by palliative care on her last admission during which she expressed that she is DNR but would be okay with intubation. Her POLST form documents she is agreeable with trial of fluids, antibiotics and hospitalization if needed. Case was discussed with Dr. Sharp, [facility] hospitalist, who will evaluate the patient for admission. Impression & Plan Sepsis, Metastatic disease, UTI (urinary tract infection), Acute kidney injury, Symptomatic anemia, Thrombocytopenia, Hypotension, Pneumonia Critical Care Time I have personally spent greater than 75 minutes of critical care time in the direct management of this patient. This includes bedside care, interpretation of diagnostic studies, and testing, discussion with consultants, patient, and family members, and other required patient management activities. This 75 minutes is in excess of all separately billable procedures. Critical Care Time: Yes Total Critical Care Time: 75 Discharge Plan Visit Data *Final* Discharge Date/Time: 05/27/18 09:30 Chief Complaint: Hypotension Stated Complaint: LOW BLOOD PRESSURE ED Provider: Donald Chan Discharge Problem: Sepsis, Metastatic disease, UTI (urinary tract infection), Acute kidney injury, Symptomatic anemia, Thrombocytopenia, Hypotension, Pneumonia Patient Disposition: Admitted As Inpatient Discharge Instructions Interventions: ED Discharge Assessment Last Done: 05/27/18 09:30 The scribe's documentation has been prepared under my direction and personally reviewed by me in its entirety. I confirm that the note above accurately reflects all work, treatment, procedures, and medical decision making performed by me.
[2018-05-27 08:48] LABS: INR 1.3 (0.9-1.1); Prothrombin Time 13.5 Seconds (9.0-12.0)
[2018-05-27] MEDS ORDERED: FERROUS SULFATE 325 MG TAB PO SCH (10:06)
[2018-05-27] MEDS ORDERED: PROCHLORPERAZINE 5 MG in SYRINGE 4 ML IV PRN (10:06)
[2018-05-27] MEDS ORDERED: PANTOprazole 40 MG TAB PO SCH (10:06)
[2018-05-27] MEDS ORDERED: POLYETHYLENE (MIRALAX) 17 GM PACK PO PRN (10:06)
[2018-05-27] MEDS ORDERED: GABAPENTIN 600 MG TAB PO SCH (10:06)
[2018-05-27] MEDS ORDERED: PIPERACILL/TAZOBAC CONSULT ACTIVE PRN (10:06)
[2018-05-27] MEDS ORDERED: ONDANSETRON INJ 2 MG/ML 2 ML VIAL IV PRN (10:06)
[2018-05-27] MEDS ORDERED: SODIUM CHLORIDE 0.9% 1000ML 1,000 ML IV ONE (10:27)
[2018-05-27] MEDS ORDERED: SODIUM CHLORIDE 0.9% 1000ML 1,000 ML IV SCH (10:30)
--- NOTE | 2018-05-27 10:55 | Palliative Care Consultation ---
Date of Consultation May 27, 2018 Assessment & Plan (1) Goals of care, counseling/discussion: -62 year old female with PMH of rectal cancer with liver with lung metastases, HTN, chronic pain, anemia, DM type II, and chronic cancer related pain, presented to the hospital today with weakness/fatigue and hypotension. Patient has had several readmissions recently related to her end-stage disease. Most recently, patient was discharged from the hospital to the [facility] for PT/OT on 05/24/18. Today, patient was apparently found to be hypotensive with increased weakness. CT abd/pelvis shows extensive metastatic disease. Lab work largely unchanged from previous other than a small drop in hgb from 9.6 to 8.2, creatinine increased from 0.7 to 1.49. Patient initially was admitted to PCU, ordered blood transfusion and IVF for low systolic blood pressure in the 60s. Upon discussion while still in the ED with the hospitalist, patient stated she wanted to be a DNR, but would possibly be willing to go to ICU for pressor support. Palliative care is consulted as patient is known well to our service, to discuss goals of care. -Met with patient in room 229-2 along with primary RN and Mariel Duran PA-C on two separate visits. Initially, patient was very difficult to wake up, quite lethargic. She was able to wake up and talk with me. She is oriented x4. WE discussed her medical conditions and what her wishes are. Patient stated to me that she just wanted to be comfortable, and fully understood that this means she will likely pass away in the very near future. -Talked again with patient with the above team members. Patient reiterated several times that she did not want to go to ICU, wanted to stop all active treatment, and be comfort measures only. -Patient's daughter, Vira Jones, then arrived and is supportive of patient's decision. Again, Vira understands that patient will likely in the next hours to days. Patient's sister, Randa, is on her way to hospital as well. -We will stop all unnecessary medications. -Morphine 2mg IV Q2h PRN pain or SOB for now. Will consult with Dr. Rodriguez who knows patient well later today. -Transfer to [facility] for MOTHER HELPER. -Palliative care will continue to follow. (2) Hypotension: Hypotension type: unspecified hypotension type Qualified Code(s): I95.9 - Hypotension, unspecified (3) Primary cancer of rectum with metastasis from rectum to other site: Supervising Physician Co-Signing Physician Notes Patient well-known to me from clinic as well as her prior several hospital admissions. Patient seen and examined, multiple family at bedside including her sister, her daughter, her son-in-law, 3 grandchildren, and 1 great grandson Patient at end of life-discussed end-of-life issues at length with the family, they are grieving appropriately. Patient appears comfortable on exam-minimally responsive, did not open eyes or nod during exam. Patient was more alert earlier today per family. H EENT: Hearing within normal limits-responds to voice Respiratory: Unlabored, clear breath sounds CV: Regular rate, increased lower extremity edema, increased facial edema Abdomen: Soft, no grimace with light palpation Skin: Cool to touch, no mottling Neuro: Minimally responsive Agree with above note, assessment and plan as per YARA Garnett Spoke with nursing as well as attending provider regarding continued use of methadone-methadone can be crushed and slow rate and placed in the buccal mucosa-it is absorbed through the mucous membranes. We will continue to prevent any symptoms of withdrawal as well as continued pain control. History of Present Illness Attending Physician: Oscar Merida History of Present Illness This 62 year old female with PMH of rectal cancer with liver with lung metastases, HTN, chronic pain, anemia, DM type II, and chronic cancer related pain, presented to the hospital today with weakness/fatigue and hypotension. Patient has had several readmissions recently related to her end-stage disease. Most recently, patient was discharged from the hospital to the [facility] for PT/OT on 05/24/18. Today, patient was apparently found to be hypotensive with increased weakness. CT abd/pelvis shows extensive metastatic disease. Lab work largely unchanged from previous other than a small drop in hgb from 9.6 to 8.2, creatinine increased from 0.7 to 1.49. Patient initially was admitted to PCU, ordered blood transfusion and IVF for low systolic blood pressure in the 60s. Upon discussion while still in the ED with the hospitalist, patient stated she wanted to be a DNR, but would possibly be willing to go to ICU for pressor support. Palliative care is consulted as patient is known well to our service, to discuss goals of care. Thank you kindly for this consult. See A&P for details of plan. Allergies Allergy/AdvReac Type Severity Reaction Status Date / Time Sulfa (Sulfonamide Allergy Intermediate RASH Verified 05/27/18 06:44 Antibiotics) codeine AdvReac Intermediate DIZZINESS Verified 05/27/18 06:44 Home Medications Home Medications Medication Instructions Recorded Confirmed Type gabapentin 600 mg PO TID 10/24/17 05/27/18 History polyethylene glycol 3350 [Miralax] 17 g PO DAILY PRN 10/24/17 05/27/18 History ferrous sulfate 325 mg PO BID #60 tab 04/10/18 05/27/18 Rx pantoprazole 40 mg PO BID #60 tab 04/10/18 05/27/18 Rx lisinopril 10 mg PO QAM 04/23/18 05/27/18 History prochlorperazine maleate 10 mg PO Q8H PRN #10 tab 04/30/18 05/27/18 Rx [Compazine] dexamethasone [Decadron] 4 mg PO QAM 05/14/18 05/27/18 History insulin glargine [Lantus Solostar 10 unit SC BID #3 ml 05/24/18 05/27/18 Rx U-100 Insulin] acetaminophen [Tylenol] 650 mg PO Q6H PRN MDD 3 GRAMS/05/27/18 05/27/18 History HOURS ertapenem [Invanz] 1 g IM DAILY 05/27/18 05/27/18 History methadone 10 mg PO QID 05/27/18 05/27/18 History oxycodone 5 mg PO Q4 PRN 05/27/18 05/27/18 History Patient History Medical History Acute blood loss anemia Nausea & vomiting Cellulitis of helix of right ear DVT prophylaxis Hydronephrosis Chronic pain syndrome Gastritis Pyelonephritis Adenocarcinoma of rectum, stage 4 (Chronic) Intractable epigastric abdominal pain (Acute) Dehydration (Acute) Infection due to Clostridium septicum Bacteremia Rectal bleeding (Acute) Metastatic disease (Acute) Hypertension (Chronic) UTI (urinary tract infection) GI bleed Mitral valve prolapse (Resolved) Heart murmur (Resolved) History of colon cancer (Chronic) Hypokalemia (Resolved) Left ureteral calculus (Resolved) Rectal adenocarcinoma (Chronic 05/15/16) "6 months of intermittent rectal pain and bleeding Status post colonoscopy and biopsy 05/15/2016 (Dr. Jorge L Benavides) Adenocarcinoma Status post EUS staging 05/18/2016 (Dr. New Jack) Stage uT3 uN1 Plan for combined neoadjuvant radiation and chemotherapy (Dr. Yogesh Crowe) Chemotherapy comprised of Xeloda Status post completion of radiation therapy 07/30/2016. She received 5040 cGy. Status post abdominal perineal resection 09/29/2016. Stage pT3 pN0M1 Has received 7 of 12 cycles of FOLFOX chemotherapy" On 08/10/16 16:27 Barbra Thapa wrote "6 months of intermittent rectal pain and bleeding Status post colonoscopy and biopsy 05/15/2016 (Dr. Jorge L Benavides) Adenocarcinoma Status post EUS staging 05/18/2016 (Dr. New Jack) Stage uT3 uN1 Plan for combined neoadjuvant radiation and chemotherapy (Dr. Yogesh Crowe) Chemotherapy comprised of Xeloda Status post completion of radiation therapy 07/30/2016. She received 5040 cGy." On 06/02/16 09:48 Barbra Thapa wrote "6 months of intermittent rectal pain and bleeding Status post colonoscopy and biopsy 05/15/2016 (Dr. Jorge L Benavides) Adenocarcinoma Status post EUS staging 05/18/2016 (Dr. New Jack) Stage uT3 uN1 Plan for combined radiation and chemotherapy (Dr. Yogesh Crowe) Chemotherapy comprised of Xeloda " Symptomatic anemia (Resolved) Acute UTI (urinary tract infection) (Inactive) Complication of ostomy (Inactive) Diarrhea (Inactive) Mass of perirectal soft tissue (Inactive) Port-A-Cath in place Surgical History Colostomy present (Chronic) x 2; recreation of colostomy due to fistula Family History Mother , age 93 Stroke Father , age 79 COPD (chronic obstructive pulmonary disease) Other No significant family history Social History Preferred Language: Ukrainian Communication Ability: Effective Beliefs That Will Affect Care: None marital status: Current Living Situation: [place] current occupational status: 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 Feels Safe at Home: Yes Smoking Status: Former smoker Hx Alcohol Use: Yes Hx Substance Use: No Review of Systems Constitutional: + fatigue and + weakness Respiratory: no cough and no dyspnea Cardiovascular: no chest pain and no edema Gastrointestinal: no abdominal pain, no nausea and no vomiting denies pain Neurologic: no confusion Psychiatric: no anxiety Physical Exam Vital Signs (Past 24 Hours): Last Vital Signs Temp 36.4 C L 05/27/18 09:50 Pulse 82 05/27/18 10:06 Resp 16 05/27/18 10:06 BP 75/47 L 05/27/18 10:26 Pulse Ox 100 05/27/18 10:06 Constitutional: + ill appearing; no acute distress ENMT: external ear and nose normal, oropharynx normal Ears: no hearing impairment Neck: normal visual inspection Respiratory: normal respiratory effort, lungs clear to auscultation Cardiovascular: Rate/Rhythm: regular rate and regular rhythm widespread generalized edema Gastrointestinal (Abdomen): Inspection/Auscultation: abdomen normal to inspection and normal bowel sounds; abdomen not distended Percussion/Palpation: abdomen soft; abdomen nontender Skin: cool to the touch Neurologic: awake (but very lethargic/drowsy) Psychiatric: Orientation: oriented x 3 Insight: good insight Time Spent Midlevel 120 minutes with >50% of time spent at bedside with patient, family, and IDT discussing condition and GOC. Attending I personally spent additional 30 minutes discussing plan of care as well as end-of-life issues at length with family at bedside this was in addition to the 120 minutes spent by YARA Garnettfor a total of 150 minutes with greater than 50% of the time spent at bedside discussing treatment, goals of care, as well as plan of care. Collaborating with nursing as well as providers
[2018-05-27] MEDS ORDERED: MoRPHine SULFATE 2 MG/ML CARP IV PRN (11:09)
[2018-05-27] MEDS ORDERED: HEPARIN SOD 5,000 UNIT/0.5 ML VIAL SQ SCH (11:15)
--- NOTE | 2018-05-27 11:59 | History & Physical Report ---
Date of Service May 27, 2018 Assessment & Plan (1) Hypotension: - Presented with hypotension, weakness and fatigue -- likely related to developing sepsis vs. adrenal insufficiency vs. other. - No improvement in hypotension following 2.5L IV fluid hydration in ER. Also received Zosyn, Vanco IV and Hydrocortisone 100 mg IV in the ER. - U/a positive; UC is pending. - Imaging showed progression of metastatic rectal cancer, was negative for acute changes consistent with infection. - Palliative care consulted, pt. was transitioned to comfort care following goals of care discussion. - Discontinued all IV fluids, IV abx following discussion. (2) Metastatic disease: - Imaging showed progression of disease; most recent therapy was Xeloda, developed parasthesias. - Follows with Dr. Crowe at [facility]. - Palliative care consulted, transitioned to comfort care following discussion. - Will continue home Methadone 10 mg TID with Roxicodone PO and Morphine IV prn pain -- is not having significant pain at this time. - Zofran and Compazine prn N/V. - Colace 100 mg BID scheduled with Miralax to prevent constipation. (3) Primary cancer of rectum with metastasis from rectum to other site: - Treatment as noted above. (4) Acute kidney injury: - Creatinine increased to 1.49 -- likely prerenal related to dehydration. - Received IV fluids in the ER and continuous fluids in PCU. - Fluids now discontinued, comfort measures ordered. (5) Hyperkalemia: - K level 5.4, no treatment indicated. - Discontinue further lab work monitoring. (6) Cancer associated pain: - Pain control with home Methadone TID scheduled, Roxicodone and Morphine prn. - Palliative following. (7) Anemia: - Hemoglobin was 8.2 in the ER, received 1 unit pRBCs. - Will discontinue further lab monitoring. (8) Hypertension: - Hypotensive in the ER as noted above. - Discontinued all BP agents. (9) Type II diabetes mellitus: - No indication for blood glucose checks. (10) Malnutrition related to chronic disease: - BMI 20.2 -- transitioning to comfort care. (11) DVT prophylaxis: - Not indicated. Dispo: Initially admitted to PCU, now downgraded to med/surg for comfort care measures. (12) Septic shock due to urinary tract infection: History of Present Illness Chief Complaint: Weakness, Fatigue Primary Care Provider: [facility] Mrs. Eastman is a 62 year old female with past medical history of rectal cancer with liver, lung and pulm metastases, HTN, chronic pain, anemia, DM type II who presented for admission with weakness/fatigue and hypotension. She has been re- admitted multiple times over the last 3 months for similar symptoms. Pt. was most recently discharged to [facility] on 05/24/18 for PT/OT. She presented to the ER with generalized symptoms but was found to be hypotensive with SBP 70-80's. She reported feeling "pretty good" and denied significant pain. She denied URI symptoms, chest pain, SOB, LE edema. Denied N/V, abd pain, diarrhea or constipation. Lab work showed acute anemia -- 1 unit pRBC ordered. She received 2.5L NS in the ER with no improvement in hypotension. Code status was discussed with her -- pt. was DNR/DNI but agreed to pressor support in the ICU if necessary. Allergies Allergy/AdvReac Type Severity Reaction Status Date / Time Sulfa (Sulfonamide Allergy Intermediate RASH Verified 05/27/18 06:44 Antibiotics) codeine AdvReac Intermediate DIZZINESS Verified 05/27/18 06:44 Home Medications Home Medications Medication Instructions Recorded Confirmed Type gabapentin 600 mg PO TID 10/24/17 05/27/18 History polyethylene glycol 3350 [Miralax] 17 g PO DAILY PRN 10/24/17 05/27/18 History ferrous sulfate 325 mg PO BID #60 tab 04/10/18 05/27/18 Rx pantoprazole 40 mg PO BID #60 tab 04/10/18 05/27/18 Rx lisinopril 10 mg PO QAM 04/23/18 05/27/18 History prochlorperazine maleate 10 mg PO Q8H PRN #10 tab 04/30/18 05/27/18 Rx [Compazine] dexamethasone [Decadron] 4 mg PO QAM 05/14/18 05/27/18 History insulin glargine [Lantus Solostar 10 unit SC BID #3 ml 05/24/18 05/27/18 Rx U-100 Insulin] acetaminophen [Tylenol] 650 mg PO Q6H PRN MDD 3 GRAMS/24 05/27/18 05/27/18 History HOURS ertapenem [Invanz] 1 g IM DAILY 05/27/18 05/27/18 History methadone 10 mg PO QID 05/27/18 05/27/18 History oxycodone 5 mg PO Q4 PRN 05/27/18 05/27/18 History Past Med/Surg History Medical History Acute blood loss anemia Nausea & vomiting Cellulitis of helix of right ear DVT prophylaxis Hydronephrosis Chronic pain syndrome Gastritis Pyelonephritis Adenocarcinoma of rectum, stage 4 (Chronic) Intractable epigastric abdominal pain (Acute) Dehydration (Acute) Infection due to Clostridium septicum Bacteremia Rectal bleeding (Acute) Metastatic disease (Acute) Hypertension (Chronic) UTI (urinary tract infection) GI bleed Mitral valve prolapse (Resolved) Heart murmur (Resolved) History of colon cancer (Chronic) Hypokalemia (Resolved) Left ureteral calculus (Resolved) Rectal adenocarcinoma (Chronic 05/15/16) "6 months of intermittent rectal pain and bleeding Status post colonoscopy and biopsy 05/15/2016 (Dr. Jorge L Benavides) Adenocarcinoma Status post EUS staging 05/18/2016 (Dr. New Jack) Stage uT3 uN1 Plan for combined neoadjuvant radiation and chemotherapy (Dr. Yogesh Crowe) Chemotherapy comprised of Xeloda Status post completion of radiation therapy 07/30/2016. She received 5040 cGy. Status post abdominal perineal resection 09/29/2016. Stage pT3 pN0M1 Has received 7 of 12 cycles of FOLFOX chemotherapy" On 08/10/16 16:27 Barbra Thapa wrote "6 months of intermittent rectal pain and bleeding Status post colonoscopy and biopsy 05/15/2016 (Dr. Jorge L Benavides) Adenocarcinoma Status post EUS staging 05/18/2016 (Dr. New Jack) Stage uT3 uN1 Plan for combined neoadjuvant radiation and chemotherapy (Dr. Yogesh Crowe) Chemotherapy comprised of Xeloda Status post completion of radiation therapy 07/30/2016. She received 5040 cGy." On 06/02/16 09:48 Barbra Thapa wrote "6 months of intermittent rectal pain and bleeding Status post colonoscopy and biopsy 05/15/2016 (Dr. Jorge L Benavides) Adenocarcinoma Status post EUS staging 05/18/2016 (Dr. New Jack) Stage uT3 uN1 Plan for combined radiation and chemotherapy (Dr. Yogesh Crowe) Chemotherapy comprised of Xeloda " Symptomatic anemia (Resolved) Acute UTI (urinary tract infection) (Inactive) Complication of ostomy (Inactive) Diarrhea (Inactive) Mass of perirectal soft tissue (Inactive) Port-A-Cath in place Surgical History Colostomy present (Chronic) x 2; recreation of colostomy due to fistula Family History Mother , age 93 Stroke Father , age 79 COPD (chronic obstructive pulmonary disease) Other No significant family history Social History Preferred Language: Divehi Communication Ability: Effective Beliefs That Will Affect Care: None marital status: Current Living Situation: Assisted current occupational status: 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 Feels Safe at Home: Yes Smoking Status: Former smoker Hx Alcohol Use: Yes Hx Substance Use: No Review of Systems All systems reviewed & are unremarkable except as noted in HPI & below and Other Constitutional: + fatigue, + weakness, + anorexia and + weight loss; no fever and no chills Respiratory: no cough, no dyspnea and no wheezing Cardiovascular: no chest pain, no palpitations, no lightheadedness, no syncope and no edema Gastrointestinal: no abdominal pain, no nausea, no vomiting, no constipation and no diarrhea/loose stools Genitourinary (Female): no dysuria, no difficulty urinating and no hematuria Musculoskeletal: no back pain and no joint pain Integumentary: no non-healing lesions Hematologic / Lymphatic: no easy bleeding and no easy bruising Allergy / Immunological: no rash Physical Exam Vital Signs (Past 24 Hours): Last Vital Signs Temp 36.1 C L 05/27/18 10:53 Pulse 88 05/27/18 10:53 Resp 15 05/27/18 10:53 BP 92/61 L 05/27/18 10:53 Pulse Ox 97 05/27/18 10:53 Physical Exam: General: Chronically ill appearing female, in no acute distress. HEENT: NC/AT; PERRLA with EOMI; [place] conjunctiva, MMM. Dry oral mucosa. Neck: Supple and nontender Cardiac: RRR Lungs: CTA bilaterally Abdomen: Ostomy with loose output; Bowel normoactive X 4; Nontender to palpation Rectal: Deferred : Deferred Extremities: Warm. +1 bilat LE pitting edema. Neuro: No focal weakness Skin: No rash Results & Data Laboratory Results 05/27/18 05/27/18 05/27/18 Range/Units 08:27 07:15 06:55 WBC (4.8-10.8) K/uL RBC (4.2-5.4) M/uL Hgb (12.0-16.0) g/dL Hct (37-47) % MCV (80-100) fL MCH (25-34) pg MCHC (32-36) g/dL RDW Std Deviation (36.4-46.3) fL RDW Coeff of [place] (11.5-14.5) % Plt Count (130-400) K/uL MPV (7.4-10.4) fL Absolute Nucleated RBC (0-0) K/uL Nucleated RBC % (auto) % Neutrophils % (Manual) % Lymphocytes % (Manual) % Monocytes % (Manual) % Metamyelocytes % (Man) % Myelocytes % (Man) % Neutrophils # (Manual) (1.4-6.5) K/uL Total Absolute Neuts (1.4-6.5) K/uL Lymphocytes # (Manual) (1.2-3.4) K/uL Total Abs Lymphocytes (1.2-3.4) K/uL Monocytes # (Manual) (0.11-0.59) K/uL Metamyelocytes # (Man) (0-0) K/uL Myelocytes # (Manual) (0-0) K/uL Toxic Granulation Toxic Vacuolation Platelet Estimate (Normal) PT 13.5 H (9.0-12.0) Seconds INR 1.3 H (0.9-1.1) Sodium (136-145) mmol/L Potassium (3.5-5.1) mmol/L Chloride (98-107) mmol/L Carbon Dioxide (21-32) mmol/L Anion Gap (3-11) BUN (7-18) mg/dl Creatinine (0.6-1.2) mg/dl Est Cr Clr Drug Dosing ml/min Est GFR ( Amer) Est GFR (Non-Af Amer) BUN/Creatinine Ratio (10-20) Glucose (70-99) mg/dl POC Glucose 138 H (70-99) Lactate (0.4-2.0) mmol/L Calcium (8.5-10.1) mg/dl Total Bilirubin (0.2-1) mg/dl AST (15-37) U/L ALT (12-78) U/L Alkaline Phosphatase (45-117) U/L Troponin I (0-0.045) ng/ml Total Protein (6.4-8.2) gm/dl Albumin (3.4-5.0) gm/dl Globulin (2.5-4.0) gm/dl Albumin/Globulin Ratio (0.9-2) Urine Color Dark Yellow Urine Appearance Turbid H (Clear) Urine pH 5.0 (4.5-7.5) Ur Specific [place] 1.022 (1.000-1.030) Urine Protein 1+ H (Negative) Urine Glucose (UA) 3+ H (Negative) Urine Ketones Negative (Negative) Urine Blood 3+ H (Negative) Urine Nitrite Negative (Negative) Urine Bilirubin Negative (Negative) Urine Urobilinogen Negative (Negative) Ur Leukocyte Esterase 1+ H (Negative) Urine WBC (Auto) >30 H (0-5) /hpf Urine RBC (Auto) >30 H (0-4) /hpf U Hyaline Cast (Auto) 5-10 H (0-5) /lpf U Epithel Cells (Auto) >30 H (0-5) /lpf Urine Bacteria (Auto) 1+ H (Negative) Granular Casts 1-5 H (0) /lpf Urine Yeast Present H (None Prsent) Blood Type Antibody Screen Crossmatch 05/27/18 05/27/18 05/27/18 Range/Units 06:36 06:32 06:00 WBC (4.8-10.8) K/uL RBC (4.2-5.4) M/uL Hgb (12.0-16.0) g/dL Hct (37-47) % MCV (80-100) fL MCH (25-34) pg MCHC (32-36) g/dL RDW Std Deviation (36.4-46.3) fL RDW Coeff of [place] (11.5-14.5) % Plt Count (130-400) K/uL MPV (7.4-10.4) fL Absolute Nucleated RBC (0-0) K/uL Nucleated RBC % (auto) % Neutrophils % (Manual) % Lymphocytes % (Manual) % Monocytes % (Manual) % Metamyelocytes % (Man) % Myelocytes % (Man) % Neutrophils # (Manual) (1.4-6.5) K/uL Total Absolute Neuts (1.4-6.5) K/uL Lymphocytes # (Manual) (1.2-3.4) K/uL Total Abs Lymphocytes (1.2-3.4) K/uL Monocytes # (Manual) (0.11-0.59) K/uL Metamyelocytes # (Man) (0-0) K/uL Myelocytes # (Manual) (0-0) K/uL Toxic Granulation Toxic Vacuolation Platelet Estimate (Normal) PT (9.0-12.0) Seconds INR (0.9-1.1) Sodium 139 (136-145) mmol/L Potassium 5.4 H (3.5-5.1) mmol/L Chloride 105 (98-107) mmol/L Carbon Dioxide 27 (21-32) mmol/L Anion Gap 7.0 (3-11) BUN 45 H (7-18) mg/dl Creatinine 1.49 H (0.6-1.2) mg/dl Est Cr Clr Drug Dosing 34.2 ml/min Est GFR ( Amer) 42.6 Est GFR (Non-Af Amer) 36.7 BUN/Creatinine Ratio 30.5 H (10-20) Glucose 62 L (70-99) mg/dl POC Glucose (70-99) Lactate 1.7 (0.4-2.0) mmol/L Calcium 8.5 (8.5-10.1) mg/dl Total Bilirubin 1.3 H (0.2-1) mg/dl AST 41 H (15-37) U/L ALT 43 (12-78) U/L Alkaline Phosphatase 158 H (45-117) U/L Troponin I 0.041 (0-0.045) ng/ml Total Protein 5.9 L (6.4-8.2) gm/dl Albumin 1.7 L (3.4-5.0) gm/dl Globulin 4.2 H (2.5-4.0) gm/dl Albumin/Globulin Ratio 0.4 L (0.9-2) Urine Color Urine Appearance (Clear) Urine pH (4.5-7.5) Ur Specific [place] (1.000-1.030) Urine Protein (Negative) Urine Glucose (UA) (Negative) Urine Ketones (Negative) Urine Blood (Negative) Urine Nitrite (Negative) Urine Bilirubin (Negative) Urine Urobilinogen (Negative) Ur Leukocyte Esterase (Negative) Urine WBC (Auto) (0-5) /hpf Urine RBC (Auto) (0-4) /hpf U Hyaline Cast (Auto) (0-5) /lpf U Epithel Cells (Auto) (0-5) /lpf Urine Bacteria (Auto) (Negative) Granular Casts (0) /lpf Urine Yeast (None Prsent) Blood Type A Positive Antibody Screen NEGATIVE Crossmatch See Detail 05/27/18 Range/Units 06:00 WBC 9.28 (4.8-10.8) K/uL RBC 2.85 L (4.2-5.4) M/uL Hgb 8.2 L (12.0-16.0) g/dL Hct 26.2 L (37-47) % MCV 91.9 (80-100) fL MCH 28.8 (25-34) pg MCHC 31.3 L (32-36) g/dL RDW Std Deviation 64.6 H (36.4-46.3) fL RDW Coeff of [place]sy 19.4 H (11.5-14.5) % Plt Count 75 L (130-400) K/uL MPV 10.3 (7.4-10.4) fL Absolute Nucleated RBC 0.15 H (0-0) K/uL Nucleated RBC % (auto) 1.7 % Neutrophils % (Manual) 77.4 % Lymphocytes % (Manual) 10.4 % Monocytes % (Manual) 1.7 % Metamyelocytes % (Man) 9.6 % Myelocytes % (Man) 0.9 % Neutrophils # (Manual) 7.18 H (1.4-6.5) K/uL Total Absolute Neuts 7.18 H (1.4-6.5) K/uL Lymphocytes # (Manual) 0.97 L (1.2-3.4) K/uL Total Abs Lymphocytes 0.97 L (1.2-3.4) K/uL Monocytes # (Manual) 0.16 (0.11-0.59) K/uL Metamyelocytes # (Man) 0.89 H (0-0) K/uL Myelocytes # (Manual) 0.08 H (0-0) K/uL Toxic Granulation 1+ Toxic Vacuolation 1+ Platelet Estimate Decreased (Normal) PT (9.0-12.0) Seconds INR (0.9-1.1) Sodium (136-145) mmol/L Potassium (3.5-5.1) mmol/L Chloride (98-107) mmol/L Carbon Dioxide (21-32) mmol/L Anion Gap (3-11) BUN (7-18) mg/dl Creatinine (0.6-1.2) mg/dl Est Cr Clr Drug Dosing ml/min Est GFR ( Amer) Est GFR (Non-Af Amer) BUN/Creatinine Ratio (10-20) Glucose (70-99) mg/dl POC Glucose (70-99) Lactate (0.4-2.0) mmol/L Calcium (8.5-10.1) mg/dl Total Bilirubin (0.2-1) mg/dl AST (15-37) U/L ALT (12-78) U/L Alkaline Phosphatase (45-117) U/L Troponin I (0-0.045) ng/ml Total Protein (6.4-8.2) gm/dl Albumin (3.4-5.0) gm/dl Globulin (2.5-4.0) gm/dl Albumin/Globulin Ratio (0.9-2) Urine Color Urine Appearance (Clear) Urine pH (4.5-7.5) Ur Specific [place] (1.000-1.030) Urine Protein (Negative) Urine Glucose (UA) (Negative) Urine Ketones (Negative) Urine Blood (Negative) Urine Nitrite (Negative) Urine Bilirubin (Negative) Urine Urobilinogen (Negative) Ur Leukocyte Esterase (Negative) Urine WBC (Auto) (0-5) /hpf Urine RBC (Auto) (0-4) /hpf U Hyaline Cast (Auto) (0-5) /lpf U Epithel Cells (Auto) (0-5) /lpf Urine Bacteria (Auto) (Negative) Granular Casts (0) /lpf Urine Yeast (None Prsent) Blood Type Antibody Screen Crossmatch Code Status & VTE Plan Code Status DNR/DNI Supervising Physician Co-Signing Physician Notes Attending Attestation & Discharge Note: Pt seen/examined, chart reviewed, admission care plan d/w PA Kristy Brery. I agree w/ the hilliard components of her documentation. 62yo female - well known to me from prior hospitalization - with advancing stage 4 rectal cancer - presenting with shock. Likely septic 2nd to UTI. Cannot rule out adrenal shock. While awaiting admission her BPs in the ER were quite low. Hydrocortisone, multiple saline boluses, and broad-spectrum IV antibiotics were given. There was also discussion about giving PRBCs. She was admitted to the tele unit with DNR order. Soon after arrival she developed worsening hypotension into the 60s systolic. Discussions were held with the patient & Ms. Berry along with palliative care. After that discussion she was made comfort care. She was then moved from the tele unit to [address] [place] [address]. Upon my assessment on the patient was obtunded. Her sister and daughter were at bedside. PMH, PSH, allergies, meds, sochx, famhx, ros - reviewed vitals - hypotension, afebrile gen - sickly, unresponsive mouth - MM dry neck - no JVD heart - RRR lungs - CTA b/l abd - colostomy bag in place, second dressing in place left abdomen, BS+ ext - cool, pulses <1+ b/l A/P: 62yo female with stage 4 rectal cancer. Now with septic shock +/- adrenal shock 2nd to UTI. ATN/ALAYNA. Comfort care pathway in place. No vitals, labs, antibiotics, etc. 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 Support given to pt's family. Oscar Merida MD (1) Hypertension Hypertension type: essential hypertension Qualified Code(s): I10 - Essential (primary) hypertension
[2018-05-27] MEDS: METHADONE HCL 10 MG TAB PO SCH ×3 (12:05→21:32)
[2018-05-27] MEDS: DOCUSATE SODIUM 100 MG CAP PO SCH ×2 (12:05→21:32)
[2018-05-27] MEDS ORDERED: HYDROCORTISONE SOD 50 MG in SYRINGE 0 ML IV SCH (13:00)
[2018-05-27] MEDS ORDERED: PIPERACILLIN/TAZOBACTAM 3.375 GM in DEXTROSE 5% 100 ML IV SCH (16:00)
[2018-05-28] MEDS: DOCUSATE SODIUM 100 MG CAP PO SCH ×2 (09:03→19:58)
[2018-05-28] MEDS: METHADONE HCL 10 MG TAB PO SCH ×3 (09:04→19:58)
[2018-05-28] MEDS: OXYCODONE HCL IR 5 MG TAB (IMMEDIATE RELEASE) PO PRN ×2 (13:00→19:59)
--- NOTE | 2018-05-28 16:21 | Hospitalist Progress Note ---
Date of Service May 28, 2018 Assessment & Plan (1) Septic shock due to urinary tract infection: - Presented with hypotension unresponsive to IV fluid hydration -- was likely related to developing sepsis in setting of UTI vs. adrenal insufficiency vs. other. - U/a positive; UC +40K colonies Streptococcus. - Imaging showed progression of metastatic rectal cancer, was negative for acute changes consistent with infection. - Palliative care consulted, pt. was transitioned to comfort care on 05/27/18. - Discontinued all IV fluids, IV abx. (2) Metastatic disease: - Imaging showed progression of disease; most recent therapy was Xeloda, developed parasthesias. - Follows with Dr. Crowe at [facility]. - Palliative care consulted, transitioned to comfort care. - Continue home Methadone 10 mg TID with Roxicodone PO and Morphine IV prn pain. - Zofran and Compazine prn N/V. - Colace 100 mg BID scheduled with Miralax prn constipation. (3) Primary cancer of rectum with metastasis from rectum to other site: - Treatment as noted above. (4) Acute kidney injury: - Creatinine increased to 1.49 on admission -- likely prerenal related to dehydration. - Received IV fluids in the ER. - Fluids now discontinued with comfort measures. (5) Hyperkalemia: - K level 5.4 at admission, no treatment indicated. - Discontinued further lab work monitoring. (6) Cancer associated pain: - Pain control with home Methadone TID scheduled, Roxicodone and Morphine prn. - Palliative following. (7) Anemia: - Hemoglobin was 8.2 in the ER, received 1 unit pRBCs. - Discontinued further lab monitoring. (8) Hypertension: - Hypotensive in the ER as noted above. - Discontinued all BP agents. (9) Type II diabetes mellitus: - No indication for blood glucose checks. (10) Malnutrition related to chronic disease: - BMI 20.2 -- transitioned to comfort care. (11) DVT prophylaxis: - Not indicated. Dispo: Med/surg, comfort care measures. Will discuss inpatient hospice on Wednesday. Supervising Physician Co-Signing Physician Notes Attending Attestation - Chart reviewed, care plan d/w TANESHA Berry. I agree w/ the hilliard components of her documentation. Patient remains on comfort care measures. She was more awake today but confused. Focus is on pain control & comfort. Consider inpatient hospice status. Oscar Merida MD Subjective Pt. is more awake today but is very confused. She was complaining of rectal pain -- has been receiving methadone scheduled. Had a vanilla milkshake for lunch, was visiting with her friend at bedside. Review of Systems Unobtainable due to cognitive status Physical Exam Vital Signs (Past 24 Hours): Last Vital Signs Temp 36.1 C L 05/27/18 10:53 Pulse 88 05/27/18 10:53 Resp 15 05/27/18 10:53 BP 92/61 L 05/27/18 10:53 Pulse Ox 97 05/27/18 10:53 Physical Exam: General: Chronically ill appearing female, in no acute distress. HEENT: NC/AT; PERRLA with EOMI; [place] conjunctiva, MMM. Dry oral mucosa. Neck: Supple and nontender Cardiac: RRR Lungs: CTA bilaterally Abdomen: Ostomy; Bowel normoactive X 4; Nontender to palpation Extremities: Warm. No LE edema noted. Neuro: No focal weakness; pleasant but confused. Skin: No rash (1) Hypertension Hypertension type: essential hypertension Qualified Code(s): I10 - Essential (primary) hypertension
[2018-05-28] MEDS ORDERED: MoRPHine SULFATE 4 MG/ML 1 ML CARP\\VIAL IV STA (22:06)
[2018-05-29] MEDS: MoRPHine SULFATE 4 MG/ML 1 ML CARP\\VIAL IV PRN ×5 (02:51→23:23)
[2018-05-29] MEDS: METHADONE HCL 10 MG TAB PO SCH ×3 (08:23→20:00)
[2018-05-29] MEDS: DOCUSATE SODIUM 100 MG CAP PO SCH ×2 (08:35→20:00)
--- NOTE | 2018-05-29 12:50 | Hospitalist Progress Note ---
Date of Service May 29, 2018 Assessment & Plan (1) Septic shock due to urinary tract infection: - Presented with hypotension unresponsive to IV fluid hydration -- was likely related to developing sepsis in setting of UTI vs. adrenal insufficiency vs. other. - U/a positive; UC +3 types of organisms. - Imaging showed progression of metastatic rectal cancer, was negative for acute changes consistent with infection. - Palliative care consulted, pt. was transitioned to comfort care on 05/27/18. - Discontinued all IV fluids, IV abx. (2) Metastatic disease: - Imaging showed progression of disease; most recent therapy was Xeloda, developed parasthesias. - Follows with Dr. Crowe at [facility]. - Palliative care consulted, transitioned to comfort care. - Continue home Methadone 10 mg TID with Roxicodone PO and Morphine IV prn pain. - Zofran and Compazine prn N/V. - Colace 100 mg BID scheduled with Miralax prn constipation. - Ativan 1 mg sublingual q4hr prn anxiety/agitation. (3) Primary cancer of rectum with metastasis from rectum to other site: - Treatment as noted above. (4) Acute kidney injury: - Creatinine increased to 1.49 on admission -- likely prerenal related to dehydration. - Received IV fluids in the ER. - Fluids now discontinued with comfort measures. (5) Hyperkalemia: - K level 5.4 at admission, no treatment indicated. - Discontinued further lab work monitoring. (6) Cancer associated pain: - Pain control with home Methadone TID scheduled, Roxicodone and Morphine prn. - Palliative following. (7) Anemia: - Hemoglobin was 8.2 in the ER, received 1 unit pRBCs. - Discontinued further lab monitoring. (8) Hypertension: - Hypotensive in the ER as noted above. - Discontinued all BP agents. (9) Type II diabetes mellitus: - No indication for blood glucose checks. (10) Malnutrition related to chronic disease: - BMI 20.2 -- transitioned to comfort care. (11) DVT prophylaxis: - Not indicated. Dispo: Med/surg, comfort care measures. Will need to discuss inpatient hospice this week. Supervising Physician Co-Signing Physician Notes Attending Attestation - Chart reviewed, care plan d/w TANESHA Berry. I agree w/ the hilliard components of her documentation. Patient remains on comfort care measures. Again was awake today and had numerous visitors to her room. Having rectal pain and agitation. Treat symptoms accordingly. Consider inpatient hospice status. Oscar Merida MD Subjective Pt. was agitated this morning -- plan to move rooms to allow for better monitoring from nursing staff. Also ordered Ativan prn. Pain is well controlled. Is awake but confused. Is taking PO meds, eating and drinking. Review of Systems Unobtainable due to cognitive status Physical Exam Vital Signs (Past 24 Hours): Last Vital Signs Temp 36.1 C L 05/27/18 10:53 Pulse 88 05/27/18 10:53 Resp 15 05/27/18 10:53 BP 92/61 L 05/27/18 10:53 Pulse Ox 97 05/27/18 10:53 Physical Exam: General: Chronically ill appearing female, in no acute distress. HEENT: NC/AT; PERRLA with EOMI; [place] conjunctiva, MMM. Neck: Supple and nontender Cardiac: RRR Lungs: CTA bilaterally Abdomen: Ostomy; Bowel normoactive X 4; Nontender to palpation Extremities: Warm. Appears volume overloaded in face and extremities but no significant edema noted. Neuro: No focal weakness; confused. Skin: No rash (1) Hypertension Hypertension type: essential hypertension Qualified Code(s): I10 - Essential (primary) hypertension
[2018-05-29] MEDS: LORazepam 1 MG TAB SL PRN ×2 (13:26→18:46)
[2018-05-29] MEDS: HEPARIN 100 UNIT/ML 5ML FLUSH FLUSH PRN ×2 (18:38→23:23)
[2018-05-29] MEDS ORDERED: HALOPERIDOL LACTATE 5 MG/ML 1 ML VIAL IV PRN (19:00)
[2018-05-29] MEDS ORDERED: LORazepam 1 MG/2 ML VIAL IV PRN (19:01)
[2018-05-29] MEDS ORDERED: HALOPERIDOL LACTATE 5 MG/ML 1 ML VIAL IM PRN (20:11)
[2018-05-30] MEDS: MoRPHine SULFATE 4 MG/ML 1 ML CARP\\VIAL IV PRN ×3 (06:41→19:38)
[2018-05-30] MEDS: DOCUSATE SODIUM 100 MG CAP PO SCH ×3 (09:05→20:24)
[2018-05-30] MEDS: METHADONE HCL 10 MG TAB PO SCH ×3 (09:05→20:17)
--- NOTE | 2018-05-30 10:23 | Palliative Care Progress Note ---
Date of Service May 30, 2018 Assessment & Plan (1) Goals of care, counseling/discussion: -62 year old female with PMH of rectal cancer with liver with lung metastases, HTN, chronic pain, anemia, DM type II, and chronic cancer related pain, presented to the hospital today with weakness/fatigue and hypotension. Patient has had several readmissions recently related to her end-stage disease. Most recently, patient was discharged from the hospital to the [facility] for PT/OT on 05/24/18. Patient was apparently found to be hypotensive with increased weakness. CT abd/pelvis shows extensive metastatic disease. Patient transitioned to comfort measures only on 05/27. -Talked again with patient with the above team members. Patient reiterated several times that she did not want to go to ICU, wanted to stop all active treatment, and be comfort measures only which was done on 05/27 -Morphine 2mg IV Q2h PRN and she has used 1 dose in past 24 hours. No signs of facial grimacing. Per friend, she was just turned and appeared comfortable. -Patient does not appear SOB. Pt also has Methadone 10 mg TID and Roxicodone 2.5 mg Q6 which has not been utilized over past 24 hours. -Patient does have Haldol 2.5 mg Q6 ordered as well and has not required any over past 24 hours. As patient is comfort measures, would be inclined to keep on board in case she does become agitated. -Should patient improve cognitively, will need to readdress placement with family. -Palliative Performance Scale: 10% (2) Hypotension: (3) Primary cancer of rectum with metastasis from rectum to other site: Subjective Pt resting in her bed upon my assessment. Pt did open her eyes today on command, but no real meaningful responses A close friend of 20 years was at the bedside, she was playing [employer] songs for her Patient remains on comfort measures, was obtunded on Wednesday, now a little more awake Pt shakes head when I asked if she was in pain, not sure of how reliable Constitutional: + fatigue and + weakness Physical Exam Vital Signs (Past 24 Hours): Last Vital Signs Temp 36.1 C L 05/27/18 10:53 Pulse 88 05/27/18 10:53 Resp 15 05/27/18 10:53 BP 92/61 L 05/27/18 10:53 Pulse Ox 97 05/27/18 10:53 Constitutional: + ill appearing and comfortable Eyes: PERRL, conjunctivae normal, anicteric sclerae ENMT: external ear and nose normal, oropharynx normal Neck: trachea midline, no thyromegaly Respiratory: no cough Auscultation: + diminished lung sounds shallow breaths Cardiovascular: Heart Sounds: normal S1, normal S2 and + murmur Extrem ities: no edema Gastrointestinal (Abdomen): normal bowel sounds, soft, nontender, no hepatosplenomegaly Skin: no rashes, warm and dry + pallor Supervising Physician Co-Signing Physician Notes Patient seen and examined, friend at bedside. Collaborated with YARA Wild Patient's pain is well controlled on current regime. Patient appears improved from last exam on 05/27-skin is warm, patient with good skin color and, patient more awake and alert PE: Fatigued, easily aroused HEENT: EOMI, hearing within normal limits Lungs: Unlabored respirations CV: Regular rate, 2-3+ pitting edema lower extremities Abdomen: Diminished bowel sounds Agree with above note, assessment and plan as per YARA Wild -we will continue to follow to assist with medical decision making as well as pain control. Time Spent Midlevel Total time spent 35 minutes with > 50% of that time spent assessment the patient and managing symptoms with IDT. (1) Hypotension Hypotension type: unspecified hypotension type Qualified Code(s): I95.9 - Hypotension, unspecified
--- NOTE | 2018-05-30 17:23 | Hospitalist Progress Note ---
Date of Service May 30, 2018 Assessment & Plan (1) Septic shock due to urinary tract infection: - Presented with hypotension unresponsive to IV fluid hydration -- was likely related to developing sepsis in setting of UTI vs. adrenal insufficiency vs. other. - U/a positive; UC +3 types of organisms. - Imaging showed progression of metastatic rectal cancer, was negative for acute changes consistent with infection. - Palliative care consulted, pt. was transitioned to comfort care on 05/27/18. - Discontinued all IV fluids, IV abx. (2) Metastatic disease: - Imaging showed progression of disease; most recent therapy was Xeloda, developed parasthesias. - Follows with Dr. Crowe at [facility]. - Palliative care consulted, transitioned to comfort care. - Continue home Methadone 10 mg TID with Roxicodone PO and Morphine IV prn pain. - Zofran and Compazine prn N/V. - Colace 100 mg BID scheduled with Miralax prn constipation. - Ativan 1 mg sublingual q4hr prn anxiety/agitation as well as Haldol. (3) Primary cancer of rectum with metastasis from rectum to other site: - Treatment as noted above. (4) Acute kidney injury: - Creatinine increased to 1.49 on admission -- likely prerenal related to dehydration. - Received IV fluids in the ER. - Fluids now discontinued with comfort measures. (5) Hyperkalemia: - K level 5.4 at admission, no treatment indicated. - Discontinued further lab work monitoring. (6) Cancer associated pain: - Pain control with home Methadone TID scheduled, Roxicodone and Morphine prn. - Palliative following. (7) Anemia: - Hemoglobin was 8.2 in the ER, received 1 unit pRBCs. - Discontinued further lab monitoring. (8) Hypertension: - Continues to be hypotensive - Discontinued all BP agents. (9) Type II diabetes mellitus: - No indication for blood glucose checks. (10) Malnutrition related to chronic disease: - BMI 20.2 -- transitioned to comfort care. (11) DVT prophylaxis: - Not indicated as patient is comfort measures Dispo: Med/surg, comfort care measures, awaiting eval for inpatient hospice Subjective Ms. Eastman is unable to respond to ROS. She appears comfortable although she is accompanied by a friend who reports she was previously yelling out. Review of Systems All systems reviewed & are unremarkable except as noted in HPI & below Physical Exam Vital Signs (Past 24 Hours): Last Vital Signs Temp 36.1 C L 05/27/18 10:53 Pulse 88 05/27/18 10:53 Resp 15 05/27/18 10:53 BP 92/61 L 05/27/18 10:53 Pulse Ox 97 05/27/18 10:53 Physical Exam: General: no distress Eyes: normal inspection, PERLL Respiratory: chest non tender, clear to auscultation, normal breath sounds, no respiratory distress, no accessory muscle use Cardiac: regular rate and rhythm, no rub or gallop, no murmur, no edema, no jvd GI/: active bowel sounds, no abd pain or tenderness, soft, non distended Extremities: normal range of motion, normal strength, non tender Neuro/Psych: alert, does not give verbal response Skin: normal color, dry (1) Hypertension Hypertension type: essential hypertension Qualified Code(s): I10 - Essential (primary) hypertension
[2018-05-31] MEDS: MoRPHine SULFATE 4 MG/ML 1 ML CARP\\VIAL IV PRN ×3 (04:59→10:20)
[2018-05-31] MEDS: METHADONE HCL 10 MG TAB PO SCH ×2 (08:50→14:15)
[2018-05-31] MEDS: DOCUSATE SODIUM 100 MG CAP PO SCH (08:50)
[2018-05-31] MEDS ORDERED: MoRPHine SULFATE 4 MG/ML 1 ML CARP\\VIAL IV PRN (11:43)
[2018-05-31] MEDS ORDERED: MoRPHine SULFATE 2 MG/ML CARP IV PRN (11:43)
--- NOTE | 2018-05-31 11:47 | Hospitalist Progress Note ---
Date of Service May 31, 2018 Assessment & Plan (1) Septic shock due to urinary tract infection: - Presented with hypotension unresponsive to IV fluid hydration -- was likely related to developing sepsis in setting of UTI vs. adrenal insufficiency vs. other. - U/a positive; UC +3 types of organisms. - Imaging showed progression of metastatic rectal cancer, was negative for acute changes consistent with infection. - Palliative care consulted, pt. was transitioned to comfort care on 05/27/18. - Discontinued all IV fluids, IV abx. (2) Metastatic disease: - Imaging showed progression of disease; most recent therapy was Xeloda, developed parasthesias. - Follows with Dr. Crowe at [facility]. - Palliative care consulted, transitioned to comfort care. - Continue home Methadone 10 mg TID with Roxicodone PO and Morphine IV prn pain - increase morphine to 2-4 mg q1h per palliative recommendation as patient having significant discomfort and pain today - Zofran and Compazine prn N/V. - Colace 100 mg BID scheduled with Miralax prn constipation. - Ativan 1 mg sublingual q4hr prn anxiety/agitation as well as Haldol. (3) Primary cancer of rectum with metastasis from rectum to other site: - Treatment as noted above. (4) Acute kidney injury: - Creatinine increased to 1.49 on admission -- likely prerenal related to dehydration. - Received IV fluids in the ER. - Fluids now discontinued with comfort measures. (5) Hyperkalemia: - K level 5.4 at admission, no treatment indicated. - Discontinued further lab work monitoring. (6) Cancer associated pain: - Pain control with home Methadone TID scheduled, Roxicodone and Morphine prn. - Palliative following. (7) Anemia: - Hemoglobin was 8.2 in the ER, received 1 unit pRBCs. - Discontinued further lab monitoring. (8) Hypertension: - Continues to be hypotensive - Discontinued all BP agents. (9) Type II diabetes mellitus: - No indication for blood glucose checks. (10) Malnutrition related to chronic disease: - BMI 20.2 -- transitioned to comfort care. (11) DVT prophylaxis: - Not indicated as patient is comfort measures Dispo: Med/surg, comfort care measures, awaiting eval for inpatient hospice Subjective Patient is having significant pain today. She is sitting up and able to say that she is in pain but unable to further describe how she's feeling Physical Exam Vital Signs (Past 24 Hours): Last Vital Signs Temp 36.1 C L 05/27/18 10:53 Pulse 88 05/27/18 10:53 Resp 15 05/27/18 10:53 BP 92/61 L 05/27/18 10:53 Pulse Ox 97 05/27/18 10:53 Physical Exam: General: moaning with pain at times Eyes: normal inspection Respiratory: chest non tender, clear to auscultation, normal breath sounds, no respiratory distress, no accessory muscle use Cardiac: regular rate and rhythm, no rub or gallop, no murmur, +2 pitting edema lower extremities GI/: active bowel sounds, no abd pain or tenderness, soft, non distended Extremities: normal range of motion, normal strength, non tender Neuro/Psych: alert Skin: normal color, dry, mottles knees (1) Hypertension Hypertension type: essential hypertension Qualified Code(s): I10 - Essential (primary) hypertension
--- NOTE | 2018-05-31 15:57 | Palliative Care Progress Note ---
Date of Service May 31, 2018 Assessment & Plan (1) Palliative care encounter: -Pt is a 62 year old female, pt of [facility] in [facility]iative clin, with PMH of rectal cancer with liver with lung metastases, HTN, chronic pain, anemia, DM type II, and chronic cancer related pain, presented to the hospital on 05/27 with weakness/fatigue and hypotension. Patient has had several readmissions recently related to her end-stage disease. Most recently, patient was discharged from the hospital to the [facility] for PT/OT on 05/24/18. Today, patient was apparently found to be hypotensive with increased weakness. CT abd/pelvis shows extensive metastatic disease. Lab work largely unchanged from previous other than a small drop in hgb from 9.6 to 8.2, creatinine increased from 0.7 to 1.49. Patient initially was admitted to PCU, ordered blood transfusion and IVF for low systolic blood pressure in the 60s. Upon discussion while still in the ED with the hospitalist, patient stated she wanted to be a DNR, but would possibly be willing to go to ICU for pressor support. Palliative care is consulted as any ent is known well to our service, to discuss goals of care. - Patient stated that she did not want to go to ICU, wanted to stop all active treatment, and be comfort measures only. -Patient's daughter, Vira Jones, and son in law at bedside on second visit. Vira stated she is at peace with pt's impending . -Morphine 4mg IV Q2h PRN pain/ SOB - increase to 4 mg Q 1 hour prn, cont prn ativan for anxiety - Pt on comfort care - to be evaluated later this afternoon for [facility] Hospice admission -Palliative care will continue to follow. (2) Cancer associated pain: - Continue methadone-can be slurred and given sublingual - increase morphine to 4 mg IV every hour as needed-continue to monitor for possible morphine drip requirement. Continue PRN Ativan for anxiety (3) Rectal pain: Increasing level of pain, continue methadone, continue IV morphine and IV Ativan for anxiety (4) Metastatic disease: -Patient on comfort care, hospice agency to come later this afternoon and meet with family for possible GIP hospice admission Subjective Patient seen on 4 separate visits today. Patient seen around 11:30 AM-was in significant pain-patient moaning and vocalizing as well as rocking, sitting upright. Patient reported severe pain-she received 4 mg of IV morphine approximately 1 hour ago. Requested nursing give her some Ativan-and increased her morphine to every hour as needed. Patient reassessed at approximately 1 PM-patient's daughter and son-in-law at bedside. Patient much more comfortable, minimally responsive. Daughter reported that she is "more at peace" with patient's impending demise. Daughter feels that patient is waiting to hear from a family member-discussed having that family member speak to her by phone. Discussed end-of-life issues at length with daughter and son-in-law at bedside. Patient evaluated at approximately 3 PM-still comfortable, minimally responsive. Physical Exam Vital Signs (Past 24 Hours): Last Vital Signs Temp 36.1 C L 05/27/18 10:53 Pulse 88 05/27/18 10:53 Resp 15 05/27/18 10:53 BP 92/61 L 05/27/18 10:53 Pulse Ox 97 05/27/18 10:53 Physical Exam: Initial exam-patient in severe distress due to rectal pain- patient given Ativan and another dose of IV morphine-on subsequent visits patient was comfortable, but less responsive. PE: EOMI, hearing within normal limits Respirations: Clear breath sounds, good air movement CV: Tachycardic on initial exam Abdomen: Ostomy is in place Extremities: 2-3+ pitting edema, initially cool to touch with mottled knees. After additional dose of morphine skin was warm, knees no longer mottled. Neuro: Decreased level of alertness Time Spent Attending Patient was seen, examined and assessed for pain control on 3 separate visits today totaling over 65 minutes with greater than 50% of the time spent at bedside evaluating pain control as well discussing end-of-life issues with patient's daughter
--- NOTE | 2018-05-31 19:11 | Discharge Summary ---
Date of Service May 31, 2018 Admission HPI Per Admitting Provider Mrs. Eastman is a 62 year old female with past medical history of rectal cancer with liver, lung and pulm metastases, HTN, chronic pain, anemia, DM type II who presented for admission with weakness/fatigue and hypotension. She has been re- admitted multiple times over the last 3 months for similar symptoms. Pt. was most recently discharged to [facility] on 05/24/18 for PT/OT. She presented to the ER with generalized symptoms but was found to be hypotensive with SBP 70-80's. She reported feeling "pretty good" and denied significant pain. She denied URI symptoms, chest pain, SOB, LE edema. Denied N/V, abd pain, diarrhea or constipation. Lab work showed acute anemia -- 1 unit pRBC ordered. She received 2.5L NS in the ER with no improvement in hypotension. Code status was discussed with her -- pt. was DNR/DNI but agreed to pressor support in the ICU if necessary. Principal Diagnosis metastatic cancer Discharge Exam see progress note for today Discharge Data Allergies Allergy/AdvReac Type Severity Reaction Status Date / Time Sulfa (Sulfonamide Allergy Intermediate RASH Verified 05/27/18 06:44 Antibiotics) codeine AdvReac Intermediate DIZZINESS Verified 05/27/18 06:44 Consultations 05/27/18 08:04 ED Decision to Admit Stat 05/27/18 10:06 Consult Palliative Care Routine Ordered Studies 05/27/18 06:52 CT abd pelvis wo con Stat CT chest wo con Stat CT head/brain wo con Stat Hospital Course (1) Septic shock due to urinary tract infection: - Presented with hypotension unresponsive to IV fluid hydration -- was likely related to developing sepsis in setting of UTI vs. adrenal insufficiency vs. other. - U/a positive; UC +3 types of organisms. - Imaging showed progression of metastatic rectal cancer, was negative for acute changes consistent with infection. - Palliative care consulted, pt. was transitioned to comfort care on 05/27/18. - Discontinued all IV fluids, IV abx. (2) Metastatic disease: - Imaging showed progression of disease; most recent therapy was Xeloda, developed parasthesias. - Follows with Dr. Crowe at [facility]. - Palliative care consulted, transitioned to comfort care. - Continue home Methadone 10 mg TID with Roxicodone PO and Morphine IV prn pain - increase morphine to 2-4 mg q1h per palliative recommendation as patient having significant discomfort and pain today - Zofran and Compazine prn N/V. - Colace 100 mg BID scheduled with Miralax prn constipation. - Ativan 1 mg sublingual q4hr prn anxiety/agitation as well as Haldol. (3) Primary cancer of rectum with metastasis from rectum to other site: - Treatment as noted above. (4) Acute kidney injury: - Creatinine increased to 1.49 on admission -- likely prerenal related to dehydration. - Received IV fluids in the ER. - Fluids now discontinued with comfort measures. (5) Hyperkalemia: - K level 5.4 at admission, no treatment indicated. - Discontinued further lab work monitoring. (6) Cancer associated pain: - Pain control with home Methadone TID scheduled, Roxicodone and Morphine prn. - Palliative following. (7) Anemia: - Hemoglobin was 8.2 in the ER, received 1 unit pRBCs. - Discontinued further lab monitoring. (8) Hypertension: - Continues to be hypotensive - Discontinued all BP agents. (9) Type II diabetes mellitus: - No indication for blood glucose checks. (10) Malnutrition related to chronic disease: - BMI 20.2 -- transitioned to comfort care. (11) DVT prophylaxis: - Not indicated as patient is comfort measures Dispo: patient is discharging to inpatient hospice at [facility]. Approved for GIB this evening Total Time Total Time Spent Total Time Spent (In Minutes): < 30 minutes Discharge Plan Discharge Items Patient Disposition: Hospice - Medical Facility Reason For Visit: HYPOTENSION Discharge Diagnosis: metastatic cancer Discharge Goals: Decrease discomfort Activity: Resume your previous activity Non-emergency contact: Primary Care Provider Call non-emergency contact if: you have any medication questions Follow-up/Referrals: Cody, [Primary Care Provider] - Diet: Regular Addtl Provider Instructions: Patient to discharge to inpatient hospice Prescriptions: New morphine 2 mg/mL Syringe 2 mg IV Q1H PRN (Reason: pain) Qty: 3 RF: 0 morphine 4 mg/mL Syringe 4 mg IV Q1H PRN (Reason: pain) Qty: 3 RF: 0 Continued methadone 5 mg tablet 10 mg PO QID RF: 0 Discontinued gabapentin 600 mg tablet 600 mg PO TID RF: 0 polyethylene glycol 3350 [Miralax] 17 gram/dose Powder 17 g PO DAILY PRN (Reason: Constipation) RF: 0 lisinopril 10 mg tablet 10 mg PO QAM RF: 0 acetaminophen [Tylenol] 325 mg Tablet 650 mg PO Q6H MDD 3 GRAMS/24 HOURS PRN (Reason: FEVER >101 OR PAIN) RF: 0 ertapenem [Invanz] 1 gram Recon Soln 1 g IM DAILY RF: 0 oxycodone 10 mg Tablet 5 mg PO Q4 PRN (Reason: Pain) RF: 0 pantoprazole 40 mg Tablet,Delayed Release (Dr/Ec) 40 mg PO BID Qty: 60 RF: 2 ferrous sulfate 325 mg (65 mg iron) tablet 325 mg PO BID Qty: 60 RF: 1 prochlorperazine maleate [Compazine] 10 mg tablet 10 mg PO Q8H PRN (Reason: nausea and vomiting) Qty: 10 RF: 0 dexamethasone [Decadron] 4 mg tablet 4 mg PO QAM RF: 0 Lantus Solostar U-100 Insulin 100 unit/mL (3 mL) Insulin Pen 10 unit SC BID Qty: 3 RF: 0 Stand-Alone Forms: [facility] Discharge Orders: Discharge Order (Routine); Ordered 05/31/18 Ordered By: Debbi Kenney Admission Data Admit Date/Time: 05/27/18 08:31 Attending Provider: Valentin Thrasher Admit Provider: Oscar Merida Primary Care Provider: Ajithryanne, Other Providers: Chase Sharp ; April Rodriguez ; Oscar Merida Service: Medical
--- OUTSIDE RECORDS SUMMARY | 2018-06-09 10:35 | External Medical Summary | Continuity of Care Document ---
:1955 Author Name Brionna Andrade, Provider Address Unavailable Unavailable , Care Team Providers Name Role Phone Lefty [email or web address] [email or web address] LEFTY OJEDA M.D. 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) Insomnia (780.52) (G47.00) Situational anxiety (300.09) (F41.8) Vitamin D deficiency (268.9) (E55.9) Menopausal symptoms (627.2) (N95.1) Osteopenia (733.90) (M85.80) Unequal leg length (acquired) (736.81) (M21.70) Raynaud's disease (443.0) (I73.00) Herpes simplex (054.9) (B00.9) Metastatic adenocarcinoma (199.1) (C79.9) Nausea (787.02) (R11.0) ALAYNA (acute kidney injury) (584.9) (N17.9) Acute sinusitis (461.9) (J01.90) S/P ileostomy (V44.2) (Z93.2) Cutaneous candidiasis (112.3) (B37.2) HTN, goal below 140/90 (401.9) (I10) Generalized weakness (780.79) (R53.1) Hypokalemia (276.8) (E87.6) UTI (urinary tract infection) (599.0) (N39.0) Anemia (285.9) (D64.9) Depression with anxiety (300.4) (F41.8) Allergies and Adverse Reactions Codeine Derivatives (Allergy) Reaction: Dizziness Sulfa Drugs (Allergy) Reaction: Hives Medications Lisinopril 10 MG Oral Tablet; TAKE 1 TABLET DAILY D IRECTED. Lupe Ojeda Start: 27-Dec-2017 Quantity: 30 Refills: 5 Saline Mist [place] 0.65 % Nasal Solution; USE 2 SPRAYS IN EACH NOSTRIL TWICE DAILY. Start: 02-May-2018 Refills: 0 44 ML [place] Btl Ferrous Sulfate 325 (65 Fe) MG Oral Tablet; TAKE 1 TAB LET TWICE DAILY. Lupe Ojeda Start: 11-Apr-2018 Quantity: 60 Refills: 1 oxyCODONE HCl - 10 MG Oral Tablet; 10 mg oral q4h as needed , Take as needed for: Pain Start: 17-Jan-2018 Refills: 0 MiraLax Oral Powder; Mix one capful (17g ) in 8 oz H2O, juice or tea and drink by mouth once daily, PRN Start: 27-Dec-2017 Refills: 0 Dexamethasone 4 MG Oral Tablet; TAKE 1 TABLET TWICE DAILY. Lupe Paniagua Start: 27-Dec-2017 Refills: 0 Gabapentin 600 MG Oral Tablet; TAKE 1 TABLET 3 TIMES DAILY. Lupe Ojeda Start: 20-Sep-2017 Quantity: 90 Refills: 5 Boost Oral Liquid; DRINK 1 BOTTLE THREE TIMES DAILY WITH SHELLEY LS Start: 25-Nov-2016 Refills: 0 Methadone HCl - 10 MG Oral Tablet; TAKE 1 TABLET EVERY 12 HO URS. Start: 11-Apr-2018 Refills: 0 Sucralfate 1 GM Oral Tablet; TAKE 1 TABL ET 4 TIMES DAILY, BEFORE MEALS AND AT BEDTIME. Start: 11-Apr-2018 Refills: 0 Pantoprazole Sodium 40 MG Oral Tablet De layed Release; TAKE ONE TABLET BY MOUTH TWICE DAILY Start: 11-Apr-2018 Refills: 0 Mupirocin 2 % External Ointment; APPLY S PARINGLY TO AFFECTED AREA(S) TOP OF RIGHT EAR 3 TIMES A DAY Start: 11-Apr-2018 Refills: 0 15 GM Tube Procedures History of Oral Surgery Tooth Extraction Status: Completed History of colostomy Status: Completed Comments: Completed: Approx [id number] History of rectal tumor removal Status: Completed Comments: Completed: Approx [id number] Immunizations Immunizations not documented Family History aunt Family history of Breast Cancer (V16.3) Status: Active Father Family history of Emphysema Status: Active Mother Family history of Hypertension (V17.49) Status: Active Unknown Family Member Family history of myocardial infarction Status: Active Comments: Family History (V17.3) (Z82.49) Brother Family history of myocardial infarction (V17.3) (Z82.49) Sta tus: Active Social History - Smoking Status Unknown if ever smoked Former smoker Plan of Treatment Planned Observations Planned Goals not documented Results CT Head w/o Contrast (Pending) Laboratory: [facility] Diagnostic Imaging [address] [facility] 14-May-2018 19:56 CT HEAD WITHOUT CONTRAST [place], [place] CT Scan Report Patient: CHRIS MCCALL Admit Date: 05/14/18 MR#: [id number] Address1: [address] [place] [address] Acct ID:[id number] Address2: [place] [address] Date: [address] [facility] Zip: [facility] [address] Age: 62 Location: ED Sex: F Room/Bed: Att Phy: Diagnosis: DIZZY, SH AKEY, PAIN Angelica Phy: Lefty Ojeda MD Service Date: 05/14/18 [facility] Phy: Yogesh Crowe MD Interpreting Ph y: Jax Long [facility] Phy: Ordering Phy: Cheng Anderson M .D. cc: CT head/brain wo con CLINICAL HISTORY: 62 years-old Female with fall. Acute head injury status post fall TECHNIQUE : Multiple axial CT images of the head wer e obtained without contrast. A dose lower ing technique was utilized adhering to the principles of ALARA. COMPARISON: CT head 04/27/2018. FINDINGS: No acute intracranial hemorrhage, midline shift, intracranial mass, hydrocephalus, territ orial ischemia or abnormal extra-axial collect ion. The calvarium is intact. The parana zackery sinuses, mastoid air cells, and middle e ar cavities are clear. IMPRESSION: No acute intracranial abnormality or calvar ial fracture. The above report wa s generated using voice recognition softwa re. It may contain grammatical, syntaxor spe lling errors. Electronically signed by: Terrance Bee M.D. 05/14/2018 7:59 P M Dictated: 05/14/181955 Transcribed: 05/14/181955 CT Cervical Spine w/o Contrast Laboratory: [facility] Diagnostic Imaging [address] (Pending) [facility] 14-May-2018 19:59 CT CERVICAL SPINE W/O IV CONT [facility], [place] [phone] Scan Report Patient: CHRIS MCCALL Admit Date: 05/14/18 MR#: [id number] Address1: [address] [place] [address] Acct ID:[id number] Address2: [facility] [address] Date: [address] [facility] Zip: [facility] [address] Age: 62 Location: ED Sex: F Room/Bed: Att Phy: Diagnosis: DIZZY, SH AKEY, PAIN Angelica Phy: Lefty Ojeda MD Service Date: 05/14/18 Fam Phy: Yogesh Crowe MD Interpreting Ph y: Jax Long [facility] Phy: Ordering Phy: Cheng Anderson M .D. cc: CT cervical spine wo con CLINICAL HIST ORY: 62 years-old Female with fall. Acute ne ck pain status post fall COMPARISON: CT head and maxillofacial studies of same d ay TECHNIQUE: Multiple axial CT images of the cervical spine were obtained without contrast. A dose lowering technique was utilized adhering to the principles of A MANJU. FINDINGS: Bones appear mildly demineralized. Moderate degenerative anthony nges at C1-C2. Multilevel facet arthrosis is mostly mild to severe left-sided facet arthropathy at C2-C3 and C3-C4. Indeterm inate 3.5 cm sclerotic focus about the posteri or right lamina of C2, possibly reflective of a bone island.Mild to moderate posterior intervertebral disc space narrowing at C 4-C5 with uncovertebral spurring.Mild multile katharine intervertebral disc space narrowing with small posterior annular disc bulging. Is noacute fracture or subluxation identifi ed. Evaluation of the central canal and neuroforamina is better assessed by MRI. Biapical pleural-parenchymal scarring wi thout pneumothorax. Soft tissues of the neck a re unremarkable. No prevertebral soft tissu e swelling or adenopathy. IMPRESSION: No acute cervical spine fracture or subluxa tion. The above report was generate d using voice recognition software. It may contain grammatical, syntaxor spelling errors. Electronically sig joseph by: Terrance Bee M.D. 05/14/2018 8 :04 PM Dictated: 05/14/181958 Transcribed: 05/14/181958 CT Facial Bones-Mxillofac W/O Laboratory: [facility] Diagnostic I maging [address] (Pending) [facility] 14-May-2018 20:05 CT Facial Bones-Mxillofac WO (FBWO) [place] [facility], [place] [phone] CT Scan Report Zoie ent: CHRIS MCCALL Admit Date: 05/14 MR#: [id number] Address1: [address] [place] [address] Acct ID:[id number] Address2: [place] [address] Date: [address] [facility] Zip: [place] [address] Age: 62 Location: ED Sex: F Room/Bed: Att Phy: Diagnosis: DIZZY, SHAKEY, PAIN Angelica Phy: Lefty Ojeda MD Service Date: 05/14/18 Fam Phy: Yogesh Crowe MD Interpreting Ph y: Jax Bee Admit Phy: Ordering Phy: Cheng Anderson M.D. cc: CT facial bones wo con CLINICAL HISTORY: 62 years-old Female presenting with fall. Acute facial injur y status post fall COMPARISON STUDY: CT head and cervical spine studies of same day TECHNIQUE: High-resolution CT scan o f the facial bones is performed. Images are reviewed in the axial, sagittal, and cor onal planes. IV contrast was not administered for this examination. A dose lowering techn ique was utilized adhering to the principles of ALARA. CT DOSE: 934.83 mGy.cm FINDINGS: Biapical pleural-parenchyma l scarring without pneumothorax. Soft tiss ues of the and neck appear unremarkable. No acute intracranial abnormality identified. Bilateral globes and orbits are within n ormal limits. No acute calvarial fracture. Mas toid air cells and middle ear cavities are cl ear. Paranasal sinuses are also generally placido ar with mild mucosal thickening of the ethm oid air cells. Mild leftward bowing and spur ring of the nasal septum. No acute facial bon e fracture identified. There are mild degenerative changes noted about the bilateral temporal mandibular joints. Na zackery bone, zygomatic arches, maxillary morelos and pterygoid plates appear intact. IMPRESSION: No acute facial bone fractur e. The above report was generated using Vaavud recognition software. It may contain grammatical, syntaxor spelling errors. Electronically signed by: Terrance Bee M.D. 05/14/2018 8:08 PM Dictated: 05/14/182004 Transcrib ed: 05/14/182004 CT abd pelvis IV con only (Pending) Laboratory: [facility] Diagnostic Imaging [address] [facility] 14-May-2018 20:12 CT abd pelvis IV con only [place], [place] CT Scan Report Patient: CHRIS MCCALL Admit Date: 05/14/18 MR#: [id number] Address1: [address] [place] [address] Acct ID:[id number] Address2: [facility] [address] Date: [address] [facility] Zip: [place] [address] Age: 62 Location: ED Sex: F Room/Bed: Att Phy: Diagnosis: DIZZY, SH AKEY, PAIN Angelica Phy: Lefty Ojeda MD Service Date: 05/14/18 [facility] Phy: Yogesh Crowe MD Interpreting Ph y: Jax Bee [facility] Phy: Ordering Phy: Cheng Anderson M .D. cc: ABDO MEN AND PELVIS CT WITH IV CONTRAST CT D OSE: 261.22 mGy.cm HISTORY: Acute genera lized abdominal pain status post fall abdomin al pain fall TECHNIQUE: Multiaxial CT images of the abdomen and pelvis were performed following the use of intraveno us contrast. A dose lowering technique was utilized adhering to the principles of A MANJU. COMPARISON STUDY: CT abdomen pelvis 04/06/2018. FINDINGS: Bibasilar pulmonary nodules are noted measuring up to 6 mm within the basal right lower lobe on image 35 series 3, previously this nodule lisset ured 4 mm on study from 04/06/2018. 7 mm solid nodule left lower lobe is not definitive ly seen on this exam. There is no pneumatos is or pneumoperitoneum. The imaged inferior ca rdiac chambers appear unremarkable. There are several scattered ill-defined hypodense lesions noted about the liver suggestive of hepatic metastasis measuring up to 1.6 c m the left hepatic lobe, previously 10 mm suggestion of progression of disease. Le sions within the right hepatic lobe measures u p to 12 mm, previously 9 mm.No intrahepatic biliary ductal dilation. Scattered calci fied merritt limit about the liver and spleen. Patency of the hepatic and portal veins. Pancreas is unremarkable. 2.7 x 2.5 cm l eft adrenal gland mass previously measured 2 .5 x 2.1 cm. Right adrenal gland appears unremarkable. Bilateral renal cysts . Resolution of the previously described hydronephrosis. Mild urothelial thickeni ng noted about the left renal pelvis and collecting system. Mild dilation of the mid and distal ureters. Mild wall thickening of the bladder. Large necrotic invasive mas s of the rectum centered about Craig's pouc h redemonstrated measuring approximately 7 .8 x 6.7 cm, previously measuring approximate ly 7.0 x 6.6 cm and again demonstrates inva bria into adjacent pelvic musculature, vagina and adjacent small bowel. There is no associ ated small bowel obstruction. Postoperative changes with descending colostomy redemonstrated. Moderate mixed plaque formation of the aorta without aneurysm. IVC is unremarkable. No new adenopathy. Laura st parenchyma and soft tissues appear unremarkable. No suspicious bone lesions to suggest osseous metastasis. IMPRESS ION: 1. No acute posttraumatic abnormali ty of the abdomen or pelvis. No acute fracture . 2. Large necrotic invasive mass about t he rectum centered within Craig's pouch h as mildly increased in size from comparison . Associated adjacent muscular, vaginal an d small bowel invasion redemonstrated. 3. Pulmonary and hepatic metastasis redemonstrated with interval increased s ize of the hepatic lesions compatible with progression of disease. 4. Resoluti on of the previously described hydronephrosis with mild dilation noted about the mid anddis justin bilateral ureters. Mild nonspecific urothelial thickening noted about the le ft renal pelvis and proximal left ureter. 5. No small bowel obstruction. 6. Increased size of the left adrenal gland mass suggestive of metastasis. 7. Addit ional findings as above. Electronic ally signed by: Terrance Bee M.D. 05/14 8:26 PM Dictated: 05/14/182011 Transcribed: 05/14/182011 X-ray Chest, PA and Lateral Routine Laboratory: [facility] Diagnostic Imaging [address] (Pending) [facility] [place] 14-May-2018 20:31 CHEST 2 VIEWS ROUTINE [facility], [place] [phone] XRay Report Patient: CHRIS MCCALL Admit Date: 05/14/18 MR#: [id number] Address1: [address] [place] [address] Acct ID:[id number] Address2: [address] Date: [address] [facility] Zip: [facility] [address] Age: 62 Location: ED Sex: F Room/Bed: Att Phy: Diagnosis: DIZZY, SH AKEY, PAIN Angelica Phy: Lefty Ojeda MD Service Date: 05/14/18 Fam Phy: Yogesh Crowe MD Interpreting Ph y: Jax Bee Ad mihaela Phy: Ordering Phy: Cheng Anderson M .D. cc: XR c hest 2V routine HISTORY: 62 years-old F emale fall acute chest trauma status post fall COMPARISON: Chest radiograph 04/25/2018 TECHNIQUE: PA and lateral views of the c hest FINDINGS: Cardiac mediastinal and hilar silhouettes are unchanged. Hyperinflation with emphysema. Stable positioning of the left pectoral Mgwmrk-u-Mcwz catheter. Biapical pleural-parenchymal scarring redemonstra artemio. No pneumothorax, pleural effusion, focal airspace consolidation or overt pulmonar y edema. Degenerative changes of the shoul ders and spine. IMPRESSION: No acute pro cess. The above report was generat ed using voice recognition software. It may contain grammatical, syntaxor spelling errors. Electronically signed by: Terrance Bee M.D. 05/14/2018 8:32 P M Dictated: 05/14/182030 Transcribed: 05/14/182030 X-Ray Chest 1 View Portable (Pending) Laboratory: [facility] C Diagnostic Imaging [address] [place] 27-May-2018 6:44 X-Ray Chest 1 VW Portable (CXR1P) [facility], [place] [phone] XRay Report Jordon t: CHRIS MCCALL Admit Date: 05/27 MR#: [id number] Address1: [address] [place] [address] Acct ID:[id number] Address2: [address] Date: [address] [facility] Zip: [facility] [address] Age: 62 Location: ED Sex: F Room/Bed: Att Phy: Diagnosis: LOW BLOOD PRESSURE Angelica Phy: Lefty Ojeda MD Service Date: 05/27/18 Fam Phy: Interpreting Phy: Raiza Christine her Admit P hy: Ordering Phy: Aura Russo M. D. cc: XR chest 1V portable HISTORY: 62 years-old Fem pricila hypotension acute hypotension COMPARISON: Chest radiographs 05/14/2018 TECHNIQUE: Portable AP view of the chest FINDINGS: Left subclavian Infuse-a-Po rt catheter appears unchanged. Mild biapica l pleural-parenchymal scarring. No pneumothorax, pleural effusion or overt pulmonary edema. Mild bilateral intersti tial coarsening is stable. Unchanged mild rig ht hemidiaphragmatic elevation. Degenerativ e changes of the shoulders and spine. IMPRESSION: No acute process. The above report was generated using voice recognition software. It may contain grammatical, syntaxor spelling errors. Electronically signed by: Terrance Bee M.D. 05/27/2018 6:46 AM Dictated: 05/27/18 0644 Transcrib ed: 05/27/18 0644 Encounters Appointment; Lefty Ojeda M.D. 10-May-2018 10:20 Encounter Diagnosis: Problem not documented Appointment; Lefty Ojeda M.D. 14-Apr-2018 10:20 Encounter Diagnosis: Problem not documented Appointment; Lefty Ojeda M.D. 05-Apr-2018 15:40 Encounter Diagnosis: Problem not documented Appointment; Lefty Ojeda M.D. 02-Mar-2018 14:00 Encounter Diagnosis: Problem not documented Appointment; Lefty Ojeda M.D. 18-Jan-2018 10:20 Encounter Diagnosis: Problem not documented Appointment; Lefty Ojeda M.D. 30-Dec-2017 10:20 Encounter Diagnosis: Problem not documented Appointment; Lefty Ojeda M.D. 20-Dec-2017 15:40 Encounter Diagnosis: Problem not documented Appointment; Lefty Ojeda M.D. 10-Nov-2017 12:00 Encounter Diagnosis: Problem not documented Appointment; Lefty Ojeda M.D. 08-Nov-2017 10:20 Encounter Diagnosis: Problem not documented Appointment; Lefty Ojeda M.D. 15-Oct-2017 15:20 Encounter Diagnosis: Problem not documented Appointment; Lefty Ojeda M.D. 20-Sep-2017 15:00 Encounter Diagnosis: Problem not documented Appointment; Lefty Ojeda M.D. 20-Jul-2017 15:40 Encounter Diagnosis: Problem not documented Appointment; Zaid Bruno CRNP 09-Apr-2017 13:00 Encounter Diagnosis: Problem not documented Appointment; Lefty Ojeda M.D. 22-Mar-2017 13:20 Encounter Diagnosis: Problem not documented Appointment; Lefty Ojeda M.D. 22-Jan-2017 16:00 Encounter Diagnosis: Problem not documented Appointment; Lefty Ojeda M.D. 02-Dec-2016 12:00 Encounter Diagnosis: Problem not documented Appointment; Perlita Albert M.D. 09-Oct-2016 14:00 Encounter Diagnosis: Problem not documented Appointment; Lefty Ojeda M.D. 13-Aug-2016 13:40 Encounter Diagnosis: Problem not documented
== END 2018-05-31 19:19 | disposition hospice, inpatient (51) | DRG 871 ==
LOC: ED 06:09 → SUATTDRO 08:31 → 2S 08:31 → 4E 11:03

== ENCOUNTER 2018-05-31 19:19 | Inpatient (IN) ==
[2018-05-31] MEDS ORDERED: ACETAMINOPHEN 325 MG TAB PO PRN (19:22)
[2018-05-31] MEDS ORDERED: MoRPHine SULFATE 2 MG/ML CARP IV PRN (19:24)
--- NOTE | 2018-05-31 19:33 | History & Physical Report ---
Date of Service May 31, 2018 Assessment & Plan (1) Metastatic disease: Primary cancer of rectum with metastasis from rectum to other site: - Imaging showed progression of disease - Palliative care consulted, transitioned to comfort care. Patient did not want any further medical management. See palliative note - Per palliative recommendations: continue home Methadone 10 mg TID with Roxicodone PO and Morphine IV prn pain - increased morphine to 2-4 mg q1h per palliative recommendation as patient having significant discomfort and pain today, Ativan q4h prn anxiety/agitation - Zofran prn N/V. - Colace 100 mg BID scheduled with Miralax prn constipation. - palliative care consulted History of Present Illness Primary Care Provider: Jewel Ross See H&P from 05/27 Allergies Allergy/AdvReac Type Severity Reaction Status Date / Time Sulfa (Sulfonamide Allergy Intermediate RASH Verified 05/27/18 06:44 Antibiotics) codeine AdvReac Intermediate DIZZINESS Verified 05/27/18 06:44 Home Medications Home Medications Medication Instructions Recorded Confirmed Type methadone 10 mg PO QID 05/27/18 05/27/18 History morphine 2 mg IV Q1H PRN #3 ml 05/31/18 Rx morphine 4 mg IV Q1H PRN #3 ml 05/31/18 Rx Past Med/Surg History Social History Communication Ability: Effective Beliefs That Will Affect Care: None marital status: Current Living Situation: [facility] current occupational status: 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 Any exceptions or clarifications are listed here: None Patient admitted to inpatient hospice for pain control for metastatic malignancy Documented By: Valentin Thrasher
[2018-05-31] MEDS ORDERED: LORazepam 1 MG TAB SL PRN (19:36)
[2018-05-31] MEDS ORDERED: ONDANSETRON INJ 2 MG/ML 2 ML VIAL IV PRN (19:38)
[2018-05-31] MEDS: MoRPHine SULFATE 4 MG/ML 1 ML CARP\\VIAL IV PRN ×2 (19:58→21:40)
[2018-05-31] MEDS: METHADONE HCL 10 MG TAB PO SCH (20:59)
[2018-05-31] MEDS ORDERED: METHADONE HCL 5 MG TAB PO SCH (21:00)
[2018-06-01] MEDS: MoRPHine SULFATE 4 MG/ML 1 ML CARP\\VIAL IV PRN (08:18)
[2018-06-01] MEDS ORDERED: HEPARIN 100 UNIT/ML 5ML FLUSH ONE (08:26)
--- NOTE | 2018-06-01 10:37 | Palliative Care Progress Note ---
Date of Service June 01, 2018 Assessment & Plan (1) Hospice care patient: -62 year old female with metastatic rectal adenocarcinoma, end-stage, admitted under general inpatient hospice. -Patient well-known to palliative care service. -Patient had a difficult night and morning. Increased agitation and nonverbal signs of pain. Did not receive pain medication over night and woke up in distress. -Hospice medical affairs manager made recommendations for more consistent pain relief. Will start morphine gtt at 0.5mg/hr, titrate by 0.5mg/hr Q15min as needed or pain or SOB. -Convert SL Ativan to IV, 1mg Q4h PRN anxiety/agitation. -Comfort/hospice care continues. (2) Adenocarcinoma of rectum, stage 4: (3) Sepsis: Subjective Review of Systems Unobtainable due to cognitive status Patient had a difficult night and morning. Increased agitation and nonverbal signs of pain. Did not receive pain medication over night and woke up in distress. During my exam, patient was finally resting comfortably after PRN dose of morphine. Physical Exam Vital Signs (Past 24 Hours): Last Vital Signs Temp 37.3 C 05/31/18 20:39 Pulse 101 H 05/31/18 20:39 Resp 16 05/31/18 20:39 BP 119/72 05/31/18 20:39 Pulse Ox 95 05/31/18 20:39 Constitutional: + ill appearing; no acute distress ENMT: external ear and nose normal, oropharynx normal Ears: + hearing impairment Mouth: + dry oral mucous membranes Neck: normal visual inspection Respiratory: normal respiratory effort, lungs clear to auscultation Auscultation: + diminished lung sounds Cardiovascular: Rate/Rhythm: regular rate and regular rhythm Extremities: + edema Gastrointestinal (Abdomen): Inspection/Auscultation: normal bowel sounds; abdomen not distended Percussion/Palpation: abdomen soft Skin: + mottling (BL knees, left foot) Neurologic: awake (did open eyes, did not follow commands or verbally respond) Time Spent Midlevel 40 minutes with >50% of time spent at bedside with patient, provider, and hospice nursing discussing comfort/symptom care and plan of care. (1) Sepsis Sepsis type: sepsis due to unspecified organism Qualified Code(s): A41.9 - Sepsis, unspecified organism
[2018-06-01] MEDS: MoRPHine SULF/NSS 250 MG/250 ML BTL IV SCH (11:14)
[2018-06-01] MEDS: METHADONE HCL 10 MG TAB PO SCH ×3 (11:16→21:33)
[2018-06-01] MEDS: LORazepam 1 MG/2 ML VIAL IV PRN ×2 (12:21→19:08)
--- NOTE | 2018-06-01 14:59 | Hospitalist Progress Note ---
Date of Service June 01, 2018 Assessment & Plan (1) Metastatic disease: Primary cancer of rectum with metastasis from rectum to other site: - Imaging showed progression of disease - Palliative care consulted, transitioned to comfort care. Patient did not want any further medical management. See palliative notes - Per palliative recommendations: continue home Methadone 10 mg TID, patient will transition to morphine gtt, change ativan to IV from SL and continue prn q4h - Zofran prn N/V. - Colace 100 mg BID scheduled with Miralax prn constipation. - palliative care consulted Subjective Per nursing, Ms. Eastman was in some distress this morning after sleeping soundly and not receiving pain medication over the night. She is unable to give a review of systems. She has been in distress when touched or turned so far today. Physical Exam Constitutional: sleeping, appears comfortable Respiratory: normal respiratory effort; no respiratory distress
[2018-06-02] MEDS: METHADONE HCL 10 MG TAB PO SCH ×3 (08:14→22:31)
[2018-06-02] MEDS: MoRPHine SULF/NSS 250 MG/250 ML BTL IV SCH (11:02)
[2018-06-02] MEDS: LORazepam 1 MG/2 ML VIAL IV PRN (12:40)
--- NOTE | 2018-06-02 12:41 | Hospitalist Progress Note ---
Date of Service June 02, 2018 Assessment & Plan (1) Metastatic disease: Primary cancer of rectum with metastasis from rectum to other site: - Imaging showed progression of disease - Palliative care consulted, transitioned to comfort care. Patient did not want any further medical management. See palliative notes - Per palliative recommendations: continue home Methadone 10 mg TID, morphine gtt, ativan to IV prn q4h - Zofran prn N/V. - Colace 100 mg BID scheduled with Miralax prn constipation. - palliative care consulted Subjective Ms. Eastman shook her head no when asked if she was in pain but otherwise did not interact. Appears comfortable. Physical Exam Physical Exam: General: no distress, drowsy Eyes: normal inspection Respiratory: chest non tender, clear to auscultation, normal breath sounds, no respiratory distress, no accessory muscle use Cardiac: regular rate and rhythm, no rub or gallop, no murmur, no edema, no jvd GI/: hypoactive bowel sounds, soft, non distended Skin: normal color, dry
--- NOTE | 2018-06-02 14:49 | Palliative Care Progress Note ---
Date of Service June 02, 2018 Assessment & Plan (1) Palliative care encounter: -Pt is a 62 year old female, pt of mine in Palliative clinc, with PMH of rectal cancer with liver with lung metastases, HTN, chronic pain, anemia, DM type II, and chronic cancer related pain, presented to the hospital on 05/27 with weakness/fatigue and hypotension. Patient has had several readmissions recently related to her end-stage disease. Most recently, patient was discharged from the hospital to the [facility] for PT/OT on 05/24/18. Today, patient was apparently found to be hypotensive with increased weakness. CT abd/pelvis shows extensive metastatic disease. Lab work largely unchanged from previous other than a small drop in hgb from 9.6 to 8.2, creatinine increased from 0.7 to 1.49. Patient initially was admitted to PCU, ordered blood transfusion and IVF for low systolic blood pressure in the 60s. Upon discussion while still in the ED with the hospitalist, patient stated she wanted to be a DNR, but would possibly be willing to go to ICU for pressor support. Palliative care is consulted as ema hardwick is known well to our service, to discuss goals of care. - Patient stated that she did not want to go to ICU, wanted to stop all active treatment, and be comfort measures only. -Patient now on GIP status with hospice-on a morphine drip for pain, IV Ativan for anxiety -Palliative care will continue to follow. (2) Cancer associated pain: - Continue methadone-can be slurred and given sublingual -Titrate morphine drip as needed (3) Rectal pain: Increasing level of pain, continue methadone, titrate morphine drip (4) [id number] with as needed Ativan (2) Cancer associated pain: Patient on GIP hospice care-continue morphine drip (3) Primary cancer of rectum with metastasis from rectum to other site: No further treatment per oncology Subjective Patient awake, less alert. Having some increased pain. Patient was comfortable earlier this morning. Spoke with nursing-we will titrate her morphine drip. Review of Systems Review of Systems: Patient sitting upright in bed, having increased pain Physical Exam Physical Exam: PE: Awake, less alert, sedated Respirations: Unlabored CV: Tachycardic Abdomen: Ostomy is in place Extremities: Positive edema, positive mottling to the level of the knees Skin: Cool, mottled Neuro: Less alert, more confused Psych: Anxiety appears well controlled Time Spent Attending Total time spent 25 minutes with greater than 50% of the time spent at bedside assessing patient's pain level and collaborating with nursing
[2018-06-03] MEDS: LORazepam 1 MG/2 ML VIAL IV PRN ×2 (03:23→13:43)
--- NOTE | 2018-06-03 09:47 | Palliative Care Progress Note ---
Date of Service June 03, 2018 Assessment & Plan (1) Hospice care patient: -62 year old female with metastatic rectal adenocarcinoma, end-stage, admitted under general inpatient hospice. -Morphine infusion at 2.5mg/hr. Patient appears comfortable on this. They did have to increase it last night. -Nothing further to add at this time. Continue comfort measures. (2) Adenocarcinoma of rectum, stage 4: (3) Sepsis: Subjective Patient still opens eyes to name, but does not verbally respond. Does not follow commands. Review of Systems Review of Systems: Unobtainable due to cognitive status Physical Exam Constitutional: + ill appearing; no acute distress ENMT: Mouth: + dry oral mucous membranes Neck: normal visual inspection Respiratory: normal respiratory effort, lungs clear to auscultation Auscultation: + diminished lung sounds Cardiovascular: Rate/Rhythm: regular rate and regular rhythm Extremities: + edema Gastrointestinal (Abdomen): Inspection/Auscultation: normal bowel sounds; abdomen not distended Percussion/Palpation: abdomen soft Skin: + mottling (BL knees, left foot) Neurologic: awake (did open eyes, did not follow commands or verbally respond) Time Spent Midlevel 25 minutes with >50% of time spent at bedside with patient and primary nurse discussing comfort care. (1) Sepsis Sepsis type: sepsis due to unspecified organism Qualified Code(s): A41.9 - Sepsis, unspecified organism
[2018-06-03] MEDS: METHADONE HCL 10 MG TAB PO SCH ×3 (09:59→21:21)
--- NOTE | 2018-06-03 11:24 | Hospitalist Progress Note ---
Date of Service June 03, 2018 Assessment & Plan (1) Metastatic disease: Primary cancer of rectum with metastasis from rectum to other site: - Imaging showed progression of disease - Palliative care consulted, transitioned to comfort care. Patient did not want any further medical management. See palliative notes - Per palliative recommendations: continue home Methadone 10 mg TID, morphine gtt which is currently at 2.5 ml/hr, ativan IV prn q4h - Zofran prn N/V. - Colace 100 mg BID scheduled with Miralax prn constipation. - palliative care consulted Subjective Asleep, opens eyes to voice but does not respond to questions Physical Exam Physical Exam: General: no distress Respiratory: chest non tender, clear to auscultation, normal breath sounds, no respiratory distress, no accessory muscle use Cardiac: regular rate and rhythm, no rub or gallop, no murmur, no edema, no jvd GI/: hypoactive bowel sounds, soft, non distended Neuro/Psych: lethargic, does not respond to questions Skin: normal color, dry
[2018-06-03] MEDS: MoRPHine SULF/NSS 250 MG/250 ML BTL IV SCH (12:06)
[2018-06-04] MEDS: METHADONE HCL 10 MG TAB PO SCH ×3 (08:47→21:19)
--- NOTE | 2018-06-04 11:18 | Hospitalist Progress Note ---
Date of Service June 04, 2018 Assessment & Plan (1) Metastatic disease: Primary cancer of rectum with metastasis from rectum to other site: - Imaging showed progression of disease - Palliative care consulted, transitioned to comfort care. Patient did not want any further medical management. See palliative notes - Per palliative recommendations: continue home Methadone 10 mg TID, morphine gtt which is currently at 2.5 ml/hr, ativan IV prn q4h - Zofran prn N/V. - Colace 100 mg BID scheduled with Miralax prn constipation. - palliative care consulted Subjective Patient still opens eyes to name, but does not verbally respond. Does not follow commands. Physical Exam Physical Exam: General: no distress Respiratory: chest non tender, clear to auscultation, normal breath sounds, no respiratory distress, no accessory muscle use Cardiac: regular rate and rhythm, no rub or gallop, no murmur, no edema, no jvd GI/: active bowel sounds, no abd pain or tenderness, soft, non distended Neuro/Psych: lethargic, opens eyes but does not respond to questions Skin: normal color, dry
[2018-06-04] MEDS: MoRPHine SULF/NSS 250 MG/250 ML BTL IV SCH ×2 (11:45→20:59)
[2018-06-04] MEDS: LORazepam 1 MG/2 ML VIAL IV PRN (21:13)
[2018-06-05] MEDS: METHADONE HCL 10 MG TAB PO SCH ×3 (08:18→20:21)
--- NOTE | 2018-06-05 11:28 | Hospitalist Progress Note ---
Date of Service June 05, 2018 Assessment & Plan (1) Metastatic disease: Primary cancer of rectum with metastasis from rectum to other site: - Imaging showed progression of disease - Palliative care consulted, transitioned to comfort care. Patient did not want any further medical management. See palliative notes - Per palliative recommendations: continue home Methadone 10 mg TID, morphine gtt which is currently at 2.5 ml/hr, ativan IV prn q4h - Zofran prn N/V. - Colace 100 mg BID scheduled with Miralax prn constipation. - palliative care consulted - Chakraborty catheter as patient has sacral ulcer and cleaning her up after incontinence is causing her quite a bit of pain. Supervising Physician Co-Signing Physician Notes I supervised Debbi Kenney NP on the care of this patient. We discussed the patient's status and plan of care. The plan is as written in her note. Subjective Ms. Eastman appears comfortable. Shakes head when asked if she is in pain Physical Exam Physical Exam: General: no distress Respiratory: chest non tender, clear to auscultation, normal breath sounds, no respiratory distress, no accessory muscle use Cardiac: regular rate and rhythm, no rub or gallop, no murmur, no edema, no jvd Neuro/Psych: drowsy Skin: normal color, dry
[2018-06-05] MEDS: MoRPHine SULF/NSS 250 MG/250 ML BTL IV SCH (13:03)
[2018-06-05] MEDS: LORazepam 1 MG/2 ML VIAL IV PRN (22:34)
[2018-06-06] MEDS: METHADONE HCL 10 MG TAB PO SCH ×3 (09:34→22:10)
--- NOTE | 2018-06-06 10:39 | Palliative Care Progress Note ---
Date of Service June 06, 2018 Assessment & Plan (1) Hospice care patient: -62 year old female with metastatic rectal adenocarcinoma, end-stage, admitted under general inpatient hospice. -Morphine infusion was increased over the weekend and now is at 4.5mg/hr. Patient appears comfortable on this. Pt breathing appears comfortable. No real signs of mottling either. I would support her being stable for a transfer; however, this can change at any time. -Continue comfort measures; however, I was able to speak with Jennifer from [facility] who was in to see the patient as patient is showing increased cognition and ability to take medications, etc. will need to have continued conversations for possible discontinuation of GIP service and discuss placement options. -Case management following up with patient family as well to have further discussion. (2) Adenocarcinoma of rectum, stage 4: (3) Sepsis: Subjective Ms. Eastman appears comfortable. Shakes head when asked if she is in pain and was able to swallow approximately 150 ml of apple juice Review of Systems Review of Systems: Unobtainable due to cognitive status (Pt does express she does NOT have pain by shaking her head) Physical Exam Constitutional: + ill appearing, + frail appearing, cooperative and comfortable Eyes: PERRL, conjunctivae normal, anicteric sclerae ENMT: external ear and nose normal, oropharynx normal Neck: trachea midline, no thyromegaly Respiratory: normal respiratory effort and symmetric chest movement Auscultation: + diminished lung sounds Cardiovascular: Rate/Rhythm: regular rhythm Heart Sounds: normal S1 and normal S2 Gastrointestinal (Abdomen): normal bowel sounds, soft, nontender, no hepatosplenomegaly Skin: no rashes, warm and dry Psychiatric: Orientation: alert and oriented to person Supervising Physician Co-Signing Physician Notes Pt seen and examined, appears comfortable. no friends or family at bedside PE: NAD Resp: unlabored CV: tachycardic, decreased LE edema Abd: ostomies in place Skin: warm, not mottled Neuro: did not respond to voice or touch on exam this afternoon Agree with above note, assessment and plan as per PEPE Garnett - will cont to follow to assist with EOL care Time Spent Midlevel Total time spent 35 minutes with > 50% of that time spent assessing the patient, discussing symptom management with staff and Hospice nurse. (1) Sepsis Sepsis type: sepsis due to unspecified organism Qualified Code(s): A41.9 - Sepsis, unspecified organism
[2018-06-06] MEDS: MoRPHine SULF/NSS 250 MG/250 ML BTL IV SCH (12:35)
[2018-06-06] MEDS: LORazepam 1 MG/2 ML VIAL IV PRN (13:20)
--- NOTE | 2018-06-06 14:33 | Hospitalist Progress Note ---
Date of Service June 06, 2018 Assessment & Plan (1) Metastatic disease: - Primary cancer of rectum with metastasis from rectum to other site. Had progression of disease on imaging at admission, was converted to comfort care. - Palliative care following, appreciate input. - Continue Methadone 10 mg TID and Morphine drip for pain. - Ativan 1 mg IV q4hr prn anxiety/agitation. - Chakraborty catheter due to sacral ulcer. Dispo: GIP; will need to discuss home hospice vs. placement as pt. will not qualify for [facility] for extended period of time. Case management is following. Supervising Physician Co-Signing Physician Notes Attending Attestation - Chart reviewed, care plan d/w TANESHA Berry. I agree w/ the hilliard components of her documentation. Pt remains on [facility] Hospice for progressive stage 4 rectal cancer after presenting to [facility] well over 1 week ago with presumed septic shock and/or adrenal shock. Cont morphine infusion for pain control, ativan prn, etc. Appreciate palliative care team input. Oscar Merida MD Subjective Pt. is awake today, remains confused. Very limited review of systems obtained -- she denies shortness of breath or pain. On Morphine drip, palliative care following. Currently enrolled in [facility], may need to be discharged to home hospice if pt. remains awake with well controlled symptoms. Will need placement if family cannot provide 24 hour support. Review of Systems Review of Systems: Unobtainable due to cognitive status Physical Exam Physical Exam: General: Resting comfortably, in no distress. HEENT: NC/AT; PERRLA with EOMI; [place] conjunctiva, MMM. Neck: Supple and nontender Cardiac: RRR Lungs: CTA bilaterally Abdomen: Bowel normoactive X 4; Nontender to palpation Extremities: Warm. No edema present Neuro: No focal weakness Skin: No rash
[2018-06-07] MEDS: MoRPHine SULF/NSS 250 MG/250 ML BTL IV SCH (04:01)
[2018-06-07] MEDS: LORazepam 1 MG/2 ML VIAL IV PRN (09:42)
[2018-06-07] MEDS: METHADONE HCL 10 MG TAB PO SCH ×3 (09:44→21:57)
--- NOTE | 2018-06-07 13:22 | Hospitalist Progress Note ---
Date of Service June 07, 2018 Assessment & Plan (1) Metastatic disease: - Primary cancer of rectum with metastasis from rectum to other site. Had progression of disease on imaging at admission, was converted to comfort care. - Palliative care following, appreciate input. - Continue Methadone 10 mg TID and Morphine drip for pain. - Ativan 1 mg IV q4hr prn anxiety/agitation. - Chakraborty catheter due to sacral ulcer. Dispo: GIP; will need to discuss home hospice with her sister as pt. will not qualify for [facility] for extended period of time. Case management has attempted to contact her sister. Supervising Physician Co-Signing Physician Notes Attending Attestation - Chart reviewed, care plan d/w TANESHA Berry. I agree w/ the hilliard components of her documentation. Pt remains on GIP Hospice for progressive stage 4 rectal cancer after presenting to [facility] well over 1 week ago with presumed septic shock and/or adrenal shock. Cont morphine infusion for pain control, ativan prn, etc. Appreciate palliative care team input. She remains confused but comfortable. Home with hospice? SNF with hospice? appreciate SW assistance. Oscar Merida MD Subjective Pt. is stable overall. Is awake today, appears mildly agitated. Denies pain or SOB. money manager has been attempting to contact her sister (POA) regarding home hospice. Review of Systems Review of Systems: Unobtainable due to cognitive status Physical Exam Physical Exam: General: Resting comfortably, in no distress. HEENT: NC/AT; PERRLA with EOMI; [place] conjunctiva, MMM. Neck: Supple and nontender Cardiac: RRR Lungs: CTA bilaterally Abdomen: Bowel normoactive X 4; Nontender to palpation Extremities: Warm. No edema present Neuro: No focal weakness Skin: No rash
--- NOTE | 2018-06-07 13:46 | Palliative Care Progress Note ---
Date of Service June 07, 2018 Assessment & Plan (1) Hospice care patient: -62 year old female with metastatic rectal adenocarcinoma, end-stage, admitted under general inpatient hospice. -Morphine infusion at 4.5mg/hr. Patient appears comfortable on this. They did have to increase it over the weekend. -Patient seems to be more awake and comfortable. Stable for transfer out of the hospital at this time. Of course, this is subject to change quickly, but today patient is well-controlled on her current morphine dosing and is awake. -Attempted to call patient's sister/POA, Randa, but no answer and no voicemail option. Case management has been trying to reach her as well. -Will continue to follow. Hospice is on board as well. (2) Adenocarcinoma of rectum, stage 4: (3) Sepsis: Subjective Celestina is more awake today. No s/s distress or pain. Review of Systems Review of Systems: Celestina denies pain, but is not able to provide full ROS. Physical Exam Constitutional: + ill appearing; no acute distress ENMT: external ear and nose normal, oropharynx normal Mouth: + dry oral mucous membranes Neck: normal visual inspection Respiratory: normal respiratory effort, lungs clear to auscultation Auscultation: + diminished lung sounds Cardiovascular: Rate/Rhythm: regular rate and regular rhythm Extremities: + edema (improved) Gastrointestinal (Abdomen): Inspection/Auscultation: normal bowel sounds; abdomen not distended Percussion/Palpation: abdomen soft Skin: + mottling (BL knees, but mottling is improved ) Neurologic: moves all extremities and awake Psychiatric: Orientation: oriented to person Time Spent Midlevel 25 minutes with >50% of time spent at bedside with patient and nursing staff discussing plan of care and comfort measures. (1) Sepsis Sepsis type: sepsis due to unspecified organism Qualified Code(s): A41.9 - Sepsis, unspecified organism
[2018-06-08] MEDS: LORazepam 1 MG/2 ML VIAL IV PRN ×2 (05:50→19:43)
[2018-06-08] MEDS: METHADONE HCL 10 MG TAB PO SCH ×3 (10:29→21:40)
--- NOTE | 2018-06-08 11:16 | Hospitalist Progress Note ---
Date of Service June 08, 2018 Assessment & Plan (1) Metastatic disease: - Primary cancer of rectum with metastasis from rectum to other site. Had progression of disease on imaging at admission, was converted to comfort care. - Palliative care following, appreciate input. - Patient is slightly more lethargic today but remains awake, is taking PO meds and eating as tolerated. - Continue Methadone 10 mg TID and Morphine drip for pain. - Ativan 1 mg IV q4hr prn anxiety/agitation. - Chakraborty catheter due to sacral ulcer. Dispo: GIP; will discuss home hospice with her sister. Case management has attempted to contact her sister on multiple occasions. Supervising Physician Co-Signing Physician Notes PA Supervision Note: I did not personally see or examine the patient today, but I verified all hilliard points of TANESHA Duran's assessment and plan with the following exceptions/additions: None Subjective Pt is stable. She has increased lethargy today, is not responding to questions. She will shake her head yes or no -- denied pain or SOB. manufacturing manager has been attempting to contact her sister to discuss home hospice. Review of Systems Review of Systems: Unobtainable due to cognitive status Physical Exam Physical Exam: General: Resting comfortably, in no distress. HEENT: NC/AT; PERRLA with EOMI; [place] conjunctiva, MMM. Neck: Supple and nontender Cardiac: RRR Lungs: Diminished throughout Abdomen: Bowel normoactive X 4; Nontender to palpation Extremities: Warm. Mild bilat upper extremity edema noted. Neuro: No focal weakness Skin: No rash
[2018-06-08] MEDS: MoRPHine SULF/NSS 250 MG/250 ML BTL IV SCH (11:17)
--- NOTE | 2018-06-08 12:46 | Palliative Care Progress Note ---
Date of Service June 08, 2018 Assessment & Plan (1) Hospice care patient: -62 year old female with metastatic rectal adenocarcinoma, end-stage, admitted under general inpatient hospice. -Morphine infusion at 4.5mg/hr. Patient appears comfortable on this. -Patient continues to open eyes and answer some questions. She denies pain or discomfort today. -Mottling is gone. Patient stable for transfer out of hospital. I called patient's sister, Randa, several times. No answer and no voicemail option. No family present this morning in room. -Will continue to follow as needed. (2) Adenocarcinoma of rectum, stage 4: (3) Sepsis: Review of Systems Review of Systems: Patient denies pain, SOB, nausea. Physical Exam Constitutional: + ill appearing; no acute distress ENMT: external ear and nose normal, oropharynx normal Mouth: + dry oral mu cous membranes Neck: normal visual inspection Respiratory: normal respiratory effort, lungs clear to auscultation Auscultation: + diminished lung sounds Cardiovascular: Rate/Rhythm: regular rate and regular rhythm Extremities: + edema (improved) Gastrointestinal (Abdomen): Inspection/Auscultation: normal bowel sounds; abdomen not distended Percussion/Palpation: abdomen soft Neurologic: moves all extremities and awake Psychiatric: Orientation: oriented to person Time Spent Midlevel 25 minutes with >50% of time spent at bedside with patient, case planner, and hospice nurse discussing care and plan. (1) Sepsis Sepsis type: sepsis due to unspecified organism Qualified Code(s): A41.9 - Sepsis, unspecified organism
[2018-06-09] MEDS: METHADONE HCL 10 MG TAB PO SCH ×3 (10:51→20:33)
[2018-06-09] MEDS: MoRPHine SULF/NSS 250 MG/250 ML BTL IV SCH (12:49)
[2018-06-09] MEDS ORDERED: ATROPINE SULFATE 1% OP SOLN 5 ML BTL SL PRN (13:03)
--- NOTE | 2018-06-09 13:03 | Palliative Care Progress Note ---
Date of Service June 09, 2018 Assessment & Plan (1) Hospice care patient: -62 year old female with metastatic rectal adenocarcinoma, end-stage, admitted under general inpatient hospice. -Morphine infusion at 4.5mg/hr. Patient appears comfortable on this. -A little more lethargic today. Opens eyes but did not answer questions. -Apparently hospice is meeting with patient's family this evening to decide whether or not she needs to go home or to a facility to continue hospice care. -Patient having more moist secretions today. Scopolamine patch and atropine drops added. (2) Adenocarcinoma of rectum, stage 4: (3) Sepsis: Subjective patient a little more lethargic today. Still opens eyes at times but no response. No family at bedside. Review of Systems Review of Systems: Unobtainable due to cognitive status Physical Exam Constitutional: + ill appearing; no acute distress ENMT: external ear and nose normal, oropharynx normal Mouth: + dry oral mucous membranes Neck: normal visual inspection Respiratory: normal respiratory effort, lungs clear to auscultation Auscultation: + diminished lung sounds Cardiovascular: Rate/Rhythm: regular rate and regular rhythm Extremities: + edema (improved) Gastrointestinal (Abdomen): Inspection/Auscultation: normal bowel sounds; abdomen not distended Percussion/Palpation: abdomen soft Skin: + mottling (BL knees) Neurologic: moves all extremities and awake Supervising Physician Co-Signing Physician Notes Patient seen and examined this afternoon, no friends or family at bedside. PE: Patient did not respond to voice or touch, appears comfortable Respirations: Unlabored, on room air CV: Tachycardic Extremities: No mottling on exam, warm to touch Agree with above note Assessment and plan as per PEPE Garnett -will continue to follow for end-of-life care Time Spent Midlevel 25 minutes with >50% of time spent at bedside with patient and nursing staff discussing comfort/symptom care. (1) Sepsis Sepsis type: sepsis due to unspecified organism Qualified Code(s): A41.9 - Sepsis, unspecified organism
[2018-06-09] MEDS: SCOPOLAMINE 1.5 MG TDSY TD SCH (13:05)
--- NOTE | 2018-06-09 14:06 | Hospitalist Progress Note ---
Date of Service June 09, 2018 Assessment & Plan (1) Metastatic disease: - Primary cancer of rectum with metastasis from rectum to other site. Had progression of disease on imaging at admission, was converted to comfort care. - Palliative care following, appreciate input. - Patient is more lethargic today but appears comfortable. - Continue Methadone 10 mg TID and Morphine drip for pain. - Ativan 1 mg IV q4hr prn anxiety/agitation. - Chakraborty catheter due to sacral ulcer. Dispo: GIP; family is meeting with hospice agency tonight to discuss discharge planning. Supervising Physician Co-Signing Physician Notes PA Supervision Note: I did not personally see or examine the patient today, but I verified all hilliard points of [place] Duran's assessment and plan with the following exceptions/additions: None Subjective Pt. is lethargic, does not respond to questions but will open eyes. Appears comfortable. Review of Systems 2 Review of Systems: Unobtainable due to cognitive status Physical Exam Physical Exam: General: Resting comfortably. Cardiac: RRR Lungs: Diminished throughout Abdomen: Bowel normoactive X 4; Nontender to palpation Extremities: Warm. No edema noted. Neuro: No focal weakness; opens eyes to verbal stimuli. Skin: No rash
[2018-06-09] MEDS: CHECK SCOPOLAMINE PATCH PLACEMENT SCH ×2 (15:35→23:33)
[2018-06-10] MEDS: METHADONE HCL 10 MG TAB PO SCH ×3 (07:18→21:02)
[2018-06-10] MEDS: CHECK SCOPOLAMINE PATCH PLACEMENT SCH ×2 (07:18→16:28)
--- NOTE | 2018-06-10 09:35 | Palliative Care Progress Note ---
Date of Service June 10, 2018 Assessment & Plan (1) Hospice care patient: -62 year old female with metastatic rectal adenocarcinoma, end-stage, admitted under general inpatient hospice. -Morphine infusion increased to 5mg/hr. Patient appears comfortable on this. -A little more lethargic today. Opens eyes but did not answer questions. -Hospice and hospitalist met with osiris's POA/sister Randa last evening. If patient rallies again over the weekend and is stable, may go to SNF for hospice care next week. -With patient's decline again today, uncertain if she will be able to transfer anywhere. -Continue with comfort measures. (2) Adenocarcinoma of rectum, stage 4: (3) Sepsis: Subjective patient a little more lethargic today. Still opens eyes at times but no response. No family at bedside. Physical Exam Constitutional: + ill appearing; no acute distress ENMT: external ear and nose normal, oropharynx normal Mouth: + dry oral mucous membranes Neck: normal visual inspection Respiratory: normal respiratory effort, lungs clear to auscultation Auscultation: + diminished lung sounds Cardiovascular: Rate/Rhythm: regular rate and regular rhythm Gastrointestinal (Abdomen): Inspection/Auscultation: normal bowel sounds; abdomen not distended Percussion/Palpation: abdomen soft Neurologic: more lethargic Supervising Physician Co-Signing Physician Notes Patient seen and examined, patient's friend at bedside. Patient appears comfortable, no acute distress. PE: Neck hyperextended Respirations: Unlabored CV: Tachycardic Abdomen: No grimace on palpation Extremities: Edema decreasing,' Skin: Warm, no mottling Agree with above note, assessment and plan as per PEPE Garnett -spent time at bedside with friend discussing end-of-life issues and assessing patient's comfort. Time Spent Midlevel 15 minutes with >50% of time spent at bedside with patient and nursing staff discussing comfort/symptom care. Attending Time spent 30 minutes in addition to above 15 minutes spent by PEPE Garnett for a total of 45 minutes with greater than 50% of the time spent at bedside providing emotional support and discussing end-of-life issues (1) Sepsis Sepsis type: sepsis due to unspecified organism Qualified Code(s): A41.9 - Sepsis, unspecified organism
[2018-06-10] MEDS: MoRPHine SULF/NSS 250 MG/250 ML BTL IV SCH (10:28)
--- NOTE | 2018-06-10 11:37 | Hospitalist Progress Note ---
Date of Service June 10, 2018 Assessment & Plan (1) Metastatic disease: - Primary cancer of rectum with metastasis from rectum to other site. Had progression of disease on imaging at admission, was converted to comfort care. - Palliative care following, appreciate input. - Patient is obtunded, not responsive to verbal stimuli. - Continue Methadone 10 mg TID and Morphine drip for pain. - Ativan 1 mg IV q4hr prn anxiety/agitation. - Chakraborty catheter due to sacral ulcer. Dispo: GIP; plan for discharge on Wednesday to SNF if she is medically stable. Supervising Physician Co-Signing Physician Notes PA Supervision Note: I did not personally see or examine the patient today, but I verified all hilliard points of TANESHA Duran's assessment and plan with the following exceptions/additions: None Subjective Pt. is obtunded, does not respond to verbal stimuli. Appears comfortable. Had family meeting with her sister and hospice nurse/social scientist last evening. Plan for discharge to SNF on Wednesday if pt. is medically stable for transport. Will monitor over weekend and re-evaluate on Wednesday. Family would like [facility] if possible. Review of Systems Review of Systems: Unobtainable due to cognitive status Physical Exam Physical Exam: General: Resting comfortably. Cardiac: RRR Lungs: Diminished throughout Abdomen: Bowel normoactive X 4; Nontender to palpation Extremities: Warm. No edema noted. Neuro: No focal weakness; obtunded. Skin: No rash
[2018-06-11] MEDS: CHECK SCOPOLAMINE PATCH PLACEMENT SCH ×3 (00:43→15:11)
[2018-06-11] MEDS: METHADONE HCL 10 MG TAB PO SCH ×4 (08:11→20:01)
--- NOTE | 2018-06-11 13:33 | Hospitalist Progress Note ---
Date of Service June 11, 2018 Assessment & Plan (1) Metastatic disease: - Primary cancer of rectum with metastasis from rectum to other site. Had progression of disease on imaging at admission, was converted to comfort care. - Palliative care following, appreciate input. - Patient is lethargic, unchanged over last 24 hours. - Continue Methadone 10 mg TID (can crush med and absorb via oral mucosa) and Morphine drip for pain. - Ativan 1 mg IV q4hr prn anxiety/agitation. - Chakraborty catheter due to sacral ulcer. Dispo: GIP; plan for discharge on Wednesday to SNF if she is medically stable. Supervising Physician Co-Signing Physician Notes PA Supervision Note: I did not personally see or examine the patient today, but I verified all hilliard points of TANESHA Duran's assessment and plan with the following exceptions/additions: None Subjective Pt. opens eyes to verbal stimuli today. Appears comfortable. Review of Systems Review of Systems: Unobtainable due to cognitive status Physical Exam Physical Exam: General: Resting comfortably. Cardiac: RRR Lungs: Diminished throughout Abdomen: Bowel normoactive X 4; Nontender to palpation Extremities: Warm. +2 LLE edema, no RLE noted. Neuro: No focal weakness; opens eyes to verbal stimuli. Skin: No rash
[2018-06-11] MEDS: MoRPHine SULF/NSS 250 MG/250 ML BTL IV SCH (14:54)
[2018-06-12] MEDS: CHECK SCOPOLAMINE PATCH PLACEMENT SCH ×4 (00:58→23:35)
[2018-06-12] MEDS: METHADONE HCL 10 MG TAB PO SCH ×3 (10:14→20:40)
[2018-06-12] MEDS: SCOPOLAMINE 1.5 MG TDSY TD SCH (11:47)
--- NOTE | 2018-06-12 13:31 | Hospitalist Progress Note ---
Date of Service June 12, 2018 Assessment & Plan (1) Metastatic disease: - Primary cancer of rectum with metastasis from rectum to other site. Had progression of disease on imaging at admission, was converted to comfort care. - Palliative care following, appreciate input. - Patient is obtunded. - Continue Methadone 10 mg TID (can crush med and absorb via oral mucosa) and Morphine drip for pain. - Ativan 1 mg IV q4hr prn anxiety/agitation. - Chakraborty catheter due to sacral ulcer. Dispo: GIP; plan for possible discharge on Wednesday to SNF if she is medically stable. Family would prefer [facility]. Supervising Physician Co-Signing Physician Notes PA Supervision Note: I did not personally see or examine the patient today, but I verified all hilliard points of TANESHA Duran's assessment and plan with the following exceptions/additions: None Subjective Pt. is obtunded. Morphine drip increased to 6 mg/hr as pt was moaning, now improved. Review of Systems Review of Systems: Unobtainable due to cognitive status Physical Exam Physical Exam: General: Resting comfortably. Cardiac: RRR Lungs: Diminished throughout Abdomen: Bowel normoactive X 4; Nontender to palpation Extremities: Warm. +2 LLE edema with mottling noted, no RLE edema. Neuro: No focal weakness; opens eyes to verbal stimuli. Skin: No rash
[2018-06-12] MEDS ORDERED: GLYCOPYRROLATE 0.2 MG/ML VIAL IV PRN (16:16)
[2018-06-12] MEDS ORDERED: MoRPHine SULFATE 2 MG/ML CARP IV PRN (17:45)
[2018-06-12] MEDS ORDERED: MoRPHine SULFATE 2 MG/ML CARP ONE (17:54)
[2018-06-13] MEDS: MoRPHine SULF/NSS 250 MG/250 ML BTL IV SCH (04:34)
[2018-06-13] MEDS: METHADONE HCL 10 MG TAB PO SCH ×2 (07:40→07:47)
[2018-06-13] MEDS: CHECK SCOPOLAMINE PATCH PLACEMENT SCH ×2 (07:47→15:50)
--- NOTE | 2018-06-13 11:14 | Palliative Care Progress Note ---
Date of Service June 13, 2018 Assessment & Plan (1) Hospice care patient: -62 year old female with metastatic rectal adenocarcinoma, end-stage, admitted under general inpatient hospice. -Morphine infusion increased to 5mg/hr. Patient appears comfortable on this. -Less responsive today and was completed obtunded during my visit. Nursing states she did open her eyes last night, but no response today. -LLE is edematous and mottled. -Periods of apnea. -Morphine has been increased to 7mg/hr. -[facility] does not have any beds available and I do not anticipate that this patient will be able to be transferred. Will continue to follow. Subjective Ms Jaren is less responsive today and was completed obtunded during my visit. Nursing states she did open her eyes last night, but no response today. LLE is edematous and mottled. Periods of apnea. Morphine has been increased to 7mg/hr. Review of Systems Review of Systems: Unobtainable due to cognitive status and Unobtainable due to reduced consciousness Physical Exam Constitutional: + ill appearing; no acute distress ENMT: Mouth: + dry oral mucous membranes Neck: normal visual inspection Respiratory: normal respiratory effort, lungs clear to auscultation Auscultation: + diminished lung sounds Cardiovascular: Rate/Rhythm: regular rate and regular rhythm Extremities: + edema (left leg) Gastrointestinal (Abdomen): Inspection/Auscultation: abdomen not distended Percussion/Palpation: abdomen soft Skin: + mottling (LLE) Neurologic: + obtunded Supervising Physician Co-Signing Physician Notes Patient seen and examined, no family or friends at bedside. Patient appears comfortable, on morphine drip at 6 mg/h. Urine output decreasing due to no p.o. intake. PE: Patient opens eyes briefly, appears comfortable Respirations: Unlabored CV: Tachycardic Extremities: Increased swelling left lower extremity Skin: Knees mottled, extremities warm Neuro: Minimally responsive Agree with above note, assessment and plan as per PEPE Garnett-we will continue to follow Discussed with nursing using PRN Ativan more often to minimize morphine use. At current rate and with decreased urine output patient is at risk for opioid toxic ity exhibited by myoclonic jerks or expiratory moaning Time Spent Midlevel 15 minutes with >50% of time spent at bedside with patient and nursing staff to discuss BILL PEDDLER and EOL care.
--- NOTE | 2018-06-13 13:02 | Hospitalist Progress Note ---
Date of Service June 13, 2018 Assessment & Plan (1) Metastatic disease: - Primary cancer of rectum with metastasis from rectum to numerous sites. Had progression of disease on imaging at admission, was converted to comfort care. - Patient is obtunded with no response to verbal or tactile stimulation at this time. She is tachycardic on examination and having moments of apnea; appears comfortable - Maintain morphine gtt and increase for signs of distress; Ativan PRN; Scopolamine; Methadone if able to dissolve - Palliative care following - appreciate input Disposition: [facility]; [facility] currently without beds however not certain if she will be able to transfer and may need to remain in-house Subjective Pt appears comfortable. Apparently was opening eyes overnight to tactile stimulation however unable to reproduce this during my visit. She is experiencing moments of apnea and is tachycardic on examination. She has mottled and edematous lower extremities. Morphine gtt currently at 7. Anticipate patient will not be able to transfer and likely could pass in the next 1-2 days Review of Systems Review of Systems: Unobtainable due to cognitive status Physical Exam Constitutional: no acute distress Neck: trachea midline Respiratory: no respiratory distress Auscultation: + diminished lung sounds moments of apneic breathing Cardiovascular: Rate/Rhythm: regular rhythm and + tachycardic Chest (Breasts): Chest: + vascular access device or port Gastrointestinal (Abdomen): Inspection/Auscultation: normal bowel sounds (slightly hypoactive) ostomy Musculoskeletal: Head/Neck/Chest: normocephalic and head atraumatic extremities with mottling and pitting edema Psychiatric: obtunded
--- NOTE | 2018-06-13 18:59 | Death Summary ---
Date of Service June 13, 2018 Pronouncement Note Date and Time of Date of : 06/13/18 Time of : 17:55 PCOD Preliminary cause of : Metastatic carcinoma Contributing Factors (1) Hospice care patient: Summary Additional details: ADMISSION: Mrs. Eastman is a 62 year old female with past medical history of rectal cancer with liver, lung and pulm metastases, HTN, chronic pain, anemia, DM type II who presented for admission with weakness/fatigue and hypotension. She has been re-admitted multiple times over the last 3 months for similar symptoms. Pt. was most recently discharged to [facility] on 05/24/18 for PT/OT. She presented to the ER with generalized symptoms but was found to be hypotensive with SBP 70-80's. She reported feeling "pretty good" and denied significant pain. She denied URI symptoms, chest pain, SOB, LE edema. Denied N/V, abd pain, diarrhea or constipation. Lab work showed acute anemia -- 1 unit pRBC ordered. She received 2.5L NS in the ER with no improvement in hypotension. Code status was discussed with her -- pt. was DNR/DNI but agreed to pressor support in the ICU if necessary. HOSPITAL COURSE: Ms. Eastman was admitted for hypotension that was suspected to be related to possible septic shock from UTI source vs adrenal insufficiency vs other. She did not initially respond to aggressive IVF replacement but ultimately did not want to transfer to the ICU for pressor support. Multiple discussions were had with patient, family, primary service, and palliative care team that the patient's wishes were to be comfort measures only with the knowledge of pending . She was transfused 1 unit PRBC due to acute on chr onic anemia prior to this conversion. She was initially treated with PRN dosing of pain medications and methadone. Comfort measures only enacted on 05/27 with conversion to inpatient hospice on 05/31. Ultimately a morphine gtt was started and titrated for comfort. Ms. Eastman become more unresponsive over the preceding days. On 06/13 she was obtunded and exhibiting increasing apneic spells and tachycardia on examination. Ms. Eastman ceased to breath on 06/13/18 at 1755. Additional Data Confirmation of : no pulse, no respirations, no heart sounds and pupils fixed and dilated Family: at bedside Attending/PCP notified?: Yes Attending physician: Sukh Hanson, DO Was code activated?: No Autopsy requested?: No
== END 2018-06-13 23:30 | disposition expired | DRG 951 ==
LOC: 4E 19:20 → SUATTDRO 19:20